=== PATIENT | female | born 1960 ===

== ENCOUNTER 2016-08-27 09:47 | Day surgery (SDC) | payer OTHER ==
[2016-08-26 12:19] VITALS: BMI 29.8
[2016-08-27] MEDS ORDERED: Bacitracin Ointment 30 GM TUBE ONE (10:29)
[2016-08-27] MEDS ORDERED: ceFAZolin IV 1 gm in Dextrose 50 ML IVPB ONE ×2 (10:30→11:13)
[2016-08-27] MEDS ORDERED: Absorbable Gelatin Sponge Size 12-7 ONE (10:30)
[2016-08-27] MEDS ORDERED: Rocuronium 10 mg/ml (5 ml) ONE (11:14)
[2016-08-27] MEDS ORDERED: Midazolam 2 MG/2 ML VIAL ONE (11:14)
[2016-08-27] MEDS ORDERED: Propofol 10 mg/ml Inj (20 ML) ONE (11:14)
[2016-08-27] MEDS ORDERED: Lactated Ringer's 1,000 ML IV ONE ×4 (11:15→16:00)
--- NOTE | 2016-08-27 15:44 | PCM.SURG1 ---
Surgeon's Initial Post Op Note - Surgeon's Notes Surgeon: Dr. Conchita M.D. Heavy Equipment Service Manager: Dr. Horn PGY-2 Type of Anesthesia: General Endo Pre-Operative Diagnosis: absent bilateral breast s/p mastectomy Operative Findings: see operative report Post-Operative Diagnosis: absent bilateral breast s/p mastectomy Operation Performed: Bilateral breast implant insertion, extensive bilateral breast revision, scar revision, breast capsulectomy, capsulotomy Specimen/Specimens Removed: breast capsule, bilateral breast tissue expanders Estimated Blood Loss: EBL {In ML}: 100 Blood Products Given: N/A Drains Used: Dejon (Right and left) Post-Op Condition: Good Date of Surgery/Procedure: 08/27/16 Time of Surgery/Procedure: 11:00
[2016-08-27] MEDS: HYDROmorphone 0.5 mg/0.5 ml ISec IVP PRN ×3 (15:47→16:55)
[2016-08-27] MEDS ORDERED: Oxycodone/Acetaminophen 5/325 mg Tab PO PRN (15:49)
[2016-08-27 18:36] VITALS: TEMP 97.4; O2SAT 99
[2016-08-27 18:49] VITALS: BP 105/68; PULSE 99; RESP 18
--- NOTE | 2016-08-29 22:08 | OP ---
PROCEDURE DATE: 08/27/2016 SURGEON: Renée Arango M.D. SCHOOL COOK: Dr. Hui Horn. PREOPERATIVE DIAGNOSIS: Bilateral absent breasts with history of breast cancer , lobular invasive. POSTOPERATIVE DIAGNOSIS: Bilateral absent breasts with history of breast cancer , lobular invasive. ANESTHESIA: General endotracheal anesthesia. PROCEDURE: Removal of tissue proofing machine operator, placement of bilateral permanent breast implants, extensive breast reconstruction, revision of the left side with raising of the inframammary fold, closure of the lateral capsule, extensive undermining and bilateral capsulectomies of both cavities, removal of excess lateral fat and skin tissue from the right side. ESTIMATED BLOOD LOSS: 150 mL. IMPLANTS: 500 cc Silicone implants were inserted. On the right side, reference #[id number] implant was inserted. On the left side #[id number] implant was inserted. COUNT: Lap, sponge and needle count were correct at the end of the case. CONDITION: The patient was stable upon discharge to recovery. INDICATIONS FOR SURGERY: The patient is a 56-year-old female who initially underwent a breast reduction when she was found to have invasive lobular carcinoma to both breasts. She underwent mastectomy with tissue proofing machine operator placement. She underwent chemo and radiation is now here for her second stage breast reconstruction. Preoperatively, she was marked with the patient standing. The inframammary fold was noted to be 2 cm lower on the right side compared to the left. This was marked with respect to the chest wall and with respect to the sternal notch as a reference. She was then brought into the operating room and laid supine on the operating room table. Once general anesthesia was induced, the patient's chest was prepped and draped in the usual sterile fashion. Beginning with the right side, a lower midline incision was used where the previous wide pattern breast reduction incision was made. This allowed for easy access to the inferior aspect of the capsule which needed to be raised 2 cm. Using electrocautery and a lighted retractor the dorsal capsule was scored significantly and portions of the capsule were actually removed in order to allow for the chest skin fascial flap to expand. Her pectoralis minor muscle was densely adhered to the pectoralis major muscle and the 2 muscles needed to be and the pectoralis minor re-tacked down to the chest wall. The same occurred on the left side when this was explored, although the left side did not require revision or repositioning of the inframammary fold. Then 500 mL implants sizers were used which filled out the pocket well. Additional scoring was done in the midline for the T vertical incision where scar tissue again prevented natural stretch over the implant. The lateral aspect of the left capsule was excised and a crescent 2 cm at its width and 9 cm long along the lateral border. This was closed using 2-0 PDS in a running cuticular manner. Again, the sizes were replaced and the patient was placed in a sitting position to check for symmetry as well as volume. Additional scoring of the capsule was performed until both sides were satisfactory. The inframammary fold was likewise elevated to the same size. Laterally on the left side, there was significant tethering of the lateral skin fold and this was excised as a separate incision, leaving a 2 cm area of the inframammary fold incision that was intact. The separate incision was mostly fat and subcutaneous tissue, but was removed as a separate incision. Finally 500 mL Natrelle silicone filled breast implants were placed into each of the breast after the pockets were irrigated copiously with normal saline and fresh towel was placed at the site. Then 2 RUDOLPH drains 19-Czech were placed exiting out laterally along the chest wall. The capsule was then closed using 2-0 Vicryl followed by 3-0 Monocryl to the deep dermis and lastly 4-0 Monocryl running subcuticular. On the left lateral chest wall the separate incision which was 4 cm in length was closed with 2-0 Vicryl to the fascia followed by 3- 0 Monocryl to the deep dermis and 4-0 Monocryl running subcuticular. All incisions were then covered with Dermabond. The drains were stitched in place with 3-0 nylon. The patient tolerated the procedure well. She was placed in a bra with fluffs and antibiotic cap around the drain site. She was extubated on the table, transferred to a stretcher and brought to recovery in stable condition. Renée Arango MD cc: [id number] TT: 08/29/2016 22:08:05 jn XU
== END 2016-08-27 18:50 | disposition home or self-care (01) ==
LOC: C.SDS 09:47
PROVIDERS: ATTEND Plastic Surgery Surgery of the Hand
DX: C50.112 Malignant neoplasm of central portion of left female breast (principal); C50.111 Malignant neoplasm of central portion of right female breast
CPT/HCPCS: 19340; 19371; 82948; 88305; 88307; J0131; J0690; J1170; J2001; J2250; J2405; J2704; J3010; J7030; J7120; P9047

== ENCOUNTER 2016-09-12 15:40 | Emergency (ER) | payer OTHER ==
[2016-09-12 15:45] VITALS: BMI 28.2
--- NOTE | 2016-09-12 16:23 | C.PDOC ---
History Of Present Illness 56-year-old female, PMHx includes Breast CA, s/p mastectomy 11/04. Pt had breast implants placed last month, and notes that at 14:00 today, she developed sudden onset blood and water drainage from right incision site, prompting visit. Denies fevers, abdominal pain, nausea/vomiting, shortness of breath, dizziness, weakness, or any other associated symptoms. No other complaints at this time. Time Seen by Provider: 09/12/16 15:58 Chief Complaint (Nursing): Abnormal Skin Integrity History Per: Patient History/Exam Limitations: no limitations Current Symptoms Are (Timing): Still Present Recent travel outside of the [place]: No Past Medical History Reviewed: Historical Data, Nursing Documentation, Vital Signs Vital Signs: Last Vital Signs Temp 98.5 F 09/12/16 17:55 Pulse 74 09/12/16 17:55 Resp 15 09/12/16 17:55 BP 108/71 09/12/16 17:55 Pulse Ox 95 09/12/16 17:55 - Medical History PMH: Anemia, Anxiety, Asthma, Depression, Gastritis, HTN, Hypercholesterolemia, Malignancy (breast ca), Migraine, Osteoporosis, Peripheral Edema, Sleep Apnea ( USES CPAP) Denies: Chronic Kidney Disease Surgical History: Endoscopy - [facility] Procedures LAPAROSCOPIC VERTICAL (SLEEVE) GASTRECTOMY (08/24/13) Family History: States: No Known Family Hx - Social History Hx Tobacco Use: No Hx Alcohol Use: No Hx Substance Use: No - Immunization History Hx Tetanus Toxoid Vaccination: Yes Hx Influenza Vaccination: Yes Hx Pneumococcal Vaccination: Yes Review Of Systems Except As Marked, All Systems Reviewed And Found Negative. Constitutional: Negative for: Fever Respiratory: Negative for: Shortness of Breath Gastrointestinal: Negative for: Nausea, Vomiting Genitourinary: Negative for: Vaginal Discharge, Vaginal Bleeding Musculoskeletal: Negative for: Back Pain Skin: Negative for: Rash Neurological: Negative for: Weakness, Numbness, Headache, Dizziness Physical Exam - Physical Exam Appears: Well, Non-toxic, No Acute Distress Skin: Normal Color, Warm, Dry, No Rash Head: Atraumatic, Normacephalic Eye(s): bilateral: Normal Inspection, PERRL, EOMI Nose: Normal Oral Mucosa: Moist Lips: Normal Appearing Neck: Normal ROM, Supple Lymphatic: Normal Exam Chest: Symmetrical, Other (serosanguinous drainage at incision site in right axilla. No erythema/tendernesss/swelling) Cardiovascular: Rhythm Regular, No Friction Rub, No Murmur Respiratory: Normal Breath Sounds, No Accessory Muscle Use, No Rales, No Rhonchi , No Wheezing Gastrointestinal/Abdominal: Soft, No Tenderness Back: Normal Inspection, No CVA Tenderness Extremity: Normal ROM, No Swelling Neurological/Psych: Oriented x3, Normal Speech, Normal Motor Gait: Steady ED Course And Treatment - Laboratory Results Result Diagrams: 09/12/16 17:03 09/12/16 17:03 O2 Sat by Pulse Oximetry: 96 (on RA) Pulse Ox Interpretation: Normal Medical Decision Making Medical Decision Making: The case was discussed with Dr. Arango (surgeon) who reports that the wound had a seroma, and was fluid filled. Most likely the seroma opened and starting draining blood and water. Dr. Arango states the patient is safe for discharge as there no evidence of cellulitis. Disposition - Disposition Referrals: Renée Arango MD [Staff Provider] - Disposition: HOME/ ROUTINE Disposition Time: 17:37 Condition: GOOD Additional Instructions: Follow up with the medical doctor within 1-2 days. Return of worsened. Prescriptions: Amoxicillin/Clavulanate [Augmentin 875 MG-125 MG] 1 tab PO BID #14 tab Acetaminophen [Tylenol] 325 mg PO Q6 PRN #30 tab PRN Reason: Pain, Mild (1-3) traMADol [Ultram] 50 mg PO Q6 PRN #15 tab PRN Reason: Pain Instructions: Hematoma (ED) Forms: General Discharge Instructions - Clinical Impression Clinical Impression: Seroma - Scribe Statement The provider has reviewed the documentation as recorded by the Jessica Dueñas All medical record entries made by the Pearlibmargaret were at my direction and personally dictated by me. I have reviewed the chart and agree that the record accurately reflects my personal performance of the history, physical exam, medical decision making, and the department course for this patient. I have also personally directed, reviewed, and agree with the discharge instructions and disposition.
[2016-09-12 17:14] LABS: BASO % 0.8 % (0.0-2.0); EOS # 0.3 K/uL (0.0-0.7); EOS % 4.7 % (0.0-4.0); HEMATOCRIT 31.4 % (34.0-47.0); LYMPH % 14.7 % (20.0-40.0); MEAN CORPUSCULAR HEMOGLOBIN 29.5 pg (27.0-31.0); MEAN CORPUSCULAR HGB CONC 33.7 g/dL (33.0-37.0); MEAN PLATELET VOLUME 6.9 fL (7.2-11.7); MONO # 0.8 K/uL (0.0-0.8); MONO % 12.9 % (0.0-10.0); RED CELL DISTRIBUTION WIDTH 14.8 % (11.5-14.5); WHITE BLOOD COUNT 6.5 K/uL (4.8-10.8)
[2016-09-12 17:16] LABS: MEAN CELL VOLUME 87.3 fL (81.0-99.0)
[2016-09-12 17:18] LABS: CHLORIDE 100 mmol/L (98-107); POTASSIUM 3.8 mmol/L (3.6-5.2); SODIUM 138 mmol/L (132-148)
[2016-09-12 17:20] LABS: GFR AFRICAN-AMERICAN > 60
[2016-09-12 17:21] LABS: BLOOD UREA NITROGEN 21 mg/dL (7-17); CALCIUM 8.6 mg/dl (8.6-10.4); CARBON DIOXIDE 28 mmol/L (22-30); GLUCOSE,RANDOM 96 mg/dL (65-105)
[2016-09-12 18:13] VITALS: BP 108/71; PULSE 74; RESP 15; TEMP 98.5
[2016-09-13 09:39] VITALS: O2SAT 96
== END 2016-09-12 18:12 | disposition home or self-care (01) ==
LOC: C.ER 15:40
DX: L76.34 Postprocedural seroma of skin and subcutaneous tissue following other procedure (principal); Y83.8 Other surgical procedures as the cause of abnormal reaction of the patient, or of later complication, without mention of misadventure at the time of the procedure

== ENCOUNTER 2016-10-03 11:25 | Inpatient (IN) | payer OTHER ==
[2016-10-03 11:44] VITALS: BMI 28.7
[2016-10-03 13:40] LABS: BASO % 0.5 % (0.0-2.0); EOS # 0.2 K/uL (0.0-0.7); EOS % 2.3 % (0.0-4.0); HEMATOCRIT 31.2 % (34.0-47.0); LYMPH # 0.9 K/uL (1.0-4.3); LYMPH % 11.6 % (20.0-40.0); MEAN CELL VOLUME 88.4 fL (81.0-99.0); MEAN CORPUSCULAR HGB CONC 32.9 g/dL (33.0-37.0); MEAN PLATELET VOLUME 7.2 fL (7.2-11.7); MONO # 0.8 K/uL (0.0-0.8); MONO % 10.4 % (0.0-10.0); NRBC % 0.1 % (0.0-2.0); RED CELL DISTRIBUTION WIDTH 14.7 % (11.5-14.5); WHITE BLOOD COUNT 7.8 K/uL (4.8-10.8)
[2016-10-03 13:54] LABS: CHLORIDE 97 mmol/L (98-107); POTASSIUM 4.3 mmol/L (3.6-5.2); SODIUM 133 mmol/L (132-148)
[2016-10-03 13:56] LABS: BILIRUBIN,TOTAL 0.1 mg/dL (0.2-1.3); GFR AFRICAN-AMERICAN > 60
[2016-10-03 13:57] LABS: ALB/GLOB RATIO 1.2 (1.0-2.1); ALKALINE PHOSPHATASE 56 U/L (38-126); ALT/SGPT 20 U/L (9-52); AST/SGOT 21 U/L (14-36); BLOOD UREA NITROGEN 18 mg/dL (7-17); CARBON DIOXIDE 25 mmol/L (22-30); GLUCOSE,RANDOM 93 mg/dL (65-105); TOTAL PROTEIN 6.8 g/dL (6.3-8.3)
[2016-10-03 13:58] LABS: CALCIUM 8.6 mg/dl (8.6-10.4)
--- NOTE | 2016-10-03 14:49 | C.PDOC ---
History Of Present Illness 56-year-old female presents to the emergency department with complaints of drainage from B/L breasts (L>R). She states this has been happening since her most recent reconstructive surgery; done by plastics Dr Arango. Patient given several rounds of Keflex by PMD, without improvement. Has not seen Dr. Arango this month. Patient denies fevers/chills, shortness of breath, chest pain, nausea/vomiting/diarrhea. No other complaints at this time. Time Seen by Provider: 10/03/16 12:05 Chief Complaint (Nursing): Breast Problem History Per: Patient History/Exam Limitations: no limitations Onset/Duration Of Symptoms: Days Current Symptoms Are (Timing): Still Present Severity: Moderate Past Medical History Reviewed: Historical Data, Nursing Documentation, Vital Signs Vital Signs: Last Vital Signs Temp 98.4 F 10/08/16 22:00 Pulse 82 10/08/16 22:00 Resp 16 10/08/16 22:00 BP 106/68 10/08/16 22:00 Pulse Ox 93 L 10/08/16 15:00 - Medical History PMH: Anemia, Anxiety, Asthma, Depression, Gastritis, HTN, Hypercholesterolemia, Malignancy (breast ca), Migraine, Osteoporosis, Peripheral Edema, Sleep Apnea ( USES CPAP) Surgical History: Endoscopy - [facility] Procedures LAPAROSCOPIC VERTICAL (SLEEVE) GASTRECTOMY (08/24/13) Family History: States: No Known Family Hx - Social History Hx Tobacco Use: No Hx Alcohol Use: No Hx Substance Use: No - Immunization History Hx Tetanus Toxoid Vaccination: Yes Hx Influenza Vaccination: Yes Hx Pneumococcal Vaccination: Yes Review Of Systems Except As Marked, All Systems Reviewed And Found Negative. Constitutional: Negative for: Fever, Chills Cardiovascular: Negative for: Chest Pain, Palpitations Respiratory: Negative for: Cough, Shortness of Breath, Hemoptysis Gastrointestinal: Negative for: Nausea, Vomiting Skin: Positive for: Other (discharge from B/L breasts L>R). Negative for: Rash Neurological: Negative for: Weakness, Numbness Physical Exam - Physical Exam Appears: Well, Non-toxic, No Acute Distress Skin: Warm, Dry, No Rash Head: Normacephalic Eye(s): bilateral: Normal Inspection Oral Mucosa: Moist Neck: Normal, Normal ROM Cardiovascular: Rhythm Regular, Other (Left breast: 0.5cm opening and wound dehiscence with small amount of white serous discharge and mild surrounding erythema to the inferior aspect. Right Breast:? protruding plastic suture to the lateral aspect. No erythema.) Respiratory: Normal Breath Sounds, No Accessory Muscle Use, No Rales, No Rhonchi , No Wheezing Gastrointestinal/Abdominal: Normal Exam, Bowel Sounds, Soft, No Tenderness Extremity: Normal ROM Neurological/Psych: Oriented x3 ED Course And Treatment - Laboratory Results Result Diagrams: 10/08/16 11:24 10/08/16 11:24 O2 Sat by Pulse Oximetry: 98 (RA) Pulse Ox Interpretation: Normal Progress Note: Blood work, and wound/blood cultures ordered and reviewed. Patient given 1 dose of IV Vancomycin. - Physician Consult Information Physician Contacted: Amanda Mixon Outcome Of Conversation: Discussed patient with hospitalist, she agrees with admission for breast wound dehisence, post op wound infection, failure of outpatient antibiitocs. She requests breast US - ordered, and their service esteban follow results. Call placed to plastics Dr. Arango, pending call back - consult entered. Disposition Counseled Patient/Family Regarding: Diagnosis - Disposition Disposition: HOSPITALIZED Disposition Time: 18:31 Condition: STABLE - Clinical Impression Clinical Impression: Postoperative wound infection, Postoperative wound dehiscence, Failure of outpatient treatment - Scribe Statement The provider has reviewed the documentation as recorded by the Scribmargaret Dueñas All medical record entries made by the Scribe were at my direction and personally dictated by me. I have reviewed the chart and agree that the record accurately reflects my personal performance of the history, physical exam, medical decision making, and the department course for this patient. I have also personally directed, reviewed, and agree with the discharge instructions and disposition. Decision To Admit - Pt Status Changed To: Hospital Disposition Of: Inpatient - Admit Certification Admit to Inpatient:: After my assessment, the patient will require hospitalization for at least two midnights. This is because of the severity of symptoms shown, intensity of services needed, and/or the medical risk in this patient being treated as an outpatient. - InPatient: Physician Admission Certification: I certify that this patient requires 2 or more midnights of care for the following reason:: see notes - . Bed Request Type: Regular Admitting Physician: Amanda Mixon Patient Diagnosis: Postoperative wound infection, Postoperative wound dehiscence, Failure of outpatient treatment
[2016-10-03] MEDS ORDERED: Sodium Chloride 0.9% 500 ML IV ONE ×2 (18:23→19:36)
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
[2016-10-03] MEDS: (Novolog) Insulin Aspart, Recombinant 100 u/ml 10 ml vial SC SCH (22:33)
[2016-10-04 07:16] LABS: BASO % 0.7 % (0.0-2.0); EOS # 0.2 K/uL (0.0-0.7); EOS % 3.1 % (0.0-4.0); HEMATOCRIT 30.7 % (34.0-47.0); LYMPH # 0.8 K/uL (1.0-4.3); MEAN CORPUSCULAR HEMOGLOBIN 28.8 pg (27.0-31.0); MEAN CORPUSCULAR HGB CONC 32.7 g/dL (33.0-37.0); MEAN PLATELET VOLUME 7.3 fL (7.2-11.7); MONO # 0.7 K/uL (0.0-0.8); MONO % 11.3 % (0.0-10.0); RED CELL DISTRIBUTION WIDTH 14.3 % (11.5-14.5); WHITE BLOOD COUNT 6.1 K/uL (4.8-10.8)
[2016-10-04 07:35] LABS: CHLORIDE 101 mmol/L (98-107)
[2016-10-04] MEDS: (Novolog) Insulin Aspart, Recombinant 100 u/ml 10 ml vial SC SCH ×4 (07:35→21:18)
[2016-10-04 07:36] LABS: POTASSIUM 4.1 mmol/L (3.6-5.2); SODIUM 135 mmol/L (132-148)
[2016-10-04 07:37] LABS: GFR AFRICAN-AMERICAN > 60
[2016-10-04 07:38] LABS: ALB/GLOB RATIO 1.1 (1.0-2.1); ALKALINE PHOSPHATASE 52 U/L (38-126); ALT/SGPT 18 U/L (9-52); AST/SGOT 19 U/L (14-36); BILIRUBIN,TOTAL 0.6 mg/dL (0.2-1.3); BLOOD UREA NITROGEN 17 mg/dL (7-17); CARBON DIOXIDE 27 mmol/L (22-30); GLUCOSE,RANDOM 97 mg/dL (65-105); PHOSPHOROUS 3.6 mg/dL (2.5-4.5); TOTAL PROTEIN 6.4 g/dL (6.3-8.3)
[2016-10-04 07:39] LABS: CALCIUM 8.4 mg/dl (8.6-10.4); MAGNESIUM 2.1 mg/dL (1.6-2.3)
[2016-10-04 08:09] LABS: THYROID STIMULATING HORMONE 2.12 mIU/L (0.46-4.68)
--- NOTE | 2016-10-04 09:13 | RAD ---
HISTORY: baseline in case patient goes to OR COMPARISON: Comparison is made to the previous study dated 02/26/2016 FINDINGS: LUNGS: No active pulmonary disease. PLEURA: No significant pleural effusion identified, no pneumothorax apparent. CARDIOVASCULAR: Normal. OSSEOUS STRUCTURES: No significant abnormalities. VISUALIZED UPPER ABDOMEN: Normal. OTHER FINDINGS: Right-sided Infusaport is again seen in place. IMPRESSION: No active disease.
[2016-10-04] MEDS ORDERED: Dextrose 5%/0.45% NS 1,000 ML IV SCH (09:15)
--- NOTE | 2016-10-04 09:18 | CP.PCM.PN ---
Subjective - Date & Time of Evaluation Date of Evaluation: 10/04/16 Time of Evaluation: 09:15 - Subjective Subjective: Medical Attending Note Follow-up: Bilateral breast wound dehiscence, History of bilateral lobular carcinoma (On Chemo/Radiation), Hypertension, Diabetes, Insomnia, and Anxiety Patient seen, examined this morning. Patient reporting discharge over the right breast and left breast. No blood observed. Patient denies fever, denies chills, denies shortness of breathe, denies nausea, denies vomiting, denies abdominal pain, denies dysuria, denies urinary frequency. Patient reports her breast surgeon is on vacation in [place] and on vacation until next week. Patient has peripheral IV access over the right lower extremity. Objective - Vital Signs/Intake and Output Vital Signs (last 24 hours): Temp Pulse Resp BP Pulse Ox 98.2 F 81 20 105/68 95 10/04/16 07:58 10/04/16 07:58 10/04/16 07:58 10/04/16 07:58 10/04/16 07:58 Intake and Output: 10/04/16 10/04/16 06:59 18:59 Intake Total 0 Balance 0 - Medications Medications: Current Medications Dextrose/Sodium Chloride (Dextrose 5%/0.45% Ns 1000 Ml) 1,000 mls @ 100 mls/hr IV .Q10H [facility] Insulin Aspart (Novolog) 0 unit SC ACHS [facility] PRN Reason: Protocol Last Admin: 10/04/16 07:35 Dose: Not Given Morphine Sulfate (Morphine) 1 mg IVP Q4 PRN PRN Reason: Pain, moderate (4-7) Last Admin: 10/04/16 07:36 Dose: 1 mg Pantoprazole Sodium (Protonix Ec Tab) 40 mg PO DAILY [facility] Risperidone (Risperdal Tab) 1 mg PO DAILY [facility] Last Admin: 10/03/16 22:30 Dose: 1 mg Sertraline HCl (Zoloft) 100 mg PO DAILY [facility] Last Admin: 10/03/16 22:30 Dose: 100 mg - Labs Labs: 10/04/16 07:07 - Constitutional Appears: Non-toxic, No Acute Distress - Head Exam Head Exam: NORMAL INSPECTION - Eye Exam Eye Exam: EOMI - ENT Exam ENT Exam: Mucous Membranes Moist - Respiratory Exam Respiratory Exam: Clear to Ausculation Bilateral, NORMAL BREATHING PATTERN. absent: Rales, Rhonchi, Wheezes - Cardiovascular Exam Cardiovascular Exam: REGULAR RHYTHM, +S1, +S2 - GI/Abdominal Exam GI & Abdominal Exam: Soft, Normal Bowel Sounds. absent: Distended, Firm, Guarding, Rigid, Tenderness, Rebound - Extremities Exam Extremities Exam: absent: Pedal Edema, Tenderness - Neurological Exam Neurological Exam: Alert, Awake, Oriented x3 - Skin Skin Exam: Dry, Normal Color, Warm - Additional Findings Additional findings: Breasts Right breast: no nipple discharge at 7 oclock, clear/white discharge observed and some seperation observed Left breast: noted surgical scar over left breast and mild dehiscence under breast 6'oclock Assessment and Plan (1) Wound dehiscence Assessment & Plan: Bilateral breast wound dehiscence * History invasive breast cancer on chemo/radiation * s/p bilateral breast implant insertion, extensive bilateral breast revision, scar revision, breast capsulectomy, capsulotomy done 08/27/[address] Arango * f/u blood culture and wound culture of breast discharge * patient was given 1 dose vancomycin in ER * Morphine 1mg IVP Q4 PRN pain * f/u breast u/s-->pending report * Dr. Arango pastic surgeon consulted- f/u recommendations * Ordered for baseline EKG, coagulations Status: Acute (2) Invasive carcinoma of breast Assessment & Plan: Invasive bilateral Lobular Carcinoma of breast * Patient receives chemotherapy every week - 18 rounds left * Patient receives radiation every week - 22 rounds left * Morphine 1mg IVP Q4 PRN pain * Dr. Larry Garcia (heme-onc) consulted- f/u reccs * Port a cath over right breast (about one year duration) Status: Chronic (3) DM type 2 (diabetes mellitus, type 2) Assessment & Plan: Hx of DM tpe 2 * Accuchecks QAC and HS * low dose RISS * Started on D51/2 NS 75 cc/hr to prevent hypoglycemia pending if patient require intervention Status: Chronic (4) Hypertension Assessment & Plan: held anti-hypertensives D51/2NS 75 cc/hr Status: Chronic (5) Prophylactic measure Assessment & Plan: NPO IV fluids: D51/2NS 75 cc/hr Protonix 40mg PO daily for GI Ppx Held anticoagulation for possible OR today pending surgeon recommendations SCDS ordered Status: Acute
[2016-10-04] MEDS: Pantoprazole 40 mg EC Tab PO SCH (10:37)
--- NOTE | 2016-10-04 11:56 | US ---
PROCEDURE: Limited emergent ultrasound examination of the breast bilaterally HISTORY: evaluate for possible abscess COMPARISON: No prior similar study available for comparison. TECHNIQUE: Limited ultrasound examination of both breasts was performed as requested by emergency room to evaluate for abscess formation. FINDINGS: The patient is status post bilateral breast implants. At right breast 8- 9 o'clock position there is a complex collection measures 2.7 x 1 x 2.3 centimeter. At 4 o'clock position on the right breast also there is collection measures 1.4 x 0.7 x 1.1 centimeter. At the left breast 6 o'clock position there is complex collection measures 0.8 x 0.3 x 1.1 centimeter. IMPRESSION: Bilateral complex fluid collection adjacent to the breast implants as described above. The possibility of abscess formation cannot be totally excluded. Close follow-up reassessment is recommended. Surgical consultation is also recommended for the possibility of implant lymph aeration or drainage of the fluid collections. BI-RADS 2 benign. Preliminary report was submitted by [facility].
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
--- NOTE | 2016-10-04 14:06 | CP.PCM.PCO ---
Physician Communication Note - Physician Communication Note Physician Communication Note: Patient came to ER last night because of leaking and was admitted Assessment/Plan - Assessment and Plan (Free Text) Assessment: She says she was told she has an infection. She missed her office visit because she was unable to get a ride to the office. She is currently on no antibiotics. however I had given her a prescription for Augmentin on the last visit because of the seroma for precaution even though there was no cellulitis. Cultures were taken of the left breast yesterday which has gram positive cocci. U/S shows fluid collections PE: There is a 2 x 2mm opening on the lateral chest on the right, no opening to the IMF incision. On the left, there is a 2 mm x 3mm opening with alloderm exposed at the midline IMF incision. There is no cellulitis to either best. There is excess skin and fat with significant edema to both lateral chest wall area as there was after the initial mastectomy. Assessment: 56 year old female who underwent stage 2 of her breast reconstruction 1 month ago with persistent seroma accumulation to the subcutaneous breast and lateral chest wall pockets. There is no cellulitis. Plan: No plan for surgery emergently as there is no exposure of the implants. Will treat with antibiotics because of the open wound, seroma and location of implant. Will redo cultures of the seroma fluid as I suspect the first one is a skin julio césar contaminant. Wound VAC will be placed while in the hospital and convert to out patient VAC on Thursday. A surgical bra will be ordered. We discussed together with her son the need for compression to minimize the risk for seroma re-accumulation. The seroma may be reaccumulating because of the lymph node dissection changed in drainage. She had significant lymphedema to both lateral chest ruiz after the initial surgery which never completely resolved. She has lymphodystrophy to both chest ruiz but they could not be addressed at the time of the implant exchange completely because it extends onto her upper back. Because of complaints of chest wall pain, she underwent a c and t spine MRI which shows disc compression. The T spine compression may be the cause of the side chest wall pain. She will be set up with pain management as out patient in order to have spinal injections. If pain management is available as in patient, will order consult.
[2016-10-04] MEDS: Piperacill/Tazo 3.375gm in Dex 3.375 GM/50 ML BAG IVPB SCH ×2 (14:56→21:06)
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
[2016-10-04] MEDS: Budesonide 0.25 mg/2 ml Inhal Susp UD INH SCH (19:18)
[2016-10-05] MEDS: Piperacill/Tazo 3.375gm in Dex 3.375 GM/50 ML BAG IVPB SCH ×2 (02:05→10:51)
[2016-10-05 07:09] LABS: BASO % 0.5 % (0.0-2.0); EOS # 0.1 K/uL (0.0-0.7); EOS % 2.2 % (0.0-4.0); LYMPH % 15.8 % (20.0-40.0); MEAN CORPUSCULAR HEMOGLOBIN 28.9 pg (27.0-31.0); MEAN CORPUSCULAR HGB CONC 32.8 g/dL (33.0-37.0); MEAN PLATELET VOLUME 7.3 fL (7.2-11.7); MONO # 0.8 K/uL (0.0-0.8); RED CELL DISTRIBUTION WIDTH 14.3 % (11.5-14.5); WHITE BLOOD COUNT 6.7 K/uL (4.8-10.8)
[2016-10-05 07:17] LABS: CHLORIDE 100 mmol/L (98-107); SODIUM 135 mmol/L (132-148)
[2016-10-05 07:18] LABS: POTASSIUM 3.9 mmol/L (3.6-5.2)
[2016-10-05 07:20] LABS: ALB/GLOB RATIO 1.1 (1.0-2.1); ALKALINE PHOSPHATASE 51 U/L (38-126); ALT/SGPT 24 U/L (9-52); AST/SGOT 17 U/L (14-36); BILIRUBIN,TOTAL 0.1 mg/dL (0.2-1.3); BLOOD UREA NITROGEN 15 mg/dL (7-17); CALCIUM 8.8 mg/dl (8.6-10.4); CARBON DIOXIDE 27 mmol/L (22-30); GFR AFRICAN-AMERICAN > 60; GLUCOSE,RANDOM 107 mg/dL (65-105); PHOSPHOROUS 3.8 mg/dL (2.5-4.5); TOTAL PROTEIN 6.4 g/dL (6.3-8.3)
[2016-10-05 07:21] LABS: MAGNESIUM 1.8 mg/dL (1.6-2.3)
[2016-10-05] MEDS: (Novolog) Insulin Aspart, Recombinant 100 u/ml 10 ml vial SC SCH ×4 (07:44→23:41)
[2016-10-05] MEDS: Budesonide 0.25 mg/2 ml Inhal Susp UD INH SCH ×2 (08:18→20:20)
[2016-10-05] MEDS: Albuterol-Ipratrop 3 mg / 0.5 (3 ml) UD INH PRN ×2 (08:18→20:20)
[2016-10-05] MEDS: Pantoprazole 40 mg EC Tab PO SCH (11:27)
--- NOTE | 2016-10-05 11:28 | CP.PCM.PN ---
Subjective - Date & Time of Evaluation Date of Evaluation: 10/05/16 Time of Evaluation: 09:00 - Subjective Subjective: PLASTIC SURGERY PROGRESS NOTE FOR DR. CRUZ Patient seen and examined at bedside. She is wearing the surgical bra. She reports some mild pain and small amount of drainage. The wound vac which was ordered yesterday arrived this morning. Wound vac was placed on bilateral breast wounds and connected to suction with no leak. Repeat wound cx was taken from left breast. Objective - Vital Signs/Intake and Output Vital Signs (last 24 hours): Temp Pulse Resp BP Pulse Ox 98.1 F 83 20 121/85 96 10/05/16 08:06 10/05/16 08:06 10/05/16 08:06 10/05/16 08:06 10/05/16 08:06 Intake and Output: 10/05/16 10/05/16 06:59 18:59 Intake Total 230 Balance 230 - Medications Medications: Current Medications Albuterol/Ipratropium (Duoneb 3 Mg/0.5 Mg (3 Ml) Ud) 3 ml INH RQ6 PRN PRN Reason: Shortness of Breath Last Admin: 10/05/16 08:18 Dose: 3 ml Budesonide (Pulmicort Respules) 0.25 mg INH RQ12 [facility] Last Admin: 10/05/16 08:18 Dose: 0.25 mg Ciprofloxacin (Cipro 400mg/200ml Dsw) 400 mg in 200 mls @ 133 mls/hr IVPB Q12H [facility] Insulin Aspart (Novolog) 0 unit SC ACHS [facility] PRN Reason: Protocol Last Admin: 10/05/16 07:44 Dose: Not Given Morphine Sulfate (Morphine) 1 mg IVP Q4 PRN PRN Reason: Pain, moderate (4-7) Last Admin: 10/05/16 06:06 Dose: 1 mg Pantoprazole Sodium (Protonix Ec Tab) 40 mg PO DAILY [facility] Last Admin: 10/04/16 10:37 Dose: 40 mg Risperidone (Risperdal Tab) 1 mg PO HS [facility] Last Admin: 10/04/16 21:10 Dose: 1 mg Sertraline HCl (Zoloft) 100 mg PO HS [facility] Last Admin: 10/04/16 21:11 Dose: 100 mg - Labs Labs: 10/05/16 07:01 10/05/16 07:01 - Constitutional Appears: Non-toxic, No Acute Distress - Head Exam Head Exam: ATRAUMATIC, NORMAL INSPECTION - Eye Exam Eye Exam: EOMI, Normal appearance - Respiratory Exam Respiratory Exam: NORMAL BREATHING PATTERN. absent: Respiratory Distress - Cardiovascular Exam Cardiovascular Exam: +S1, +S2 - Neurological Exam Neurological Exam: Alert, Awake, Oriented x3 - Psychiatric Exam Psychiatric exam: Normal Affect, Normal Mood - Skin Skin Exam: Normal Color, Warm Additional comments: No erythema, tenderness, warmth on bilateral breasts Small amount of serous drainage Assessment and Plan - Assessment and Plan (Free Text) Assessment: 56yo F with PMHx of DM, HTN, invasive bilateral Lobular Carcinoma of breast s/p bilateral mastectomy and POD#39 of stage 2 surgery of breast reconstruction who has seroma accumulation to subcutaneous breast and lateral chest wall pockets - Afebrile, VSS - No leukocytosis - Breast US: bilateral complex fluid collection adjacent to breast implants - Patient has seroma, no implant exposed, no signs of cellulitis - Surgical bra in place - Wound vac placed on bilateral breasts, connected to suction with no leak - Repeat wound cx collected - Discussed plan with Dr. Conchita Horn PGY-2
--- NOTE | 2016-10-05 13:41 | CP.PCM.PN ---
<Alan Narvaez - Last Filed: 10/05/16 13:44> Subjective - Date & Time of Evaluation Date of Evaluation: 10/05/16 Time of Evaluation: 13:35 - Subjective Subjective: Med progress note. Attending: Dr. Mixon Pt seen and examined at bedside. No acute distress. No fevers overnight, vss. DC zosyn bc PCN resistant. Wound vac today, no plans for emergent sx.Denies fevers, chills, some breast pain, no sob, vomiting, diarrhea. Objective - Vital Signs/Intake and Output Vital Signs (last 24 hours): Temp Pulse Resp BP Pulse Ox 98.1 F 83 20 121/85 96 10/05/16 08:06 10/05/16 08:06 10/05/16 08:06 10/05/16 08:06 10/05/16 08:06 Intake and Output: 10/05/16 10/05/16 06:59 18:59 Intake Total 230 Balance 230 - Medications Medications: Current Medications Albuterol/Ipratropium (Duoneb 3 Mg/0.5 Mg (3 Ml) Ud) 3 ml INH RQ6 PRN PRN Reason: Shortness of Breath Last Admin: 10/05/16 08:18 Dose: 3 ml Budesonide (Pulmicort Respules) 0.25 mg INH RQ12 [facility] Last Admin: 10/05/16 08:18 Dose: 0.25 mg Ciprofloxacin (Cipro 400mg/200ml Dsw) 400 mg in 200 mls @ 133 mls/hr IVPB Q12H [facility] Insulin Aspart (Novolog) 0 unit SC ACHS [facility] PRN Reason: Protocol Last Admin: 10/05/16 12:30 Dose: Not Given Morphine Sulfate (Morphine) 1 mg IVP Q4 PRN PRN Reason: Pain, moderate (4-7) Last Admin: 10/05/16 11:25 Dose: 1 mg Pantoprazole Sodium (Protonix Ec Tab) 40 mg PO DAILY [facility] Last Admin: 10/05/16 11:27 Dose: 40 mg Risperidone (Risperdal Tab) 1 mg PO HS [facility] Last Admin: 10/04/16 21:10 Dose: 1 mg Sertraline HCl (Zoloft) 100 mg PO HS [facility] Last Admin: 10/04/16 21:11 Dose: 100 mg - Labs Labs: 10/05/16 07:01 10/05/16 07:01 - Constitutional Appears: Non-toxic, No Acute Distress - Head Exam Head Exam: ATRAUMATIC, NORMAL INSPECTION, NORMOCEPHALIC - Eye Exam Eye Exam: EOMI - ENT Exam ENT Exam: Mucous Membranes Moist - Neck Exam Neck Exam: Full ROM, Normal Inspection - Respiratory Exam Respiratory Exam: NORMAL BREATHING PATTERN. absent: Respiratory Distress - Cardiovascular Exam Cardiovascular Exam: +S1, +S2 - GI/Abdominal Exam GI & Abdominal Exam: Soft, Normal Bowel Sounds. absent: Tenderness - Extremities Exam Extremities Exam: Full ROM, Normal Inspection - Back Exam Back Exam: NORMAL INSPECTION - Neurological Exam Neurological Exam: Alert, Awake, Oriented x3 - Psychiatric Exam Psychiatric exam: Normal Affect, Normal Mood - Skin Additional comments: Breasts b/l mildly tender, no erythema, minimal to no drainage. No necrosis or abscess Assessment and Plan - Assessment and Plan (Free Text) Assessment: This is a 56 yo female with pmh dm, htn, hld, asthma, breast cancer presenting with Bilateral breast wound dehiscence * History invasive breast cancer on chemo/radiation * s/p bilateral breast implant insertion, extensive bilateral breast revision, scar revision, breast capsulectomy, capsulotomy done 08/27/[address] Arango * f/u blood culture and wound culture of breast discharge>>> blood neg, wound shows mrsa * patient was given 1 dose vancomycin in ER * Morphine 1mg IVP Q4 PRN pain * f/u breast u/s-->pending report * Dr. Arango pastic surgeon consulted- f/u recommendations * Ordered for baseline EKG, coagulations * DC zosyn * start pt on cipro (2) Invasive bilateral Lobular Carcinoma of breast * Patient receives chemotherapy every week - 18 rounds left * Patient receives radiation every week - 22 rounds left * Morphine 1mg IVP Q4 PRN pain * Dr. Larry Garcia (heme-onc) consulted- f/u recs * Port a cath over right breast (about one year duration) (3) Hx of DM tpe 2 * Accuchecks QAC and HS * low dose RISS (4) Hypertension continue to monitor (5) hx of asthma -pulmicort .25 mg q 12 -duonebs q 6 (6) Prophylactic measure protonix 40 daily CCD diet discussed with Dr. Mixon <Borker,Amanda V - Last Filed: 10/05/16 22:24> Objective - Vital Signs/Intake and Output Vital Signs (last 24 hours): Temp Pulse Resp BP Pulse Ox 98.4 F 87 20 118/76 95 10/05/16 17:19 10/05/16 17:19 10/05/16 17:19 10/05/16 17:19 10/05/16 17:19 Intake and Output: 10/05/16 10/06/16 18:59 06:59 Intake Total 200 Output Total 0 Balance 200 - Medications Medications: Current Medications Albuterol/Ipratropium (Duoneb 3 Mg/0.5 Mg (3 Ml) Ud) 3 ml INH RQ6 PRN PRN Reason: Shortness of Breath Last Admin: 10/05/16 20:20 Dose: 3 ml Budesonide (Pulmicort Respules) 0.25 mg INH RQ12 [facility] Last Admin: 10/05/16 20:20 Dose: Not Given Ciprofloxacin (Cipro 400mg/200ml Dsw) 400 mg in 200 mls @ 133 mls/hr IVPB Q12H [facility] Insulin Aspart (Novolog) 0 unit SC ACHS [facility] PRN Reason: Protocol Last Admin: 10/05/16 18:01 Dose: Not Given Morphine Sulfate (Morphine) 1 mg IVP Q4 PRN PRN Reason: Pain, moderate (4-7) Last Admin: 10/05/16 19:09 Dose: 1 mg Pantoprazole Sodium (Protonix Ec Tab) 40 mg PO DAILY [facility] Last Admin: 10/05/16 11:27 Dose: 40 mg Risperidone (Risperdal Tab) 1 mg PO HS [facility] Last Admin: 10/05/16 21:25 Dose: 1 mg Sertraline HCl (Zoloft) 100 mg PO HS [facility] Last Admin: 10/05/16 21:25 Dose: 100 mg - Labs Labs: 10/05/16 07:01 10/05/16 07:01 Assessment and Plan (1) Wound dehiscence Status: Acute (2) Invasive carcinoma of breast Status: Chronic (3) DM type 2 (diabetes mellitus, type 2) Status: Chronic (4) Hypertension Status: Chronic (5) Prophylactic measure Status: Acute Attending/Attestation - Attestation I have personally seen and examined this patient.: Yes I have fully participated in the care of the patient.: Yes I have reviewed all pertinent clinical information, including history, physical exam and plan: Yes Notes (Text): Patient seen, examined and case discussed with day-time resident. Patient denies acute complaints. Patient is on contact based initial wound culture. Patient ordered for stat dose of Vancomycin and started on IV Cipro based on wound culture TIO. Patient placed on wound vac per surgery today and recultured. Follow-up in regards to plans by surgery, Assessment and Plan (1) Seroma Assessment & Plan: Bilateral breast wound dehiscence * History invasive breast cancer on chemo/radiation * s/p bilateral breast implant insertion, extensive bilateral breast revision, scar revision, breast capsulectomy, capsulotomy done 08/27/[address] Arango * f/u blood culture and wound culture of breast discharge * patient was given 1 dose vancomycin in ER * Morphine 1mg IVP Q4 PRN pain * Breast US (10/04): bilateral complex fluid collection adjacent collection adjacent to the breast implants. Possibility of abscess ofmration cannot be totally excluded. Close follow-up reassessment is recommended. Surgical consultation recommended. Birads-2 * Per surgery, implants are not visualized, placed on wound vac today * Culture: Staph aureus resistant to oxacillin/zosyn-->given dose of Vancomycin and started on IV Cipro * Repeat culture pending Status: Acute (2) Invasive carcinoma of breast Assessment & Plan: Invasive bilateral Lobular Carcinoma of breast * Patient receives chemotherapy every week - 18 rounds left * Patient receives radiation every week - 22 rounds left * Morphine 1mg IVP Q4 PRN pain * Dr. Larry Garcia (heme-onc) consulted- f/u reccs * Port a cath over right breast (about one year duration) * Per Larry Garcia, to start tamoxifen Status: Chronic (3) Anemia Assessment & Plan: * Dr. Larry Garcia (heme-onc) on board * workup per heme-onc Status: Acute (4) DM type 2 (diabetes mellitus, type 2) Assessment & Plan: * Accuchecks QAC and HS * low dose RISS * Diabetic diet Status: Chronic (5) Hypertension Assessment & Plan: * held anti-hypertensives * monitor vital signs Status: Chronic (6) Depression Assessment & Plan: * Risperdal 1mg PO qHS * Zoloft 100mg PO HS (7) Prophylactic measure Assessment & Plan: * On diet * Protonix 40mg PO daily for GI Ppx * SCDS ordered * Heparin 5000 units subq 8hours for DVT ppx Status: Acute
[2016-10-06 07:08] LABS: BASO % 0.7 % (0.0-2.0); EOS # 0.2 K/uL (0.0-0.7); EOS % 2.7 % (0.0-4.0); HEMATOCRIT 30.7 % (34.0-47.0); LYMPH % 18.6 % (20.0-40.0); MEAN CELL VOLUME 87.9 fL (81.0-99.0); MEAN CORPUSCULAR HEMOGLOBIN 28.7 pg (27.0-31.0); MEAN CORPUSCULAR HGB CONC 32.6 g/dL (33.0-37.0); MEAN PLATELET VOLUME 6.9 fL (7.2-11.7); MONO # 0.6 K/uL (0.0-0.8); MONO % 11.5 % (0.0-10.0); RED CELL DISTRIBUTION WIDTH 14.4 % (11.5-14.5); WHITE BLOOD COUNT 5.5 K/uL (4.8-10.8)
[2016-10-06 07:36] LABS: CHLORIDE 99 mmol/L (98-107); SODIUM 134 mmol/L (132-148)
[2016-10-06 07:38] LABS: ALB/GLOB RATIO 1.1 (1.0-2.1); ALKALINE PHOSPHATASE 46 U/L (38-126); ALT/SGPT 13 U/L (9-52); AST/SGOT 19 U/L (14-36); BILIRUBIN,TOTAL 0.6 mg/dL (0.2-1.3); BLOOD UREA NITROGEN 12 mg/dL (7-17); CARBON DIOXIDE 26 mmol/L (22-30); GFR AFRICAN-AMERICAN > 60; GLUCOSE,RANDOM 100 mg/dL (65-105); TOTAL PROTEIN 6.7 g/dL (6.3-8.3)
[2016-10-06 07:39] LABS: CALCIUM 8.6 mg/dl (8.6-10.4); MAGNESIUM 1.9 mg/dL (1.6-2.3); PHOSPHOROUS 3.7 mg/dL (2.5-4.5)
[2016-10-06] MEDS: Budesonide 0.25 mg/2 ml Inhal Susp UD INH SCH ×2 (07:41→19:43)
[2016-10-06] MEDS: Albuterol-Ipratrop 3 mg / 0.5 (3 ml) UD INH PRN ×2 (07:41→19:43)
[2016-10-06] MEDS: (Novolog) Insulin Aspart, Recombinant 100 u/ml 10 ml vial SC SCH ×4 (08:59→22:08)
[2016-10-06] MEDS: Ciprofloxacin 400mg/200ml D5W 400 MG/200 ML BAG IVPB SCH ×2 (11:22→21:40)
[2016-10-06] MEDS: Pantoprazole 40 mg EC Tab PO SCH (11:30)
[2016-10-06] MEDS ORDERED: Oxycodone/Acetaminophen 5/325 mg Tab PO PRN (13:07)
--- NOTE | 2016-10-06 14:21 | CP.PCM.PCO ---
Physician Communication Note - Physician Communication Note Physician Communication Note: Patient with NPWT dressing in place Assessment/Plan - Assessment and Plan (Free Text) Assessment: Patient is doing well, repeat culture sing sterile technique of the serous fluid is negative so far for any organisms. The WBC count is within normal limits and was never elevated. Clinically, there is no cellulitis. Seroma is being treated with NPWT dressing. Plan: 56 year old female status post stage 2 breast reconstruction. She should wear the bar at all times She will be discharged with an out patient VAC system. VNS to change every 2-3 days. Follow up with me this week . Can give 1 more week of prophylactic antibiotics even though the implants is not exposed and there is no cellulitis or evidence of any deeper tissue infection. I anticipate she will need a NPWT dressing for 2 weeks maximum.
--- NOTE | 2016-10-06 17:57 | CP.PCM.PN ---
<Alan Narvaez - Last Filed: 10/06/16 17:57> Subjective - Date & Time of Evaluation Date of Evaluation: 10/06/16 Time of Evaluation: 17:55 - Subjective Subjective: Med progress note. Attending: Dr. Quiroz Pt seen and examined at bedside. No acute distress. Having some breast pain. Will need outpatient management and steroid injections. No plan for sx, on wound vac. Objective - Vital Signs/Intake and Output Vital Signs (last 24 hours): Temp Pulse Resp BP Pulse Ox 98 F 86 18 120/81 94 L 10/06/16 15:39 10/06/16 15:39 10/06/16 15:39 10/06/16 15:39 10/06/16 15:39 Intake and Output: 10/06/16 10/06/16 06:59 18:59 Intake Total 400 680 Output Total 0 3 Balance 400 677 - Medications Medications: Current Medications Albuterol/Ipratropium (Duoneb 3 Mg/0.5 Mg (3 Ml) Ud) 3 ml INH RQ6 PRN PRN Reason: Shortness of Breath Last Admin: 10/06/16 07:41 Dose: 3 ml Budesonide (Pulmicort Respules) 0.25 mg INH RQ12 [facility] Last Admin: 10/06/16 07:41 Dose: 0.25 mg Heparin Sodium (Porcine) (Heparin) 5,000 units SC Q8 [facility] Last Admin: 10/06/16 13:51 Dose: 5,000 units Ciprofloxacin (Cipro 400mg/200ml Dsw) 400 mg in 200 mls @ 133 mls/hr IVPB Q12H [facility] Last Admin: 10/06/16 11:22 Dose: 133 mls/hr Insulin Aspart (Novolog) 0 unit SC ACHS [facility] PRN Reason: Protocol Last Admin: 10/06/16 13:04 Dose: Not Given Morphine Sulfate (Morphine) 2 mg IVP Q3H PRN PRN Reason: Pain, moderate (4-7) Last Admin: 10/06/16 16:03 Dose: 2 mg Oxycodone/Acetaminophen (Percocet 5/325 Mg Tab) 2 tab PO Q6H PRN PRN Reason: severe pain Stop: 10/09/16 13:08 Pantoprazole Sodium (Protonix Ec Tab) 40 mg PO DAILY [facility] Last Admin: 10/06/16 11:30 Dose: 40 mg Risperidone (Risperdal Tab) 1 mg PO HS [facility] Last Admin: 10/05/16 21:25 Dose: 1 mg Sertraline HCl (Zoloft) 100 mg PO HS [facility] Last Admin: 10/05/16 21:25 Dose: 100 mg Tamoxifen Citrate (Nolvadex) 20 mg PO DAILY [facility] Last Admin: 10/06/16 11:18 Dose: 20 mg - Labs Labs: 10/06/16 07:00 10/06/16 07:00 - Constitutional Appears: Non-toxic, No Acute Distress - Head Exam Head Exam: ATRAUMATIC, NORMAL INSPECTION, NORMOCEPHALIC - ENT Exam ENT Exam: Mucous Membranes Moist - Neck Exam Neck Exam: Full ROM, Normal Inspection - Respiratory Exam Respiratory Exam: NORMAL BREATHING PATTERN. absent: Respiratory Distress - Cardiovascular Exam Cardiovascular Exam: +S1, +S2 - GI/Abdominal Exam GI & Abdominal Exam: Soft, Normal Bowel Sounds. absent: Tenderness - Extremities Exam Extremities Exam: Full ROM, Normal Inspection - Back Exam Back Exam: NORMAL INSPECTION - Neurological Exam Neurological Exam: Alert, Awake, Oriented x3 - Psychiatric Exam Psychiatric exam: Normal Affect, Normal Mood - Skin Additional comments: Wound vac on breasts Assessment and Plan - Assessment and Plan (Free Text) Assessment: This is a 56 yo female with pmh dm, htn, hld, asthma, breast cancer presenting with Bilateral breast wound dehiscence * History invasive breast cancer on chemo/radiation * s/p bilateral breast implant insertion, extensive bilateral breast revision, scar revision, breast capsulectomy, capsulotomy done 08/27/[address] Arango * f/u blood culture and wound culture of breast discharge>>> blood neg, wound shows mrsa, repeat wound neg * patient was given 1 dose vancomycin in ER * Morphine 2mg IVP Q3 PRN pain * f/u breast u/s-->shows seroma * Dr. Arango pastic surgeon consulted- f/u recommendations * Ordered for baseline EKG, coagulations * DC zosyn * start pt on cipro 400 q 12, continue * will add percocet * will be dc on outpatient wound vac (2) Invasive bilateral Lobular Carcinoma of breast * Patient receives chemotherapy every week - 18 rounds left * Patient receives radiation every week - 22 rounds left * Morphine 2mg IVP Q3 PRN pain * Dr. Larry Garcia (heme-onc) consulted- f/u recs * Port a cath over right breast (about one year duration) (3) Hx of DM tpe 2 * Accuchecks QAC and HS * low dose RISS (4) Hypertension continue to monitor (5) hx of asthma -pulmicort .25 mg q 12 -duonebs q 6 (6) Prophylactic measure protonix 40 daily CCD diet discussed with Dr. Quiroz <Enrique Quiroz H - Last Filed: 10/07/16 07:48> Objective - Vital Signs/Intake and Output Vital Signs (last 24 hours): Temp Pulse Resp BP Pulse Ox 98.2 F 84 18 115/72 94 L 10/07/16 00:00 10/07/16 00:00 10/07/16 00:00 10/07/16 00:00 10/07/16 00:00 Intake and Output: 10/07/16 10/07/16 06:59 18:59 Intake Total 250 Balance 250 - Medications Medications: Current Medications Albuterol/Ipratropium (Duoneb 3 Mg/0.5 Mg (3 Ml) Ud) 3 ml INH RQ6 PRN PRN Reason: Shortness of Breath Last Admin: 10/06/16 19:43 Dose: 3 ml Budesonide (Pulmicort Respules) 0.25 mg INH RQ12 [facility] Last Admin: 10/06/16 19:43 Dose: 0.25 mg Heparin Sodium (Porcine) (Heparin) 5,000 units SC Q8 [facility] Last Admin: 10/07/16 06:00 Dose: 5,000 units Ciprofloxacin (Cipro 400mg/200ml Dsw) 400 mg in 200 mls @ 133 mls/hr IVPB Q12H [facility] Last Admin: 10/06/16 21:40 Dose: 133 mls/hr Insulin Aspart (Novolog) 0 unit SC ACHS [facility] PRN Reason: Protocol Last Admin: 10/07/16 07:38 Dose: Not Given Morphine Sulfate (Morphine) 2 mg IVP Q3H PRN PRN Reason: Pain, moderate (4-7) Last Admin: 10/06/16 22:35 Dose: 2 mg Oxycodone/Acetaminophen (Percocet 5/325 Mg Tab) 2 tab PO Q6H PRN PRN Reason: severe pain Stop: 10/09/16 13:08 Pantoprazole Sodium (Protonix Ec Tab) 40 mg PO DAILY [facility] Last Admin: 10/06/16 11:30 Dose: 40 mg Risperidone (Risperdal Tab) 1 mg PO HS [facility] Last Admin: 10/06/16 22:10 Dose: 1 mg Sertraline HCl (Zoloft) 100 mg PO HS [facility] Last Admin: 10/06/16 22:10 Dose: 100 mg Tamoxifen Citrate (Nolvadex) 20 mg PO DAILY [facility] Last Admin: 10/06/16 11:18 Dose: 20 mg - Labs Labs: 10/06/16 07:00 10/06/16 07:00 Attending/Attestation - Attestation I have personally seen and examined this patient.: Yes I have fully participated in the care of the patient.: Yes I have reviewed all pertinent clinical information, including history, physical exam and plan: Yes Notes (Text): 10/07/16 07:44 Medical Attending: Patient was seen and examined by me. Agree with the above note by the resident. The patient was seen together with the medical i d sales. This is my first meeting with the patient and so reviewed previous notes, discussed with staff and patient. She currently has two wound vacs at this time. She reported a signifigant amount of pain so we increased her medication for pain. On IV abx at this time, the blood cultures have been negative for 48hrs and there is one + wound culture for staph aureus at this time. Hematology has placed patient on Tamoxifen at this time. thank you Enrique Quiroz
[2016-10-07] MEDS: (Novolog) Insulin Aspart, Recombinant 100 u/ml 10 ml vial SC SCH ×4 (07:38→21:46)
[2016-10-07 07:45] LABS: BASO % 0.5 % (0.0-2.0); EOS # 0.2 K/uL (0.0-0.7); EOS % 2.8 % (0.0-4.0); HEMATOCRIT 29.6 % (34.0-47.0); LYMPH % 17.1 % (20.0-40.0); MEAN CELL VOLUME 88.1 fL (81.0-99.0); MEAN CORPUSCULAR HEMOGLOBIN 29.1 pg (27.0-31.0); MEAN PLATELET VOLUME 7.2 fL (7.2-11.7); MONO # 0.7 K/uL (0.0-0.8); MONO % 12.1 % (0.0-10.0); NRBC % 0.1 % (0.0-2.0); RED CELL DISTRIBUTION WIDTH 14.5 % (11.5-14.5)
[2016-10-07] MEDS: Budesonide 0.25 mg/2 ml Inhal Susp UD INH SCH ×2 (07:45→20:38)
[2016-10-07 08:12] LABS: CHLORIDE 102 mmol/L (98-107)
[2016-10-07 08:13] LABS: POTASSIUM 4.5 mmol/L (3.6-5.2); SODIUM 137 mmol/L (132-148)
[2016-10-07 08:15] LABS: ALB/GLOB RATIO 1.1 (1.0-2.1); ALKALINE PHOSPHATASE 48 U/L (38-126); ALT/SGPT 15 U/L (9-52); AST/SGOT 18 U/L (14-36); BILIRUBIN,TOTAL 0.5 mg/dL (0.2-1.3); BLOOD UREA NITROGEN 15 mg/dL (7-17); CARBON DIOXIDE 28 mmol/L (22-30); GFR AFRICAN-AMERICAN > 60; GLUCOSE,RANDOM 98 mg/dL (65-105); TOTAL PROTEIN 6.4 g/dL (6.3-8.3)
[2016-10-07 08:16] LABS: CALCIUM 8.8 mg/dl (8.6-10.4); PHOSPHOROUS 3.9 mg/dL (2.5-4.5)
[2016-10-07] MEDS: Ciprofloxacin 400mg/200ml D5W 400 MG/200 ML BAG IVPB SCH ×2 (08:41→20:58)
[2016-10-07] MEDS: Pantoprazole 40 mg EC Tab PO SCH (11:09)
--- NOTE | 2016-10-07 11:36 | CP.PCM.PN ---
<Alan Narvaez - Last Filed: 10/07/16 11:36> Subjective - Date & Time of Evaluation Date of Evaluation: 10/07/16 Time of Evaluation: 11:35 - Subjective Subjective: Med progress note. Attending: Dr. Quiorz. Pt seen and examined at bedside. No acute distress. No events overnight. Pt still having some back and side pain. Denies fevers, chills, sob, vomiting, diarrhea. Working on getting wound vac for pt to go home with. Objective - Vital Signs/Intake and Output Vital Signs (last 24 hours): Temp Pulse Resp BP Pulse Ox 98.1 F 81 18 127/84 95 10/07/16 09:18 10/07/16 09:18 10/07/16 09:18 10/07/16 09:18 10/07/16 09:18 Intake and Output: 10/07/16 10/07/16 06:59 18:59 Intake Total 250 Balance 250 - Medications Medications: Current Medications Albuterol/Ipratropium (Duoneb 3 Mg/0.5 Mg (3 Ml) Ud) 3 ml INH RQ6 PRN PRN Reason: Shortness of Breath Last Admin: 10/06/16 19:43 Dose: 3 ml Budesonide (Pulmicort Respules) 0.25 mg INH RQ12 [facility] Last Admin: 10/07/16 07:45 Dose: 0.25 mg Heparin Sodium (Porcine) (Heparin) 5,000 units SC Q8 [facility] Last Admin: 10/07/16 06:00 Dose: 5,000 units Ciprofloxacin (Cipro 400mg/200ml Dsw) 400 mg in 200 mls @ 133 mls/hr IVPB Q12H [facility] Last Admin: 10/07/16 08:41 Dose: 133 mls/hr Insulin Aspart (Novolog) 0 unit SC ACHS [facility] PRN Reason: Protocol Last Admin: 10/07/16 07:38 Dose: Not Given Morphine Sulfate (Morphine) 2 mg IVP Q3H PRN PRN Reason: Pain, moderate (4-7) Last Admin: 10/07/16 08:43 Dose: 2 mg Oxycodone/Acetaminophen (Percocet 5/325 Mg Tab) 2 tab PO Q6H PRN PRN Reason: severe pain Stop: 10/09/16 13:08 Pantoprazole Sodium (Protonix Ec Tab) 40 mg PO DAILY [facility] Last Admin: 10/07/16 11:09 Dose: 40 mg Risperidone (Risperdal Tab) 1 mg PO HS [facility] Last Admin: 10/06/16 22:10 Dose: 1 mg Sertraline HCl (Zoloft) 100 mg PO HS [facility] Last Admin: 10/06/16 22:10 Dose: 100 mg Tamoxifen Citrate (Nolvadex) 20 mg PO DAILY [facility] Last Admin: 10/07/16 11:09 Dose: 20 mg - Labs Labs: 10/07/16 07:09 10/07/16 07:09 - Constitutional Appears: Non-toxic, No Acute Distress - Head Exam Head Exam: ATRAUMATIC, NORMAL INSPECTION, NORMOCEPHALIC - Eye Exam Eye Exam: EOMI - ENT Exam ENT Exam: Mucous Membranes Moist - Neck Exam Neck Exam: Full ROM, Normal Inspection - Respiratory Exam Respiratory Exam: NORMAL BREATHING PATTERN. absent: Respiratory Distress - Cardiovascular Exam Cardiovascular Exam: +S1, +S2 - GI/Abdominal Exam GI & Abdominal Exam: Soft, Normal Bowel Sounds. absent: Tenderness - Extremities Exam Extremities Exam: Full ROM, Normal Inspection - Back Exam Back Exam: NORMAL INSPECTION - Neurological Exam Neurological Exam: Alert, Awake - Psychiatric Exam Psychiatric exam: Normal Affect, Normal Mood - Skin Skin Exam: Dry, Intact, Normal Color, Warm Assessment and Plan - Assessment and Plan (Free Text) Assessment: This is a 56 yo female with pmh dm, htn, hld, asthma, breast cancer presenting with Bilateral breast wound dehiscence * History invasive breast cancer on chemo/radiation * s/p bilateral breast implant insertion, extensive bilateral breast revision, scar revision, breast capsulectomy, capsulotomy done 08/27/[address] Arango * f/u blood culture and wound culture of breast discharge>>> blood neg, wound shows mrsa, repeat wound neg * patient was given 1 dose vancomycin in ER * Morphine 2mg IVP Q3 PRN pain * f/u breast u/s-->shows seroma * Dr. Arango pastic surgeon consulted- f/u recommendations * Ordered for baseline EKG, coagulations * DC zosyn * start pt on cipro 400 q 12, continue * will add percocet * will be dc on outpatient wound vac, order for this is pending (2) Invasive bilateral Lobular Carcinoma of breast * Patient receives chemotherapy every week - 18 rounds left * Patient receives radiation every week - 22 rounds left * Morphine 2mg IVP Q3 PRN pain * Dr. Larry Garcia (heme-onc) consulted- f/u recs * Port a cath over right breast (about one year duration) (3) Hx of DM tpe 2 * Accuchecks QAC and HS * low dose RISS (4) Hypertension continue to monitor (5) hx of asthma -pulmicort .25 mg q 12 -duonebs q 6 (6) Prophylactic measure protonix 40 daily CCD diet discussed with Dr. Quiroz <Enrique Quiroz H - Last Filed: 10/07/16 17:46> Objective - Vital Signs/Intake and Output Vital Signs (last 24 hours): Temp Pulse Resp BP Pulse Ox 98 F 95 H 20 129/79 98 10/07/16 15:50 10/07/16 15:50 10/07/16 15:50 10/07/16 15:50 10/07/16 15:50 Intake and Output: 10/07/16 10/07/16 06:59 18:59 Intake Total 250 Balance 250 - Medications Medications: Current Medications Albuterol/Ipratropium (Duoneb 3 Mg/0.5 Mg (3 Ml) Ud) 3 ml INH RQ6 PRN PRN Reason: Shortness of Breath Last Admin: 10/06/16 19:43 Dose: 3 ml Budesonide (Pulmicort Respules) 0.25 mg INH RQ12 [facility] Last Admin: 10/07/16 07:45 Dose: 0.25 mg Heparin Sodium (Porcine) (Heparin) 5,000 units SC Q8 [facility] Last Admin: 10/07/16 13:19 Dose: 5,000 units Ciprofloxacin (Cipro 400mg/200ml Dsw) 400 mg in 200 mls @ 133 mls/hr IVPB Q12H [facility] Last Admin: 10/07/16 08:41 Dose: 133 mls/hr Insulin Aspart (Novolog) 0 unit SC ACHS [facility] PRN Reason: Protocol Last Admin: 10/07/16 16:56 Dose: Not Given Morphine Sulfate (Morphine) 2 mg IVP Q3H PRN PRN Reason: Pain, moderate (4-7) Last Admin: 10/07/16 16:40 Dose: 2 mg Oxycodone/Acetaminophen (Percocet 5/325 Mg Tab) 2 tab PO Q6H PRN PRN Reason: severe pain Stop: 10/09/16 13:08 Pantoprazole Sodium (Protonix Ec Tab) 40 mg PO DAILY [facility] Last Admin: 10/07/16 11:09 Dose: 40 mg Risperidone (Risperdal Tab) 1 mg PO HS [facility] Last Admin: 10/06/16 22:10 Dose: 1 mg Sertraline HCl (Zoloft) 100 mg PO HS [facility] Last Admin: 10/06/16 22:10 Dose: 100 mg Tamoxifen Citrate (Nolvadex) 20 mg PO DAILY [facility] Last Admin: 10/07/16 11:09 Dose: 20 mg - Labs Labs: 10/07/16 07:09 10/07/16 07:09 Attending/Attestation - Attestation I have personally seen and examined this patient.: Yes I have fully participated in the care of the patient.: Yes I have reviewed all pertinent clinical information, including history, physical exam and plan: Yes Notes (Text): 10/07/16 17:41 Medical Attending: Patient was seen and examined by me. Agree with the above note by the resident The patient still has the bilateral wound vac. Continue with IV abx. The microbiology suggest staph aureus growth from Left wound. The WBC stable, no fevers, the patient reported pain was better controlled today. I later filled out paperwork for wound vac care at home. This is still pending at this time. thank you Enrique Quiroz
--- NOTE | 2016-10-07 11:52 | CP.PCM.PN ---
Subjective - Date & Time of Evaluation Date of Evaluation: 10/07/16 Time of Evaluation: 07:00 - Subjective Subjective: PLASTIC SURGERY PROGRESS NOTE FOR DR. CRUZ Patient seen and examined at bedside. She is wearing the surgical bra. She reports some mild pain and small amount of drainage. Wound vac in place on bilateral breasts on suction with no leak. Minimal output from wound vac. Objective - Vital Signs/Intake and Output Vital Signs (last 24 hours): Temp Pulse Resp BP Pulse Ox 98.1 F 81 18 127/84 95 10/07/16 09:18 10/07/16 09:18 10/07/16 09:18 10/07/16 09:18 10/07/16 09:18 Intake and Output: 10/07/16 10/07/16 06:59 18:59 Intake Total 250 Balance 250 - Medications Medications: Current Medications Albuterol/Ipratropium (Duoneb 3 Mg/0.5 Mg (3 Ml) Ud) 3 ml INH RQ6 PRN PRN Reason: Shortness of Breath Last Admin: 10/06/16 19:43 Dose: 3 ml Budesonide (Pulmicort Respules) 0.25 mg INH RQ12 [facility] Last Admin: 10/07/16 07:45 Dose: 0.25 mg Heparin Sodium (Porcine) (Heparin) 5,000 units SC Q8 [facility] Last Admin: 10/07/16 06:00 Dose: 5,000 units Ciprofloxacin (Cipro 400mg/200ml Dsw) 400 mg in 200 mls @ 133 mls/hr IVPB Q12H [facility] Last Admin: 10/07/16 08:41 Dose: 133 mls/hr Insulin Aspart (Novolog) 0 unit SC ACHS [facility] PRN Reason: Protocol Last Admin: 10/07/16 07:38 Dose: Not Given Morphine Sulfate (Morphine) 2 mg IVP Q3H PRN PRN Reason: Pain, moderate (4-7) Last Admin: 10/07/16 08:43 Dose: 2 mg Oxycodone/Acetaminophen (Percocet 5/325 Mg Tab) 2 tab PO Q6H PRN PRN Reason: severe pain Stop: 10/09/16 13:08 Pantoprazole Sodium (Protonix Ec Tab) 40 mg PO DAILY [facility] Last Admin: 10/07/16 11:09 Dose: 40 mg Risperidone (Risperdal Tab) 1 mg PO HS [facility] Last Admin: 10/06/16 22:10 Dose: 1 mg Sertraline HCl (Zoloft) 100 mg PO HS [facility] Last Admin: 10/06/16 22:10 Dose: 100 mg Tamoxifen Citrate (Nolvadex) 20 mg PO DAILY [facility] Last Admin: 10/07/16 11:09 Dose: 20 mg - Labs Labs: 10/07/16 07:09 10/07/16 07:09 - Constitutional Appears: Non-toxic, No Acute Distress - Respiratory Exam Respiratory Exam: NORMAL BREATHING PATTERN. absent: Respiratory Distress Additional comments: Wound vac in place on bilateral breasts - Cardiovascular Exam Cardiovascular Exam: +S1, +S2 - Neurological Exam Neurological Exam: Alert, Awake, Oriented x3 - Psychiatric Exam Psychiatric exam: Normal Affect, Normal Mood - Skin Skin Exam: Normal Color, Warm Assessment and Plan - Assessment and Plan (Free Text) Assessment: 56yo F with PMHx of DM, HTN, invasive bilateral Lobular Carcinoma of breast s/p bilateral mastectomy and POD#41 of stage 2 surgery of breast reconstruction who has seroma accumulation to subcutaneous breast and lateral chest wall pockets - Afebrile, VSS - No leukocytosis - Repeat wound cx = no growth @ 24 hours - Surgical bra in place, patient needs to wear this at all times - Wound vac on bilateral breasts, connected to suction with no leak - Once outpatient wound vac approval occurs, will place outpatient wound vac and patient is clear for DC home. - Discussed with nurse case management and filled out paperwork for [employer] wound vac. - Wound vac to be changed at home by VNS every 2-3 days for a minimum of 2 weeks. - She can follow up with Dr. Cruz in her office on . - Discussed plan with Dr. Conchita Horn PGY-2
[2016-10-07] MEDS: Albuterol-Ipratrop 3 mg / 0.5 (3 ml) UD INH PRN (20:38)
[2016-10-08] MEDS: Albuterol-Ipratrop 3 mg / 0.5 (3 ml) UD INH PRN (05:33)
[2016-10-08] MEDS: (Novolog) Insulin Aspart, Recombinant 100 u/ml 10 ml vial SC SCH ×4 (07:28→21:33)
--- NOTE | 2016-10-08 08:03 | CP.PCM.PN ---
Subjective - Date & Time of Evaluation Date of Evaluation: 10/08/16 Time of Evaluation: 07:00 - Subjective Subjective: PLASTIC SURGERY PROGRESS NOTE FOR DR. CRUZ Patient seen and examined at bedside. She is wearing the surgical bra. She reports some mild breast pain and small amount of drainage. She also reports back pain. She was encouraged to ambulate. Patient reports being OOB. Wound vac in place on bilateral breasts on 100mmHg suction with no leak. Minimal output from wound vac. Objective - Vital Signs/Intake and Output Vital Signs (last 24 hours): Temp Pulse Resp BP Pulse Ox 98.1 F 85 20 105/67 95 10/08/16 00:00 10/08/16 00:00 10/08/16 00:00 10/08/16 00:00 10/08/16 00:00 Intake and Output: 10/08/16 10/08/16 06:59 18:59 Intake Total 450 Balance 450 - Medications Medications: Current Medications Albuterol/Ipratropium (Duoneb 3 Mg/0.5 Mg (3 Ml) Ud) 3 ml INH RQ6 PRN PRN Reason: Shortness of Breath Last Admin: 10/08/16 05:33 Dose: 3 ml Budesonide (Pulmicort Respules) 0.25 mg INH RQ12 [facility] Last Admin: 10/07/16 20:38 Dose: 0.25 mg Heparin Sodium (Porcine) (Heparin) 5,000 units SC Q8 [facility] Last Admin: 10/08/16 06:05 Dose: 5,000 units Ciprofloxacin (Cipro 400mg/200ml Dsw) 400 mg in 200 mls @ 133 mls/hr IVPB Q12H [facility] Last Admin: 10/07/16 20:58 Dose: 133 mls/hr Insulin Aspart (Novolog) 0 unit SC ACHS [facility] PRN Reason: Protocol Last Admin: 10/08/16 07:28 Dose: Not Given Morphine Sulfate (Morphine) 2 mg IVP Q3H PRN PRN Reason: Pain, moderate (4-7) Last Admin: 10/08/16 05:24 Dose: 2 mg Oxycodone/Acetaminophen (Percocet 5/325 Mg Tab) 2 tab PO Q6H PRN PRN Reason: severe pain Stop: 10/09/16 13:08 Pantoprazole Sodium (Protonix Ec Tab) 40 mg PO DAILY [facility] Last Admin: 10/07/16 11:09 Dose: 40 mg Risperidone (Risperdal Tab) 1 mg PO HS [facility] Last Admin: 10/07/16 21:29 Dose: 1 mg Sertraline HCl (Zoloft) 100 mg PO HS [facility] Last Admin: 10/07/16 21:29 Dose: 100 mg Tamoxifen Citrate (Nolvadex) 20 mg PO DAILY [facility] Last Admin: 10/07/16 11:09 Dose: 20 mg - Labs Labs: 10/07/16 07:09 10/07/16 07:09 - Constitutional Appears: Non-toxic, No Acute Distress - Respiratory Exam Respiratory Exam: NORMAL BREATHING PATTERN. absent: Respiratory Distress - Cardiovascular Exam Cardiovascular Exam: +S1, +S2 - Neurological Exam Neurological Exam: Alert, Awake, Oriented x3 - Psychiatric Exam Psychiatric exam: Normal Affect, Normal Mood - Skin Skin Exam: Dry, Normal Color, Warm Additional comments: Wound vac in place on bilateral breasts, on 100mmHg suction, no leak Assessment and Plan - Assessment and Plan (Free Text) Assessment: 56yo F with PMHx of DM, HTN, invasive bilateral Lobular Carcinoma of breast s/p bilateral mastectomy and POD#42 of stage 2 surgery of breast reconstruction who has seroma accumulation to subcutaneous breast and lateral chest wall pockets - Afebrile, VSS - No leukocytosis - Repeat wound cx = no growth @ 24 hours - Surgical bra in place, patient needs to wear this at all times - Wound vac on bilateral breasts, connected to suction with no leak - Once outpatient wound vac approval occurs, will place outpatient wound vac and patient is clear for DC home. - Discussed with case assembler and filled out paperwork for [employer] wound vac. - Wound vac to be changed at home by VNS every 2-3 days for a minimum of 2 weeks. - She can follow up with Dr. Cruz in her office on . - Discussed plan with Dr. Conchita Horn PGY-2
[2016-10-08] MEDS: Pantoprazole 40 mg EC Tab PO SCH (09:23)
[2016-10-08] MEDS: Ciprofloxacin 400mg/200ml D5W 400 MG/200 ML BAG IVPB SCH ×2 (09:25→21:11)
[2016-10-08] MEDS: Budesonide 0.25 mg/2 ml Inhal Susp UD INH SCH ×2 (10:20→19:58)
[2016-10-08 11:30] LABS: BASO % 0.6 % (0.0-2.0); EOS # 0.1 K/uL (0.0-0.7); EOS % 1.8 % (0.0-4.0); HEMATOCRIT 30.7 % (34.0-47.0); LYMPH # 1.1 K/uL (1.0-4.3); LYMPH % 15.5 % (20.0-40.0); MEAN CORPUSCULAR HGB CONC 32.9 g/dL (33.0-37.0); MEAN PLATELET VOLUME 7.1 fL (7.2-11.7); MONO # 0.8 K/uL (0.0-0.8); MONO % 11.3 % (0.0-10.0); RED CELL DISTRIBUTION WIDTH 14.4 % (11.5-14.5); WHITE BLOOD COUNT 6.8 K/uL (4.8-10.8)
[2016-10-08 11:48] LABS: CHLORIDE 102 mmol/L (98-107); POTASSIUM 3.9 mmol/L (3.6-5.2); SODIUM 139 mmol/L (132-148)
[2016-10-08 11:50] LABS: BILIRUBIN,TOTAL 0.4 mg/dL (0.2-1.3); GFR AFRICAN-AMERICAN > 60
[2016-10-08 11:51] LABS: ALB/GLOB RATIO 1.1 (1.0-2.1); ALKALINE PHOSPHATASE 49 U/L (38-126); ALT/SGPT 17 U/L (9-52); AST/SGOT 19 U/L (14-36); BLOOD UREA NITROGEN 13 mg/dL (7-17); CALCIUM 9.2 mg/dl (8.6-10.4); CARBON DIOXIDE 26 mmol/L (22-30); GLUCOSE,RANDOM 90 mg/dL (65-105); TOTAL PROTEIN 6.7 g/dL (6.3-8.3)
--- NOTE | 2016-10-08 12:56 | CP.PCM.PN ---
Subjective - Date & Time of Evaluation Date of Evaluation: 10/07/16 Time of Evaluation: 19:00 - Subjective Subjective: Feeling better; less chest wall drainage Objective - Vital Signs/Intake and Output Vital Signs (last 24 hours): Temp Pulse Resp BP Pulse Ox 98.1 F 74 20 113/73 96 10/08/16 09:06 10/08/16 09:06 10/08/16 09:06 10/08/16 09:06 10/08/16 09:06 Intake and Output: 10/08/16 10/08/16 06:59 18:59 Intake Total 450 Balance 450 - Medications Medications: Current Medications Albuterol/Ipratropium (Duoneb 3 Mg/0.5 Mg (3 Ml) Ud) 3 ml INH RQ6 PRN PRN Reason: Shortness of Breath Last Admin: 10/08/16 05:33 Dose: 3 ml Budesonide (Pulmicort Respules) 0.25 mg INH RQ12 [facility] Last Admin: 10/08/16 10:20 Dose: 0.25 mg Heparin Sodium (Porcine) (Heparin) 5,000 units SC Q8 [facility] Last Admin: 10/08/16 06:05 Dose: 5,000 units Ciprofloxacin (Cipro 400mg/200ml Dsw) 400 mg in 200 mls @ 133 mls/hr IVPB Q12H [facility] Last Admin: 10/08/16 09:25 Dose: 133 mls/hr Insulin Aspart (Novolog) 0 unit SC ACHS [facility] PRN Reason: Protocol Last Admin: 10/08/16 12:22 Dose: Not Given Morphine Sulfate (Morphine) 2 mg IVP Q3H PRN PRN Reason: Pain, moderate (4-7) Last Admin: 10/08/16 09:43 Dose: 2 mg Oxycodone/Acetaminophen (Percocet 5/325 Mg Tab) 2 tab PO Q6H PRN PRN Reason: severe pain Stop: 10/09/16 13:08 Pantoprazole Sodium (Protonix Ec Tab) 40 mg PO DAILY [facility] Last Admin: 10/08/16 09:23 Dose: 40 mg Risperidone (Risperdal Tab) 1 mg PO HS [facility] Last Admin: 10/07/16 21:29 Dose: 1 mg Sertraline HCl (Zoloft) 100 mg PO HS [facility] Last Admin: 05/16/17 21:29 Dose: 100 mg Tamoxifen Citrate (Nolvadex) 20 mg PO DAILY [facility] Last Admin: 10/08/16 09:28 Dose: 20 mg - Labs Labs: 10/08/16 11:24 10/08/16 11:24 - Head Exam Head Exam: ATRAUMATIC - Eye Exam Eye Exam: Normal appearance - ENT Exam ENT Exam: Mucous Membranes Dry - Respiratory Exam Respiratory Exam: NORMAL BREATHING PATTERN - Cardiovascular Exam Cardiovascular Exam: +S1, +S2 - GI/Abdominal Exam GI & Abdominal Exam: Normal Bowel Sounds - Extremities Exam Extremities Exam: Normal Inspection Assessment and Plan (1) Anemia Assessment & Plan: chronic disease Status: Acute (2) Invasive carcinoma of breast Assessment & Plan: on tamoxifen Status: Chronic
--- NOTE | 2016-10-08 12:57 | CP.PCM.PN ---
Subjective - Date & Time of Evaluation Date of Evaluation: 10/08/16 Time of Evaluation: 11:45 - Subjective Subjective: No complaints. Objective - Vital Signs/Intake and Output Vital Signs (last 24 hours): Temp Pulse Resp BP Pulse Ox 98.1 F 74 20 113/73 96 10/08/16 09:06 10/08/16 09:06 10/08/16 09:06 10/08/16 09:06 10/08/16 09:06 Intake and Output: 10/08/16 10/08/16 06:59 18:59 Intake Total 450 Balance 450 - Medications Medications: Current Medications Albuterol/Ipratropium (Duoneb 3 Mg/0.5 Mg (3 Ml) Ud) 3 ml INH RQ6 PRN PRN Reason: Shortness of Breath Last Admin: 10/08/16 05:33 Dose: 3 ml Budesonide (Pulmicort Respules) 0.25 mg INH RQ12 [facility] Last Admin: 10/08/16 10:20 Dose: 0.25 mg Heparin Sodium (Porcine) (Heparin) 5,000 units SC Q8 [facility] Last Admin: 10/08/16 06:05 Dose: 5,000 units Ciprofloxacin (Cipro 400mg/200ml Dsw) 400 mg in 200 mls @ 133 mls/hr IVPB Q12H [facility] Last Admin: 10/08/16 09:25 Dose: 133 mls/hr Insulin Aspart (Novolog) 0 unit SC ACHS [facility] PRN Reason: Protocol Last Admin: 10/08/16 12:22 Dose: Not Given Morphine Sulfate (Morphine) 2 mg IVP Q3H PRN PRN Reason: Pain, moderate (4-7) Last Admin: 10/08/16 09:43 Dose: 2 mg Oxycodone/Acetaminophen (Percocet 5/325 Mg Tab) 2 tab PO Q6H PRN PRN Reason: severe pain Stop: 10/09/16 13:08 Pantoprazole Sodium (Protonix Ec Tab) 40 mg PO DAILY [facility] Last Admin: 10/08/16 09:23 Dose: 40 mg Risperidone (Risperdal Tab) 1 mg PO HS [facility] Last Admin: 10/07/16 21:29 Dose: 1 mg Sertraline HCl (Zoloft) 100 mg PO HS [facility] Last Admin: 10/07/16 21:29 Dose: 100 mg Tamoxifen Citrate (Nolvadex) 20 mg PO DAILY [facility] Last Admin: 10/08/16 09:28 Dose: 20 mg - Labs Labs: 10/08/16 11:24 10/08/16 11:24 - Head Exam Head Exam: ATRAUMATIC - Eye Exam Eye Exam: Normal appearance - ENT Exam ENT Exam: Mucous Membranes Dry - Respiratory Exam Respiratory Exam: NORMAL BREATHING PATTERN - Cardiovascular Exam Cardiovascular Exam: +S1, +S2 - GI/Abdominal Exam GI & Abdominal Exam: Normal Bowel Sounds - Extremities Exam Extremities Exam: Normal Inspection Assessment and Plan (1) Anemia Assessment & Plan: chronic disease H/H stable Status: Acute (2) Invasive carcinoma of breast Assessment & Plan: on tamoxifen Status: Chronic
--- NOTE | 2016-10-08 12:58 | CP.PCM.PN ---
<Alan Narvaez - Last Filed: 10/08/16 12:58> Subjective - Date & Time of Evaluation Date of Evaluation: 10/08/16 Time of Evaluation: 12:55 - Subjective Subjective: Med progress note. Attending: Dr. Quiroz Pt seen and examined at bedside. No acute distress. No events overnight. Pt still having some pain in breasts and back, tolerating diet. Outpatient wound vac pending. Objective - Vital Signs/Intake and Output Vital Signs (last 24 hours): Temp Pulse Resp BP Pulse Ox 98.1 F 74 20 113/73 96 10/08/16 09:06 10/08/16 09:06 10/08/16 09:06 10/08/16 09:06 10/08/16 09:06 Intake and Output: 10/08/16 10/08/16 06:59 18:59 Intake Total 450 Balance 450 - Medications Medications: Current Medications Albuterol/Ipratropium (Duoneb 3 Mg/0.5 Mg (3 Ml) Ud) 3 ml INH RQ6 PRN PRN Reason: Shortness of Breath Last Admin: 10/08/16 05:33 Dose: 3 ml Budesonide (Pulmicort Respules) 0.25 mg INH RQ12 [facility] Last Admin: 10/08/16 10:20 Dose: 0.25 mg Heparin Sodium (Porcine) (Heparin) 5,000 units SC Q8 [facility] Last Admin: 10/08/16 06:05 Dose: 5,000 units Ciprofloxacin (Cipro 400mg/200ml Dsw) 400 mg in 200 mls @ 133 mls/hr IVPB Q12H [facility] Last Admin: 10/08/16 09:25 Dose: 133 mls/hr Insulin Aspart (Novolog) 0 unit SC ACHS [facility] PRN Reason: Protocol Last Admin: 10/08/16 12:22 Dose: Not Given Morphine Sulfate (Morphine) 2 mg IVP Q3H PRN PRN Reason: Pain, moderate (4-7) Last Admin: 10/08/16 09:43 Dose: 2 mg Oxycodone/Acetaminophen (Percocet 5/325 Mg Tab) 2 tab PO Q6H PRN PRN Reason: severe pain Stop: 10/09/16 13:08 Pantoprazole Sodium (Protonix Ec Tab) 40 mg PO DAILY [facility] Last Admin: 10/08/16 09:23 Dose: 40 mg Risperidone (Risperdal Tab) 1 mg PO HS [facility] Last Admin: 10/07/16 21:29 Dose: 1 mg Sertraline HCl (Zoloft) 100 mg PO HS [facility] Last Admin: 10/07/16 21:29 Dose: 100 mg Tamoxifen Citrate (Nolvadex) 20 mg PO DAILY [facility] Last Admin: 10/08/16 09:28 Dose: 20 mg - Labs Labs: 10/08/16 11:24 10/08/16 11:24 - Constitutional Appears: Non-toxic, No Acute Distress - Head Exam Head Exam: ATRAUMATIC, NORMAL INSPECTION, NORMOCEPHALIC - Neck Exam Neck Exam: Full ROM, Normal Inspection - Respiratory Exam Respiratory Exam: NORMAL BREATHING PATTERN. absent: Respiratory Distress - Cardiovascular Exam Cardiovascular Exam: +S1, +S2 - GI/Abdominal Exam GI & Abdominal Exam: Soft, Normal Bowel Sounds. absent: Tenderness - Extremities Exam Extremities Exam: Full ROM, Normal Inspection - Back Exam Back Exam: NORMAL INSPECTION - Neurological Exam Neurological Exam: Alert, Awake, Oriented x3 - Psychiatric Exam Psychiatric exam: Normal Affect, Normal Mood - Skin Skin Exam: Dry, Intact, Normal Color, Warm Assessment and Plan - Assessment and Plan (Free Text) Assessment: This is a 56 yo female with pmh dm, htn, hld, asthma, breast cancer presenting with Bilateral breast wound dehiscence * History invasive breast cancer on chemo/radiation * s/p bilateral breast implant insertion, extensive bilateral breast revision, scar revision, breast capsulectomy, capsulotomy done 08/27/[address] Arango * f/u blood culture and wound culture of breast discharge>>> blood neg, wound shows mrsa, repeat wound neg * patient was given 1 dose vancomycin in ER * Morphine 2mg IVP Q3 PRN pain * f/u breast u/s-->shows seroma * Dr. Arango pastic surgeon consulted- f/u recommendations * Ordered for baseline EKG, coagulations * DC zosyn * start pt on cipro 400 q 12, continue * will add percocet 5/325 * will be dc on outpatient wound vac, order for this is pending (2) Invasive bilateral Lobular Carcinoma of breast * Patient receives chemotherapy every week - 18 rounds left * Patient receives radiation every week - 22 rounds left * Morphine 2mg IVP Q3 PRN pain * Dr. Larry Garcia (heme-onc) consulted- f/u recs * Port a cath over right breast (about one year duration) (3) Hx of DM tpe 2 * Accuchecks QAC and HS * low dose ISS (4) Hypertension continue to monitor (5) hx of asthma -pulmicort .25 mg q 12 -duonebs q 6 (6) Prophylactic measure protonix 40 daily CCD diet heparin [address] Quiroz <Enrique Quiroz H - Last Filed: 10/08/16 18:04> Objective - Vital Signs/Intake and Output Vital Signs (last 24 hours): Temp Pulse Resp BP Pulse Ox 98.1 F 74 20 113/73 96 10/08/16 09:06 10/08/16 09:06 10/08/16 09:06 10/08/16 09:06 10/08/16 09:06 Intake and Output: 10/08/16 10/08/16 06:59 18:59 Intake Total 450 400 Balance 450 400 - Medications Medications: Current Medications Albuterol/Ipratropium (Duoneb 3 Mg/0.5 Mg (3 Ml) Ud) 3 ml INH RQ6 PRN PRN Reason: Shortness of Breath Last Admin: 10/08/16 05:33 Dose: 3 ml Budesonide (Pulmicort Respules) 0.25 mg INH RQ12 [facility] Last Admin: 10/08/16 10:20 Dose: 0.25 mg Heparin Sodium (Porcine) (Heparin) 5,000 units SC Q8 [facility] Last Admin: 10/08/16 13:49 Dose: 5,000 units Ciprofloxacin (Cipro 400mg/200ml Dsw) 400 mg in 200 mls @ 133 mls/hr IVPB Q12H [facility] Last Admin: 10/08/16 09:25 Dose: 133 mls/hr Insulin Aspart (Novolog) 0 unit SC ACHS [facility] PRN Reason: Protocol Last Admin: 10/08/16 12:22 Dose: Not Given Morphine Sulfate (Morphine) 2 mg IVP Q3H PRN PRN Reason: Pain, moderate (4-7) Last Admin: 10/08/16 13:50 Dose: 2 mg Oxycodone/Acetaminophen (Percocet 5/325 Mg Tab) 2 tab PO Q6H PRN PRN Reason: severe pain Stop: 10/09/16 13:08 Pantoprazole Sodium (Protonix Ec Tab) 40 mg PO DAILY [facility] Last Admin: 10/08/16 09:23 Dose: 40 mg Risperidone (Risperdal Tab) 1 mg PO HS [facility] Last Admin: 10/07/16 21:29 Dose: 1 mg Sertraline HCl (Zoloft) 100 mg PO HS [facility] Last Admin: 10/07/16 21:29 Dose: 100 mg Tamoxifen Citrate (Nolvadex) 20 mg PO DAILY [facility] Last Admin: 10/08/16 09:28 Dose: 20 mg - Labs Labs: 10/08/16 11:24 10/08/16 11:24 Attending/Attestation - Attestation I have personally seen and examined this patient.: Yes I have fully participated in the care of the patient.: Yes I have reviewed all pertinent clinical information, including history, physical exam and plan: Yes Notes (Text): 10/08/16 18:01 Medical Attending: Patient was seen and examined by me. Agree with the above note by the resident. The patient had less pain today. The wound vac was off when we saw her in the morning. She is still being continued with the IV abx. As mentioned in the above resident note, there is + staph aureus growth left side. At the moment she is ok to be discharged we are waiting from the ok from case workers that she will have the neccessary home care since surgery wants her to go with the wound vac. thank you Enrique Quiroz
[2016-10-08 23:13] VITALS: BP 106/68; PULSE 82; RESP 16; TEMP 98.4
[2016-10-11 08:47] VITALS: O2SAT 98
--- NOTE | 2016-11-08 10:48 | CARD ---
APPROVED REPORT EKG Measurement Heart [id number] <Conclusion> Normal sinus rhythm Low voltage QRS Nonspecific T wave abnormality Prolonged QT Abnormal ECG
== END 2016-10-09 14:15 | disposition home or self-care (01) | DRG 453 ==
LOC: C.ER 11:25 → C.9E 18:31 → C.3T 19:27 → C.5T 10-05 16:17
PROVIDERS: ADMIT Hospitalist; ATTEND Hospitalist
DX: T81.30XA Disruption of wound, unspecified, initial encounter (principal); C50.911 Malignant neoplasm of unspecified site of right female breast; C50.912 Malignant neoplasm of unspecified site of left female breast; I10 Essential (primary) hypertension; D64.9 Anemia, unspecified; E11.9 Type 2 diabetes mellitus without complications; E78.5 Hyperlipidemia, unspecified; J45.909 Unspecified asthma, uncomplicated; G47.30 Sleep apnea, unspecified

== ENCOUNTER 2016-10-24 13:58 | Inpatient (IN) | payer OTHER ==
[2016-10-24 14:03] VITALS: BMI 27.7
[2016-10-24] MEDS ORDERED: Sodium Chloride 0.9% 1,000 ML IV ONE (14:25)
[2016-10-24 14:37] LABS: BASO # 0.1 K/uL (0.0-0.2); BASO % 0.5 % (0.0-2.0); EOS # 0.1 K/uL (0.0-0.7); EOS % 0.5 % (0.0-4.0); HEMATOCRIT 28.6 % (34.0-47.0); LYMPH # 0.8 K/uL (1.0-4.3); LYMPH % 6.7 % (20.0-40.0); MEAN CELL VOLUME 87.4 fL (81.0-99.0); MEAN CORPUSCULAR HGB CONC 33.2 g/dL (33.0-37.0); MEAN PLATELET VOLUME 7.2 fL (7.2-11.7); MONO # 1.2 K/uL (0.0-0.8); MONO % 10.5 % (0.0-10.0); PLATELET COUNT 271 K/uL (130-400); WHITE BLOOD COUNT 11.3 K/uL (4.8-10.8)
[2016-10-24] MEDS ORDERED: Sodium Chloride 0.9% 1,000 ML ONE (14:39)
[2016-10-24 14:48] LABS: CHLORIDE 96 mmol/L (98-107); POTASSIUM 3.9 mmol/L (3.6-5.2); SODIUM 134 mmol/L (132-148)
[2016-10-24 14:50] LABS: AST/SGOT 18 U/L (14-36); BILIRUBIN,TOTAL 0.7 mg/dL (0.2-1.3); CARBON DIOXIDE 28 mmol/L (22-30); GFR AFRICAN-AMERICAN > 60
--- NOTE | 2016-10-24 14:50 | RAD ---
HISTORY: SOB COMPARISON: Comparison made with prior chest radiograph 10/04/2016. Comparison also made with CT scan chest 06/20/2016. TECHNIQUE: Chest PA and lateral FINDINGS: LUNGS: In situ right IJ MediPort with tip in the SVC. There appears be some mild right apical pleural thickening. Suspect mild left basilar atelectasis and or scarring however the lung trevino are otherwise clear. PLEURA: No significant pleural effusion identified. No pneumothorax apparent. CARDIOVASCULAR: Heart size is upper limits of normal/ borderline enlarged. . OSSEOUS STRUCTURES: Mild multilevel degenerative spondylosis of the thoracic spine. . There is also mild dextroscoliosis mid to lower thoracic spine. VISUALIZED UPPER ABDOMEN: Normal. OTHER FINDINGS: Previously noted prominent mediastinal and hilar lymph nodes are poorly seen on this study compared to prior CT scan chest IMPRESSION: In situ right-sided MediPort with tip in the SVC. Suspect mild linear atelectasis and or scarring left lung base.
[2016-10-24 14:51] LABS: ALB/GLOB RATIO 1.1 (1.0-2.1); ALKALINE PHOSPHATASE 71 U/L (38-126); ALT/SGPT 18 U/L (9-52); BLOOD UREA NITROGEN 22 mg/dL (7-17); CALCIUM 8.4 mg/dl (8.6-10.4); GLUCOSE,RANDOM 124 mg/dL (65-105)
[2016-10-24 15:58] LABS: EOSINOPHIL 1 % (0-4); NEUTROPHIL 86 % (50-75); TOTAL CELLS COUNTED 100
--- NOTE | 2016-10-24 16:14 | C.PDOC ---
History Of Present Illness 56 y/o female presents to the emergency department with complains of persistent discharge from left breast implant. Pt with history breast cancer, bilateral mastectomy and implants. Pt was seen here last month with infection, consult by Dr Arango, lost to follow up. Pt finished last round antibiotics 3 days ago but continues to have pain and discharge. Denies fever, chills, SOB, chest pain or any other complaints. Time Seen by Provider: 10/24/16 14:15 Chief Complaint (Nursing): Breast Problem History Per: Patient History/Exam Limitations: no limitations Onset/Duration Of Symptoms: Days Current Symptoms Are (Timing): Still Present Reports Recently: Treated By A Physician Recent travel outside of the [place]: No Past Medical History Reviewed: Historical Data, Nursing Documentation, Vital Signs Vital Signs: Last Vital Signs Temp 100 F H 10/24/16 14:02 Pulse 101 H 10/24/16 14:02 Resp 16 10/24/16 14:02 BP 95/61 L 10/24/16 14:02 Pulse Ox 98 10/24/16 16:28 - Medical History PMH: Anemia, Anxiety, Asthma, Depression, Gastritis, HTN, Hypercholesterolemia, Malignancy (breast ca), Migraine, Osteoporosis, Peripheral Edema, Sleep Apnea ( USES CPAP) Surgical History: Endoscopy - [facility] Procedures LAPAROSCOPIC VERTICAL (SLEEVE) GASTRECTOMY (08/24/13) Family History: States: Unknown Family Hx - Social History Hx Tobacco Use: No Hx Alcohol Use: No Hx Substance Use: No - Immunization History Hx Tetanus Toxoid Vaccination: Yes Hx Influenza Vaccination: Yes Hx Pneumococcal Vaccination: Yes Review Of Systems Constitutional: Negative for: Fever, Chills Cardiovascular: Negative for: Chest Pain Respiratory: Negative for: Shortness of Breath Skin: Positive for: Other (persistent pain and discharge from left breast implant) Physical Exam - Physical Exam Appears: Non-toxic, No Acute Distress Skin: Warm, Dry, No Rash Head: Atraumatic, Normacephalic Neck: Normal, Normal ROM, Supple Chest: Symmetrical, Other (bilateral mastectomy with implants, 2 cm gaping surgical wound to inferior aspect left breast with copious greenish discharge) Cardiovascular: Rhythm Regular, No Murmur Respiratory: Normal Breath Sounds, No Rales, No Rhonchi, No Wheezing Gastrointestinal/Abdominal: Normal Exam, Soft, No Tenderness Extremity: Bilateral: Atraumatic Neurological/Psych: Oriented x3, Normal Speech ED Course And Treatment - Laboratory Results Result Diagrams: 10/24/16 14:34 10/24/16 14:34 Lab Interpretation: Abnormal ECG: Interpreted By Me ECG Rhythm: Sinus Rhythm ECG Interpretation: Normal Rate From EC O2 Sat by Pulse Oximetry: 98 (room air) Pulse Ox Interpretation: Normal - Radiology CXR: Interpreted by Me CXR Interpretation: Yes: No Acute Disease Progress Note: 1430: d/w Dr. Arango- prior surgeon- will consult. 1430 and 1615 : d/w [facility]- ok to Obs. Will select ABX. Plan: EKG, labs, CXR, morphine , protonix, tramadol, zosyn Medical Decision Making Medical Decision Making: persistent L breast implant pocket infection with mild overlying cellulitis Disposition Doctor Will See Patient In The: Hospital Counseled Patient/Family Regarding: Studies Performed, Diagnosis - Disposition Disposition: HOSPITALIZED Disposition Time: 16:15 Condition: GOOD - Clinical Impression Clinical Impression: Cellulitis of breast, Postoperative wound dehiscence - Scribe Statement The provider has reviewed the documentation as recorded by the Jessica Young Provider Attestation: All medical record entries made by the Jessica were at my direction and personally dictated by me. I have reviewed the chart and agree that the record accurately reflects my personal performance of the history, physical exam, medical decision making, and the department course for this patient. I have also personally directed, reviewed, and agree with the discharge instructions and disposition.
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
[2016-10-24 17:04] LABS: RBC URINE < 1 /hpf (0-3); URINE BILIRUBIN NEGATIVE (NEGATIVE); URINE BLOOD NEGATIVE (NEGATIVE); URINE COLOR Yellow (YELLOW); URINE GLUCOSE (UA) NORMAL (Normal); URINE KETONE NEGATIVE (NEGATIVE); URINE LEUKOCYTE ESTERASE NEG Leu/uL (Negative); URINE PROTEIN NEGATIVE (NEGATIVE); URINE UROBILINOGEN NORMAL mg/dL (0.2-1.0); WBC URINE 3 /hpf (0-5)
[2016-10-24] MEDS ORDERED: Bacitracin 50,000 UNIT in Sodium Chloride 0.9% Irrig 1,000 ML IR SCH (18:02)
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
[2016-10-24] MEDS ORDERED: Lactated Ringer's 1,000 ML IV ONE (18:15)
[2016-10-24] MEDS ORDERED: Midazolam 2 MG/2 ML VIAL ONE (18:18)
[2016-10-24] MEDS ORDERED: Propofol 10 mg/ml Inj (20 ML) ONE (18:18)
[2016-10-24] MEDS ORDERED: ceFAZolin IV 2 gm in Dextrose 1 GM/50 ML BAG IVPB ONE (18:24)
[2016-10-24] MEDS ORDERED: ePHEDrine 50 mg/ml Inj ONE (18:33)
[2016-10-24] MEDS ORDERED: Bacitracin Ointment 30 GM TUBE ONE (20:25)
[2016-10-24] MEDS: HYDROmorphone 0.5 mg/0.5 ml ISec IVP PRN ×2 (20:38→21:11)
--- NOTE | 2016-10-24 20:41 | PCM.SURG1 ---
Surgeon's Initial Post Op Note - Surgeon's Notes Surgeon: Conchita Mig Welder: Paige PGY2 Type of Anesthesia: General LMA Pre-Operative Diagnosis: Exposed L breast implant Operative Findings: pus Post-Operative Diagnosis: same Operation Performed: wash out of breast capsule w. reinsertion of implant Specimen/Specimens Removed: cultures Estimated Blood Loss: EBL {In ML}: 100 Blood Products Given: N/A Drains Used: Dejon Post-Op Condition: Good Date of Surgery/Procedure: 10/24/16 Time of Surgery/Procedure: 20:41
[2016-10-24] MEDS ORDERED: Oxycodone/Acetaminophen 5/325 mg Tab PO PRN (20:43)
[2016-10-24] MEDS ORDERED: HYDROmorphone 0.5 mg/0.5 ml ISec ONE (20:49)
[2016-10-24] MEDS ORDERED: Sodium Chloride 0.9% 1,000 ML IV SCH (21:00)
[2016-10-24] MEDS: (Novolog) Insulin Aspart, Recombinant 100 u/ml 10 ml vial SC SCH (22:18)
[2016-10-24] MEDS: Piperacill/Tazo 3.375gm in Dex 3.375 GM/50 ML BAG IVPB SCH (22:29)
[2016-10-24] MEDS: Pantoprazole 40 mg EC Tab PO SCH (23:13)
[2016-10-25] MEDS: HYDROmorphone 0.5 mg/0.5 ml ISec IVP PRN ×5 (00:20→22:06)
[2016-10-25] MEDS: Piperacill/Tazo 3.375gm in Dex 3.375 GM/50 ML BAG IVPB SCH ×4 (00:51→23:44)
[2016-10-25 06:37] LABS: BASO % 0.4 % (0.0-2.0); EOS # 0.1 K/uL (0.0-0.7); EOS % 0.7 % (0.0-4.0); HEMATOCRIT 23.2 % (34.0-47.0); LYMPH # 0.8 K/uL (1.0-4.3); LYMPH % 8.5 % (20.0-40.0); MEAN CELL VOLUME 88.1 fL (81.0-99.0); MEAN CORPUSCULAR HEMOGLOBIN 29.4 pg (27.0-31.0); MEAN CORPUSCULAR HGB CONC 33.4 g/dL (33.0-37.0); MEAN PLATELET VOLUME 7.3 fL (7.2-11.7); MONO # 1.3 K/uL (0.0-0.8); MONO % 13.5 % (0.0-10.0); PLATELET COUNT 229 K/uL (130-400); RED CELL DISTRIBUTION WIDTH 14.3 % (11.5-14.5); WHITE BLOOD COUNT 9.7 K/uL (4.8-10.8)
[2016-10-25 06:57] LABS: CHLORIDE 101 mmol/L (98-107); SODIUM 134 mmol/L (132-148)
[2016-10-25 06:58] LABS: POTASSIUM 3.3 mmol/L (3.6-5.2)
[2016-10-25 06:59] LABS: GFR AFRICAN-AMERICAN > 60
[2016-10-25 07:00] LABS: ALKALINE PHOSPHATASE 55 U/L (38-126); ALT/SGPT 18 U/L (9-52); AST/SGOT 16 U/L (14-36); BILIRUBIN,TOTAL 0.9 mg/dL (0.2-1.3); BLOOD UREA NITROGEN 13 mg/dL (7-17); CARBON DIOXIDE 26 mmol/L (22-30); GLUCOSE,RANDOM 109 mg/dL (65-105); PHOSPHOROUS 3.3 mg/dL (2.5-4.5); TOTAL PROTEIN 5.3 g/dL (6.3-8.3)
[2016-10-25 07:01] LABS: CALCIUM 6.9 mg/dl (8.6-10.4); MAGNESIUM 1.7 mg/dL (1.6-2.3)
[2016-10-25] MEDS: (Novolog) Insulin Aspart, Recombinant 100 u/ml 10 ml vial SC SCH ×4 (07:52→21:47)
[2016-10-25 08:47] LABS: NEUTROPHIL 79 % (50-75); TOTAL CELLS COUNTED 100
[2016-10-25] MEDS: Sodium Chloride 0.9% 1,000 ML IV SCH ×2 (08:48→18:23)
[2016-10-25 08:51] LABS: LARGE PLATELETS PRESENT
[2016-10-25] MEDS: Pantoprazole 40 mg EC Tab PO SCH (09:17)
[2016-10-25] MEDS: Potassium Chloride 20 mEq ER Tab PO SCH (09:17)
--- NOTE | 2016-10-25 10:56 | CP.PCM.PN ---
Subjective - Date & Time of Evaluation Date of Evaluation: 10/25/16 Time of Evaluation: 10:53 - Subjective Subjective: Surgery: Dr. Arango Pt seen and examined. Pt complaining of pain and sore throat. No fever or chills. Objective - Vital Signs/Intake and Output Vital Signs (last 24 hours): Temp Pulse Resp BP Pulse Ox 98.1 F 90 20 119/68 95 10/25/16 08:00 10/25/16 08:00 10/25/16 08:00 10/25/16 08:00 10/25/16 08:00 Intake and Output: 10/25/16 10/25/16 06:59 18:59 Intake Total 200 Output Total 60 Balance 140 - Medications Medications: Current Medications Acetaminophen (Tylenol 325mg Tab) 975 mg PO Q8 [facility] Stop: 10/25/16 14:01 Last Admin: 10/25/16 07:00 Dose: 975 mg Benzocaine/Menthol (Cepacol Sore Throat) 1 sumeet MT Q1 PRN PRN Reason: Sore Throat Heparin Sodium (Porcine) (Heparin) 5,000 units SC Q12 [facility] Last Admin: 10/25/16 09:17 Dose: 5,000 units Hydromorphone HCl (Dilaudid) 1 mg IVP Q4H PRN PRN Reason: Pain, severe (8-10) Last Admin: 10/25/16 08:44 Dose: 1 mg Piperacillin Sod/Tazobactam Sod (Zosyn 3.375 Gm Iv Premix) 3.375 gm in 50 mls @ 100 mls/hr IVPB Q6H [facility] Last Admin: 10/25/16 00:51 Dose: Not Given Vancomycin HCl 1 gm/ Sodium (Chloride) 250 mls @ 166.7 mls/hr IVPB Q24H [facility] Last Admin: 10/24/16 23:18 Dose: 166.7 mls/hr Sodium Chloride (Sodium Chloride 0.9%) 1,000 mls @ 115 mls/hr IV .Q8H42M [facility] Last Admin: 10/25/16 08:48 Dose: 115 mls/hr Insulin Aspart (Novolog) 0 unit SC ACHS [facility] PRN Reason: Protocol Last Admin: 10/25/16 07:52 Dose: Not Given Ondansetron HCl (Zofran Inj) 4 mg IVP Q4 PRN PRN Reason: Nausea/Vomiting Last Admin: 10/24/16 22:29 Dose: 4 mg Oxycodone/Acetaminophen (Percocet 5/325 Mg Tab) 1 tab PO Q4H PRN PRN Reason: Pain, moderate (4-7) Stop: 10/27/16 20:44 Pantoprazole Sodium (Protonix Ec Tab) 40 mg PO DAILY [facility] Last Admin: 10/25/16 09:17 Dose: 40 mg Potassium Chloride (K-Dur 20 Meq Er Tab) 20 meq PO DAILY [facility] Last Admin: 10/25/16 09:17 Dose: 20 meq Risperidone (Risperdal Tab) 1 mg PO DAILY [facility] Last Admin: 10/25/16 09:17 Dose: 1 mg Sertraline HCl (Zoloft) 100 mg PO DAILY [facility] Last Admin: 10/25/16 09:17 Dose: 100 mg - Labs Labs: 10/25/16 06:18 10/25/16 06:18 - Constitutional Appears: Non-toxic, No Acute Distress - Head Exam Head Exam: ATRAUMATIC, NORMOCEPHALIC - Eye Exam Eye Exam: EOMI. absent: Scleral icterus - ENT Exam ENT Exam: Mucous Membranes Moist - Neck Exam Neck Exam: Full ROM - Respiratory Exam Respiratory Exam: NORMAL BREATHING PATTERN. absent: Accessory Muscle Use, Respiratory Distress - GI/Abdominal Exam GI & Abdominal Exam: Soft. absent: Tenderness - Extremities Exam Extremities Exam: absent: Calf Tenderness, Pedal Edema - Neurological Exam Neurological Exam: Alert, Awake, Oriented x3 - Skin Additional comments: L breast, + erythema, warm to touch, tender to palpation, esther in place, no pus Assessment and Plan - Assessment and Plan (Free Text) Assessment: 56F w. infected breast implant, s/p breast capsule washout and placement of implant, POD#1 -wound vac applied to incision will change q3-4 days -f/u wound cx -c/w abx -dilaudid increased for pain -esther 40cc/12 hr, monitor output -f/u afternoon cbc -d/w attending Zemaitis PGY2
--- NOTE | 2016-10-25 11:45 | CP.PCM.PN ---
<YaakovAris - Last Filed: 10/25/16 13:26> Subjective - Date & Time of Evaluation Date of Evaluation: 10/25/16 Time of Evaluation: 10:00 - Subjective Subjective: Medicine Note- Hospitalist Service Patient was seen and examined at bedside. Patient reports that she had pain earlier in the morning, but now it is better controlled. She also states surgery came by and placed the wound vac about one hour to my evaluation. No events overnight, per nursing. Objective - Vital Signs/Intake and Output Vital Signs (last 24 hours): Temp Pulse Resp BP Pulse Ox 98.1 F 90 20 119/68 95 10/25/16 08:00 10/25/16 08:00 10/25/16 08:00 10/25/16 08:00 10/25/16 08:00 Intake and Output: 10/25/16 10/25/16 06:59 18:59 Intake Total 200 Output Total 60 Balance 140 - Medications Medications: Current Medications Acetaminophen (Tylenol 325mg Tab) 975 mg PO Q8 [facility] Stop: 10/25/16 14:01 Last Admin: 10/25/16 07:00 Dose: 975 mg Benzocaine/Menthol (Cepacol Sore Throat) 1 sumeet MT Q1 PRN PRN Reason: Sore Throat Heparin Sodium (Porcine) (Heparin) 5,000 units SC Q12 [facility] Last Admin: 10/25/16 09:17 Dose: 5,000 units Hydromorphone HCl (Dilaudid) 1 mg IVP Q4H PRN PRN Reason: Pain, severe (8-10) Last Admin: 10/25/16 08:44 Dose: 1 mg Piperacillin Sod/Tazobactam Sod (Zosyn 3.375 Gm Iv Premix) 3.375 gm in 50 mls @ 100 mls/hr IVPB Q6H [facility] Last Admin: 10/25/16 11:11 Dose: 100 mls/hr Vancomycin HCl 1 gm/ Sodium (Chloride) 250 mls @ 166.7 mls/hr IVPB Q24H [facility] Last Admin: 10/24/16 23:18 Dose: 166.7 mls/hr Sodium Chloride (Sodium Chloride 0.9%) 1,000 mls @ 115 mls/hr IV .Q8H42M [facility] Last Admin: 10/25/16 08:48 Dose: 115 mls/hr Insulin Aspart (Novolog) 0 unit SC ACHS [facility] PRN Reason: Protocol Last Admin: 10/25/16 07:52 Dose: Not Given Ondansetron HCl (Zofran Inj) 4 mg IVP Q4 PRN PRN Reason: Nausea/Vomiting Last Admin: 10/24/16 22:29 Dose: 4 mg Oxycodone/Acetaminophen (Percocet 5/325 Mg Tab) 1 tab PO Q4H PRN PRN Reason: Pain, moderate (4-7) Stop: 10/27/16 20:44 Pantoprazole Sodium (Protonix Ec Tab) 40 mg PO DAILY [facility] Last Admin: 10/25/16 09:17 Dose: 40 mg Potassium Chloride (K-Dur 20 Meq Er Tab) 20 meq PO DAILY [facility] Last Admin: 10/25/16 09:17 Dose: 20 meq Risperidone (Risperdal Tab) 1 mg PO DAILY [facility] Last Admin: 10/25/16 09:17 Dose: 1 mg Sertraline HCl (Zoloft) 100 mg PO DAILY [facility] Last Admin: 10/25/16 09:17 Dose: 100 mg - Labs Labs: 10/25/16 06:18 10/25/16 06:18 - Constitutional Appears: Non-toxic, No Acute Distress - Head Exam Head Exam: ATRAUMATIC, NORMAL INSPECTION, NORMOCEPHALIC - Eye Exam Pupil Exam: NORMAL ACCOMODATION, PERRL - Respiratory Exam Respiratory Exam: Clear to Ausculation Bilateral, NORMAL BREATHING PATTERN. absent: Prolonged Expiratory Phase, Rales, Rhonchi, Wheezes - Cardiovascular Exam Cardiovascular Exam: REGULAR RHYTHM, +S1, +S2 - GI/Abdominal Exam GI & Abdominal Exam: Soft, Normal Bowel Sounds. absent: Tenderness, Diminished Bowel Sounds, Hyperactive Bowel Sounds - Neurological Exam Neurological Exam: Alert, Awake, Oriented x3 - Psychiatric Exam Psychiatric exam: Normal Affect, Normal Mood - Skin Skin Exam: Dry, Intact, Normal Color, Warm Assessment and Plan - Assessment and Plan (Free Text) Assessment: Bilateral breast wound infection L > R -s/p bilateral breast implant insertion, extensive bilateral breast revision, scar revision, breast capsulectomy, capsulotomy done 08/27/[address] Arango -s/p day #1 Wash out of breast capsule and reinsertion of implant -f/u blood culture and wound culture -WBC 9.7 -Dilaudid 1mg IVP Q4 PRN pain -Percocet 1 tab PO Q4h PRN pain -Vancomycin 1gm IVPB Q24H- started 10/24/16 -Zosyn 3.375gm IVPB Q8H- started 10/24/16 -f/u AM labs -Dr. Arango plastic surgeon consulted- wound vac in place, RUDOLPH drain in place Invasive bilateral Lobular Carcinoma of breast -Patient receives chemotherapy every week -Patient receives radiation every week -Dilaudid 1mg IVP Q4 PRN pain -Percocet 1 tab PO Q4h PRN pain Hx of HTN -hold home meds Hx of DM -Accucheck -low dose RISS Hx of Insomnia and anxiety -Risperidone 1mg po daily -Zoloft 100mg po daily Anemia -Hgb 7.7 today. Possibly from blood loss last night, will recheck CBC in afternoon. PPX -Protonix 40mg po daily -VTE ppx on hold in case patient goes to OR in the AM -SCDs -Heart healthy diet moderate consistent carb diet <Enrique Quiroz H - Last Filed: 10/25/16 14:27> Objective - Vital Signs/Intake and Output Vital Signs (last 24 hours): Temp Pulse Resp BP Pulse Ox 98.1 F 90 20 119/68 95 10/25/16 08:00 10/25/16 08:00 10/25/16 08:00 10/25/16 08:00 10/25/16 08:00 - Medications Medications: Current Medications Benzocaine/Menthol (Cepacol Sore Throat) 1 sumeet MT Q1 PRN PRN Reason: Sore Throat Heparin Sodium (Porcine) (Heparin) 5,000 units SC Q12 [facility] Last Admin: 10/25/16 09:17 Dose: 5,000 units Hydromorphone HCl (Dilaudid) 1 mg IVP Q4H PRN PRN Reason: Pain, severe (8-10) Last Admin: 10/25/16 08:44 Dose: 1 mg Piperacillin Sod/Tazobactam Sod (Zosyn 3.375 Gm Iv Premix) 3.375 gm in 50 mls @ 100 mls/hr IVPB Q6H [facility] Last Admin: 10/25/16 11:11 Dose: 100 mls/hr Vancomycin HCl 1 gm/ Sodium (Chloride) 250 mls @ 166.7 mls/hr IVPB Q24H [facility] Last Admin: 10/24/16 23:18 Dose: 166.7 mls/hr Sodium Chloride (Sodium Chloride 0.9%) 1,000 mls @ 115 mls/hr IV .Q8H42M [facility] Last Admin: 10/25/16 08:48 Dose: 115 mls/hr Insulin Aspart (Novolog) 0 unit SC ACHS [facility] PRN Reason: Protocol Last Admin: 10/25/16 14:17 Dose: 1 unit Ondansetron HCl (Zofran Inj) 4 mg IVP Q4 PRN PRN Reason: Nausea/Vomiting Last Admin: 10/24/16 22:29 Dose: 4 mg Oxycodone/Acetaminophen (Percocet 5/325 Mg Tab) 1 tab PO Q4H PRN PRN Reason: Pain, moderate (4-7) Stop: 10/27/16 20:44 Pantoprazole Sodium (Protonix Ec Tab) 40 mg PO DAILY [facility] Last Admin: 10/25/16 09:17 Dose: 40 mg Potassium Chloride (K-Dur 20 Meq Er Tab) 20 meq PO DAILY [facility] Last Admin: 10/25/16 09:17 Dose: 20 meq Risperidone (Risperdal Tab) 1 mg PO DAILY [facility] Last Admin: 10/25/16 09:17 Dose: 1 mg Sertraline HCl (Zoloft) 100 mg PO DAILY [facility] Last Admin: 10/25/16 09:17 Dose: 100 mg Attending/Attestation - Attestation I have personally seen and examined this patient.: Yes I have fully participated in the care of the patient.: Yes I have reviewed all pertinent clinical information, including history, physical exam and plan: Yes Notes (Text): Medical attending: Patient was seen and examined by me, agree with the above note by medical laboratory manager. The patient is status post the OR yesterday. She now has a wound VAC as well as a from the left breast.she has several wound cultures from the left breast wound. The patient is currently on Vancomycin and Zosyn The patient states that the pain is controlled at this time. she reports that her diet remains poor at this time. At this time will continue continue with IV abx, monitor the cultures,and watch for any fever or chills. Thank you very much, Enrique Quiroz
[2016-10-25 13:03] LABS: HEMATOCRIT 24.5 % (34.0-47.0); MEAN CELL VOLUME 88.4 fL (81.0-99.0); MEAN CORPUSCULAR HEMOGLOBIN 29.4 pg (27.0-31.0); MEAN CORPUSCULAR HGB CONC 33.3 g/dL (33.0-37.0); MEAN PLATELET VOLUME 7.3 fL (7.2-11.7); RED CELL DISTRIBUTION WIDTH 14.1 % (11.5-14.5); WHITE BLOOD COUNT 9.7 K/uL (4.8-10.8)
[2016-10-25 17:18] LABS: URINE BILIRUBIN NEGATIVE (NEGATIVE); URINE BLOOD NEGATIVE (NEGATIVE); URINE COLOR Yellow (YELLOW); URINE GLUCOSE (UA) NORMAL (Normal); URINE KETONE NEGATIVE (NEGATIVE); URINE LEUKOCYTE ESTERASE NEG Leu/uL (Negative); URINE PROTEIN NEGATIVE (NEGATIVE); WBC URINE 4 /hpf (0-5)
[2016-10-25] MEDS ORDERED: Magnesium Oxide 400 mg Tab UD PO ONE (19:30)
[2016-10-25] MEDS: Benzocaine/Menthol (Cepacol) Lozenge MT PRN (19:58)
--- NOTE | 2016-10-25 21:01 | CP.PCM.PCO ---
Physician Communication Note - Physician Communication Note Physician Communication Note: Left breast implant extrusion, taken to OR urgently Assessment & Plan - Assessment and Plan (Free Text) Assessment: Patient says she has trouble sleeping otherwise doing OK. A little weak. PE: Left breast warm but not as red as yesterday. Serous drainage from RUDOLPH and VAC. Incision intact. Plan: Assessment:56F w. infected breast implant, s/p breast capsule washout and placement of implant, POD#1 Plan: Will change VAC on Thursday. Cultures pending, gr positive Cocci, continue with Unasyn and Vaco. Would treat for 1 week with IV antibiotics because of implant in irradiated tissue pocket. Would recommend ID consult and follow up with her oncologist. Would consider bleed transfusion for Hct 23 or Epogen Ambien for sleep ordered.
[2016-10-26] MEDS: Sodium Chloride 0.9% 1,000 ML IV SCH ×3 (01:08→18:54)
[2016-10-26] MEDS: Piperacill/Tazo 3.375gm in Dex 3.375 GM/50 ML BAG IVPB SCH ×5 (05:12→23:53)
[2016-10-26] MEDS: HYDROmorphone 0.5 mg/0.5 ml ISec IVP PRN ×2 (05:12→09:32)
--- NOTE | 2016-10-26 06:25 | CP.PCM.PN ---
Subjective - Date & Time of Evaluation Date of Evaluation: 10/26/16 Time of Evaluation: 06:24 - Subjective Subjective: Plastic Surgery: Dr. Arango Pt seen and examined. Continues to have pain at surigcal site, controlled w. pain meds. No other complaints. Objective - Vital Signs/Intake and Output Vital Signs (last 24 hours): Temp Pulse Resp BP Pulse Ox 98 F 90 20 125/79 96 10/25/16 23:43 10/25/16 23:43 10/25/16 23:43 10/25/16 23:43 10/25/16 23:43 Intake and Output: 10/25/16 10/26/16 18:59 06:59 Intake Total 240 Output Total 40 Balance 200 - Medications Medications: Current Medications Benzocaine/Menthol (Cepacol Sore Throat) 1 sumeet MT Q1 PRN PRN Reason: Sore Throat Last Admin: 10/25/16 19:58 Dose: 1 sumeet Diphenhydramine HCl (Benadryl) 25 mg PO Q6 PRN PRN Reason: Itching / Pruritus Heparin Sodium (Porcine) (Heparin) 5,000 units SC Q12 [facility] Last Admin: 10/25/16 22:05 Dose: 5,000 units Hydromorphone HCl (Dilaudid) 1 mg IVP Q4H PRN PRN Reason: Pain, severe (8-10) Last Admin: 10/26/16 05:12 Dose: 1 mg Piperacillin Sod/Tazobactam Sod (Zosyn 3.375 Gm Iv Premix) 3.375 gm in 50 mls @ 100 mls/hr IVPB Q6H [facility] Last Admin: 10/26/16 05:17 Dose: Not Given Vancomycin HCl 1 gm/ Sodium (Chloride) 250 mls @ 166.7 mls/hr IVPB Q24H [facility] Last Admin: 10/25/16 18:25 Dose: 166.7 mls/hr Sodium Chloride (Sodium Chloride 0.9%) 1,000 mls @ 115 mls/hr IV .Q8H42M [facility] Last Admin: 10/26/16 01:08 Dose: 115 mls/hr Insulin Aspart (Novolog) 0 unit SC ACHS [facility] Reason: Protocol Last Admin: 10/25/16 21:47 Dose: Not Given Ondansetron HCl (Zofran Inj) 4 mg IVP Q4 PRN PRN Reason: Nausea/Vomiting Last Admin: 10/24/16 22:29 Dose: 4 mg Oxycodone/Acetaminophen (Percocet 5/325 Mg Tab) 1 tab PO Q4H PRN PRN Reason: Pain, moderate (4-7) Stop: 10/27/16 20:44 Pantoprazole Sodium (Protonix Ec Tab) 40 mg PO DAILY [facility] Last Admin: 10/25/16 09:17 Dose: 40 mg Potassium Chloride (K-Dur 20 Meq Er Tab) 20 meq PO DAILY [facility] Last Admin: 10/25/16 09:17 Dose: 20 meq Risperidone (Risperdal Tab) 1 mg PO DAILY [facility] Last Admin: 10/25/16 09:17 Dose: 1 mg Sertraline HCl (Zoloft) 100 mg PO DAILY [facility] Last Admin: 10/25/16 09:17 Dose: 100 mg Temazepam (Restoril) 30 mg PO HS PRN PRN Reason: Insomnia Zolpidem Tartrate (Ambien) 5 mg PO HS PRN PRN Reason: Insomnia Last Admin: 10/25/16 22:05 Dose: 5 mg - Constitutional Appears: Non-toxic, No Acute Distress - Head Exam Head Exam: ATRAUMATIC, NORMOCEPHALIC - Eye Exam Eye Exam: EOMI - ENT Exam ENT Exam: Mucous Membranes Moist - Neck Exam Neck Exam: Full ROM - Respiratory Exam Respiratory Exam: NORMAL BREATHING PATTERN. absent: Accessory Muscle Use, Respiratory Distress - Neurological Exam Neurological Exam: Alert, Awake, Oriented x3 - Skin Additional comments: L breast, + erythema, warm to touch, wound VAC in place, Dejon in place Assessment and Plan - Assessment and Plan (Free Text) Assessment: 56F w. infected breast implant, s/p breast capsule washout and placement of implant, POD#2 -Dejon output 45cc/12hr sero sang -wound vac in place, will change on Thursday -wound cx prelim: Gram + cocci -c/w abx -c/w pain management -monitor cbc, AM labs pending, consider transfusion -d/w attending Zemaitis PGY2
[2016-10-26 06:41] LABS: HEMATOCRIT 20.2 % (34.0-47.0); MEAN CORPUSCULAR HEMOGLOBIN 28.8 pg (27.0-31.0); MEAN CORPUSCULAR HGB CONC 32.7 g/dL (33.0-37.0); MEAN PLATELET VOLUME 6.7 fL (7.2-11.7); RED CELL DISTRIBUTION WIDTH 14.1 % (11.5-14.5); WHITE BLOOD COUNT 6.4 K/uL (4.8-10.8)
[2016-10-26] MEDS: (Novolog) Insulin Aspart, Recombinant 100 u/ml 10 ml vial SC SCH ×4 (08:05→21:52)
[2016-10-26] MEDS ORDERED: Albuterol 0.083% Inhal Sol (2.5 mg/3 mL) UD ONE (08:10)
[2016-10-26] MEDS: Albuterol 0.083% Inhal Sol (2.5 mg/3 mL) UD INH PRN (08:11)
[2016-10-26] MEDS: Pantoprazole 40 mg EC Tab PO SCH (09:33)
[2016-10-26] MEDS: Potassium Chloride 20 mEq ER Tab PO SCH (09:33)
--- NOTE | 2016-10-26 10:25 | CP.PCM.PN ---
<Aris Nuno - Last Filed: 10/26/16 10:22> Subjective - Date & Time of Evaluation Date of Evaluation: 10/26/16 Time of Evaluation: 08:00 - Subjective Subjective: Medicine Note- Hospitalist Service Patient was seen and examined at bedside. Patient reports she is feeling well, pain is well controlled. Patient denies any acute complaints at this time. No events overnight, per nursing. Objective - Vital Signs/Intake and Output Vital Signs (last 24 hours): Temp Pulse Resp BP Pulse Ox 97.6 F 91 H 20 142/80 94 L 10/26/16 10:10/26/16 10:10/26/16 10:10/26/16 10:10/26/16 10:06 - Medications Medications: Current Medications Albuterol Sulfate (Albuterol 0.083% Inhal Jennifer (2.5 Mg/3 Ml) Ud) 2.5 mg INH RQ6 PRN PRN Reason: Shortness of Breath Last Admin: 10/26/16 08:11 Dose: 2.5 mg Benzocaine/Menthol (Cepacol Sore Throat) 1 sumeet MT Q1 PRN PRN Reason: Sore Throat Last Admin: 10/25/16 19:58 Dose: 1 sumeet Diphenhydramine HCl (Benadryl) 25 mg PO Q6 PRN PRN Reason: Itching / Pruritus Hydromorphone HCl (Dilaudid) 1 mg IVP Q3H PRN PRN Reason: Pain, severe (8-10) Piperacillin Sod/Tazobactam Sod (Zosyn 3.375 Gm Iv Premix) 3.375 gm in 50 mls @ 100 mls/hr IVPB Q6H [facility] Last Admin: 10/26/16 05:17 Dose: Not Given Vancomycin HCl 1 gm/ Sodium (Chloride) 250 mls @ 166.7 mls/hr IVPB Q24H [facility] Last Admin: 10/25/16 18:25 Dose: 166.7 mls/hr Sodium Chloride (Sodium Chloride 0.9%) 1,000 mls @ 115 mls/hr IV .Q8H42M [facility] Last Admin: 10/26/16 01:08 Dose: 115 mls/hr Insulin Aspart (Novolog) 0 unit SC ACHS [facility] PRN Reason: Protocol Last Admin: 10/26/16 08:05 Dose: Not Given Ondansetron HCl (Zofran Inj) 4 mg IVP Q4 PRN PRN Reason: Nausea/Vomiting Last Admin: 10/24/16 22:29 Dose: 4 mg Oxycodone/Acetaminophen (Percocet 5/325 Mg Tab) 1 tab PO Q4H PRN PRN Reason: Pain, moderate (4-7) Stop: 10/27/16 20:44 Pantoprazole Sodium (Protonix Ec Tab) 40 mg PO DAILY [facility] Last Admin: 10/26/16 09:33 Dose: 40 mg Potassium Chloride (K-Dur 20 Meq Er Tab) 20 meq PO DAILY [facility] Last Admin: 10/26/16 09:33 Dose: 20 meq Risperidone (Risperdal Tab) 1 mg PO DAILY [facility] Last Admin: 10/26/16 09:33 Dose: 1 mg Sertraline HCl (Zoloft) 100 mg PO DAILY [facility] Last Admin: 10/26/16 09:33 Dose: 100 mg Zolpidem Tartrate (Ambien) 5 mg PO HS PRN PRN Reason: Insomnia Last Admin: 10/25/16 22:05 Dose: 5 mg - Labs Labs: 10/26/16 06:38 - Constitutional Appears: Non-toxic, No Acute Distress - Head Exam Head Exam: ATRAUMATIC, NORMAL INSPECTION, NORMOCEPHALIC - Eye Exam Eye Exam: PERRL Pupil Exam: NORMAL ACCOMODATION, PERRL - ENT Exam ENT Exam: Mucous Membranes Moist - Respiratory Exam Respiratory Exam: Clear to Ausculation Bilateral, NORMAL BREATHING PATTERN. absent: Prolonged Expiratory Phase, Rales, Rhonchi, Wheezes - Cardiovascular Exam Cardiovascular Exam: REGULAR RHYTHM, +S1 - GI/Abdominal Exam GI & Abdominal Exam: Soft, Normal Bowel Sounds. absent: Tenderness, Diminished Bowel Sounds, Hypoactive Bowel Sounds - Extremities Exam Extremities Exam: Normal Capillary Refill, Normal Inspection - Neurological Exam Neurological Exam: Alert, Awake, Oriented x3 - Psychiatric Exam Psychiatric exam: Normal Affect, Normal Mood - Skin Skin Exam: Dry, Intact, Normal Color, Warm Assessment and Plan - Assessment and Plan (Free Text) Assessment: Bilateral breast wound infection L > R -s/p bilateral breast implant insertion, extensive bilateral breast revision, scar revision, breast capsulectomy, capsulotomy done 08/27/[address] Arango -s/p day #2 Wash out of breast capsule and reinsertion of implant -blood culture- no growth after 24 hrs -wound culture- MRSA positive -WBC 9.7 -Dilaudid 1mg IVP Q3 PRN pain -Percocet 1 tab PO Q4h PRN pain -Vancomycin 1gm IVPB Q24H- started 10/24/16 -Zosyn 3.375gm IVPB Q8H- started 10/24/16 -Dr. Arango plastic surgeon consulted- wound vac in place, esther drain in place Invasive bilateral Lobular Carcinoma of breast -Patient receives chemotherapy every week -Patient receives radiation every week -Dilaudid 1mg IVP Q4 PRN pain -Percocet 1 tab PO Q4h PRN pain Hx of HTN -hold home meds Hx of DM -Accucheck -low dose RISS Hx of Insomnia and anxiety -Risperidone 1mg po daily -Zoloft 100mg po daily - Ambien 5mg PO HS PRN Dyspnea Ordered Albuterol 0.083% nebulizer Q6h PRN Will add nasal cannula as needed. Anemia -Hgb dropped to 6.6 today. Ordered 2U PRBC to be transfused. PPX -Protonix 40mg po daily -Held Heparin due to cute anemia -SCDs -Heart healthy diet moderate consistent carb diet <GabriellaPeter H - Last Filed: 10/26/16 11:16> Objective - Vital Signs/Intake and Output Vital Signs (last 24 hours): Temp Pulse Resp BP Pulse Ox 97.9 F 89 20 108/69 94 L 10/26/16 10:59 10/26/16 10:59 10/26/16 10:59 10/26/16 10:59 10/26/16 10:06 Intake and Output: 10/26/16 10/26/16 06:59 18:59 Intake Total 0 Balance 0 - Medications Medications: Current Medications Albuterol Sulfate (Albuterol 0.083% Inhal Jennifer (2.5 Mg/3 Ml) Ud) 2.5 mg INH RQ6 PRN PRN Reason: Shortness of Breath Last Admin: 10/26/16 08:11 Dose: 2.5 mg Benzocaine/Menthol (Cepacol Sore Throat) 1 sumeet MT Q1 PRN PRN Reason: Sore Throat Last Admin: 10/25/16 19:58 Dose: 1 sumeet Diphenhydramine HCl (Benadryl) 25 mg PO Q6 PRN PRN Reason: Itching / Pruritus Hydromorphone HCl (Dilaudid) 1 mg IVP Q3H PRN PRN Reason: Pain, severe (8-10) Piperacillin Sod/Tazobactam Sod (Zosyn 3.375 Gm Iv Premix) 3.375 gm in 50 mls @ 100 mls/hr IVPB Q6H [facility] Last Admin: 10/26/16 05:17 Dose: Not Given Vancomycin HCl 1 gm/ Sodium (Chloride) 250 mls @ 166.7 mls/hr IVPB Q24H [facility] Last Admin: 10/25/16 18:25 Dose: 166.7 mls/hr Sodium Chloride (Sodium Chloride 0.9%) 1,000 mls @ 115 mls/hr IV .Q8H42M [facility] Last Admin: 10/26/16 01:08 Dose: 115 mls/hr Insulin Aspart (Novolog) 0 unit SC ACHS [facility] PRN Reason: Protocol Last Admin: 10/26/16 08:05 Dose: Not Given Ondansetron HCl (Zofran Inj) 4 mg IVP Q4 PRN PRN Reason: Nausea/Vomiting Last Admin: 10/24/16 22:29 Dose: 4 mg Oxycodone/Acetaminophen (Percocet 5/325 Mg Tab) 1 tab PO Q4H PRN PRN Reason: Pain, moderate (4-7) Stop: 10/27/16 20:44 Pantoprazole Sodium (Protonix Ec Tab) 40 mg PO DAILY [facility] Last Admin: 10/26/16 09:33 Dose: 40 mg Potassium Chloride (K-Dur 20 Meq Er Tab) 20 meq PO DAILY [facility] Last Admin: 10/26/16 09:33 Dose: 20 meq Risperidone (Risperdal Tab) 1 mg PO DAILY [facility] Last Admin: 10/26/16 09:33 Dose: 1 mg Sertraline HCl (Zoloft) 100 mg PO DAILY [facility] Last Admin: 10/26/16 09:33 Dose: 100 mg Zolpidem Tartrate (Ambien) 5 mg PO HS PRN PRN Reason: Insomnia Last Admin: 10/25/16 22:05 Dose: 5 mg - Labs Labs: 10/26/16 06:38 Attending/Attestation - Attestation I have personally seen and examined this patient.: Yes I have fully participated in the care of the patient.: Yes I have reviewed all pertinent clinical information, including history, physical exam and plan: Yes Notes (Text): Medical Attending: Patient was seen and examined by me. Agree with the above note by the resident She was having pain when we saw her and after we discussed with the patient will increase medication for pain. The wound culture + MRSA, she is now isloation and on vancomycin Enrique Quiroz
[2016-10-26] MEDS: Benzocaine/Menthol (Cepacol) Lozenge MT PRN (12:58)
[2016-10-26 21:30] LABS: BASO % 0.4 % (0.0-2.0); EOS # 0.3 K/uL (0.0-0.7); EOS % 3.2 % (0.0-4.0); HEMATOCRIT 29.9 % (34.0-47.0); LYMPH % 11.2 % (20.0-40.0); MEAN CELL VOLUME 86.6 fL (81.0-99.0); MEAN CORPUSCULAR HEMOGLOBIN 28.7 pg (27.0-31.0); MEAN CORPUSCULAR HGB CONC 33.1 g/dL (33.0-37.0); MEAN PLATELET VOLUME 6.7 fL (7.2-11.7); MONO # 1.2 K/uL (0.0-0.8); MONO % 13.6 % (0.0-10.0); RED CELL DISTRIBUTION WIDTH 15.1 % (11.5-14.5); WHITE BLOOD COUNT 8.6 K/uL (4.8-10.8)
[2016-10-27] MEDS ORDERED: HYDROmorphone 0.5 mg/0.5 ml ISec IVP STA (00:57)
[2016-10-27] MEDS: Sodium Chloride 0.9% 1,000 ML IV SCH ×2 (03:09→03:18)
[2016-10-27] MEDS: Piperacill/Tazo 3.375gm in Dex 3.375 GM/50 ML BAG IVPB SCH ×4 (05:37→23:38)
[2016-10-27 06:16] LABS: HEMATOCRIT 22.8 % (34.0-47.0); MEAN CELL VOLUME 87.3 fL (81.0-99.0); MEAN CORPUSCULAR HEMOGLOBIN 28.3 pg (27.0-31.0); MEAN CORPUSCULAR HGB CONC 32.5 g/dL (33.0-37.0); RED CELL DISTRIBUTION WIDTH 14.8 % (11.5-14.5); WHITE BLOOD COUNT 6.1 K/uL (4.8-10.8)
--- NOTE | 2016-10-27 07:24 | CP.PCM.PN ---
Subjective - Date & Time of Evaluation Date of Evaluation: 10/27/16 Time of Evaluation: 07:22 - Subjective Subjective: Plastic Surgery: Dr. Arango Pt seen and examined. Pain persists, but is improved compared to yesterday. No F /C. S/P 2 units PRBCs yesterday. Hgb initially increased to 9.9, now 7.4 today. Objective - Vital Signs/Intake and Output Vital Signs (last 24 hours): Temp Pulse Resp BP Pulse Ox 98.3 F 74 18 116/74 93 L 10/26/16 23:40 10/27/16 00:00 10/26/16 23:40 10/26/16 23:40 10/26/16 23:40 Intake and Output: 10/27/16 10/27/16 06:59 18:59 Output Total 25 Balance -25 - Medications Medications: Current Medications Albuterol Sulfate (Albuterol 0.083% Inhal Jennifer (2.5 Mg/3 Ml) Ud) 2.5 mg INH RQ6 PRN PRN Reason: Shortness of Breath Last Admin: 10/26/16 08:11 Dose: 2.5 mg Benzocaine/Menthol (Cepacol Sore Throat) 1 sumeet MT Q1 PRN PRN Reason: Sore Throat Last Admin: 10/26/16 12:58 Dose: 1 sumeet Diphenhydramine HCl (Benadryl) 25 mg PO Q6 PRN PRN Reason: Itching / Pruritus Hydromorphone HCl (Dilaudid) 1 mg IVP Q3H PRN PRN Reason: Pain, severe (8-10) Last Admin: 10/27/16 06:55 Dose: 1 mg Piperacillin Sod/Tazobactam Sod (Zosyn 3.375 Gm Iv Premix) 3.375 gm in 50 mls @ 100 mls/hr IVPB Q6H [facility] Last Admin: 10/27/16 05:37 Dose: 100 mls/hr Vancomycin HCl 1 gm/ Sodium (Chloride) 250 mls @ 166.7 mls/hr IVPB Q24H [facility] Last Admin: 10/26/16 19:00 Dose: 166.7 mls/hr Insulin Aspart (Novolog) 0 unit SC ACHS [facility] PRN Reason: Protocol Last Admin: 10/26/16 21:52 Dose: Not Given Ondansetron HCl (Zofran Inj) 4 mg IVP Q4 PRN PRN Reason: Nausea/Vomiting Last Admin: 10/24/16 22:29 Dose: 4 mg Oxycodone/Acetaminophen (Percocet 5/325 Mg Tab) 1 tab PO Q4H PRN PRN Reason: Pain, moderate (4-7) Stop: 10/27/16 20:44 Pantoprazole Sodium (Protonix Ec Tab) 40 mg PO DAILY [facility] Last Admin: 10/26/16 09:33 Dose: 40 mg Potassium Chloride (K-Dur 20 Meq Er Tab) 20 meq PO DAILY [facility] Last Admin: 10/26/16 09:33 Dose: 20 meq Risperidone (Risperdal Tab) 1 mg PO DAILY [facility] Last Admin: 10/26/16 09:33 Dose: 1 mg Sertraline HCl (Zoloft) 100 mg PO DAILY [facility] Last Admin: 10/26/16 09:33 Dose: 100 mg Zolpidem Tartrate (Ambien) 5 mg PO HS PRN PRN Reason: Insomnia Last Admin: 10/26/16 21:04 Dose: 5 mg - Labs Labs: 10/27/16 06:02 - Constitutional Appears: Non-toxic, No Acute Distress - Head Exam Head Exam: ATRAUMATIC, NORMOCEPHALIC - Eye Exam Eye Exam: EOMI - ENT Exam ENT Exam: Mucous Membranes Moist - Neck Exam Neck Exam: Full ROM - Respiratory Exam Respiratory Exam: NORMAL BREATHING PATTERN. absent: Accessory Muscle Use, Respiratory Distress - GI/Abdominal Exam GI & Abdominal Exam: Soft. absent: Tenderness - Neurological Exam Neurological Exam: Alert, Awake, Oriented x3 - Skin Additional comments: L breast warm, +erythema, mildly tender to palpation, wound vac and dejon in place Assessment and Plan - Assessment and Plan (Free Text) Assessment: 56F w. infected breast implant, s/p breast capsule washout and placement of implant, POD#3 -Dejon output 25cc/12hr serosang -wound vac in place, will change on Thursday -wound cx: MRSA -c/w abx, recommend ID consult -c/w pain management -will repeat CBC this afternoon, consider transfusing based on results -d/w attending Zemaitis PGY2
[2016-10-27] MEDS: (Novolog) Insulin Aspart, Recombinant 100 u/ml 10 ml vial SC SCH ×4 (08:00→22:17)
--- NOTE | 2016-10-27 08:07 | CP.PCM.PN ---
<Radha Meyer - Last Filed: 10/27/16 17:53> Subjective - Date & Time of Evaluation Date of Evaluation: 10/27/16 Time of Evaluation: 09:36 - Subjective Subjective: PGY 1 Medicine Note- Dr. Deluca's service Pt seen and examined in no acute distress. Patient has some left sided breast tenderness exacerbated by palpation and some movements from side to side. Patient states that her pain is better today as compared to other days prior. She has limited appetite and is constipated. Otherwise she denies subjective fevers, chills, nausea, vomiting, diarrhea, headaches, paresthesias, palpitations at this time. Objective - Vital Signs/Intake and Output Vital Signs (last 24 hours): Temp Pulse Resp BP Pulse Ox 98.3 F 74 18 116/74 93 L 10/26/16 23:40 10/27/16 00:00 10/26/16 23:40 10/26/16 23:40 10/26/16 23:40 Intake and Output: 10/27/16 10/27/16 06:59 18:59 Output Total 25 Balance -25 - Medications Medications: Current Medications Albuterol Sulfate (Albuterol 0.083% Inhal Jennifer (2.5 Mg/3 Ml) Ud) 2.5 mg INH RQ6 PRN PRN Reason: Shortness of Breath Last Admin: 10/26/16 08:11 Dose: 2.5 mg Benzocaine/Menthol (Cepacol Sore Throat) 1 sumeet MT Q1 PRN PRN Reason: Sore Throat Last Admin: 10/26/16 12:58 Dose: 1 sumeet Diphenhydramine HCl (Benadryl) 25 mg PO Q6 PRN PRN Reason: Itching / Pruritus Piperacillin Sod/Tazobactam Sod (Zosyn 3.375 Gm Iv Premix) 3.375 gm in 50 mls @ 100 mls/hr IVPB Q6H [facility] Last Admin: 10/27/16 05:37 Dose: 100 mls/hr Vancomycin HCl 1 gm/ Sodium (Chloride) 250 mls @ 166.7 mls/hr IVPB Q24H [facility] Last Admin: 10/26/16 19:00 Dose: 166.7 mls/hr Insulin Aspart (Novolog) 0 unit SC ACHS [facility] PRN Reason: Protocol Last Admin: 10/26/16 21:52 Dose: Not Given Ondansetron HCl (Zofran Inj) 4 mg IVP Q4 PRN PRN Reason: Nausea/Vomiting Last Admin: 10/24/16 22:29 Dose: 4 mg Oxycodone/Acetaminophen (Percocet 5/325 Mg Tab) 2 tab PO Q4H PRN PRN Reason: Pain, moderate (4-7) Stop: 10/27/16 20:44 Pantoprazole Sodium (Protonix Ec Tab) 40 mg PO DAILY [facility] Last Admin: 10/26/16 09:33 Dose: 40 mg Potassium Chloride (K-Dur 20 Meq Er Tab) 20 meq PO DAILY [facility] Last Admin: 10/26/16 09:33 Dose: 20 meq Risperidone (Risperdal Tab) 1 mg PO DAILY [facility] Last Admin: 10/26/16 09:33 Dose: 1 mg Sertraline HCl (Zoloft) 100 mg PO DAILY [facility] Last Admin: 10/26/16 09:33 Dose: 100 mg Zolpidem Tartrate (Ambien) 5 mg PO HS PRN PRN Reason: Insomnia Last Admin: 10/26/16 21:04 Dose: 5 mg - Labs Labs: 10/27/16 06:02 - Constitutional Appears: Non-toxic, No Acute Distress - Head Exam Head Exam: ATRAUMATIC, NORMAL INSPECTION, NORMOCEPHALIC - Eye Exam Eye Exam: EOMI, Normal appearance, PERRL Pupil Exam: NORMAL ACCOMODATION - ENT Exam ENT Exam: Mucous Membranes Moist, Normal Exam - Neck Exam Neck Exam: Full ROM - Respiratory Exam Respiratory Exam: NORMAL BREATHING PATTERN. absent: Wheezes - Cardiovascular Exam Cardiovascular Exam: REGULAR RHYTHM, +S1, +S2 - GI/Abdominal Exam GI & Abdominal Exam: Soft, Normal Bowel Sounds - Extremities Exam Extremities Exam: Full ROM - Back Exam Back Exam: Full ROM - Neurological Exam Neurological Exam: Alert, Awake, CN II-XII Intact, Oriented x3 - Psychiatric Exam Psychiatric exam: Normal Affect, Normal Mood - Skin Skin Exam: Erythema, Warm Additional comments: Left breast erythematous and tender to palpation laterally and medially. Wound vac and drain in place. excisional scar noted on breasts bilaterally. Assessment and Plan - Assessment and Plan (Free Text) Assessment: Bilateral breast wound infection L > R -s/p bilateral breast implant insertion, extensive bilateral breast revision, scar revision, breast capsulectomy, capsulotomy done 08/27/[address] Arango -s/p day #3 Wash out of breast capsule and reinsertion of implant -blood culture- no growth after 24 hrs -wound culture- MRSA positive -WBC 7.4 ( decreased from 9.9 the day prior) Will monitor and recheck CBC today to assess need for further transfusion -Percocet 1 tab PO Q4h PRN pain -Vancomycin 1gm IVPB Q24H- started 10/24/16. Check Vanco trough this evening -Zosyn 3.375gm IVPB Q8H- started 10/24/16 -Dr. Arango plastic surgeon consulted- wound vac in place- to be changed 10/28, esther drain in place. Wound care management per Surgery -ID consult placed to Dr. Rogers. Patient may require nursing home antibiotics -Isolation precautions Invasive bilateral Lobular Carcinoma of breast -Patient receives chemotherapy every week -Patient receives radiation every week -Percocet 1 tab PO Q4h PRN pain. Hx of HTN -Normotensive at this time. hold home meds Hx of DM -Accucheck -low dose RISS Hx of Insomnia and anxiety -Risperidone 1mg po daily -Zoloft 100mg po daily -Ambien 5mg PO HS PRN Dyspnea Albuterol 0.083% nebulizer Q6h PRN Will add nasal cannula as needed. Anemia -WBC 7.4 ( decreased from 9.9 the day prior) Will monitor and recheck CBC today to assess need for further transfusion. PPX -Protonix 40mg po daily -Held Heparin due to acute anemia -SCDs -Heart healthy diet moderate consistent carb diet <Erick Deluca - Last Filed: 10/27/16 18:36> Objective - Vital Signs/Intake and Output Vital Signs (last 24 hours): Temp Pulse Resp BP Pulse Ox 98 F 73 20 156/81 H 95 10/27/16 16:00 10/27/16 16:00 10/27/16 16:00 10/27/16 16:00 10/27/16 16:00 Intake and Output: 10/27/16 10/27/16 06:59 18:59 Intake Total 510 Output Total 25 20 Balance -25 490 - Medications Medications: Current Medications Albuterol Sulfate (Albuterol 0.083% Inhal Jennifer (2.5 Mg/3 Ml) Ud) 2.5 mg INH RQ6 PRN PRN Reason: Shortness of Breath Last Admin: 10/26/16 08:11 Dose: 2.5 mg Benzocaine/Menthol (Cepacol Sore Throat) 1 sumeet MT Q1 PRN PRN Reason: Sore Throat Last Admin: 10/26/16 12:58 Dose: 1 sumeet Diphenhydramine HCl (Benadryl) 25 mg PO Q6 PRN PRN Reason: Itching / Pruritus Hydromorphone HCl (Dilaudid) 0.5 mg IVP Q4H PRN PRN Reason: Pain, severe (8-10) Last Admin: 10/27/16 17:48 Dose: 0.5 mg Piperacillin Sod/Tazobactam Sod (Zosyn 3.375 Gm Iv Premix) 3.375 gm in 50 mls @ 100 mls/hr IVPB Q6H [facility] Last Admin: 10/27/16 17:48 Dose: 100 mls/hr Vancomycin HCl 1,000 mg/ (Sodium Chloride) 250 mls @ 166.6 mls/hr IVPB Q12H [facility] Last Admin: 10/27/16 12:49 Dose: 166.6 mls/hr Insulin Aspart (Novolog) 0 unit SC ACHS [facility] PRN Reason: Protocol Last Admin: 10/27/16 12:48 Dose: Not Given Ondansetron HCl (Zofran Inj) 4 mg IVP Q4 PRN PRN Reason: Nausea/Vomiting Last Admin: 10/24/16 22:29 Dose: 4 mg Oxycodone/Acetaminophen (Percocet 5/325 Mg Tab) 2 tab PO Q4H PRN PRN Reason: Pain, moderate (4-7) Stop: 10/27/16 20:44 Last Admin: 10/27/16 14:49 Dose: 2 tab Pantoprazole Sodium (Protonix Ec Tab) 40 mg PO DAILY [facility] Last Admin: 10/27/16 10:53 Dose: 40 mg Potassium Chloride (K-Dur 20 Meq Er Tab) 20 meq PO DAILY [facility] Last Admin: 10/27/16 10:52 Dose: 20 meq Risperidone (Risperdal Tab) 1 mg PO DAILY [facility] Last Admin: 10/27/16 10:53 Dose: 1 mg Sertraline HCl (Zoloft) 100 mg PO DAILY [facility] Last Admin: 10/27/16 10:52 Dose: 100 mg Zolpidem Tartrate (Ambien) 5 mg PO HS PRN PRN Reason: Insomnia Last Admin: 10/26/16 21:04 Dose: 5 mg - Labs Labs: 10/27/16 18:04 10/27/16 18:04 Attending/Attestation - Attestation I have personally seen and examined this patient.: Yes I have fully participated in the care of the patient.: Yes I have reviewed all pertinent clinical information, including history, physical exam and plan: Yes Notes (Text): 10/27/16 18:35 Patient was seen and examined at bedside with the resident Continue antibiotics for wound infection and also patient is on wound VAC. I discussed the plan of care with the resident and agree with the above history and physical and assessment/plan by the resident.
[2016-10-27] MEDS: Potassium Chloride 20 mEq ER Tab PO SCH (10:52)
[2016-10-27] MEDS: Oxycodone/Acetaminophen 5/325 mg Tab PO PRN ×2 (10:53→14:49)
[2016-10-27] MEDS: Pantoprazole 40 mg EC Tab PO SCH (10:53)
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
--- NOTE | 2016-10-27 13:13 | CARD ---
APPROVED REPORT EKG Measurement Heart [id number] <Conclusion> Normal sinus rhythm Nonspecific T wave abnormality Abnormal ECG
[2016-10-27] MEDS: HYDROmorphone 0.5 mg/0.5 ml ISec IVP PRN ×2 (17:48→22:21)
[2016-10-27] MEDS ORDERED: POLYETHYLENE GLYCOL 3350 17 GM/Dose PACKET PO ONE ×2 (18:00→20:58)
[2016-10-27 18:09] LABS: HEMATOCRIT 29.4 % (34.0-47.0); MEAN CELL VOLUME 86.9 fL (81.0-99.0); MEAN CORPUSCULAR HEMOGLOBIN 28.4 pg (27.0-31.0); MEAN CORPUSCULAR HGB CONC 32.7 g/dL (33.0-37.0); MEAN PLATELET VOLUME 7.2 fL (7.2-11.7); RED CELL DISTRIBUTION WIDTH 15.1 % (11.5-14.5); WHITE BLOOD COUNT 8.2 K/uL (4.8-10.8)
[2016-10-27 18:17] LABS: CHLORIDE 103 mmol/L (98-107)
[2016-10-27 18:18] LABS: POTASSIUM 4.6 mmol/L (3.6-5.2); SODIUM 137 mmol/L (132-148)
[2016-10-27 18:20] LABS: CARBON DIOXIDE 27 mmol/L (22-30); GFR AFRICAN-AMERICAN > 60
[2016-10-27 18:21] LABS: ALKALINE PHOSPHATASE 60 U/L (38-126); ALT/SGPT 23 U/L (9-52); AST/SGOT 18 U/L (14-36); BILIRUBIN,TOTAL 0.5 mg/dL (0.2-1.3); BLOOD UREA NITROGEN 9 mg/dL (7-17); GLUCOSE,RANDOM 87 mg/dL (65-105)
[2016-10-28] MEDS: HYDROmorphone 0.5 mg/0.5 ml ISec IVP PRN ×4 (04:40→21:43)
[2016-10-28] MEDS: Piperacill/Tazo 3.375gm in Dex 3.375 GM/50 ML BAG IVPB SCH ×4 (06:05→23:40)
[2016-10-28] MEDS: (Novolog) Insulin Aspart, Recombinant 100 u/ml 10 ml vial SC SCH ×4 (07:46→21:44)
[2016-10-28 07:47] LABS: BASO % 0.4 % (0.0-2.0); EOS # 0.3 K/uL (0.0-0.7); EOS % 3.5 % (0.0-4.0); HEMATOCRIT 27.1 % (34.0-47.0); LYMPH # 0.9 K/uL (1.0-4.3); LYMPH % 11.8 % (20.0-40.0); MEAN CELL VOLUME 86.5 fL (81.0-99.0); MEAN CORPUSCULAR HEMOGLOBIN 29.2 pg (27.0-31.0); MEAN CORPUSCULAR HGB CONC 33.8 g/dL (33.0-37.0); MEAN PLATELET VOLUME 7.3 fL (7.2-11.7); MONO # 0.9 K/uL (0.0-0.8); MONO % 11.8 % (0.0-10.0); RED CELL DISTRIBUTION WIDTH 14.8 % (11.5-14.5)
[2016-10-28 07:54] LABS: CHLORIDE 107 mmol/L (98-107); POTASSIUM 3.8 mmol/L (3.6-5.2); SODIUM 138 mmol/L (132-148)
--- NOTE | 2016-10-28 07:55 | CP.PCM.PN ---
Subjective - Date & Time of Evaluation Date of Evaluation: 10/28/16 Time of Evaluation: 07:51 - Subjective Subjective: Plastics: Dr. Arango Pt seen and examined. Resting comfortably in bed. Still has pain, controlled w. meds. No other complaints. Wound vac changed at bedside. Objective - Vital Signs/Intake and Output Vital Signs (last 24 hours): Temp Pulse Resp BP Pulse Ox 98.3 F 78 20 159/90 H 97 10/28/16 00:04 10/28/16 00:04 10/28/16 00:04 10/28/16 04:49 10/28/16 00:04 Intake and Output: 10/28/16 10/28/16 06:59 18:59 Output Total 20 Balance -20 - Medications Medications: Current Medications Albuterol Sulfate (Albuterol 0.083% Inhal Jennifer (2.5 Mg/3 Ml) Ud) 2.5 mg INH RQ6 PRN PRN Reason: Shortness of Breath Last Admin: 10/26/16 08:11 Dose: 2.5 mg Benzocaine/Menthol (Cepacol Sore Throat) 1 sumeet MT Q1 PRN PRN Reason: Sore Throat Last Admin: 10/26/16 12:58 Dose: 1 sumeet Diphenhydramine HCl (Benadryl) 25 mg PO Q6 PRN PRN Reason: Itching / Pruritus Last Admin: 10/27/16 23:41 Dose: 25 mg Hydromorphone HCl (Dilaudid) 0.5 mg IVP Q4H PRN PRN Reason: Pain, severe (8-10) Last Admin: 10/28/16 04:40 Dose: 0.5 mg Piperacillin Sod/Tazobactam Sod (Zosyn 3.375 Gm Iv Premix) 3.375 gm in 50 mls @ 100 mls/hr IVPB Q6H [facility] Last Admin: 10/27/16 23:38 Dose: 100 mls/hr Vancomycin HCl 1,000 mg/ (Sodium Chloride) 250 mls @ 166.6 mls/hr IVPB Q12H [facility] Insulin Aspart (Novolog) 0 unit SC ACHS [facility] PRN Reason: Protocol Last Admin: 10/28/16 07:46 Dose: Not Given Ondansetron HCl (Zofran Inj) 4 mg IVP Q4 PRN PRN Reason: Nausea/Vomiting Last Admin: 10/24/16 22:29 Dose: 4 mg Oxycodone/Acetaminophen (Percocet 5/325 Mg Tab) 2 tab PO Q4H PRN PRN Reason: Pain, moderate (4-7) Stop: 10/31/16 07:43 Pantoprazole Sodium (Protonix Ec Tab) 40 mg PO DAILY [facility] Last Admin: 10/27/16 10:53 Dose: 40 mg Potassium Chloride (K-Dur 20 Meq Er Tab) 20 meq PO DAILY [facility] Last Admin: 10/27/16 10:52 Dose: 20 meq Risperidone (Risperdal Tab) 1 mg PO DAILY [facility] Last Admin: 10/27/16 10:53 Dose: 1 mg Sertraline HCl (Zoloft) 100 mg PO DAILY [facility] Last Admin: 10/27/16 10:52 Dose: 100 mg Zolpidem Tartrate (Ambien) 5 mg PO HS PRN PRN Reason: Insomnia Last Admin: 10/27/16 22:21 Dose: 5 mg - Labs Labs: 10/28/16 07:28 10/27/16 18:04 - Constitutional Appears: Non-toxic, No Acute Distress - Head Exam Head Exam: ATRAUMATIC, NORMOCEPHALIC - Eye Exam Eye Exam: EOMI - ENT Exam ENT Exam: Mucous Membranes Moist - Neck Exam Neck Exam: Full ROM - Respiratory Exam Respiratory Exam: NORMAL BREATHING PATTERN. absent: Accessory Muscle Use, Respiratory Distress - GI/Abdominal Exam GI & Abdominal Exam: Soft. absent: Tenderness - Neurological Exam Neurological Exam: Alert, Awake, Oriented x3 - Skin Additional comments: L breast, +erythema, improved compared to yesterday, warm to touch, mildly tender. Suture line is clean and intact, no drainage. Dejon in place Assessment and Plan - Assessment and Plan (Free Text) Assessment: 56F w. infected breast implant, s/p breast capsule washout and placement of implant, POD#4 -Dejon output 40cc/12hr serosang -Will change wound vac again on -wound cx: MRSA -ID recommendation: will likely need long-term IV abx -c/w pain management -encourage OOB and ambulation -d/w attending Zem[facility] PGY2
[2016-10-28 07:56] LABS: BILIRUBIN,TOTAL 0.4 mg/dL (0.2-1.3); CARBON DIOXIDE 25 mmol/L (22-30); GFR AFRICAN-AMERICAN > 60
[2016-10-28 07:57] LABS: ALB/GLOB RATIO 0.9 (1.0-2.1); ALKALINE PHOSPHATASE 52 U/L (38-126); ALT/SGPT 17 U/L (9-52); AST/SGOT 15 U/L (14-36); BLOOD UREA NITROGEN 7 mg/dL (7-17); CALCIUM 7.2 mg/dl (8.6-10.4); GLUCOSE,RANDOM 81 mg/dL (65-105); MAGNESIUM 1.6 mg/dL (1.6-2.3); PHOSPHOROUS 2.7 mg/dL (2.5-4.5); TOTAL PROTEIN 5.4 g/dL (6.3-8.3)
[2016-10-28] MEDS: Oxycodone/Acetaminophen 5/325 mg Tab PO PRN ×3 (08:17→23:40)
--- NOTE | 2016-10-28 09:24 | CP.PCM.PN ---
<Radha Meyer - Last Filed: 10/28/16 15:50> Subjective - Date & Time of Evaluation Date of Evaluation: 10/28/16 Time of Evaluation: 06:11 - Subjective Subjective: PGY 1 Medicine Note- Dr. Deluca's service Pt seen and examined in no acute distress. Patient's left sided breast tenderness is mildly increased today; however controlled with pain medication. Constipation has resolved. Otherwise she denies subjective fevers, chills, nausea, vomiting, diarrhea, headaches, paresthesias, palpitations at this time. Objective - Vital Signs/Intake and Output Vital Signs (last 24 hours): Temp Pulse Resp BP Pulse Ox 97.7 F 77 20 157/86 H 96 10/28/16 08:25 10/28/16 08:25 10/28/16 08:25 10/28/16 08:25 10/28/16 08:25 Intake and Output: 10/28/16 10/28/16 06:59 18:59 Output Total 20 Balance -20 - Medications Medications: Current Medications Albuterol Sulfate (Albuterol 0.083% Inhal Jennifer (2.5 Mg/3 Ml) Ud) 2.5 mg INH RQ6 PRN PRN Reason: Shortness of Breath Last Admin: 10/26/16 08:11 Dose: 2.5 mg Benzocaine/Menthol (Cepacol Sore Throat) 1 sumeet MT Q1 PRN PRN Reason: Sore Throat Last Admin: 10/26/16 12:58 Dose: 1 sumeet Diphenhydramine HCl (Benadryl) 25 mg PO Q6 PRN PRN Reason: Itching / Pruritus Last Admin: 10/27/16 23:41 Dose: 25 mg Heparin Sodium (Porcine) (Heparin) 5,000 units SC Q12 [facility] Hydromorphone HCl (Dilaudid) 0.5 mg IVP Q4H PRN PRN Reason: Pain, severe (8-10) Last Admin: 10/28/16 04:40 Dose: 0.5 mg Piperacillin Sod/Tazobactam Sod (Zosyn 3.375 Gm Iv Premix) 3.375 gm in 50 mls @ 100 mls/hr IVPB Q6H [facility] Last Admin: 10/27/16 23:38 Dose: 100 mls/hr Vancomycin HCl 1,000 mg/ (Sodium Chloride) 250 mls @ 166.6 mls/hr IVPB Q12H [facility] Insulin Aspart (Novolog) 0 unit SC ACHS [facility] PRN Reason: Protocol Last Admin: 10/28/16 07:46 Dose: Not Given Ondansetron HCl (Zofran Inj) 4 mg IVP Q4 PRN PRN Reason: Nausea/Vomiting Last Admin: 10/24/16 22:29 Dose: 4 mg Oxycodone/Acetaminophen (Percocet 5/325 Mg Tab) 2 tab PO Q4H PRN PRN Reason: Pain, moderate (4-7) Stop: 10/31/16 07:43 Last Admin: 10/28/16 08:17 Dose: 2 tab Pantoprazole Sodium (Protonix Ec Tab) 40 mg PO DAILY [facility] Last Admin: 10/27/16 10:53 Dose: 40 mg Potassium Chloride (K-Dur 20 Meq Er Tab) 20 meq PO DAILY [facility] Last Admin: 10/27/16 10:52 Dose: 20 meq Risperidone (Risperdal Tab) 1 mg PO DAILY [facility] Last Admin: 10/27/16 10:53 Dose: 1 mg Sertraline HCl (Zoloft) 100 mg PO DAILY [facility] Last Admin: 10/27/16 10:52 Dose: 100 mg Zolpidem Tartrate (Ambien) 5 mg PO HS PRN PRN Reason: Insomnia Last Admin: 10/27/16 22:21 Dose: 5 mg - Labs Labs: 10/28/16 07:28 10/28/16 07:28 - Constitutional Appears: Non-toxic - Head Exam Head Exam: ATRAUMATIC, NORMAL INSPECTION, NORMOCEPHALIC - Eye Exam Eye Exam: EOMI, Normal appearance, PERRL Pupil Exam: NORMAL ACCOMODATION - ENT Exam ENT Exam: Mucous Membranes Moist - Neck Exam Neck Exam: Full ROM - Respiratory Exam Respiratory Exam: Clear to Ausculation Bilateral, NORMAL BREATHING PATTERN. absent: Wheezes - Cardiovascular Exam Cardiovascular Exam: REGULAR RHYTHM, +S1, +S2 - GI/Abdominal Exam GI & Abdominal Exam: Soft, Normal Bowel Sounds - Extremities Exam Extremities Exam: Full ROM, Normal Capillary Refill, Normal Inspection. absent : Pedal Edema, Tenderness - Back Exam Back Exam: Full ROM, NORMAL INSPECTION - Neurological Exam Neurological Exam: Alert, Awake, CN II-XII Intact, Oriented x3 Neuro motor strength exam: Left Upper Extremity: 5, Right Upper Extremity: 5, Left Lower Extremity: 5, Right Lower Extremity: 5 - Psychiatric Exam Psychiatric exam: Normal Affect, Normal Mood - Skin Skin Exam: Dry, Erythema Additional comments: Left breast erythematous and tender to palpation laterally and medially. Wound vac dressing and drain in place. vertical incisional scar noted on breasts bilaterally. Assessment and Plan - Assessment and Plan (Free Text) Assessment: Bilateral breast wound infection L > R -s/p bilateral breast implant insertion, extensive bilateral breast revision, scar revision, breast capsulectomy, capsulotomy done 08/27/[address] Arango -s/p day Wash out of breast capsule and reinsertion of implant -blood culture- no growth after 24 hrs -wound culture- MRSA positive -WBC stable -Percocet 1 tab PO Q4h PRN pain, Dilaudid 0.5mg IV Q4 PRN -Vancomycin 1gm IVPB Q24H- started 10/24/16. Vanco trough 14.4 -Zosyn 3.375gm IVPB Q8H- started 10/24/16 -Dr. Arango plastic surgeon consulted- wound vac in place- changed 10/28, esther drain in place with some drainage. Wound care management per Surgery -ID consult placed to Dr. Rogers. exterminator helper termite IV antibiotics for 3-6 wks -Isolation precautions Invasive bilateral Lobular Carcinoma of breast -Patient receives chemotherapy every week -Patient receives radiation every week -Percocet 1 tab PO Q4h PRN pain, Dilaudid 0.5mg IV Q4 PRN Hx of HTN -Elevated though could be secondarily due to pain. -Patient encouraged to request medication when in pain -Norvasc 5 mg daily started Hx of DM -Accucheck -low dose RISS Hx of Insomnia and anxiety -Risperidone 1mg po daily -Zoloft 100mg po daily -Ambien 5mg PO HS PRN Dyspnea Albuterol 0.083% nebulizer Q6h PRN Will add nasal cannula as needed. Anemia -Stable at this time. -Repeat CBC Hgb check was 9.6 yesterday. Stable today as well. PPX -Protonix 40mg po daily -Held Heparin due to acute anemia -SCDs -Heart healthy diet moderate consistent carb diet <Erick Deluca - Last Filed: 10/28/16 16:11> Objective - Vital Signs/Intake and Output Vital Signs (last 24 hours): Temp Pulse Resp BP Pulse Ox 98.1 F 106 H 20 151/79 H 96 10/28/16 15:52 10/28/16 15:52 10/28/16 15:52 10/28/16 15:52 10/28/16 15:52 Intake and Output: 10/28/16 10/28/16 06:59 18:59 Output Total 20 Balance -20 - Medications Medications: Current Medications Albuterol Sulfate (Albuterol 0.083% Inhal Jennifer (2.5 Mg/3 Ml) Ud) 2.5 mg INH RQ6 PRN PRN Reason: Shortness of Breath Last Admin: 10/26/16 08:11 Dose: 2.5 mg Amlodipine Besylate (Norvasc) 5 mg PO DAILY [facility] Benzocaine/Menthol (Cepacol Sore Throat) 1 sumeet MT Q1 PRN PRN Reason: Sore Throat Last Admin: 10/26/16 12:58 Dose: 1 sumeet Diphenhydramine HCl (Benadryl) 25 mg PO Q6 PRN PRN Reason: Itching / Pruritus Last Admin: 10/27/16 23:41 Dose: 25 mg Heparin Sodium (Porcine) (Heparin) 5,000 units SC Q12 [facility] Last Admin: 10/28/16 09:59 Dose: 5,000 units Hydromorphone HCl (Dilaudid) 0.5 mg IVP Q4H PRN PRN Reason: Pain, severe (8-10) Last Admin: 10/28/16 11:53 Dose: 0.5 mg Piperacillin Sod/Tazobactam Sod (Zosyn 3.375 Gm Iv Premix) 3.375 gm in 50 mls @ 100 mls/hr IVPB Q6H [facility] Last Admin: 10/28/16 11:45 Dose: 100 mls/hr Vancomycin HCl 1,000 mg/ (Sodium Chloride) 250 mls @ 166.6 mls/hr IVPB Q12H [facility] Last Admin: 10/28/16 09:59 Dose: 166.6 mls/hr Insulin Aspart (Novolog) 0 unit SC ACHS [facility] PRN Reason: Protocol Last Admin: 10/28/16 12:25 Dose: Not Given Ondansetron HCl (Zofran Inj) 4 mg IVP Q4 PRN PRN Reason: Nausea/Vomiting Last Admin: 10/24/16 22:29 Dose: 4 mg Oxycodone/Acetaminophen (Percocet 5/325 Mg Tab) 2 tab PO Q4H PRN PRN Reason: Pain, moderate (4-7) Stop: 10/31/16 07:43 Last Admin: 10/28/16 08:17 Dose: 2 tab Pantoprazole Sodium (Protonix Ec Tab) 40 mg PO DAILY [facility] Last Admin: 10/28/16 09:59 Dose: 40 mg Potassium Chloride (K-Dur 20 Meq Er Tab) 20 meq PO DAILY [facility] Last Admin: 10/28/16 09:59 Dose: Not Given Risperidone (Risperdal Tab) 1 mg PO DAILY [facility] Last Admin: 10/28/16 09:59 Dose: 1 mg Sertraline HCl (Zoloft) 100 mg PO DAILY [facility] Last Admin: 10/28/16 09:59 Dose: 100 mg Zolpidem Tartrate (Ambien) 5 mg PO HS PRN PRN Reason: Insomnia Last Admin: 10/27/16 22:21 Dose: 5 mg - Labs Labs: 10/28/16 07:28 10/28/16 07:28 Attending/Attestation - Attestation I have personally seen and examined this patient.: Yes I have fully participated in the care of the patient.: Yes I have reviewed all pertinent clinical information, including history, physical exam and plan: Yes Notes (Text): 10/28/16 16:05 Patient was seen and examined at bedside with the resident Wound VAC in place Infectious disease consultation seen and appreciated Continue antibiotics as per recommendations of ID. I agree with the above assessment and plan by the resident.
[2016-10-28] MEDS: Potassium Chloride 20 mEq ER Tab PO SCH (09:59)
[2016-10-28] MEDS: Pantoprazole 40 mg EC Tab PO SCH (09:59)
--- NOTE | 2016-10-28 11:57 | CP.PCM.PN ---
Subjective - Date & Time of Evaluation Date of Evaluation: 10/28/16 Time of Evaluation: 09:00 - Subjective Subjective: seen for left breast cellulitis s/p ddrainage MRSA + Objective - Vital Signs/Intake and Output Vital Signs (last 24 hours): Temp Pulse Resp BP Pulse Ox 97.7 F 77 20 157/86 H 96 10/28/16 08:25 10/28/16 08:25 10/28/16 08:25 10/28/16 08:25 10/28/16 08:25 Intake and Output: 10/28/16 10/28/16 06:59 18:59 Output Total 20 Balance -20 - Medications Medications: Current Medications Albuterol Sulfate (Albuterol 0.083% Inhal Jennifer (2.5 Mg/3 Ml) Ud) 2.5 mg INH RQ6 PRN PRN Reason: Shortness of Breath Last Admin: 10/26/16 08:11 Dose: 2.5 mg Benzocaine/Menthol (Cepacol Sore Throat) 1 sumeet MT Q1 PRN PRN Reason: Sore Throat Last Admin: 10/26/16 12:58 Dose: 1 sumeet Diphenhydramine HCl (Benadryl) 25 mg PO Q6 PRN PRN Reason: Itching / Pruritus Last Admin: 10/27/16 23:41 Dose: 25 mg Heparin Sodium (Porcine) (Heparin) 5,000 units SC Q12 [facility] Last Admin: 10/28/16 09:59 Dose: 5,000 units Hydromorphone HCl (Dilaudid) 0.5 mg IVP Q4H PRN PRN Reason: Pain, severe (8-10) Last Admin: 10/28/16 11:53 Dose: 0.5 mg Piperacillin Sod/Tazobactam Sod (Zosyn 3.375 Gm Iv Premix) 3.375 gm in 50 mls @ 100 mls/hr IVPB Q6H [facility] Last Admin: 10/28/16 11:45 Dose: 100 mls/hr Vancomycin HCl 1,000 mg/ (Sodium Chloride) 250 mls @ 166.6 mls/hr IVPB Q12H [facility] Last Admin: 10/28/16 09:59 Dose: 166.6 mls/hr Insulin Aspart (Novolog) 0 unit SC ACHS [facility] PRN Reason: Protocol Last Admin: 10/28/16 07:46 Dose: Not Given Ondansetron HCl (Zofran Inj) 4 mg IVP Q4 PRN PRN Reason: Nausea/Vomiting Last Admin: 10/24/16 22:29 Dose: 4 mg Oxycodone/Acetaminophen (Percocet 5/325 Mg Tab) 2 tab PO Q4H PRN PRN Reason: Pain, moderate (4-7) Stop: 10/31/16 07:43 Last Admin: 10/28/16 08:17 Dose: 2 tab Pantoprazole Sodium (Protonix Ec Tab) 40 mg PO DAILY [facility] Last Admin: 10/28/16 09:59 Dose: 40 mg Potassium Chloride (K-Dur 20 Meq Er Tab) 20 meq PO DAILY [facility] Last Admin: 10/27/16 10:52 Dose: 20 meq Risperidone (Risperdal Tab) 1 mg PO DAILY [facility] Last Admin: 10/28/16 09:59 Dose: 1 mg Sertraline HCl (Zoloft) 100 mg PO DAILY [facility] Last Admin: 10/28/16 09:59 Dose: 100 mg Zolpidem Tartrate (Ambien) 5 mg PO HS PRN PRN Reason: Insomnia Last Admin: 10/27/16 22:21 Dose: 5 mg - Labs Labs: 10/28/16 07:28 10/28/16 07:28 - Constitutional Appears: Non-toxic, Chronically Ill - Head Exam Head Exam: NORMOCEPHALIC - Eye Exam Eye Exam: PERRL. absent: Scleral icterus - ENT Exam ENT Exam: Mucous Membranes Dry, Normal Oropharynx - Neck Exam Neck Exam: absent: Lymphadenopathy - Respiratory Exam Respiratory Exam: Decreased Breath Sounds, Clear to Ausculation Bilateral - Cardiovascular Exam Cardiovascular Exam: REGULAR RHYTHM - GI/Abdominal Exam GI & Abdominal Exam: Distended Assessment and Plan - Assessment and Plan (Free Text) Assessment: cont iv rx for 3-6 weeks
[2016-10-29] MEDS: Piperacill/Tazo 3.375gm in Dex 3.375 GM/50 ML BAG IVPB SCH ×3 (05:00→17:45)
[2016-10-29 07:15] LABS: BASO % 0.7 % (0.0-2.0); EOS # 0.3 K/uL (0.0-0.7); EOS % 4.3 % (0.0-4.0); HEMATOCRIT 27.5 % (34.0-47.0); LYMPH # 0.8 K/uL (1.0-4.3); MEAN CELL VOLUME 87.3 fL (81.0-99.0); MEAN CORPUSCULAR HEMOGLOBIN 28.4 pg (27.0-31.0); MEAN CORPUSCULAR HGB CONC 32.6 g/dL (33.0-37.0); MONO # 0.9 K/uL (0.0-0.8); NRBC % 0.1 % (0.0-2.0); WHITE BLOOD COUNT 6.3 K/uL (4.8-10.8)
--- NOTE | 2016-10-29 07:59 | CP.PCM.PN ---
<Radha Meyer - Last Filed: 10/29/16 16:25> Subjective - Date & Time of Evaluation Date of Evaluation: 10/29/16 Time of Evaluation: 05:58 - Subjective Subjective: PGY 1 Medicine Note- Dr. Deluca's service Pt seen and examined in no acute distress. Patient has some left sided breast tenderness with palpation. Pain is mildly decreased today. Patient had two bowel movements yesterday. Pathology called with reports of suspected parvovirus B 19 contaminated plasma blood products that patient may have received via transfusion on 10/26/16. She denies subjective fevers, chills, nausea , vomiting, constipation, diarrhea, headaches, paresthesias, palpitations at this time. Objective - Vital Signs/Intake and Output Vital Signs (last 24 hours): Temp Pulse Resp BP Pulse Ox 98.6 F 84 20 185/84 H 97 10/28/16 23:59 10/28/16 23:59 10/28/16 23:59 10/28/16 23:59 10/28/16 23:59 - Medications Medications: Current Medications Albuterol Sulfate (Albuterol 0.083% Inhal Jennifer (2.5 Mg/3 Ml) Ud) 2.5 mg INH RQ6 PRN PRN Reason: Shortness of Breath Last Admin: 10/26/16 08:11 Dose: 2.5 mg Amlodipine Besylate (Norvasc) 5 mg PO DAILY [facility] Last Admin: 10/28/16 18:34 Dose: 5 mg Benzocaine/Menthol (Cepacol Sore Throat) 1 sumeet MT Q1 PRN PRN Reason: Sore Throat Last Admin: 10/26/16 12:58 Dose: 1 sumeet Diphenhydramine HCl (Benadryl) 25 mg PO Q6 PRN PRN Reason: Itching / Pruritus Last Admin: 10/28/16 23:41 Dose: 25 mg Heparin Sodium (Porcine) (Heparin) 5,000 units SC Q12 [facility] Last Admin: 10/28/16 21:43 Dose: 5,000 units Hydromorphone HCl (Dilaudid) 0.5 mg IVP Q4H PRN PRN Reason: Pain, severe (8-10) Last Admin: 10/28/16 21:43 Dose: 0.5 mg Piperacillin Sod/Tazobactam Sod (Zosyn 3.375 Gm Iv Premix) 3.375 gm in 50 mls @ 100 mls/hr IVPB Q6H [facility] Last Admin: 10/29/16 05:00 Dose: 100 mls/hr Vancomycin HCl 1,000 mg/ (Sodium Chloride) 250 mls @ 166.6 mls/hr IVPB Q12H [facility] Last Admin: 10/28/16 21:43 Dose: 166.6 mls/hr Insulin Aspart (Novolog) 0 unit SC ACHS [facility] PRN Reason: Protocol Last Admin: 10/28/16 21:44 Dose: Not Given Ondansetron HCl (Zofran Inj) 4 mg IVP Q4 PRN PRN Reason: Nausea/Vomiting Last Admin: 10/24/16 22:29 Dose: 4 mg Oxycodone/Acetaminophen (Percocet 5/325 Mg Tab) 2 tab PO Q4H PRN PRN Reason: Pain, moderate (4-7) Stop: 10/31/16 07:43 Last Admin: 10/28/16 23:40 Dose: 2 tab Pantoprazole Sodium (Protonix Ec Tab) 40 mg PO DAILY [facility] Last Admin: 10/28/16 09:59 Dose: 40 mg Potassium Chloride (K-Dur 20 Meq Er Tab) 20 meq PO DAILY [facility] Last Admin: 10/28/16 09:59 Dose: Not Given Risperidone (Risperdal Tab) 1 mg PO DAILY [facility] Last Admin: 10/28/16 09:59 Dose: 1 mg Sertraline HCl (Zoloft) 100 mg PO DAILY [facility] Last Admin: 10/28/16 09:59 Dose: 100 mg Zolpidem Tartrate (Ambien) 5 mg PO HS PRN PRN Reason: Insomnia Last Admin: 10/28/16 21:43 Dose: 5 mg - Labs Labs: 10/29/16 06:56 10/28/16 07:28 - Constitutional Appears: Non-toxic, No Acute Distress - Head Exam Head Exam: ATRAUMATIC, NORMAL INSPECTION, NORMOCEPHALIC - Eye Exam Eye Exam: EOMI, Normal appearance, PERRL Pupil Exam: NORMAL ACCOMODATION, PERRL - ENT Exam ENT Exam: Mucous Membranes Moist, Normal Exam - Neck Exam Neck Exam: Full ROM - Respiratory Exam Respiratory Exam: NORMAL BREATHING PATTERN. absent: Wheezes - Cardiovascular Exam Cardiovascular Exam: REGULAR RHYTHM, +S1, +S2 - GI/Abdominal Exam GI & Abdominal Exam: Soft, Normal Bowel Sounds - Extremities Exam Extremities Exam: Full ROM, Normal Capillary Refill - Back Exam Back Exam: Full ROM - Neurological Exam Neurological Exam: Alert, Awake, CN II-XII Intact, Oriented x3 - Psychiatric Exam Psychiatric exam: Normal Affect, Normal Mood - Skin Skin Exam: Erythema, Warm. absent: Normal Color Additional comments: Left breast less erythematous , tender to palpation medially. Wound vac dressing and drain in place. vertical incisional scar noted on breasts bilaterally. Assessment and Plan - Assessment and Plan (Free Text) Assessment: Bilateral breast wound infection L > R -s/p bilateral breast implant insertion, extensive bilateral breast revision, scar revision, breast capsulectomy, capsulotomy done 08/27/[address] Arango -s/p day Wash out of breast capsule and reinsertion of implant -blood culture- no growth after 24 hrs -wound culture- MRSA positive -WBC stable -Percocet 1 tab PO Q4h PRN pain, Dilaudid 0.5mg IV Q4 PRN -Vancomycin 1gm IVPB Q24H- started 10/24/16. Vanco trough 14.4 on 10/27. Next Vanco trough 10/29 . F/U -Zosyn 3.375gm IVPB Q8H- started 10/24/16 -Dr. Arango plastic surgeon consulted- wound vac in place- changed 10/28, esther drain in place with some drainage. Wound care management per Surgery. F/U recommendations. -ID consult placed to Dr. Rogers. long-term IV antibiotics for 3-6 wks -Isolation precautions Rule Out Parvovirus B 19 blood infection -Pathology reported possible contaminated plasma blood products that was transfused -Of note, patient received packed red blood cells. -ID and Surg team made aware -Check IgG, IgM Parvovirus levels -Patient informed with questions and concerns addressed -F/U Invasive bilateral Lobular Carcinoma of breast -Patient receives chemotherapy every week -Patient receives radiation every week -Percocet 1 tab PO Q4h PRN pain, Dilaudid 0.5mg IV Q4 PRN Hx of HTN -Elevated though could be secondarily due to pain. -Patient encouraged to request medication when in pain -Norvasc 5 mg, Losartan 100 mg PO daily started with hold parameters for SBP below 110. Hx of DM -Accucheck -low dose RISS Hx of Insomnia and anxiety -Risperidone 1mg po daily -Zoloft 100mg po daily -Ambien 5mg PO HS PRN Dyspnea Albuterol 0.083% nebulizer Q6h PRN Will add nasal cannula as needed. Anemia -Stable at this time. -Continue to monitor PPX -Protonix 40mg po daily -Held Heparin due to acute anemia -SCDs -Heart healthy diet moderate consistent carb diet <Erick Deluca - Last Filed: 10/29/16 18:01> Objective - Vital Signs/Intake and Output Vital Signs (last 24 hours): Temp Pulse Resp BP Pulse Ox 98.1 F 80 20 144/77 96 10/29/16 17:31 10/29/16 17:31 10/29/16 17:31 10/29/16 17:31 10/29/16 17:31 - Medications Medications: Current Medications Albuterol Sulfate (Albuterol 0.083% Inhal Jennifer (2.5 Mg/3 Ml) Ud) 2.5 mg INH RQ6 PRN PRN Reason: Shortness of Breath Last Admin: 10/26/16 08:11 Dose: 2.5 mg Amlodipine Besylate (Norvasc) 5 mg PO DAILY [facility] Last Admin: 10/29/16 11:18 Dose: 5 mg Benzocaine/Menthol (Cepacol Sore Throat) 1 sumeet MT Q1 PRN PRN Reason: Sore Throat Last Admin: 10/26/16 12:58 Dose: 1 sumeet Diphenhydramine HCl (Benadryl) 25 mg PO Q6 PRN PRN Reason: Itching / Pruritus Last Admin: 10/28/16 23:41 Dose: 25 mg Heparin Sodium (Porcine) (Heparin) 5,000 units SC Q12 [facility] Last Admin: 10/29/16 11:18 Dose: 5,000 units Hydromorphone HCl (Dilaudid) 0.5 mg IVP Q4H PRN PRN Reason: Pain, severe (8-10) Last Admin: 10/29/16 17:17 Dose: 0.5 mg Piperacillin Sod/Tazobactam Sod (Zosyn 3.375 Gm Iv Premix) 3.375 gm in 50 mls @ 100 mls/hr IVPB Q6H [facility] Last Admin: 10/29/16 17:45 Dose: 100 mls/hr Vancomycin HCl 1,000 mg/ (Sodium Chloride) 250 mls @ 166.6 mls/hr IVPB Q12H [facility] Last Admin: 10/29/16 11:22 Dose: 166.6 mls/hr Insulin Aspart (Novolog) 0 unit SC ACHS [facility] PRN Reason: Protocol Last Admin: 10/29/16 17:06 Dose: Not Given Losartan Potassium (Cozaar) 100 mg PO DAILY [facility] Last Admin: 10/29/16 11:18 Dose: 100 mg Ondansetron HCl (Zofran Inj) 4 mg IVP Q4 PRN PRN Reason: Nausea/Vomiting Last Admin: 10/24/16 22:29 Dose: 4 mg Oxycodone/Acetaminophen (Percocet 5/325 Mg Tab) 2 tab PO Q4H PRN PRN Reason: Pain, moderate (4-7) Stop: 10/31/16 07:43 Last Admin: 10/29/16 11:22 Dose: 2 tab Pantoprazole Sodium (Protonix Ec Tab) 40 mg PO DAILY [facility] Last Admin: 10/29/16 11:18 Dose: 40 mg Potassium Chloride (K-Dur 20 Meq Er Tab) 20 meq PO DAILY [facility] Last Admin: 10/29/16 11:18 Dose: 20 meq Risperidone (Risperdal Tab) 1 mg PO DAILY [facility] Last Admin: 10/29/16 11:18 Dose: 1 mg Sertraline HCl (Zoloft) 100 mg PO DAILY [facility] Last Admin: 10/29/16 11:18 Dose: 100 mg Zolpidem Tartrate (Ambien) 5 mg PO HS PRN PRN Reason: Insomnia Last Admin: 10/28/16 21:43 Dose: 5 mg - Labs Labs: 10/29/16 06:56 10/29/16 04:00 Attending/Attestation - Attestation I have personally seen and examined this patient.: Yes I have fully participated in the care of the patient.: Yes I have reviewed all pertinent clinical information, including history, physical exam and plan: Yes Notes (Text): 10/29/16 17:58 Patient was seen and examined at bedside She is clinically improving Pathology Department reported that patient was transfused 2 units of PRBC. As per the pathology department one of the unit was recalled by the [place] [employer] because of positive Parvovirus B19 in the donor plasma. This patient was already transfused, and I discussed with the infectious disease. We will check patient's Parvovirus B19 IgG and IgM Patient was informed of this in detail through a master automotive glass technician. We will monitor her closely. I also discussed with the surgeon. We will continue current management. As per Dr. Arango there is no plan for removal of the breast implant. Change of wound VAC on Thursday. Continue antibiotics as per the Thursday.
[2016-10-29 08:05] LABS: CHLORIDE 108 mmol/L (98-107)
[2016-10-29 08:06] LABS: POTASSIUM 4.1 mmol/L (3.6-5.2); SODIUM 139 mmol/L (132-148)
[2016-10-29 08:08] LABS: ALB/GLOB RATIO 0.7 (1.0-2.1); ALKALINE PHOSPHATASE 47 U/L (38-126); ALT/SGPT 25 U/L (9-52); AST/SGOT 18 U/L (14-36); BILIRUBIN,TOTAL 0.3 mg/dL (0.2-1.3); BLOOD UREA NITROGEN 7 mg/dL (7-17); CARBON DIOXIDE 22 mmol/L (22-30); GFR AFRICAN-AMERICAN > 60; GLUCOSE,RANDOM 71 mg/dL (65-105); TOTAL PROTEIN 4.9 g/dL (6.3-8.3)
[2016-10-29 08:09] LABS: CALCIUM 6.1 mg/dl (8.6-10.4); MAGNESIUM 1.7 mg/dL (1.6-2.3); PHOSPHOROUS 3.3 mg/dL (2.5-4.5)
[2016-10-29] MEDS: HYDROmorphone 0.5 mg/0.5 ml ISec IVP PRN ×4 (08:19→21:21)
[2016-10-29] MEDS: (Novolog) Insulin Aspart, Recombinant 100 u/ml 10 ml vial SC SCH ×4 (08:20→21:22)
[2016-10-29] MEDS: Potassium Chloride 20 mEq ER Tab PO SCH (11:18)
[2016-10-29] MEDS: Pantoprazole 40 mg EC Tab PO SCH (11:18)
[2016-10-29] MEDS: Oxycodone/Acetaminophen 5/325 mg Tab PO PRN (11:22)
--- NOTE | 2016-10-29 16:05 | CP.PCM.PN ---
Subjective - Date & Time of Evaluation Date of Evaluation: 10/29/16 Time of Evaluation: 16:02 - Subjective Subjective: Plastics: Dr. Arango Pt seen and examined. Resting comfortably in bed. Pain controlled. No other complaints. Objective - Vital Signs/Intake and Output Vital Signs (last 24 hours): Temp Pulse Resp BP Pulse Ox 98 F 76 20 172/91 H 96 10/29/16 08:00 10/29/16 08:00 10/29/16 08:00 10/29/16 08:00 10/29/16 08:00 - Medications Medications: Current Medications Albuterol Sulfate (Albuterol 0.083% Inhal Jennifer (2.5 Mg/3 Ml) Ud) 2.5 mg INH RQ6 PRN PRN Reason: Shortness of Breath Last Admin: 10/26/16 08:11 Dose: 2.5 mg Amlodipine Besylate (Norvasc) 5 mg PO DAILY [facility] Last Admin: 10/29/16 11:18 Dose: 5 mg Benzocaine/Menthol (Cepacol Sore Throat) 1 sumeet MT Q1 PRN PRN Reason: Sore Throat Last Admin: 10/26/16 12:58 Dose: 1 sumeet Diphenhydramine HCl (Benadryl) 25 mg PO Q6 PRN PRN Reason: Itching / Pruritus Last Admin: 10/28/16 23:41 Dose: 25 mg Heparin Sodium (Porcine) (Heparin) 5,000 units SC Q12 [facility] Last Admin: 10/29/16 11:18 Dose: 5,000 units Hydromorphone HCl (Dilaudid) 0.5 mg IVP Q4H PRN PRN Reason: Pain, severe (8-10) Last Admin: 10/29/16 13:03 Dose: 0.5 mg Piperacillin Sod/Tazobactam Sod (Zosyn 3.375 Gm Iv Premix) 3.375 gm in 50 mls @ 100 mls/hr IVPB Q6H [facility] Last Admin: 10/29/16 13:00 Dose: 100 mls/hr Vancomycin HCl 1,000 mg/ (Sodium Chloride) 250 mls @ 166.6 mls/hr IVPB Q12H [facility] Last Admin: 10/29/16 11:22 Dose: 166.6 mls/hr Insulin Aspart (Novolog) 0 unit SC ACHS [facility] PRN Reason: Protocol Last Admin: 10/29/16 12:30 Dose: Not Given Losartan Potassium (Cozaar) 100 mg PO DAILY [facility] Last Admin: 10/29/16 11:18 Dose: 100 mg Ondansetron HCl (Zofran Inj) 4 mg IVP Q4 PRN PRN Reason: Nausea/Vomiting Last Admin: 10/24/16 22:29 Dose: 4 mg Oxycodone/Acetaminophen (Percocet 5/325 Mg Tab) 2 tab PO Q4H PRN PRN Reason: Pain, moderate (4-7) Stop: 10/31/16 07:43 Last Admin: 10/29/16 11:22 Dose: 2 tab Pantoprazole Sodium (Protonix Ec Tab) 40 mg PO DAILY [facility] Last Admin: 10/29/16 11:18 Dose: 40 mg Potassium Chloride (K-Dur 20 Meq Er Tab) 20 meq PO DAILY [facility] Last Admin: 10/29/16 11:18 Dose: 20 meq Risperidone (Risperdal Tab) 1 mg PO DAILY [facility] Last Admin: 10/29/16 11:18 Dose: 1 mg Sertraline HCl (Zoloft) 100 mg PO DAILY [facility] Last Admin: 10/29/16 11:18 Dose: 100 mg Zolpidem Tartrate (Ambien) 5 mg PO HS PRN PRN Reason: Insomnia Last Admin: 10/28/16 21:43 Dose: 5 mg - Labs Labs: 10/29/16 06:56 10/29/16 04:00 - Constitutional Appears: Non-toxic, No Acute Distress - Head Exam Head Exam: ATRAUMATIC, NORMOCEPHALIC - Eye Exam Eye Exam: EOMI - ENT Exam ENT Exam: Mucous Membranes Moist - Respiratory Exam Respiratory Exam: NORMAL BREATHING PATTERN. absent: Accessory Muscle Use, Respiratory Distress - Neurological Exam Neurological Exam: Alert, Awake, Oriented x3 - Skin Additional comments: L breast, + erythema, warm to touch, mildly tender, wound VAC in place, dejon in place Assessment and Plan - Assessment and Plan (Free Text) Assessment: 56F w. infected breast implant, s/p breast capsule washout and placement of implant, POD#5 -Dejon: 30cc/12 hr serosang -will remove dejon and change wound vac on 10/31/16 -c/w current medical management -d/w attending Zemaitis PGY2
--- NOTE | 2016-10-29 23:52 | CP.PCM.PCO ---
Physician Communication Note - Physician Communication Note Physician Communication Note: Patient status post left breast reconstruction with exposed implant Assessment & Plan - Assessment and Plan (Free Text) Assessment: She taken to the OR urgently last Thursday to have the pocket washed out, implant replaced and breast revised. The cellulitis is resolving and her breathing is better after the blood transfusion. I agree that she should have at least 3 weeks of IV antibiotis. Will plan to remove the drain and replace the wound vac dressing again on Thursday. She may benefit from sub accute rehab for 2 weeks if she is unable to deal with both the IV antibiotics and wound vac at home with VNS.
[2016-10-30] MEDS: Piperacill/Tazo 3.375gm in Dex 3.375 GM/50 ML BAG IVPB SCH ×5 (00:12→23:59)
[2016-10-30] MEDS: HYDROmorphone 0.5 mg/0.5 ml ISec IVP PRN ×4 (03:32→19:53)
[2016-10-30 07:40] LABS: BASO % 0.5 % (0.0-2.0); EOS # 0.2 K/uL (0.0-0.7); HEMATOCRIT 25.5 % (34.0-47.0); LYMPH # 0.7 K/uL (1.0-4.3); LYMPH % 13.7 % (20.0-40.0); MEAN CORPUSCULAR HEMOGLOBIN 28.9 pg (27.0-31.0); MEAN CORPUSCULAR HGB CONC 33.2 g/dL (33.0-37.0); MEAN PLATELET VOLUME 7.1 fL (7.2-11.7); MONO # 0.7 K/uL (0.0-0.8); MONO % 13.4 % (0.0-10.0); RED CELL DISTRIBUTION WIDTH 14.7 % (11.5-14.5); WHITE BLOOD COUNT 5.4 K/uL (4.8-10.8)
[2016-10-30] MEDS: (Novolog) Insulin Aspart, Recombinant 100 u/ml 10 ml vial SC SCH ×4 (08:11→22:11)
[2016-10-30 08:31] LABS: CHLORIDE 110 mmol/L (98-107)
[2016-10-30 08:32] LABS: POTASSIUM 3.1 mmol/L (3.6-5.2); SODIUM 139 mmol/L (132-148)
[2016-10-30 08:34] LABS: ALB/GLOB RATIO 0.8 (1.0-2.1); AST/SGOT 12 U/L (14-36); BILIRUBIN,TOTAL 0.3 mg/dL (0.2-1.3); CARBON DIOXIDE 24 mmol/L (22-30); GFR AFRICAN-AMERICAN > 60; TOTAL PROTEIN 4.9 g/dL (6.3-8.3)
[2016-10-30 08:35] LABS: ALKALINE PHOSPHATASE 42 U/L (38-126); ALT/SGPT 15 U/L (9-52); BLOOD UREA NITROGEN 6 mg/dL (7-17); CALCIUM 6.7 mg/dl (8.6-10.4); GLUCOSE,RANDOM 75 mg/dL (65-105); MAGNESIUM 1.5 mg/dL (1.6-2.3); PHOSPHOROUS 3.2 mg/dL (2.5-4.5)
[2016-10-30] MEDS: Albuterol 0.083% Inhal Sol (2.5 mg/3 mL) UD INH PRN ×2 (09:26→13:56)
[2016-10-30] MEDS ORDERED: Potassium Chloride 20 mEq ER Tab PO ONE (09:30)
[2016-10-30] MEDS: Pantoprazole 40 mg EC Tab PO SCH (09:39)
[2016-10-30] MEDS ORDERED: Magnesium Sulfate 1 gm in D5W 1 GM/100 ML BAG IVPB ONE (10:00)
--- NOTE | 2016-10-30 12:40 | CP.PCM.PN ---
<Minal Meyertamerabree - Last Filed: 10/30/16 15:36> Subjective - Date & Time of Evaluation Date of Evaluation: 10/30/16 Time of Evaluation: 06:07 - Subjective Subjective: PGY 1 Medicine Note- Dr. Deluca's service Pt seen and examined in no acute distress. Patient reports some pain at the surgical site but pain controlled. Patient is tolerating a diet and passing gas. She admits to using her incentive spirometry. She denies any subjective fevers or chills, nausea, vomiting, diarrhea, constipation, or lower extremity joint pain, dysuria, calf pain, palpitations at this time. Objective - Vital Signs/Intake and Output Vital Signs (last 24 hours): Temp Pulse Resp BP Pulse Ox 98.0 F 76 20 166/84 H 96 10/30/16 08:20 10/30/16 09:29 10/30/16 08:20 10/30/16 08:20 10/30/16 08:20 Intake and Output: 10/30/16 10/30/16 06:59 18:59 Intake Total 500 Output Total 40 Balance 460 - Medications Medications: Current Medications Albuterol Sulfate (Albuterol 0.083% Inhal Jennifer (2.5 Mg/3 Ml) Ud) 2.5 mg INH RQ6 PRN PRN Reason: Shortness of Breath Last Admin: 10/30/16 09:26 Dose: 2.5 mg Amlodipine Besylate (Norvasc) 5 mg PO DAILY [facility] Last Admin: 10/30/16 09:39 Dose: 5 mg Benzocaine/Menthol (Cepacol Sore Throat) 1 sumeet MT Q1 PRN PRN Reason: Sore Throat Last Admin: 10/26/16 12:58 Dose: 1 sumeet Diphenhydramine HCl (Benadryl) 25 mg PO Q6 PRN PRN Reason: Itching / Pruritus Last Admin: 10/29/16 23:21 Dose: 25 mg Heparin Sodium (Porcine) (Heparin) 5,000 units SC Q12 [facility] Last Admin: 10/30/16 09:38 Dose: 5,000 units Hydromorphone HCl (Dilaudid) 0.5 mg IVP Q4H PRN PRN Reason: Pain, severe (8-10) Last Admin: 10/30/16 08:10 Dose: 0.5 mg Piperacillin Sod/Tazobactam Sod (Zosyn 3.375 Gm Iv Premix) 3.375 gm in 50 mls @ 100 mls/hr IVPB Q6H [facility] Last Admin: 10/30/16 05:19 Dose: 100 mls/hr Vancomycin HCl 1,000 mg/ (Sodium Chloride) 250 mls @ 166.6 mls/hr IVPB Q12H [facility] Last Admin: 10/29/16 22:56 Dose: 166.6 mls/hr Insulin Aspart (Novolog) 0 unit SC ACHS [facility] PRN Reason: Protocol Last Admin: 10/30/16 08:11 Dose: Not Given Losartan Potassium (Cozaar) 100 mg PO DAILY [facility] Last Admin: 10/30/16 09:38 Dose: 100 mg Ondansetron HCl (Zofran Inj) 4 mg IVP Q4 PRN PRN Reason: Nausea/Vomiting Last Admin: 10/24/16 22:29 Dose: 4 mg Oxycodone/Acetaminophen (Percocet 5/325 Mg Tab) 2 tab PO Q4H PRN PRN Reason: Pain, moderate (4-7) Stop: 10/31/16 07:43 Last Admin: 10/29/16 11:22 Dose: 2 tab Pantoprazole Sodium (Protonix Ec Tab) 40 mg PO DAILY [facility] Last Admin: 10/30/16 09:39 Dose: 40 mg Potassium Chloride (K-Dur 20 Meq Er Tab) 20 meq PO DAILY [facility] Last Admin: 10/29/16 11:18 Dose: 20 meq Risperidone (Risperdal Tab) 1 mg PO DAILY [facility] Last Admin: 10/30/16 09:39 Dose: 1 mg Sertraline HCl (Zoloft) 100 mg PO DAILY [facility] Last Admin: 10/30/16 09:39 Dose: 100 mg Zolpidem Tartrate (Ambien) 5 mg PO HS PRN PRN Reason: Insomnia Last Admin: 10/29/16 21:24 Dose: 5 mg - Labs Labs: 10/30/16 07:28 10/30/16 07:28 - Constitutional Appears: Non-toxic, No Acute Distress - Head Exam Head Exam: ATRAUMATIC, NORMAL INSPECTION, NORMOCEPHALIC - Eye Exam Eye Exam: EOMI, Normal appearance, PERRL Pupil Exam: NORMAL ACCOMODATION - ENT Exam ENT Exam: Mucous Membranes Moist - Neck Exam Neck Exam: Full ROM - Respiratory Exam Respiratory Exam: Clear to Ausculation Bilateral, NORMAL BREATHING PATTERN. absent: Wheezes - Cardiovascular Exam Cardiovascular Exam: REGULAR RHYTHM, +S1, +S2 - GI/Abdominal Exam GI & Abdominal Exam: Soft, Normal Bowel Sounds - Extremities Exam Extremities Exam: Full ROM, Normal Capillary Refill - Back Exam Back Exam: Full ROM - Neurological Exam Neurological Exam: Alert, Awake, CN II-XII Intact, Oriented x3 - Psychiatric Exam Psychiatric exam: Normal Affect, Normal Mood - Skin Skin Exam: Erythema, Warm. absent: Rash Additional comments: Left breast erythema decreasing , mild tenderness to palpation medially. Wound vac dressing and drain in place with some drainage noted. vertical incisional scar noted on breasts bilaterally. Assessment and Plan - Assessment and Plan (Free Text) Assessment: Bilateral breast wound infection L > R -s/p bilateral breast implant insertion, extensive bilateral breast revision, scar revision, breast capsulectomy, capsulotomy done 08/27/[address] Arango -s/p day Wash out of breast capsule and reinsertion of implant -blood culture- no growth after 24 hrs -wound culture- MRSA positive -WBC stable -Percocet 1 tab PO Q4h PRN pain, Dilaudid 0.5mg IV Q4 PRN -Vancomycin 1gm IVPB Q24H- started 10/24/16. Vanco trough 14.4 on 10/27. Next Vanco trough 10/29 . F/U -Zosyn 3.375gm IVPB Q8H- started 10/24/16 -Dr. Arango plastic surgeon consulted- wound vac in place- changed 10/28, esther drain in place with some drainage. Wound care management per Surgery. F/U recommendations. -ID consult placed to Dr. Rogers. emergency worker IV antibiotics for 3-6 wks -Isolation precautions Rule Out Parvovirus B 19 blood infection -Pathology reported possible contaminated plasma blood products that was transfused -Of note, patient received packed red blood cells. -ID and Surg team made aware -Check IgG, IgM Parvovirus levels -Patient informed with questions and concerns addressed -Infectious Disease and Surgery teams made aware -Monitor for rash or symptomatology -F/U Invasive bilateral Lobular Carcinoma of breast -Patient receives chemotherapy every week -Patient receives radiation every week -Percocet 1 tab PO Q4h PRN pain, Dilaudid 0.5mg IV Q4 PRN Hx of HTN -Elevated though could be secondarily due to pain. -Patient encouraged to request medication when in pain -Norvasc 5 mg, Losartan 100 mg PO daily started with hold parameters for SBP below 110. Hx of DM -Accucheck -low dose RISS Hx of Insomnia and anxiety -Risperidone 1mg po daily -Zoloft 100mg po daily -Ambien 5mg PO HS PRN Dyspnea Albuterol 0.083% nebulizer Q6h PRN Will add nasal cannula as needed. Electrolyte imbalance Magnesium and Potassium levels decreased- repleted Anemia -Stable at this time. -Continue to monitor PPX -Protonix 40mg po daily -Held Heparin due to acute anemia -SCDs -Heart healthy diet moderate consistent carb diet <Erick Deluca - Last Filed: 10/30/16 15:52> Objective - Vital Signs/Intake and Output Vital Signs (last 24 hours): Temp Pulse Resp BP Pulse Ox 98.0 F 76 20 166/84 H 96 10/30/16 08:20 10/30/16 09:29 10/30/16 08:20 10/30/16 08:20 10/30/16 08:20 Intake and Output: 10/30/16 10/30/16 06:59 18:59 Intake Total 500 Output Total 40 Balance 460 - Medications Medications: Current Medications Albuterol Sulfate (Albuterol 0.083% Inhal Jennifer (2.5 Mg/3 Ml) Ud) 2.5 mg INH RQ6 PRN PRN Reason: Shortness of Breath Last Admin: 10/30/16 13:56 Dose: 2.5 mg Amlodipine Besylate (Norvasc) 5 mg PO DAILY [facility] Last Admin: 10/30/16 09:39 Dose: 5 mg Benzocaine/Menthol (Cepacol Sore Throat) 1 sumeet MT Q1 PRN PRN Reason: Sore Throat Last Admin: 10/26/16 12:58 Dose: 1 sumeet Diphenhydramine HCl (Benadryl) 25 mg PO Q6 PRN PRN Reason: Itching / Pruritus Last Admin: 10/29/16 23:21 Dose: 25 mg Heparin Sodium (Porcine) (Heparin) 5,000 units SC Q12 [facility] Last Admin: 10/30/16 09:38 Dose: 5,000 units Hydromorphone HCl (Dilaudid) 0.5 mg IVP Q4H PRN PRN Reason: Pain, severe (8-10) Last Admin: 10/30/16 13:49 Dose: 0.5 mg Piperacillin Sod/Tazobactam Sod (Zosyn 3.375 Gm Iv Premix) 3.375 gm in 50 mls @ 100 mls/hr IVPB Q6H [facility] Last Admin: 10/30/16 05:19 Dose: 100 mls/hr Vancomycin HCl 1,000 mg/ (Sodium Chloride) 250 mls @ 166.6 mls/hr IVPB Q12H [facility] Last Admin: 10/29/16 22:56 Dose: 166.6 mls/hr Insulin Aspart (Novolog) 0 unit SC ACHS [facility] PRN Reason: Protocol Last Admin: 10/30/16 08:11 Dose: Not Given Losartan Potassium (Cozaar) 100 mg PO DAILY [facility] Last Admin: 10/30/16 09:38 Dose: 100 mg Ondansetron HCl (Zofran Inj) 4 mg IVP Q4 PRN PRN Reason: Nausea/Vomiting Last Admin: 10/24/16 22:29 Dose: 4 mg Oxycodone/Acetaminophen (Percocet 5/325 Mg Tab) 2 tab PO Q4H PRN PRN Reason: Pain, moderate (4-7) Stop: 10/31/16 07:43 Last Admin: 10/29/16 11:22 Dose: 2 tab Pantoprazole Sodium (Protonix Ec Tab) 40 mg PO DAILY [facility] Last Admin: 10/30/16 09:39 Dose: 40 mg Potassium Chloride (K-Dur 20 Meq Er Tab) 20 meq PO DAILY [facility] Last Admin: 10/29/16 11:18 Dose: 20 meq Risperidone (Risperdal Tab) 1 mg PO DAILY [facility] Last Admin: 10/30/16 09:39 Dose: 1 mg Sertraline HCl (Zoloft) 100 mg PO DAILY [facility] Last Admin: 10/30/16 09:39 Dose: 100 mg Zolpidem Tartrate (Ambien) 5 mg PO HS PRN PRN Reason: Insomnia Last Admin: 10/29/16 21:24 Dose: 5 mg - Labs Labs: 10/30/16 07:28 10/30/16 07:28 Attending/Attestation - Attestation I have personally seen and examined this patient.: Yes I have fully participated in the care of the patient.: Yes I have reviewed all pertinent clinical information, including history, physical exam and plan: Yes Notes (Text): 10/30/16 15:49 Patient was seen and examined at bedside with the resident We will continue anti-but suspect recommendations of ID Follow-up providers B19 IgG and IgM results Plan for OR in AM I discussed the plan of care with the resident and agree with the above history and physical and assessment/plan but the resident.
--- NOTE | 2016-10-30 16:02 | CP.PCM.PN ---
Subjective - Date & Time of Evaluation Date of Evaluation: 10/30/16 Time of Evaluation: 15:57 - Subjective Subjective: Plastics: Dr. Arango Pt seen and examined. Resting comfortably in bed. Pain controlled. Responds well to pain meds. No F/C. Objective - Vital Signs/Intake and Output Vital Signs (last 24 hours): Temp Pulse Resp BP Pulse Ox 98.0 F 76 20 166/84 H 96 10/30/16 08:20 10/30/16 09:29 10/30/16 08:20 10/30/16 08:20 10/30/16 08:20 Intake and Output: 10/30/16 10/30/16 06:59 18:59 Intake Total 500 Output Total 40 Balance 460 - Medications Medications: Current Medications Albuterol Sulfate (Albuterol 0.083% Inhal Jennifer (2.5 Mg/3 Ml) Ud) 2.5 mg INH RQ6 PRN PRN Reason: Shortness of Breath Last Admin: 10/30/16 13:56 Dose: 2.5 mg Amlodipine Besylate (Norvasc) 5 mg PO DAILY [facility] Last Admin: 10/30/16 09:39 Dose: 5 mg Benzocaine/Menthol (Cepacol Sore Throat) 1 sumeet MT Q1 PRN PRN Reason: Sore Throat Last Admin: 10/26/16 12:58 Dose: 1 sumeet Diphenhydramine HCl (Benadryl) 25 mg PO Q6 PRN PRN Reason: Itching / Pruritus Last Admin: 10/29/16 23:21 Dose: 25 mg Heparin Sodium (Porcine) (Heparin) 5,000 units SC Q12 [facility] Last Admin: 10/30/16 09:38 Dose: 5,000 units Hydromorphone HCl (Dilaudid) 0.5 mg IVP Q4H PRN PRN Reason: Pain, severe (8-10) Last Admin: 10/30/16 13:49 Dose: 0.5 mg Piperacillin Sod/Tazobactam Sod (Zosyn 3.375 Gm Iv Premix) 3.375 gm in 50 mls @ 100 mls/hr IVPB Q6H [facility] Last Admin: 10/30/16 05:19 Dose: 100 mls/hr Vancomycin HCl 1,000 mg/ (Sodium Chloride) 250 mls @ 166.6 mls/hr IVPB Q12H [facility] Last Admin: 10/29/16 22:56 Dose: 166.6 mls/hr Insulin Aspart (Novolog) 0 unit SC ACHS [facility] PRN Reason: Protocol Last Admin: 10/30/16 08:11 Dose: Not Given Losartan Potassium (Cozaar) 100 mg PO DAILY [facility] Last Admin: 10/30/16 09:38 Dose: 100 mg Ondansetron HCl (Zofran Inj) 4 mg IVP Q4 PRN PRN Reason: Nausea/Vomiting Last Admin: 10/24/16 22:29 Dose: 4 mg Oxycodone/Acetaminophen (Percocet 5/325 Mg Tab) 2 tab PO Q4H PRN PRN Reason: Pain, moderate (4-7) Stop: 10/31/16 07:43 Last Admin: 10/29/16 11:22 Dose: 2 tab Pantoprazole Sodium (Protonix Ec Tab) 40 mg PO DAILY [facility] Last Admin: 10/30/16 09:39 Dose: 40 mg Potassium Chloride (K-Dur 20 Meq Er Tab) 20 meq PO DAILY [facility] Last Admin: 10/29/16 11:18 Dose: 20 meq Risperidone (Risperdal Tab) 1 mg PO DAILY [facility] Last Admin: 10/30/16 09:39 Dose: 1 mg Sertraline HCl (Zoloft) 100 mg PO DAILY [facility] Last Admin: 10/30/16 09:39 Dose: 100 mg Zolpidem Tartrate (Ambien) 5 mg PO HS PRN PRN Reason: Insomnia Last Admin: 10/29/16 21:24 Dose: 5 mg - Labs Labs: 10/30/16 07:28 10/30/16 07:28 - Constitutional Appears: Non-toxic, No Acute Distress - Head Exam Head Exam: ATRAUMATIC, NORMOCEPHALIC - Eye Exam Eye Exam: EOMI - ENT Exam ENT Exam: Mucous Membranes Moist - Neck Exam Neck Exam: Full ROM - Respiratory Exam Respiratory Exam: NORMAL BREATHING PATTERN. absent: Accessory Muscle Use, Respiratory Distress - GI/Abdominal Exam GI & Abdominal Exam: Soft. absent: Tenderness - Neurological Exam Neurological Exam: Alert, Awake, Oriented x3 - Skin Additional comments: L breast: Decreased erythema, warm to touch, mildly tender. Dejon in place. Assessment and Plan - Assessment and Plan (Free Text) Assessment: 56F w. infected breast implant, s/p breast capsule washout and placement of implant, POD#6 -Dejon: 70cc/12 hr serosang -will remove dejon and change wound vac on 10/31/16 -c/w current medical management -d/w attending Paige PGY2
[2016-10-30] MEDS: Potassium Chloride 20 mEq ER Tab PO SCH (16:44)
[2016-10-30] MEDS: Oxycodone/Acetaminophen 5/325 mg Tab PO PRN ×2 (16:44→22:10)
--- NOTE | 2016-10-30 18:19 | CP.PCM.PN ---
Subjective - Date & Time of Evaluation Date of Evaluation: 10/30/16 Time of Evaluation: 07:00 - Subjective Subjective: s/p removal of infected implant c/s + MRSA IV rx in progress needs min 3 weeks iv rx Objective - Vital Signs/Intake and Output Vital Signs (last 24 hours): Temp Pulse Resp BP Pulse Ox 98.4 F 80 20 171/82 H 95 10/30/16 15:57 10/30/16 15:57 10/30/16 15:57 10/30/16 15:57 10/30/16 15:57 Intake and Output: 10/30/16 10/30/16 06:59 18:59 Intake Total 500 Output Total 40 Balance 460 - Medications Medications: Current Medications Albuterol Sulfate (Albuterol 0.083% Inhal Jennifer (2.5 Mg/3 Ml) Ud) 2.5 mg INH RQ6 PRN PRN Reason: Shortness of Breath Last Admin: 10/30/16 13:56 Dose: 2.5 mg Amlodipine Besylate (Norvasc) 5 mg PO DAILY [facility] Last Admin: 10/30/16 09:39 Dose: 5 mg Benzocaine/Menthol (Cepacol Sore Throat) 1 sumeet MT Q1 PRN PRN Reason: Sore Throat Last Admin: 10/26/16 12:58 Dose: 1 sumeet Diphenhydramine HCl (Benadryl) 25 mg PO Q6 PRN PRN Reason: Itching / Pruritus Last Admin: 10/29/16 23:21 Dose: 25 mg Heparin Sodium (Porcine) (Heparin) 5,000 units SC Q12 [facility] Last Admin: 10/30/16 09:38 Dose: 5,000 units Hydromorphone HCl (Dilaudid) 0.5 mg IVP Q4H PRN PRN Reason: Pain, severe (8-10) Last Admin: 10/30/16 13:49 Dose: 0.5 mg Piperacillin Sod/Tazobactam Sod (Zosyn 3.375 Gm Iv Premix) 3.375 gm in 50 mls @ 100 mls/hr IVPB Q6H [facility] Last Admin: 10/30/16 17:59 Dose: 100 mls/hr Vancomycin HCl 1,000 mg/ (Sodium Chloride) 250 mls @ 166.6 mls/hr IVPB Q12H [facility] Last Admin: 10/30/16 12:05 Dose: 166.6 mls/hr Insulin Aspart (Novolog) 0 unit SC ACHS [facility] PRN Reason: Protocol Last Admin: 10/30/16 16:44 Dose: Not Given Losartan Potassium (Cozaar) 100 mg PO DAILY [facility] Last Admin: 10/30/16 09:38 Dose: 100 mg Ondansetron HCl (Zofran Inj) 4 mg IVP Q4 PRN PRN Reason: Nausea/Vomiting Last Admin: 10/24/16 22:29 Dose: 4 mg Oxycodone/Acetaminophen (Percocet 5/325 Mg Tab) 2 tab PO Q4H PRN PRN Reason: Pain, moderate (4-7) Stop: 10/31/16 07:43 Last Admin: 10/30/16 16:44 Dose: 2 tab Pantoprazole Sodium (Protonix Ec Tab) 40 mg PO DAILY [facility] Last Admin: 10/30/16 09:39 Dose: 40 mg Potassium Chloride (K-Dur 20 Meq Er Tab) 20 meq PO DAILY [facility] Last Admin: 10/30/16 16:44 Dose: 20 meq Risperidone (Risperdal Tab) 1 mg PO DAILY [facility] Last Admin: 10/30/16 09:39 Dose: 1 mg Sertraline HCl (Zoloft) 100 mg PO DAILY [facility] Last Admin: 10/30/16 09:39 Dose: 100 mg Zolpidem Tartrate (Ambien) 5 mg PO HS PRN PRN Reason: Insomnia Last Admin: 10/29/16 21:24 Dose: 5 mg - Labs Labs: 10/30/16 07:28 10/30/16 07:28 Assessment and Plan (1) Cellulitis of breast Status: Acute (2) Postoperative wound dehiscence Status: Acute (3) Breast cancer Status: Acute
[2016-10-31] MEDS: HYDROmorphone 0.5 mg/0.5 ml ISec IVP PRN ×5 (00:03→22:18)
[2016-10-31] MEDS: Oxycodone/Acetaminophen 5/325 mg Tab PO PRN (02:00)
[2016-10-31] MEDS: Piperacill/Tazo 3.375gm in Dex 3.375 GM/50 ML BAG IVPB SCH ×3 (05:13→18:34)
[2016-10-31] MEDS: Albuterol 0.083% Inhal Sol (2.5 mg/3 mL) UD INH PRN ×2 (07:32→14:27)
[2016-10-31 07:35] LABS: BASO % 0.7 % (0.0-2.0); EOS # 0.2 K/uL (0.0-0.7); EOS % 4.5 % (0.0-4.0); HEMATOCRIT 27.1 % (34.0-47.0); LYMPH # 0.9 K/uL (1.0-4.3); LYMPH % 16.9 % (20.0-40.0); MEAN CELL VOLUME 87.4 fL (81.0-99.0); MEAN CORPUSCULAR HEMOGLOBIN 28.8 pg (27.0-31.0); MONO # 0.8 K/uL (0.0-0.8); MONO % 14.2 % (0.0-10.0); NRBC % 0.1 % (0.0-2.0); RED CELL DISTRIBUTION WIDTH 15.2 % (11.5-14.5); WHITE BLOOD COUNT 5.3 K/uL (4.8-10.8)
[2016-10-31 08:07] LABS: CHLORIDE 108 mmol/L (98-107); POTASSIUM 3.8 mmol/L (3.6-5.2); SODIUM 138 mmol/L (132-148)
[2016-10-31 08:09] LABS: AST/SGOT 24 U/L (14-36); BILIRUBIN,TOTAL 0.4 mg/dL (0.2-1.3); CARBON DIOXIDE 22 mmol/L (22-30); GFR AFRICAN-AMERICAN > 60
[2016-10-31 08:10] LABS: ALB/GLOB RATIO 0.9 (1.0-2.1); ALKALINE PHOSPHATASE 46 U/L (38-126); ALT/SGPT 14 U/L (9-52); BLOOD UREA NITROGEN 7 mg/dL (7-17); CALCIUM 7.4 mg/dl (8.6-10.4); GLUCOSE,RANDOM 78 mg/dL (65-105); MAGNESIUM 1.8 mg/dL (1.6-2.3); PHOSPHOROUS 3.7 mg/dL (2.5-4.5); TOTAL PROTEIN 5.5 g/dL (6.3-8.3)
[2016-10-31] MEDS: (Novolog) Insulin Aspart, Recombinant 100 u/ml 10 ml vial SC SCH ×4 (08:49→22:42)
--- NOTE | 2016-10-31 08:58 | CP.PCM.PN ---
Subjective - Date & Time of Evaluation Date of Evaluation: 10/31/16 Time of Evaluation: 08:57 - Subjective Subjective: Plastics: Dr. Arango Pt seen and examined. No acute events overnight. Pt resting comfortably in bed. Objective - Vital Signs/Intake and Output Vital Signs (last 24 hours): Temp Pulse Resp BP Pulse Ox 97.6 F 71 18 143/80 95 10/31/16 08:30 10/31/16 08:30 10/31/16 08:30 10/31/16 08:30 10/31/16 08:30 Intake and Output: 10/31/16 10/31/16 06:59 18:59 Intake Total 700 Output Total 55 Balance 645 - Medications Medications: Current Medications Albuterol Sulfate (Albuterol 0.083% Inhal Jennifer (2.5 Mg/3 Ml) Ud) 2.5 mg INH RQ6 PRN PRN Reason: Shortness of Breath Last Admin: 10/31/16 07:32 Dose: 2.5 mg Amlodipine Besylate (Norvasc) 5 mg PO DAILY [facility] Last Admin: 10/30/16 09:39 Dose: 5 mg Benzocaine/Menthol (Cepacol Sore Throat) 1 sumeet MT Q1 PRN PRN Reason: Sore Throat Last Admin: 10/26/16 12:58 Dose: 1 sumeet Diphenhydramine HCl (Benadryl) 25 mg PO Q6 PRN PRN Reason: Itching / Pruritus Last Admin: 10/31/16 05:13 Dose: 25 mg Heparin Sodium (Porcine) (Heparin) 5,000 units SC Q12 [facility] Last Admin: 10/30/16 22:10 Dose: 5,000 units Hydromorphone HCl (Dilaudid) 0.5 mg IVP Q4H PRN PRN Reason: Pain, severe (8-10) Last Admin: 10/31/16 04:36 Dose: 0.5 mg Piperacillin Sod/Tazobactam Sod (Zosyn 3.375 Gm Iv Premix) 3.375 gm in 50 mls @ 100 mls/hr IVPB Q6H [facility] Last Admin: 10/31/16 05:13 Dose: 100 mls/hr Vancomycin HCl 1,000 mg/ (Sodium Chloride) 250 mls @ 166.6 mls/hr IVPB Q12H [facility] Last Admin: 10/30/16 22:11 Dose: 166.6 mls/hr Insulin Aspart (Novolog) 0 unit SC ACHS [facility] PRN Reason: Protocol Last Admin: 10/31/16 08:49 Dose: Not Given Losartan Potassium (Cozaar) 100 mg PO DAILY [facility] Last Admin: 10/30/16 09:38 Dose: 100 mg Ondansetron HCl (Zofran Inj) 4 mg IVP Q4 PRN PRN Reason: Nausea/Vomiting Last Admin: 10/24/16 22:29 Dose: 4 mg Pantoprazole Sodium (Protonix Ec Tab) 40 mg PO DAILY [facility] Last Admin: 10/30/16 09:39 Dose: 40 mg Potassium Chloride (K-Dur 20 Meq Er Tab) 20 meq PO DAILY [facility] Last Admin: 10/30/16 16:44 Dose: 20 meq Risperidone (Risperdal Tab) 1 mg PO DAILY [facility] Last Admin: 10/30/16 09:39 Dose: 1 mg Sertraline HCl (Zoloft) 100 mg PO DAILY [facility] Last Admin: 10/30/16 09:39 Dose: 100 mg Zolpidem Tartrate (Ambien) 5 mg PO HS PRN PRN Reason: Insomnia Last Admin: 10/30/16 22:10 Dose: 5 mg - Labs Labs: 10/31/16 07:18 10/31/16 07:18 - Constitutional Appears: Non-toxic, No Acute Distress - Head Exam Head Exam: ATRAUMATIC, NORMOCEPHALIC - Eye Exam Eye Exam: EOMI - ENT Exam ENT Exam: Mucous Membranes Moist - Neck Exam Neck Exam: Full ROM - Respiratory Exam Respiratory Exam: NORMAL BREATHING PATTERN. absent: Accessory Muscle Use, Respiratory Distress - Neurological Exam Neurological Exam: Alert, Awake, Oriented x3 - Skin Additional comments: L breast, decreased eryhtema, warm to touch, increased induration extending to superior portion of breast. no Fluctuance, mild tenderness Assessment and Plan - Assessment and Plan (Free Text) Assessment: 56F w. infected breast implant, s/p breast capsule washout and placement of implant, POD#7 -Dejon removed -wound vac changed -c/w abx -further recs per Dr. Arango -d/w attending [facility] PGY2
[2016-10-31] MEDS: Potassium Chloride 20 mEq ER Tab PO SCH (10:29)
[2016-10-31] MEDS: Pantoprazole 40 mg EC Tab PO SCH (10:29)
--- NOTE | 2016-10-31 10:50 | CP.PCM.PN ---
<Radha Meyer - Last Filed: 10/31/16 10:45> Subjective - Date & Time of Evaluation Date of Evaluation: 10/31/16 Time of Evaluation: 10:32 - Subjective Subjective: PGY 1 Medicine Note- Dr. Deluca's service Patient seen and examined in no acute distress. Patient states that she slept well overnight. She complains of joint pain in her hands and knees bilaterally from history of arthritis. Patient otherwise denies subjective fevers or chills , nausea, vomiting,diarrhea, constipation at this time. Objective - Vital Signs/Intake and Output Vital Signs (last 24 hours): Temp Pulse Resp BP Pulse Ox 97.6 F 71 18 135/80 95 10/31/16 08:30 10/31/16 10:26 10/31/16 08:30 10/31/16 10:26 10/31/16 08:30 Intake and Output: 10/31/16 10/31/16 06:59 18:59 Intake Total 700 Output Total 55 Balance 645 - Medications Medications: Current Medications Albuterol Sulfate (Albuterol 0.083% Inhal Jennifer (2.5 Mg/3 Ml) Ud) 2.5 mg INH RQ6 PRN PRN Reason: Shortness of Breath Last Admin: 10/31/16 07:32 Dose: 2.5 mg Amlodipine Besylate (Norvasc) 5 mg PO DAILY [facility] Last Admin: 10/31/16 10:29 Dose: 5 mg Benzocaine/Menthol (Cepacol Sore Throat) 1 sumeet MT Q1 PRN PRN Reason: Sore Throat Last Admin: 10/26/16 12:58 Dose: 1 sumeet Diphenhydramine HCl (Benadryl) 25 mg PO Q6 PRN PRN Reason: Itching / Pruritus Last Admin: 10/31/16 05:13 Dose: 25 mg Heparin Sodium (Porcine) (Heparin) 5,000 units SC Q12 [facility] Last Admin: 10/31/16 10:29 Dose: 5,000 units Hydromorphone HCl (Dilaudid) 0.5 mg IVP Q4H PRN PRN Reason: Pain, severe (8-10) Last Admin: 10/31/16 04:36 Dose: 0.5 mg Piperacillin Sod/Tazobactam Sod (Zosyn 3.375 Gm Iv Premix) 3.375 gm in 50 mls @ 100 mls/hr IVPB Q6H [facility] Last Admin: 10/31/16 05:13 Dose: 100 mls/hr Vancomycin HCl 1,000 mg/ (Sodium Chloride) 250 mls @ 166.6 mls/hr IVPB Q12H [facility] Last Admin: 10/31/16 10:27 Dose: 166.6 mls/hr Insulin Aspart (Novolog) 0 unit SC ACHS [facility] PRN Reason: Protocol Last Admin: 10/31/16 08:49 Dose: Not Given Losartan Potassium (Cozaar) 100 mg PO DAILY [facility] Last Admin: 10/31/16 10:29 Dose: 100 mg Ondansetron HCl (Zofran Inj) 4 mg IVP Q4 PRN PRN Reason: Nausea/Vomiting Last Admin: 10/24/16 22:29 Dose: 4 mg Pantoprazole Sodium (Protonix Ec Tab) 40 mg PO DAILY [facility] Last Admin: 10/31/16 10:29 Dose: 40 mg Potassium Chloride (K-Dur 20 Meq Er Tab) 20 meq PO DAILY [facility] Last Admin: 10/31/16 10:29 Dose: 20 meq Risperidone (Risperdal Tab) 1 mg PO DAILY [facility] Last Admin: 10/31/16 10:29 Dose: 1 mg Sertraline HCl (Zoloft) 100 mg PO DAILY [facility] Last Admin: 10/31/16 10:29 Dose: 100 mg Zolpidem Tartrate (Ambien) 5 mg PO HS PRN PRN Reason: Insomnia Last Admin: 10/30/16 22:10 Dose: 5 mg - Labs Labs: 10/31/16 07:18 10/31/16 07:18 - Constitutional Appears: Non-toxic, No Acute Distress - Head Exam Head Exam: ATRAUMATIC, NORMAL INSPECTION, NORMOCEPHALIC - Eye Exam Eye Exam: EOMI, Normal appearance, PERRL - ENT Exam ENT Exam: Mucous Membranes Moist - Neck Exam Neck Exam: Full ROM - Respiratory Exam Respiratory Exam: Clear to Ausculation Bilateral, NORMAL BREATHING PATTERN - Cardiovascular Exam Cardiovascular Exam: REGULAR RHYTHM, +S1, +S2 - GI/Abdominal Exam GI & Abdominal Exam: Soft, Normal Bowel Sounds - Extremities Exam Extremities Exam: Full ROM, Normal Capillary Refill. absent: Tenderness - Back Exam Back Exam: Full ROM - Neurological Exam Neurological Exam: Alert, Awake, CN II-XII Intact, Oriented x3 - Psychiatric Exam Psychiatric exam: Normal Affect, Normal Mood - Skin Skin Exam: Dry, Intact, Normal Color, Warm Assessment and Plan - Assessment and Plan (Free Text) Assessment: Bilateral breast wound infection L > R -s/p bilateral breast implant insertion, extensive bilateral breast revision, scar revision, breast capsulectomy, capsulotomy done 08/27/[address] Arango -s/p day Wash out of breast capsule and reinsertion of implant -blood culture- no growth after 24 hrs -wound culture- MRSA positive -WBC stable -Percocet 1 tab PO Q4h PRN pain, Dilaudid 0.5mg IV Q4 PRN -Initially Vancomycin 1gm IVPB Q24H- started 10/24/16. Vanco trough 14.4 on 10/27. 6 trough 15, 10/31 trough 6. Next trough 11/02 in the AM. Vanco now Q12 dosing -Zosyn 3.375gm IVPB Q8H- started 10/24/16 -Dr. Arango plastic surgeon consulted- wound vac in place- changed 10/28, esther drain in place with some drainage. Wound care management per Surgery. F/U recommendations. 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 Will begin discharge planning after surgical management course and serology testing is complete. -Isolation precautions Rule Out Parvovirus B 19 blood infection -Pathology reported possible contaminated plasma blood products that was transfused -Of note, patient received packed red blood cells. -ID and Surg team made aware -Check IgG, IgM Parvovirus levels. Per Lab, takes three business days to result. If not today, likely Thursday. -Patient informed with questions and concerns addressed -Infectious Disease and surgery teams made aware -Monitor for rash or symptomatology -F/U Invasive bilateral Lobular Carcinoma of breast -Patient receives chemotherapy every week -Patient receives radiation every week -Percocet 1 tab PO Q4H PRN pain, Dilaudid 0.5mg IV Q4 PRN Hx of HTN -Elevated though could be secondarily due to pain. -Patient encouraged to request medication when in pain -Norvasc 5 mg, Losartan 100 mg PO daily started with hold parameters for SBP below 110. Hx of DM -Accucheck -low dose RISS Hx of Arthritis Motrin TID PRN with food -PT on board Hx of Insomnia and anxiety -Risperidone 1mg po daily -Zoloft 100mg po daily -Ambien 5mg PO HS PRN Dyspnea Albuterol 0.083% nebulizer Q6h PRN Will add nasal cannula as needed. Anemia -Stable at this time. -Continue to monitor closely PPX -Protonix 40mg po daily -Held Heparin due to acute anemia -SCDs -Heart healthy diet moderate consistent carb diet -PT on board <Erick Deluca - Last Filed: 10/31/16 16:12> Objective - Vital Signs/Intake and Output Vital Signs (last 24 hours): Temp Pulse Resp BP Pulse Ox 98.1 F 76 20 132/80 94 L 10/31/16 15:00 10/31/16 15:00 10/31/16 15:00 10/31/16 15:00 10/31/16 15:00 Intake and Output: 10/31/16 10/31/16 06:59 18:59 Intake Total 700 Output Total 55 Balance 645 - Medications Medications: Current Medications Albuterol Sulfate (Albuterol 0.083% Inhal Jennifer (2.5 Mg/3 Ml) Ud) 2.5 mg INH RQ6 PRN PRN Reason: Shortness of Breath Last Admin: 10/31/16 14:27 Dose: 2.5 mg Amlodipine Besylate (Norvasc) 5 mg PO DAILY [facility] Last Admin: 10/31/16 10:29 Dose: 5 mg Benzocaine/Menthol (Cepacol Sore Throat) 1 sumeet MT Q1 PRN PRN Reason: Sore Throat Last Admin: 10/26/16 12:58 Dose: 1 sumeet Diphenhydramine HCl (Benadryl) 25 mg PO Q6 PRN PRN Reason: Itching / Pruritus Last Admin: 10/31/16 05:13 Dose: 25 mg Heparin Sodium (Porcine) (Heparin) 5,000 units SC Q12 [facility] Last Admin: 10/31/16 10:29 Dose: 5,000 units Hydromorphone HCl (Dilaudid) 0.5 mg IVP Q4H PRN PRN Reason: Pain, severe (8-10) Last Admin: 10/31/16 13:15 Dose: 0.5 mg Piperacillin Sod/Tazobactam Sod (Zosyn 3.375 Gm Iv Premix) 3.375 gm in 50 mls @ 100 mls/hr IVPB Q6H [facility] Last Admin: 10/31/16 13:08 Dose: 100 mls/hr Vancomycin HCl 1,000 mg/ (Sodium Chloride) 250 mls @ 166.6 mls/hr IVPB Q12H [facility] Last Admin: 10/31/16 10:27 Dose: 166.6 mls/hr Ibuprofen (Motrin Tab) 600 mg PO TID PRN PRN Reason: Arthritis Last Admin: 10/31/16 11:39 Dose: 600 mg Insulin Aspart (Novolog) 0 unit SC ACHS [facility] PRN Reason: Protocol Last Admin: 10/31/16 12:00 Dose: Not Given Losartan Potassium (Cozaar) 100 mg PO DAILY [facility] Last Admin: 10/31/16 10:29 Dose: 100 mg Ondansetron HCl (Zofran Inj) 4 mg IVP Q4 PRN PRN Reason: Nausea/Vomiting Last Admin: 10/24/16 22:29 Dose: 4 mg Pantoprazole Sodium (Protonix Ec Tab) 40 mg PO DAILY [facility] Last Admin: 10/31/16 10:29 Dose: 40 mg Potassium Chloride (K-Dur 20 Meq Er Tab) 20 meq PO DAILY [facility] Last Admin: 10/31/16 10:29 Dose: 20 meq Risperidone (Risperdal Tab) 1 mg PO DAILY [facility] Last Admin: 10/31/16 10:29 Dose: 1 mg Sertraline HCl (Zoloft) 100 mg PO DAILY [facility] Last Admin: 10/31/16 10:29 Dose: 100 mg Zolpidem Tartrate (Ambien) 5 mg PO HS PRN PRN Reason: Insomnia Last Admin: 10/30/16 22:10 Dose: 5 mg - Labs Labs: 10/31/16 07:18 10/31/16 07:18 Attending/Attestation - Attestation I have personally seen and examined this patient.: Yes I have fully participated in the care of the patient.: Yes I have reviewed all pertinent clinical information, including history, physical exam and plan: Yes Notes (Text): 10/31/16 16:10 Patient was seen and examined at bedside with the resident Patient states that she has some mild aches and pains are but she has history of arthritis We will start some NSAID Wound VAC was changed today by surgery We will continue IV antibiotics as per recommendations of ID. I discussed the plan of care with the resident and agree with the above history and physical and assessment/plan by the resident.
--- NOTE | 2016-10-31 15:48 | CP.PCM.PN ---
Subjective - Date & Time of Evaluation Date of Evaluation: 10/31/16 Time of Evaluation: 10:00 - Subjective Subjective: still with drainage/ redness less pain Objective - Vital Signs/Intake and Output Vital Signs (last 24 hours): Temp Pulse Resp BP Pulse Ox 97.6 F 86 18 135/85 95 10/31/16 08:30 10/31/16 13:15 10/31/16 08:30 10/31/16 13:15 10/31/16 08:30 Intake and Output: 10/31/16 10/31/16 06:59 18:59 Intake Total 700 Output Total 55 Balance 645 - Medications Medications: Current Medications Albuterol Sulfate (Albuterol 0.083% Inhal Jennifer (2.5 Mg/3 Ml) Ud) 2.5 mg INH RQ6 PRN PRN Reason: Shortness of Breath Last Admin: 10/31/16 14:27 Dose: 2.5 mg Amlodipine Besylate (Norvasc) 5 mg PO DAILY [facility] Last Admin: 10/31/16 10:29 Dose: 5 mg Benzocaine/Menthol (Cepacol Sore Throat) 1 sumeet MT Q1 PRN PRN Reason: Sore Throat Last Admin: 10/26/16 12:58 Dose: 1 sumeet Diphenhydramine HCl (Benadryl) 25 mg PO Q6 PRN PRN Reason: Itching / Pruritus Last Admin: 10/31/16 05:13 Dose: 25 mg Heparin Sodium (Porcine) (Heparin) 5,000 units SC Q12 [facility] Last Admin: 10/31/16 10:29 Dose: 5,000 units Hydromorphone HCl (Dilaudid) 0.5 mg IVP Q4H PRN PRN Reason: Pain, severe (8-10) Last Admin: 10/31/16 13:15 Dose: 0.5 mg Piperacillin Sod/Tazobactam Sod (Zosyn 3.375 Gm Iv Premix) 3.375 gm in 50 mls @ 100 mls/hr IVPB Q6H [facility] Last Admin: 10/31/16 13:08 Dose: 100 mls/hr Vancomycin HCl 1,000 mg/ (Sodium Chloride) 250 mls @ 166.6 mls/hr IVPB Q12H [facility] Last Admin: 10/31/16 10:27 Dose: 166.6 mls/hr Ibuprofen (Motrin Tab) 600 mg PO TID PRN PRN Reason: Arthritis Last Admin: 10/31/16 11:39 Dose: 600 mg Insulin Aspart (Novolog) 0 unit SC ACHS [facility] PRN Reason: Protocol Last Admin: 10/31/16 12:00 Dose: Not Given Losartan Potassium (Cozaar) 100 mg PO DAILY [facility] Last Admin: 10/31/16 10:29 Dose: 100 mg Ondansetron HCl (Zofran Inj) 4 mg IVP Q4 PRN PRN Reason: Nausea/Vomiting Last Admin: 10/24/16 22:29 Dose: 4 mg Pantoprazole Sodium (Protonix Ec Tab) 40 mg PO DAILY [facility] Last Admin: 10/31/16 10:29 Dose: 40 mg Potassium Chloride (K-Dur 20 Meq Er Tab) 20 meq PO DAILY [facility] Last Admin: 10/31/16 10:29 Dose: 20 meq Risperidone (Risperdal Tab) 1 mg PO DAILY [facility] Last Admin: 10/31/16 10:29 Dose: 1 mg Sertraline HCl (Zoloft) 100 mg PO DAILY [facility] Last Admin: 10/31/16 10:29 Dose: 100 mg Zolpidem Tartrate (Ambien) 5 mg PO HS PRN PRN Reason: Insomnia Last Admin: 10/30/16 22:10 Dose: 5 mg - Labs Labs: 10/31/16 07:18 10/31/16 07:18 - Constitutional Appears: Non-toxic, Chronically Ill - Head Exam Head Exam: NORMOCEPHALIC - Eye Exam Eye Exam: PERRL. absent: Scleral icterus - ENT Exam ENT Exam: Mucous Membranes Dry - Neck Exam Neck Exam: absent: Lymphadenopathy - Respiratory Exam Respiratory Exam: Decreased Breath Sounds - Cardiovascular Exam Cardiovascular Exam: REGULAR RHYTHM - GI/Abdominal Exam GI & Abdominal Exam: Distended - Rectal Exam Rectal Exam: Deferred - Exam Exam: NORMAL INSPECTION - Extremities Exam Extremities Exam: absent: Pedal Edema - Back Exam Back Exam: absent: CVA tenderness (L), CVA tenderness (R) - Neurological Exam Neurological Exam: Alert, Awake, Oriented x3 - Psychiatric Exam Psychiatric exam: Normal Mood - Skin Skin Exam: Dry, Intact Assessment and Plan (1) Cellulitis of breast Status: Acute (2) Postoperative wound dehiscence Status: Acute (3) Breast cancer Status: Acute
[2016-11-01] MEDS: Piperacill/Tazo 3.375gm in Dex 3.375 GM/50 ML BAG IVPB SCH ×4 (00:31→18:10)
[2016-11-01] MEDS: HYDROmorphone 0.5 mg/0.5 ml ISec IVP PRN ×5 (03:29→22:22)
[2016-11-01 06:13] LABS: BASO % 0.7 % (0.0-2.0); EOS # 0.2 K/uL (0.0-0.7); EOS % 3.4 % (0.0-4.0); HEMATOCRIT 25.3 % (34.0-47.0); LYMPH # 0.7 K/uL (1.0-4.3); LYMPH % 11.2 % (20.0-40.0); MEAN CELL VOLUME 86.9 fL (81.0-99.0); MEAN CORPUSCULAR HEMOGLOBIN 28.8 pg (27.0-31.0); MEAN CORPUSCULAR HGB CONC 33.1 g/dL (33.0-37.0); MEAN PLATELET VOLUME 6.6 fL (7.2-11.7); MONO # 0.7 K/uL (0.0-0.8); MONO % 12.1 % (0.0-10.0); RED CELL DISTRIBUTION WIDTH 15.1 % (11.5-14.5); WHITE BLOOD COUNT 5.9 K/uL (4.8-10.8)
[2016-11-01 06:15] LABS: CHLORIDE 95 mmol/L (98-107)
[2016-11-01 06:16] LABS: POTASSIUM 3.3 mmol/L (3.6-5.2); SODIUM 138 mmol/L (132-148)
[2016-11-01 06:18] LABS: ALB/GLOB RATIO 0.7 (1.0-2.1); ALKALINE PHOSPHATASE 38 U/L (38-126); AST/SGOT 29 U/L (14-36); BILIRUBIN,TOTAL 0.2 mg/dL (0.2-1.3); BLOOD UREA NITROGEN 9 mg/dL (7-17); CARBON DIOXIDE 20 mmol/L (22-30); GFR AFRICAN-AMERICAN > 60; GLUCOSE,RANDOM 130 mg/dL (65-105); TOTAL PROTEIN 5.5 g/dL (6.3-8.3)
[2016-11-01 06:19] LABS: ALT/SGPT 22 U/L (9-52); CALCIUM 6.5 mg/dl (8.6-10.4); MAGNESIUM 1.4 mg/dL (1.6-2.3); PHOSPHOROUS 3.1 mg/dL (2.5-4.5)
[2016-11-01] MEDS: (Novolog) Insulin Aspart, Recombinant 100 u/ml 10 ml vial SC SCH ×4 (07:37→22:23)
[2016-11-01] MEDS ORDERED: Potassium Chloride 20 mEq ER Tab PO ONE (10:00)
--- NOTE | 2016-11-01 10:06 | CP.PCM.PN ---
<Yuniel Lewis H - Last Filed: 11/01/16 20:04> Subjective - Date & Time of Evaluation Date of Evaluation: 11/01/16 Time of Evaluation: 10:00 - Subjective Subjective: Dr. Deluca progress note: Patient seen in room. She is complaining of pain but says the pain medication has been effective in controlling her pain. She denies fever, chills, nausea, vomiting, chest pain, diarrhea, shortness of breath. She says there is no drainage from the site of her surgery. Objective - Vital Signs/Intake and Output Vital Signs (last 24 hours): Temp Pulse Resp BP Pulse Ox 97.9 F 71 18 160/84 H 96 11/01/16 07:05 11/01/16 07:05 11/01/16 07:05 11/01/16 07:05 11/01/16 07:05 - Medications Medications: Current Medications Albuterol Sulfate (Albuterol 0.083% Inhal Jennifer (2.5 Mg/3 Ml) Ud) 2.5 mg INH RQ6 PRN PRN Reason: Shortness of Breath Last Admin: 10/31/16 14:27 Dose: 2.5 mg Amlodipine Besylate (Norvasc) 5 mg PO DAILY [facility] Last Admin: 10/31/16 10:29 Dose: 5 mg Benzocaine/Menthol (Cepacol Sore Throat) 1 sumeet MT Q1 PRN PRN Reason: Sore Throat Last Admin: 10/26/16 12:58 Dose: 1 sumeet Diphenhydramine HCl (Benadryl) 25 mg PO Q6 PRN PRN Reason: Itching / Pruritus Last Admin: 11/01/16 04:26 Dose: 25 mg Heparin Sodium (Porcine) (Heparin) 5,000 units SC Q12 [facility] Last Admin: 10/31/16 22:42 Dose: Not Given Hydromorphone HCl (Dilaudid) 0.5 mg IVP Q4H PRN PRN Reason: Pain, severe (8-10) Last Admin: 11/01/16 03:29 Dose: 0.5 mg Piperacillin Sod/Tazobactam Sod (Zosyn 3.375 Gm Iv Premix) 3.375 gm in 50 mls @ 100 mls/hr IVPB Q6H [facility] Last Admin: 11/01/16 07:52 Dose: 100 mls/hr Vancomycin HCl 1,000 mg/ (Sodium Chloride) 250 mls @ 166.6 mls/hr IVPB Q12H [facility] Last Admin: 10/31/16 22:18 Dose: 166.6 mls/hr Ibuprofen (Motrin Tab) 600 mg PO TID PRN PRN Reason: Arthritis Last Admin: 10/31/16 11:39 Dose: 600 mg Insulin Aspart (Novolog) 0 unit SC ACHS [facility] PRN Reason: Protocol Last Admin: 11/01/16 07:37 Dose: Not Given Losartan Potassium (Cozaar) 100 mg PO DAILY [facility] Last Admin: 10/31/16 10:29 Dose: 100 mg Ondansetron HCl (Zofran Inj) 4 mg IVP Q4 PRN PRN Reason: Nausea/Vomiting Last Admin: 10/24/16 22:29 Dose: 4 mg Pantoprazole Sodium (Protonix Ec Tab) 40 mg PO DAILY [facility] Last Admin: 10/31/16 10:29 Dose: 40 mg Potassium Chloride (K-Dur 20 Meq Er Tab) 20 meq PO DAILY [facility] Last Admin: 10/31/16 10:29 Dose: 20 meq Risperidone (Risperdal Tab) 1 mg PO DAILY [facility] Last Admin: 10/31/16 10:29 Dose: 1 mg Sertraline HCl (Zoloft) 100 mg PO DAILY [facility] Last Admin: 10/31/16 10:29 Dose: 100 mg Zolpidem Tartrate (Ambien) 5 mg PO HS PRN PRN Reason: Insomnia Last Admin: 10/31/16 22:18 Dose: 5 mg - Labs Labs: 11/01/16 06:01 11/01/16 06:01 - Constitutional Appears: Non-toxic, No Acute Distress - Head Exam Head Exam: NORMOCEPHALIC - Eye Exam Pupil Exam: NORMAL ACCOMODATION - ENT Exam ENT Exam: Normal Exam - Respiratory Exam Respiratory Exam: Clear to Ausculation Bilateral. absent: Rhonchi, Wheezes - Cardiovascular Exam Cardiovascular Exam: REGULAR RHYTHM, RRR, +S1, +S2. absent: Gallop, Rubs - GI/Abdominal Exam GI & Abdominal Exam: Soft, Normal Bowel Sounds. absent: Tenderness - Extremities Exam Extremities Exam: Normal Inspection. absent: Pedal Edema - Back Exam Back Exam: NORMAL INSPECTION - Psychiatric Exam Psychiatric exam: Normal Affect, Normal Mood - Skin Skin Exam: Normal Color. absent: Intact Additional comments: dressing over left breast no drainage Assessment and Plan - Assessment and Plan (Free Text) Assessment: Bilateral breast wound infection L > R /10: POD #8 wound grew MRSA, day 8 and IV zosyn and Vancomycin. Will continue with discharge planning. continue with isolation precuations. Serology test results pending. s/p bilateral breast implant insertion, extensive bilateral breast revision, scar revision, breast capsulectomy, capsulotomy done 08/27/[address] Arango -s/p day Wash out of breast capsule and reinsertion of implant -blood culture- no growth after 24 hrs -wound culture- MRSA positive -WBC stable -Percocet 1 tab PO Q4h PRN pain, Dilaudid 0.5mg IV Q4 PRN -Initially Vancomycin 1gm IVPB Q24H- started 10/24/16. Vanco trough 14.4 on 10/27. 6 trough 15, 10/31 trough 6. Next trough 11/02 in the AM. Vanco now Q12 dosing -Zosyn 3.375gm IVPB Q8H- started 10/24/16 -Dr. Arango plastic surgeon consulted- wound vac in place- changed 10/28, esther drain in place with some drainage. Wound care management per Surgery. F/U recommendations. 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 Will begin discharge planning after surgical management course and serology testing is complete. -Isolation precautions Rule Out Parvovirus B 19 blood infection 11/01: Parvo virus serology results pending. Pathology reported possible contaminated plasma blood products that was transfused -Of note, patient received packed red blood cells. -ID and Surg team made aware -Check IgG, IgM Parvovirus levels. Per Lab, takes three business days to result. If not today, likely Thursday. -Patient informed with questions and concerns addressed -Infectious Disease and surgery teams made aware -Monitor for rash or symptomatology -F/U Invasive bilateral Lobular Carcinoma of breast -Patient receives chemotherapy every week -Patient receives radiation every week -Percocet 1 tab PO Q4H PRN pain, Dilaudid 0.5mg IV Q4 PRN Hx of HTN -Elevated though could be secondarily due to pain. -Patient encouraged to request medication when in pain -Norvasc 5 mg, Losartan 100 mg PO daily started with hold parameters for SBP below 110. Hx of DM -Accucheck -low dose RISS Hx of Arthritis Motrin TID PRN with food -PT on board Hx of Insomnia and anxiety -Risperidone 1mg po daily -Zoloft 100mg po daily -Ambien 5mg PO HS PRN Dyspnea Albuterol 0.083% nebulizer Q6h PRN Will add nasal cannula as needed. Anemia -Stable at this time. -Continue to monitor closely PPX -Protonix 40mg po daily -Held Heparin due to acute anemia -SCDs -Heart healthy diet moderate consistent carb diet -PT on board <SandrineDiane holguinbree Pedroza - Last Filed: 11/02/16 08:01> Objective - Vital Signs/Intake and Output Vital Signs (last 24 hours): Temp Pulse Resp BP Pulse Ox 97.9 F 73 20 132/85 94 L 11/01/16 23:11 11/01/16 23:11 11/01/16 23:11 11/01/16 23:11 11/01/16 23:11 - Medications Medications: Current Medications Albuterol Sulfate (Albuterol 0.083% Inhal Jennifer (2.5 Mg/3 Ml) Ud) 2.5 mg INH RQ6 PRN PRN Reason: Shortness of Breath Last Admin: 10/31/16 14:27 Dose: 2.5 mg Amlodipine Besylate (Norvasc) 5 mg PO DAILY [facility] Last Admin: 11/01/16 10:14 Dose: 5 mg Benzocaine/Menthol (Cepacol Sore Throat) 1 sumeet MT Q1 PRN PRN Reason: Sore Throat Last Admin: 10/26/16 12:58 Dose: 1 sumeet Diphenhydramine HCl (Benadryl) 25 mg PO Q6 PRN PRN Reason: Itching / Pruritus Last Admin: 11/01/16 22:23 Dose: 25 mg Heparin Sodium (Porcine) (Heparin) 5,000 units SC Q12 [facility] Last Admin: 11/01/16 22:23 Dose: Not Given Hydromorphone HCl (Dilaudid) 0.5 mg IVP Q4H PRN PRN Reason: Pain, severe (8-10) Last Admin: 11/02/16 04:55 Dose: 0.5 mg Piperacillin Sod/Tazobactam Sod (Zosyn 3.375 Gm Iv Premix) 3.375 gm in 50 mls @ 100 mls/hr IVPB Q6H [facility] Last Admin: 11/02/16 05:04 Dose: 100 mls/hr Vancomycin HCl 1,000 mg/ (Sodium Chloride) 250 mls @ 166.6 mls/hr IVPB Q12H [facility] Last Admin: 11/01/16 22:23 Dose: 166.6 mls/hr Ibuprofen (Motrin Tab) 600 mg PO TID PRN PRN Reason: Arthritis Last Admin: 10/31/16 11:39 Dose: 600 mg Insulin Aspart (Novolog) 0 unit SC ACHS [facility] PRN Reason: Protocol Last Admin: 11/01/16 22:23 Dose: Not Given Losartan Potassium (Cozaar) 100 mg PO DAILY [facility] Last Admin: 11/01/16 10:14 Dose: 100 mg Ondansetron HCl (Zofran Inj) 4 mg IVP Q4 PRN PRN Reason: Nausea/Vomiting Last Admin: 11/01/16 22:23 Dose: 4 mg Pantoprazole Sodium (Protonix Ec Tab) 40 mg PO DAILY [facility] Last Admin: 11/01/16 10:14 Dose: 40 mg Potassium Chloride (K-Dur 20 Meq Er Tab) 20 meq PO DAILY [facility] Last Admin: 11/01/16 10:13 Dose: 20 meq Risperidone (Risperdal Tab) 1 mg PO DAILY [facility] Last Admin: 11/01/16 10:14 Dose: 1 mg Sertraline HCl (Zoloft) 100 mg PO DAILY [facility] Last Admin: 11/01/16 10:14 Dose: 100 mg Zolpidem Tartrate (Ambien) 5 mg PO HS PRN PRN Reason: Insomnia Last Admin: 11/01/16 22:23 Dose: 5 mg - Labs Labs: 11/01/16 06:01 11/01/16 06:01 Attending/Attestation - Attestation I have personally seen and examined this patient.: Yes I have fully participated in the care of the patient.: Yes I have reviewed all pertinent clinical information, including history, physical exam and plan: Yes Notes (Text): 11/02/16 08:00 Patient was seen and examined at bedside and she says she is feeling better Denies any joint discomfort or pain We will continue antibiotics as per recommendations of ID Patient to has a wound VAC which is draining Output noted Awaiting serological results for Parvovirus B19 studies I discussed the plan of care with the resident and agree with the above history and physical and assessment/plan but the resident.
[2016-11-01] MEDS: Potassium Chloride 20 mEq ER Tab PO SCH (10:13)
[2016-11-01] MEDS: Pantoprazole 40 mg EC Tab PO SCH (10:14)
[2016-11-01] MEDS ORDERED: Potassium Chloride 20 mEq ER Tab PO STA (10:18)
[2016-11-01] MEDS: Magnesium Sulfate 1 gm in D5W 1 GM/100 ML BAG IVPB SCH ×2 (11:49→13:40)
[2016-11-02] MEDS: Piperacill/Tazo 3.375gm in Dex 3.375 GM/50 ML BAG IVPB SCH ×4 (00:21→17:12)
--- NOTE | 2016-11-02 03:44 | CP.PCM.PN ---
<Pilo Love - Last Filed: 11/02/16 07:19> Subjective - Date & Time of Evaluation Date of Evaluation: 11/02/16 Time of Evaluation: 03:41 - Subjective Subjective: PGY-1 medicine progress note for Dr. Deluca's service: Patient seen and examined at bedside. Pt resting comfortably watching TV. Nursing reports no acute events overnight. She states her pain is well controlled with IV meds, but she feels nauseous and has little appetite. She denies any episodes of vomiting. She further denies fever, chills, chest pain, diarrhea, constipation, or shortness of breath. Objective - Vital Signs/Intake and Output Vital Signs (last 24 hours): Temp Pulse Resp BP Pulse Ox 97.9 F 73 20 132/85 94 L 11/01/16 23:11 11/01/16 23:11 11/01/16 23:11 11/01/16 23:11 11/01/16 23:11 Intake and Output: 11/01/16 11/02/16 18:59 06:59 Intake Total 1000 Balance 1000 - Medications Medications: Current Medications Albuterol Sulfate (Albuterol 0.083% Inhal Jennifer (2.5 Mg/3 Ml) Ud) 2.5 mg INH RQ6 PRN PRN Reason: Shortness of Breath Last Admin: 10/31/16 14:27 Dose: 2.5 mg Amlodipine Besylate (Norvasc) 5 mg PO DAILY [facility] Last Admin: 11/01/16 10:14 Dose: 5 mg Benzocaine/Menthol (Cepacol Sore Throat) 1 sumeet MT Q1 PRN PRN Reason: Sore Throat Last Admin: 10/26/16 12:58 Dose: 1 sumeet Diphenhydramine HCl (Benadryl) 25 mg PO Q6 PRN PRN Reason: Itching / Pruritus Last Admin: 11/01/16 22:23 Dose: 25 mg Heparin Sodium (Porcine) (Heparin) 5,000 units SC Q12 [facility] Last Admin: 11/01/16 22:23 Dose: Not Given Hydromorphone HCl (Dilaudid) 0.5 mg IVP Q4H PRN PRN Reason: Pain, severe (8-10) Last Admin: 11/01/16 22:22 Dose: 0.5 mg Piperacillin Sod/Tazobactam Sod (Zosyn 3.375 Gm Iv Premix) 3.375 gm in 50 mls @ 100 mls/hr IVPB Q6H [facility] Last Admin: 11/02/16 00:21 Dose: 100 mls/hr Vancomycin HCl 1,000 mg/ (Sodium Chloride) 250 mls @ 166.6 mls/hr IVPB Q12H [facility] Last Admin: 11/01/16 22:23 Dose: 166.6 mls/hr Ibuprofen (Motrin Tab) 600 mg PO TID PRN PRN Reason: Arthritis Last Admin: 10/31/16 11:39 Dose: 600 mg Insulin Aspart (Novolog) 0 unit SC ACHS [facility] PRN Reason: Protocol Last Admin: 11/01/16 22:23 Dose: Not Given Losartan Potassium (Cozaar) 100 mg PO DAILY [facility] Last Admin: 11/01/16 10:14 Dose: 100 mg Ondansetron HCl (Zofran Inj) 4 mg IVP Q4 PRN PRN Reason: Nausea/Vomiting Last Admin: 11/01/16 22:23 Dose: 4 mg Pantoprazole Sodium (Protonix Ec Tab) 40 mg PO DAILY [facility] Last Admin: 11/01/16 10:14 Dose: 40 mg Potassium Chloride (K-Dur 20 Meq Er Tab) 20 meq PO DAILY [facility] Last Admin: 11/01/16 10:13 Dose: 20 meq Risperidone (Risperdal Tab) 1 mg PO DAILY [facility] Last Admin: 11/01/16 10:14 Dose: 1 mg Sertraline HCl (Zoloft) 100 mg PO DAILY [facility] Last Admin: 11/01/16 10:14 Dose: 100 mg Zolpidem Tartrate (Ambien) 5 mg PO HS PRN PRN Reason: Insomnia Last Admin: 11/01/16 22:23 Dose: 5 mg - Labs Labs: 11/01/16 06:01 11/01/16 06:01 - Additional Findings Additional findings: - Constitutional Appears: Non-toxic, No Acute Distress - Head Exam Head Exam: NORMOCEPHALIC - Eye Exam Pupil Exam: NORMAL ACCOMODATION - ENT Exam ENT Exam: Normal Exam - Respiratory Exam Respiratory Exam: Clear to Ausculation Bilateral. absent: Rhonchi, Wheezes - Cardiovascular Exam Cardiovascular Exam: REGULAR RHYTHM, RRR, +S1, +S2. absent: Gallop, Rubs - GI/Abdominal Exam GI & Abdominal Exam: Soft, Normal Bowel Sounds. absent: Tenderness - Extremities Exam Extremities Exam: Normal Inspection. absent: Pedal Edema - Back Exam Back Exam: NORMAL INSPECTION - Psychiatric Exam Psychiatric exam: Normal Affect, Normal Mood - Skin Skin Exam: Normal Color. absent: Intact Additional comments: dressing over left breast no drainage Assessment and Plan - Assessment and Plan (Free Text) Plan: Bilateral breast wound infection L > R 6/10: POD #8 wound grew MRSA, day 8 and IV zosyn and Vancomycin. Will continue with discharge planning. continue with isolation precuations. Serology test results pending. s/p bilateral breast implant insertion, extensive bilateral breast revision, scar revision, breast capsulectomy, capsulotomy done 08/27/[address] Arango -s/p day Wash out of breast capsule and reinsertion of implant -blood culture- no growth after 24 hrs -wound culture- MRSA positive -WBC stable -Percocet 1 tab PO Q4h PRN pain, Dilaudid 0.5mg IV Q4 PRN -Initially Vancomycin 1gm IVPB Q24H- started 10/24/16. Vanco now Q12 dosing. - f/u VANCO trough 11/02 -Zosyn 3.375gm IVPB Q8H- started 10/24/16 -Dr. Arango plastic surgeon consulted- wound vac in place- changed 10/28, esther drain in place with some drainage. Wound care management per Surgery. F/U recommendations. -ID consult placed to Dr. Rogers. extermination supervisor IV antibiotics for 3-6 wks. Will begin discharge planning after surgical management course and serology testing is complete. -Isolation precautions Rule Out Parvovirus B 19 blood infection 11/02: Parvo virus serology results pending. Pathology reported possible contaminated plasma blood products that was transfused -Of note, patient received packed red blood cells. -ID and Surg team made aware -Check IgG, IgM Parvovirus levels. Per Lab, takes three business days to result. If not today, likely Thursday. -Patient informed with questions and concerns addressed -Infectious Disease and surgery teams made aware -Monitor for rash or symptomatology -F/U Invasive bilateral Lobular Carcinoma of breast -Patient receives chemotherapy every week -Patient receives radiation every week -Dilaudid 0.5mg IV Q4 PRN Hx of HTN -Elevated though could be secondarily due to pain. -Patient encouraged to request medication when in pain -Norvasc 5 mg, Losartan 100 mg PO daily started with hold parameters for SBP below 110. Hx of DM -Accucheck -low dose RISS Hx of Arthritis Motrin TID PRN with food -PT on board Hx of Insomnia and anxiety -Risperidone 1mg po daily -Zoloft 100mg po daily -Ambien 5mg PO HS PRN Dyspnea Albuterol 0.083% nebulizer Q6h PRN Will add nasal cannula as needed. Anemia H/H 8.4/25.3 -Stable at this time. -Continue to monitor closely PPX -Protonix 40mg po daily -Heparin 5000u Q12H -SCDs -Heart healthy diet moderate consistent carb diet -PT on board <Erick Deluca - Last Filed: 11/02/16 14:44> Objective - Vital Signs/Intake and Output Vital Signs (last 24 hours): Temp Pulse Resp BP Pulse Ox 98.1 F 74 20 144/79 94 L 11/02/16 08:00 11/02/16 11:26 11/02/16 08:00 11/02/16 11:26 11/02/16 08:00 Intake and Output: 11/02/16 11/02/16 06:59 18:59 Intake Total 600 Output Total 0 Balance 600 - Medications Medications: Current Medications Albuterol Sulfate (Albuterol 0.083% Inhal Jennifer (2.5 Mg/3 Ml) Ud) 2.5 mg INH RQ6 PRN PRN Reason: Shortness of Breath Last Admin: 10/31/16 14:27 Dose: 2.5 mg Amlodipine Besylate (Norvasc) 5 mg PO DAILY [facility] Last Admin: 11/02/16 11:28 Dose: 5 mg Benzocaine/Menthol (Cepacol Sore Throat) 1 sumeet MT Q1 PRN PRN Reason: Sore Throat Last Admin: 10/26/16 12:58 Dose: 1 sumeet Diphenhydramine HCl (Benadryl) 25 mg PO Q6 PRN PRN Reason: Itching / Pruritus Last Admin: 11/01/16 22:23 Dose: 25 mg Heparin Sodium (Porcine) (Heparin) 5,000 units SC Q12 [facility] Last Admin: 11/02/16 11:27 Dose: 5,000 units Hydromorphone HCl (Dilaudid) 0.5 mg IVP Q4H PRN PRN Reason: Pain, severe (8-10) Last Admin: 11/02/16 11:28 Dose: 0.5 mg Piperacillin Sod/Tazobactam Sod (Zosyn 3.375 Gm Iv Premix) 3.375 gm in 50 mls @ 100 mls/hr IVPB Q6H [facility] Last Admin: 11/02/16 12:34 Dose: 100 mls/hr Vancomycin/Sodium Chloride (Vancocin) 1 gm in 200 mls @ 133.333 mls/hr IVPB Q24H [facility] Last Admin: 11/02/16 14:34 Dose: 133.333 mls/hr Ibuprofen (Motrin Tab) 600 mg PO TID PRN PRN Reason: Arthritis Last Admin: 10/31/16 11:39 Dose: 600 mg Insulin Aspart (Novolog) 0 unit SC ACHS [facility] PRN Reason: Protocol Last Admin: 11/02/16 13:55 Dose: Not Given Losartan Potassium (Cozaar) 100 mg PO DAILY [facility] Last Admin: 11/02/16 11:28 Dose: 100 mg Ondansetron HCl (Zofran Inj) 4 mg IVP Q4 PRN PRN Reason: Nausea/Vomiting Last Admin: 11/02/16 09:10 Dose: 4 mg Pantoprazole Sodium (Protonix Ec Tab) 40 mg PO DAILY [facility] Last Admin: 11/02/16 11:28 Dose: 40 mg Potassium Chloride (K-Dur 20 Meq Er Tab) 20 meq PO DAILY [facility] Last Admin: 11/02/16 11:27 Dose: 20 meq Risperidone (Risperdal Tab) 1 mg PO DAILY [facility] Last Admin: 11/02/16 11:27 Dose: 1 mg Sertraline HCl (Zoloft) 100 mg PO DAILY [facility] Last Admin: 11/02/16 11:27 Dose: 100 mg Zolpidem Tartrate (Ambien) 5 mg PO HS PRN PRN Reason: Insomnia Last Admin: 11/01/16 22:23 Dose: 5 mg - Labs Labs: 11/02/16 10:56 11/02/16 08:45 Attending/Attestation - Attestation I have personally seen and examined this patient.: Yes I have fully participated in the care of the patient.: Yes I have reviewed all pertinent clinical information, including history, physical exam and plan: Yes Notes (Text): 11/02/16 14:43 Patient was seen and examined at bedside Patient appears comfortable We will continue IV antibiotics for bilateral cellulitis of the breast We are awaiting results of parvovirus B19 IgG and IgM Discharge planning to subacute rehabilitation center I discussed the plan of care with the resident and agree with the above history and physical and assessment/plan by the resident.
[2016-11-02] MEDS: HYDROmorphone 0.5 mg/0.5 ml ISec IVP PRN ×4 (04:55→21:36)
[2016-11-02] MEDS: (Novolog) Insulin Aspart, Recombinant 100 u/ml 10 ml vial SC SCH ×4 (08:25→22:03)
[2016-11-02 09:03] LABS: CHLORIDE 100 mmol/L (98-107); POTASSIUM 4.4 mmol/L (3.6-5.2); SODIUM 136 mmol/L (132-148)
[2016-11-02 09:05] LABS: BILIRUBIN,TOTAL 0.4 mg/dL (0.2-1.3); CARBON DIOXIDE 26 mmol/L (22-30); GFR AFRICAN-AMERICAN > 60
[2016-11-02 09:06] LABS: ALB/GLOB RATIO 1.1 (1.0-2.1); ALKALINE PHOSPHATASE 53 U/L (38-126); ALT/SGPT 16 U/L (9-52); AST/SGOT 23 U/L (14-36); BLOOD UREA NITROGEN 11 mg/dL (7-17); CALCIUM 8.9 mg/dl (8.6-10.4); GLUCOSE,RANDOM 80 mg/dL (65-105); TOTAL PROTEIN 6.4 g/dL (6.3-8.3)
[2016-11-02 10:59] LABS: BASO # 0.1 K/uL (0.0-0.2); BASO % 0.9 % (0.0-2.0); EOS # 0.2 K/uL (0.0-0.7); EOS % 2.6 % (0.0-4.0); HEMATOCRIT 32.1 % (34.0-47.0); LYMPH % 12.6 % (20.0-40.0); MEAN CELL VOLUME 88.1 fL (81.0-99.0); MEAN CORPUSCULAR HEMOGLOBIN 28.9 pg (27.0-31.0); MEAN CORPUSCULAR HGB CONC 32.7 g/dL (33.0-37.0); MEAN PLATELET VOLUME 7.3 fL (7.2-11.7); MONO # 0.8 K/uL (0.0-0.8); MONO % 9.7 % (0.0-10.0); NRBC % 0.1 % (0.0-2.0); RED CELL DISTRIBUTION WIDTH 15.4 % (11.5-14.5)
[2016-11-02] MEDS: Potassium Chloride 20 mEq ER Tab PO SCH (11:27)
[2016-11-02] MEDS: Pantoprazole 40 mg EC Tab PO SCH (11:28)
--- NOTE | 2016-11-02 13:53 | CP.PCM.PN ---
Subjective - Date & Time of Evaluation Date of Evaluation: 11/02/16 Time of Evaluation: 08:00 - Subjective Subjective: SLOW PROGRESS CONT IV ANTIBIOTCS Objective - Vital Signs/Intake and Output Vital Signs (last 24 hours): Temp Pulse Resp BP Pulse Ox 98.1 F 74 20 144/79 94 L 11/02/16 08:00 11/02/16 11:26 11/02/16 08:00 11/02/16 11:26 11/02/16 08:00 Intake and Output: 11/02/16 11/02/16 06:59 18:59 Intake Total 600 Output Total 0 Balance 600 - Medications Medications: Current Medications Albuterol Sulfate (Albuterol 0.083% Inhal Jennifer (2.5 Mg/3 Ml) Ud) 2.5 mg INH RQ6 PRN PRN Reason: Shortness of Breath Last Admin: 10/31/16 14:27 Dose: 2.5 mg Amlodipine Besylate (Norvasc) 5 mg PO DAILY [facility] Last Admin: 11/02/16 11:28 Dose: 5 mg Benzocaine/Menthol (Cepacol Sore Throat) 1 sumeet MT Q1 PRN PRN Reason: Sore Throat Last Admin: 10/26/16 12:58 Dose: 1 sumeet Diphenhydramine HCl (Benadryl) 25 mg PO Q6 PRN PRN Reason: Itching / Pruritus Last Admin: 11/01/16 22:23 Dose: 25 mg Heparin Sodium (Porcine) (Heparin) 5,000 units SC Q12 [facility] Last Admin: 11/02/16 11:27 Dose: 5,000 units Hydromorphone HCl (Dilaudid) 0.5 mg IVP Q4H PRN PRN Reason: Pain, severe (8-10) Last Admin: 11/02/16 11:28 Dose: 0.5 mg Piperacillin Sod/Tazobactam Sod (Zosyn 3.375 Gm Iv Premix) 3.375 gm in 50 mls @ 100 mls/hr IVPB Q6H [facility] Last Admin: 11/02/16 05:04 Dose: 100 mls/hr Vancomycin HCl 1,000 mg/ (Sodium Chloride) 250 mls @ 166.6 mls/hr IVPB Q12H [facility] Last Admin: 11/02/16 11:16 Dose: Not Given Ibuprofen (Motrin Tab) 600 mg PO TID PRN PRN Reason: Arthritis Last Admin: 10/31/16 11:39 Dose: 600 mg Insulin Aspart (Novolog) 0 unit SC ACHS [facility] PRN Reason: Protocol Last Admin: 11/02/16 08:25 Dose: Not Given Losartan Potassium (Cozaar) 100 mg PO DAILY [facility] Last Admin: 11/02/16 11:28 Dose: 100 mg Ondansetron HCl (Zofran Inj) 4 mg IVP Q4 PRN PRN Reason: Nausea/Vomiting Last Admin: 11/02/16 09:10 Dose: 4 mg Pantoprazole Sodium (Protonix Ec Tab) 40 mg PO DAILY [facility] Last Admin: 11/02/16 11:28 Dose: 40 mg Potassium Chloride (K-Dur 20 Meq Er Tab) 20 meq PO DAILY [facility] Last Admin: 11/02/16 11:27 Dose: 20 meq Risperidone (Risperdal Tab) 1 mg PO DAILY [facility] Last Admin: 11/02/16 11:27 Dose: 1 mg Sertraline HCl (Zoloft) 100 mg PO DAILY [facility] Last Admin: 11/02/16 11:27 Dose: 100 mg Zolpidem Tartrate (Ambien) 5 mg PO HS PRN PRN Reason: Insomnia Last Admin: 11/01/16 22:23 Dose: 5 mg - Labs Labs: 11/02/16 10:56 11/02/16 08:45 Assessment and Plan (1) Cellulitis of breast Status: Acute (2) Postoperative wound dehiscence Status: Acute (3) Breast cancer Status: Acute
[2016-11-02] MEDS: Vancomycin 1 gm/NS 200 ml 1 GM/200 ML BAG IVPB SCH (14:34)
[2016-11-03] MEDS: HYDROmorphone 0.5 mg/0.5 ml ISec IVP PRN ×5 (02:30→22:33)
[2016-11-03] MEDS: Piperacill/Tazo 3.375gm in Dex 3.375 GM/50 ML BAG IVPB SCH ×5 (05:00→23:00)
[2016-11-03 07:57] LABS: BASO # 0.1 K/uL (0.0-0.2); BASO % 0.7 % (0.0-2.0); EOS # 0.2 K/uL (0.0-0.7); EOS % 2.7 % (0.0-4.0); HEMATOCRIT 31.5 % (34.0-47.0); LYMPH # 1.1 K/uL (1.0-4.3); LYMPH % 15.4 % (20.0-40.0); MEAN CELL VOLUME 87.4 fL (81.0-99.0); MEAN CORPUSCULAR HEMOGLOBIN 28.5 pg (27.0-31.0); MEAN CORPUSCULAR HGB CONC 32.7 g/dL (33.0-37.0); MEAN PLATELET VOLUME 7.1 fL (7.2-11.7); MONO # 0.9 K/uL (0.0-0.8); MONO % 12.2 % (0.0-10.0); NRBC % 0.1 % (0.0-2.0); RED CELL DISTRIBUTION WIDTH 15.1 % (11.5-14.5); WHITE BLOOD COUNT 7.4 K/uL (4.8-10.8)
[2016-11-03 08:13] LABS: CHLORIDE 103 mmol/L (98-107)
[2016-11-03 08:14] LABS: SODIUM 138 mmol/L (132-148)
[2016-11-03 08:17] LABS: ALB/GLOB RATIO 1.1 (1.0-2.1); ALKALINE PHOSPHATASE 49 U/L (38-126); ALT/SGPT 20 U/L (9-52); AST/SGOT 27 U/L (14-36); BILIRUBIN,TOTAL 0.4 mg/dL (0.2-1.3); BLOOD UREA NITROGEN 13 mg/dL (7-17); CARBON DIOXIDE 27 mmol/L (22-30); GFR AFRICAN-AMERICAN > 60; GLUCOSE,RANDOM 76 mg/dL (65-105); MAGNESIUM 1.9 mg/dL (1.6-2.3); TOTAL PROTEIN 6.4 g/dL (6.3-8.3)
[2016-11-03] MEDS: (Novolog) Insulin Aspart, Recombinant 100 u/ml 10 ml vial SC SCH ×4 (08:24→21:56)
--- NOTE | 2016-11-03 09:43 | CP.PCM.PCO ---
Physician Communication Note - Physician Communication Note Physician Communication Note: Exposed left implant Assessment & Plan - Assessment and Plan (Free Text) Assessment: Right breast decending at IMF fold , no erythema no cellultiis, no exposed mplant. Left breast with dehiscence of incision in the midline, resolving cellulitis, drainage is serosanguinous. Chest is still slightly warm Plan: Patient with left implant which extruded and salvage of implant was partially successful. Left implant with re-decent. Covered for now but may extrude at some point from thin skin flaps. Will order new implants slightly smaller in size for both side and replace in OR for or Thursday. Will try for tomorrow, but unlikely to be able to obtain from the company that quickly.
[2016-11-03] MEDS: Potassium Chloride 20 mEq ER Tab PO SCH (10:26)
[2016-11-03] MEDS: Pantoprazole 40 mg EC Tab PO SCH (10:26)
--- NOTE | 2016-11-03 10:57 | CP.PCM.PN ---
Subjective - Date & Time of Evaluation Date of Evaluation: 11/03/16 Time of Evaluation: 07:00 - Subjective Subjective: afebrile alert nad iv rx well tolerated drains in place Objective - Vital Signs/Intake and Output Vital Signs (last 24 hours): Temp Pulse Resp BP Pulse Ox 97.8 F 71 20 137/84 92 L 11/03/16 07:22 11/03/16 07:22 11/03/16 07:22 11/03/16 07:22 11/03/16 07:22 - Medications Medications: Current Medications Albuterol Sulfate (Albuterol 0.083% Inhal Jennifer (2.5 Mg/3 Ml) Ud) 2.5 mg INH RQ6 PRN PRN Reason: Shortness of Breath Last Admin: 10/31/16 14:27 Dose: 2.5 mg Amlodipine Besylate (Norvasc) 5 mg PO DAILY [facility] Last Admin: 11/03/16 10:26 Dose: 5 mg Benzocaine/Menthol (Cepacol Sore Throat) 1 sumeet MT Q1 PRN PRN Reason: Sore Throat Last Admin: 10/26/16 12:58 Dose: 1 sumeet Diphenhydramine HCl (Benadryl) 25 mg PO Q6 PRN PRN Reason: Itching / Pruritus Last Admin: 11/02/16 21:36 Dose: 25 mg Hydromorphone HCl (Dilaudid) 0.5 mg IVP Q4H PRN PRN Reason: Pain, severe (8-10) Last Admin: 11/03/16 10:29 Dose: 0.5 mg Piperacillin Sod/Tazobactam Sod (Zosyn 3.375 Gm Iv Premix) 3.375 gm in 50 mls @ 100 mls/hr IVPB Q6H [facility] Last Admin: 11/03/16 05:00 Dose: 100 mls/hr Vancomycin/Sodium Chloride (Vancocin) 1 gm in 200 mls @ 133.333 mls/hr IVPB Q24H [facility] Last Admin: 11/02/16 14:34 Dose: 133.333 mls/hr Ibuprofen (Motrin Tab) 600 mg PO TID PRN PRN Reason: Arthritis Last Admin: 10/31/16 11:39 Dose: 600 mg Insulin Aspart (Novolog) 0 unit SC ACHS [facility] PRN Reason: Protocol Last Admin: 11/03/16 08:24 Dose: Not Given Losartan Potassium (Cozaar) 100 mg PO DAILY [facility] Last Admin: 11/03/16 10:26 Dose: 100 mg Ondansetron HCl (Zofran Inj) 4 mg IVP Q4 PRN PRN Reason: Nausea/Vomiting Last Admin: 11/03/16 00:15 Dose: 4 mg Pantoprazole Sodium (Protonix Ec Tab) 40 mg PO DAILY [facility] Last Admin: 11/03/16 10:26 Dose: 40 mg Potassium Chloride (K-Dur 20 Meq Er Tab) 20 meq PO DAILY [facility] Last Admin: 11/03/16 10:26 Dose: 20 meq Risperidone (Risperdal Tab) 1 mg PO DAILY [facility] Last Admin: 11/03/16 10:26 Dose: 1 mg Sertraline HCl (Zoloft) 100 mg PO DAILY [facility] Last Admin: 11/03/16 10:26 Dose: 100 mg Zolpidem Tartrate (Ambien) 5 mg PO HS PRN PRN Reason: Insomnia Last Admin: 11/02/16 21:36 Dose: 5 mg - Labs Labs: 11/03/16 07:44 11/03/16 07:44 - Constitutional Appears: Non-toxic, Cachectic, Chronically Ill - Head Exam Head Exam: NORMOCEPHALIC - Eye Exam Eye Exam: PERRL - ENT Exam ENT Exam: Mucous Membranes Dry, Normal External Ear Exam - Neck Exam Neck Exam: absent: Lymphadenopathy - Respiratory Exam Respiratory Exam: Decreased Breath Sounds, Clear to Ausculation Bilateral - Cardiovascular Exam Cardiovascular Exam: REGULAR RHYTHM - GI/Abdominal Exam GI & Abdominal Exam: Distended, Soft Assessment and Plan (1) Cellulitis of breast Status: Acute (2) Postoperative wound dehiscence Status: Acute (3) Breast cancer Status: Acute
--- NOTE | 2016-11-03 12:25 | CP.PCM.PN ---
Addendum entered and electronically signed by Radha Meyer DO 11/03/16 12 :43: Parvovirus serologies resulted: IgM (acute) negative IgG positive value consistent with a past exposure that likely is not from this most recent transfusion. Original Note: <Radha Meyer - Last Filed: 11/03/16 12:21> Subjective - Date & Time of Evaluation Date of Evaluation: 11/03/16 Time of Evaluation: 06:14 - Subjective Subjective: PGY 1 Medicine Note- Dr. Quiroz's service Pt seen and examined in no acute distress. Patient has some left sided lateral breast pain. Patient admits to ambulating. She will have replacment of implants as well as revision of skin flap over likely later this week. Patient otherwise denies subjective fevers or chills, joint pain, nausea, vomiting, diarrhea, constipation or headaches at this time. Objective - Vital Signs/Intake and Output Vital Signs (last 24 hours): Temp Pulse Resp BP Pulse Ox 97.8 F 71 20 137/84 92 L 11/03/16 07:22 11/03/16 07:22 11/03/16 07:22 11/03/16 07:22 11/03/16 07:22 - Medications Medications: Current Medications Albuterol Sulfate (Albuterol 0.083% Inhal Jennifer (2.5 Mg/3 Ml) Ud) 2.5 mg INH RQ6 PRN PRN Reason: Shortness of Breath Last Admin: 10/31/16 14:27 Dose: 2.5 mg Amlodipine Besylate (Norvasc) 5 mg PO DAILY [facility] Last Admin: 11/03/16 10:26 Dose: 5 mg Benzocaine/Menthol (Cepacol Sore Throat) 1 sumeet MT Q1 PRN PRN Reason: Sore Throat Last Admin: 10/26/16 12:58 Dose: 1 sumeet Diphenhydramine HCl (Benadryl) 25 mg PO Q6 PRN PRN Reason: Itching / Pruritus Last Admin: 11/02/16 21:36 Dose: 25 mg Hydromorphone HCl (Dilaudid) 0.5 mg IVP Q4H PRN PRN Reason: Pain, severe (8-10) Last Admin: 11/03/16 10:29 Dose: 0.5 mg Piperacillin Sod/Tazobactam Sod (Zosyn 3.375 Gm Iv Premix) 3.375 gm in 50 mls @ 100 mls/hr IVPB Q6H [facility] Last Admin: 11/03/16 05:00 Dose: 100 mls/hr Vancomycin/Sodium Chloride (Vancocin) 1 gm in 200 mls @ 133.333 mls/hr IVPB Q24H [facility] Last Admin: 11/02/16 14:34 Dose: 133.333 mls/hr Ibuprofen (Motrin Tab) 600 mg PO TID PRN PRN Reason: Arthritis Last Admin: 10/31/16 11:39 Dose: 600 mg Insulin Aspart (Novolog) 0 unit SC ACHS [facility] PRN Reason: Protocol Last Admin: 11/03/16 08:24 Dose: Not Given Losartan Potassium (Cozaar) 100 mg PO DAILY [facility] Last Admin: 11/03/16 10:26 Dose: 100 mg Ondansetron HCl (Zofran Inj) 4 mg IVP Q4 PRN PRN Reason: Nausea/Vomiting Last Admin: 11/03/16 00:15 Dose: 4 mg Pantoprazole Sodium (Protonix Ec Tab) 40 mg PO DAILY [facility] Last Admin: 11/03/16 10:26 Dose: 40 mg Potassium Chloride (K-Dur 20 Meq Er Tab) 20 meq PO DAILY [facility] Last Admin: 11/03/16 10:26 Dose: 20 meq Risperidone (Risperdal Tab) 1 mg PO DAILY [facility] Last Admin: 11/03/16 10:26 Dose: 1 mg Sertraline HCl (Zoloft) 100 mg PO DAILY [facility] Last Admin: 11/03/16 10:26 Dose: 100 mg Zolpidem Tartrate (Ambien) 5 mg PO HS PRN PRN Reason: Insomnia Last Admin: 11/02/16 21:36 Dose: 5 mg - Labs Labs: 11/03/16 07:44 11/03/16 07:44 - Constitutional Appears: No Acute Distress - Head Exam Head Exam: ATRAUMATIC, NORMAL INSPECTION, NORMOCEPHALIC - Eye Exam Eye Exam: EOMI, Normal appearance, PERRL Pupil Exam: NORMAL ACCOMODATION - ENT Exam ENT Exam: Mucous Membranes Moist - Neck Exam Neck Exam: Full ROM - Respiratory Exam Respiratory Exam: NORMAL BREATHING PATTERN. absent: Wheezes - Cardiovascular Exam Cardiovascular Exam: REGULAR RHYTHM, +S1, +S2 - GI/Abdominal Exam GI & Abdominal Exam: Soft, Normal Bowel Sounds - Extremities Exam Extremities Exam: Full ROM - Back Exam Back Exam: Full ROM - Neurological Exam Neurological Exam: Alert, Awake, CN II-XII Intact, Oriented x3 Neuro motor strength exam: Left Upper Extremity: 5, Right Upper Extremity: 5, Left Lower Extremity: 5, Right Lower Extremity: 5 - Psychiatric Exam Psychiatric exam: Normal Affect, Normal Mood - Skin Skin Exam: Dry, Intact, Normal Color, Warm Additional comments: erythema resolving n left breast; wound vac in place on left breast; minimal drainage noted. Assessment and Plan - Assessment and Plan (Free Text) Assessment: Bilateral breast wound infection L > R -s/p bilateral breast implant insertion, extensive bilateral breast revision, scar revision, breast capsulectomy, capsulotomy done 08/27/[address] Arango -s/p day Wash out of breast capsule and reinsertion of implant -blood culture- no growth after 24 hrs -wound culture- MRSA positive -WBC stable -Percocet 1 tab PO Q6h PRN pain, Dilaudid 0.5mg IV Q4 PRN -Initially Vancomycin 1gm IVPB Q24H- started 10/24/16. Vanco trough 14.4 on 10/27. 6 /7 trough 15, 10/31 trough 6. Vanco trough 11/02 17.2. Random Vanco level 11/03 9.23. F/U next vanco level 11/05 in the AM -Zosyn 3.375gm IVPB Q8H- started 10/24/16 -Dr. Arango plastic surgeon consulted- Patient to go to OR later in the week for implant revision as well as skin flap revision. -ID consult placed to Dr. Rogers. [facility] IV antibiotics for 3-6 wks. Will begin discharge planning after surgical management course and serology testing is complete. -Isolation precautions Rule Out Parvovirus B 19 blood infection -Pathology reported possible contaminated plasma blood products that was transfused -Of note, patient received packed red blood cells. -ID and Surg team made aware -Check IgG, IgM Parvovirus levels. Per Lab, takes three business days to result. No result to date. Will f/u with lab -Patient informed with questions and concerns addressed -Infectious Disease and surgery teams made aware -Monitor for rash or symptomatology -F/U Invasive bilateral Lobular Carcinoma of breast -Patient receives chemotherapy every week -Patient receives radiation every week -Percocet 1 tab PO Q4H PRN pain, Dilaudid 0.5mg IV Q4 PRN Hx of HTN -Elevated though could be secondarily due to pain. -Patient encouraged to request medication when in pain -Norvasc 5 mg, Losartan 100 mg PO daily started with hold parameters for SBP below 110. Hx of DM -Accucheck -low dose RISS Hx of Arthritis Motrin TID PRN with food -PT on board Hx of Insomnia and anxiety -Risperidone 1mg po daily -Zoloft 100mg po daily -Ambien 5mg PO HS PRN Dyspnea Albuterol 0.083% nebulizer Q6h PRN Will add nasal cannula as needed. Anemia -Stable at this time. -Continue to monitor closely PPX -Protonix 40mg po daily -Held Heparin due to acute anemia -SCDs -Heart healthy diet moderate consistent carb diet -PT on board <Enrique Quiroz H - Last Filed: 11/03/16 16:00> Objective - Vital Signs/Intake and Output Vital Signs (last 24 hours): Temp Pulse Resp BP Pulse Ox 97.8 F 71 20 137/84 92 L 11/03/16 07:22 11/03/16 07:22 11/03/16 07:22 11/03/16 07:22 11/03/16 07:22 Intake and Output: 11/03/16 11/03/16 06:59 18:59 Output Total 2 Balance -2 - Medications Medications: Current Medications Albuterol Sulfate (Albuterol 0.083% Inhal Jennifer (2.5 Mg/3 Ml) Ud) 2.5 mg INH RQ6 PRN PRN Reason: Shortness of Breath Last Admin: 10/31/16 14:27 Dose: 2.5 mg Amlodipine Besylate (Norvasc) 5 mg PO DAILY [facility] Last Admin: 11/03/16 10:26 Dose: 5 mg Benzocaine/Menthol (Cepacol Sore Throat) 1 sumeet MT Q1 PRN PRN Reason: Sore Throat Last Admin: 10/26/16 12:58 Dose: 1 sumeet Diphenhydramine HCl (Benadryl) 25 mg PO Q6 PRN PRN Reason: Itching / Pruritus Last Admin: 11/02/16 21:36 Dose: 25 mg Hydromorphone HCl (Dilaudid) 0.5 mg IVP Q4H PRN PRN Reason: Pain, severe (8-10) Last Admin: 11/03/16 15:04 Dose: 0.5 mg Piperacillin Sod/Tazobactam Sod (Zosyn 3.375 Gm Iv Premix) 3.375 gm in 50 mls @ 100 mls/hr IVPB Q6H [facility] Last Admin: 11/03/16 13:02 Dose: 100 mls/hr Vancomycin/Sodium Chloride (Vancocin) 1 gm in 200 mls @ 133.333 mls/hr IVPB Q24H [facility] Last Admin: 11/03/16 14:08 Dose: 133.333 mls/hr Ibuprofen (Motrin Tab) 600 mg PO TID PRN PRN Reason: Arthritis Last Admin: 10/31/16 11:39 Dose: 600 mg Insulin Aspart (Novolog) 0 unit SC ACHS [facility] PRN Reason: Protocol Last Admin: 11/03/16 12:41 Dose: Not Given Losartan Potassium (Cozaar) 100 mg PO DAILY [facility] Last Admin: 11/03/16 10:26 Dose: 100 mg Ondansetron HCl (Zofran Inj) 4 mg IVP Q4 PRN PRN Reason: Nausea/Vomiting Last Admin: 11/03/16 00:15 Dose: 4 mg Oxycodone/Acetaminophen (Percocet 5/325 Mg Tab) 1 tab PO Q6H PRN PRN Reason: Pain, moderate (4-7) Stop: 11/06/16 12:40 Pantoprazole Sodium (Protonix Ec Tab) 40 mg PO DAILY [facility] Last Admin: 11/03/16 10:26 Dose: 40 mg Potassium Chloride (K-Dur 20 Meq Er Tab) 20 meq PO DAILY [facility] Last Admin: 11/03/16 10:26 Dose: 20 meq Risperidone (Risperdal Tab) 1 mg PO DAILY [facility] Last Admin: 11/03/16 10:26 Dose: 1 mg Sertraline HCl (Zoloft) 100 mg PO DAILY [facility] Last Admin: 11/03/16 10:26 Dose: 100 mg Zolpidem Tartrate (Ambien) 5 mg PO HS PRN PRN Reason: Insomnia Last Admin: 11/02/16 21:36 Dose: 5 mg - Labs Labs: 11/03/16 07:44 11/03/16 07:44 Attending/Attestation - Attestation I have personally seen and examined this patient.: Yes I have fully participated in the care of the patient.: Yes I have reviewed all pertinent clinical information, including history, physical exam and plan: Yes Notes (Text): Medical Attending: Patient was seen and examined by me. Agree with the above note by the resident The patient explained that she was not in pain when we saw her. (previous times I have met her in the past she did report signifigant pain) Currently on IV abx at this time. I was informed that the patient is pending further surgical intervention this comming and Thursday. Also pending further analysis of a potential B19 Parvo infection via blood transfusion. Lab work was already sent out I am told. thank you Enrique Quiroz
[2016-11-03 12:27] LABS: PARVOVIRUS B19 AB (IGG) 5.9 (<0.9); PARVOVIRUS B19 AB (IGM) 0.2 (<0.9)
[2016-11-03] MEDS: Vancomycin 1 gm/NS 200 ml 1 GM/200 ML BAG IVPB SCH (14:08)
[2016-11-04] MEDS: Piperacill/Tazo 3.375gm in Dex 3.375 GM/50 ML BAG IVPB SCH ×3 (05:00→18:13)
[2016-11-04] MEDS: HYDROmorphone 0.5 mg/0.5 ml ISec IVP PRN ×4 (05:48→21:51)
[2016-11-04 07:34] LABS: BASO # 0.1 K/uL (0.0-0.2); BASO % 0.7 % (0.0-2.0); EOS # 0.2 K/uL (0.0-0.7); EOS % 2.9 % (0.0-4.0); HEMATOCRIT 33.1 % (34.0-47.0); LYMPH # 1.1 K/uL (1.0-4.3); LYMPH % 13.9 % (20.0-40.0); MEAN CELL VOLUME 87.8 fL (81.0-99.0); MEAN CORPUSCULAR HEMOGLOBIN 28.4 pg (27.0-31.0); MEAN CORPUSCULAR HGB CONC 32.3 g/dL (33.0-37.0); MONO # 0.9 K/uL (0.0-0.8); MONO % 11.3 % (0.0-10.0); NRBC % 0.1 % (0.0-2.0); RED CELL DISTRIBUTION WIDTH 15.3 % (11.5-14.5); WHITE BLOOD COUNT 7.9 K/uL (4.8-10.8)
[2016-11-04 07:37] LABS: CHLORIDE 100 mmol/L (98-107); POTASSIUM 4.1 mmol/L (3.6-5.2); SODIUM 136 mmol/L (132-148)
[2016-11-04 07:39] LABS: BILIRUBIN,TOTAL 0.4 mg/dL (0.2-1.3); GFR AFRICAN-AMERICAN > 60
[2016-11-04 07:40] LABS: ALB/GLOB RATIO 1.1 (1.0-2.1); ALKALINE PHOSPHATASE 55 U/L (38-126); ALT/SGPT 15 U/L (9-52); AST/SGOT 21 U/L (14-36); BLOOD UREA NITROGEN 16 mg/dL (7-17); CARBON DIOXIDE 28 mmol/L (22-30); GLUCOSE,RANDOM 83 mg/dL (65-105); PHOSPHOROUS 3.6 mg/dL (2.5-4.5); TOTAL PROTEIN 6.6 g/dL (6.3-8.3)
[2016-11-04 07:41] LABS: CALCIUM 8.9 mg/dl (8.6-10.4); MAGNESIUM 1.9 mg/dL (1.6-2.3)
[2016-11-04] MEDS: (Novolog) Insulin Aspart, Recombinant 100 u/ml 10 ml vial SC SCH ×4 (08:18→21:52)
--- NOTE | 2016-11-04 09:12 | CP.PCM.PN ---
<Radha Meyer - Last Filed: 11/04/16 12:44> Subjective - Date & Time of Evaluation Date of Evaluation: 11/04/16 Time of Evaluation: 06:12 - Subjective Subjective: PGY-1 medicine progress note for Dr. Quiroz's service: Patient seen and examined at bedside. Pt's pain is controlled. Patient inquired about whether she's making the right decision regarding the implants. She denies denies fever, chills, chest pain, palpitations, diarrhea, constipation, or shortness of breath. Objective - Vital Signs/Intake and Output Vital Signs (last 24 hours): Temp Pulse Resp BP Pulse Ox 98.3 F 78 20 122/78 94 L 11/03/16 23:08 11/03/16 23:08 11/03/16 23:08 11/03/16 23:08 11/03/16 23:08 - Medications Medications: Current Medications Albuterol Sulfate (Albuterol 0.083% Inhal Jennifer (2.5 Mg/3 Ml) Ud) 2.5 mg INH RQ6 PRN PRN Reason: Shortness of Breath Last Admin: 10/31/16 14:27 Dose: 2.5 mg Amlodipine Besylate (Norvasc) 5 mg PO DAILY [facility] Last Admin: 11/03/16 10:26 Dose: 5 mg Benzocaine/Menthol (Cepacol Sore Throat) 1 sumeet MT Q1 PRN PRN Reason: Sore Throat Last Admin: 10/26/16 12:58 Dose: 1 sumeet Diphenhydramine HCl (Benadryl) 25 mg PO Q6 PRN PRN Reason: Itching / Pruritus Last Admin: 11/03/16 17:08 Dose: 25 mg Hydromorphone HCl (Dilaudid) 0.5 mg IVP Q4H PRN PRN Reason: Pain, severe (8-10) Last Admin: 11/04/16 05:48 Dose: 0.5 mg Piperacillin Sod/Tazobactam Sod (Zosyn 3.375 Gm Iv Premix) 3.375 gm in 50 mls @ 100 mls/hr IVPB Q6H [facility] Last Admin: 11/04/16 05:00 Dose: 100 mls/hr Vancomycin/Sodium Chloride (Vancocin) 1 gm in 200 mls @ 133.333 mls/hr IVPB Q24H [facility] Last Admin: 11/03/16 14:08 Dose: 133.333 mls/hr Ibuprofen (Motrin Tab) 600 mg PO TID PRN PRN Reason: Arthritis Last Admin: 11/04/16 01:36 Dose: 600 mg Insulin Aspart (Novolog) 0 unit SC ACHS [facility] PRN Reason: Protocol Last Admin: 11/04/16 08:18 Dose: Not Given Losartan Potassium (Cozaar) 100 mg PO DAILY [facility] Last Admin: 11/03/16 10:26 Dose: 100 mg Ondansetron HCl (Zofran Inj) 4 mg IVP Q4 PRN PRN Reason: Nausea/Vomiting Last Admin: 11/03/16 00:15 Dose: 4 mg Oxycodone/Acetaminophen (Percocet 5/325 Mg Tab) 1 tab PO Q6H PRN PRN Reason: Pain, moderate (4-7) Stop: 11/06/16 12:40 Pantoprazole Sodium (Protonix Ec Tab) 40 mg PO DAILY [facility] Last Admin: 11/03/16 10:26 Dose: 40 mg Potassium Chloride (K-Dur 20 Meq Er Tab) 20 meq PO DAILY [facility] Last Admin: 11/03/16 10:26 Dose: 20 meq Risperidone (Risperdal Tab) 1 mg PO DAILY [facility] Last Admin: 11/03/16 10:26 Dose: 1 mg Sertraline HCl (Zoloft) 100 mg PO DAILY [facility] Last Admin: 11/03/16 10:26 Dose: 100 mg Tamoxifen Citrate (Nolvadex) 20 mg PO DAILY [facility] Last Admin: 11/03/16 17:08 Dose: 20 mg Zolpidem Tartrate (Ambien) 5 mg PO HS PRN PRN Reason: Insomnia Last Admin: 11/03/16 22:33 Dose: 5 mg - Labs Labs: 11/04/16 07:12 11/04/16 07:12 - Constitutional Appears: Non-toxic, No Acute Distress - Head Exam Head Exam: ATRAUMATIC, NORMAL INSPECTION, NORMOCEPHALIC - Eye Exam Eye Exam: EOMI, Normal appearance, PERRL Pupil Exam: NORMAL ACCOMODATION - ENT Exam ENT Exam: Mucous Membranes Moist, Normal Exam - Neck Exam Neck Exam: Full ROM - Respiratory Exam Respiratory Exam: NORMAL BREATHING PATTERN. absent: Wheezes - Cardiovascular Exam Cardiovascular Exam: +S1, +S2 - GI/Abdominal Exam GI & Abdominal Exam: Soft, Normal Bowel Sounds - Extremities Exam Extremities Exam: Full ROM, Normal Capillary Refill, Tenderness - Back Exam Back Exam: Full ROM, NORMAL INSPECTION - Neurological Exam Neurological Exam: Alert, Awake, CN II-XII Intact, Oriented x3 Neuro motor strength exam: Left Upper Extremity: 5, Right Upper Extremity: 5, Left Lower Extremity: 5, Right Lower Extremity: 5 - Psychiatric Exam Psychiatric exam: Normal Affect, Normal Mood - Skin Skin Exam: Dry, Normal Color, Warm Additional comments: decreased erythema of left breast- wound vanc in place with minimal drainage Assessment and Plan - Assessment and Plan (Free Text) Assessment: Bilateral breast wound infection L > R -s/p bilateral breast implant insertion, extensive bilateral breast revision, scar revision, breast capsulectomy, capsulotomy done 08/27/[address] Arango -s/p day Wash out of breast capsule and reinsertion of implant -blood culture- no growth after 24 hrs -wound culture- MRSA positive -WBC stable -Percocet 1 tab PO Q6h PRN pain, Dilaudid 0.5mg IV Q4 PRN -Initially Vancomycin 1gm IVPB Q24H- started 10/24/16. Vanco trough 14.4 on 10/27. 6 /7 trough 15, 10/31 trough 6. Vanco trough 11/02 17.2. Random Vanco level 11/03 9.23. F/U next vanco level 11/05 in the AM -Zosyn 3.375gm IVPB Q8H- started 10/24/16 -Dr. Arango plastic surgeon consulted- Patient to go to OR later in the week for implant revision as well as skin flap revision. -ID consult placed to Dr. Rogers. [facility] IV antibiotics for 3-6 wks. Will begin discharge planning after surgical management course and serology testing is complete. -Isolation precautions Rule Out Parvovirus B 19 blood infection -Pathology reported possible contaminated plasma blood products that was transfused -Of note, patient received packed red blood cells. -ID and Surg team made aware -Patient informed with questions and concerns addressed -Infectious Disease and surgery teams made aware -Monitor for rash or symptomatology -Parvovirus serologies resulted 11/03/16: -IgM (acute) negative -IgG positive value consistent with a past exposure that likely is not from this most recent transfusion. Patient informed. Invasive bilateral Lobular Carcinoma of breast -Patient receives chemotherapy every week -Patient receives radiation every week -Percocet 1 tab PO Q4H PRN pain, Dilaudid 0.5mg IV Q4 PRN Hx of HTN -Elevated though could be secondarily due to pain. -Patient encouraged to request medication when in pain -Norvasc 5 mg, Losartan 100 mg PO daily started with hold parameters for SBP below 110. Hx of DM -Accucheck -low dose RISS Hx of Arthritis Motrin TID PRN with food -PT on board Hx of Insomnia and anxiety -Risperidone 1mg po daily -Zoloft 100mg po daily -Ambien 5mg PO HS PRN Dyspnea Albuterol 0.083% nebulizer Q6h PRN Will add nasal cannula as needed. Anemia -Stable at this time. -Continue to monitor closely PPX -Protonix 40mg po daily -Held Heparin due to acute anemia -SCDs -Heart healthy diet moderate consistent carb diet -PT on board <Enrique Quiroz - Last Filed: 11/04/16 15:07> Objective - Vital Signs/Intake and Output Vital Signs (last 24 hours): Temp Pulse Resp BP Pulse Ox 97.8 F 69 20 148/77 95 11/04/16 08:00 11/04/16 08:00 11/04/16 08:00 11/04/16 08:00 11/04/16 08:00 - Medications Medications: Current Medications Albuterol Sulfate (Albuterol 0.083% Inhal Jennifer (2.5 Mg/3 Ml) Ud) 2.5 mg INH RQ6 PRN PRN Reason: Shortness of Breath Last Admin: 10/31/16 14:27 Dose: 2.5 mg Amlodipine Besylate (Norvasc) 5 mg PO DAILY [facility] Last Admin: 11/04/16 09:15 Dose: 5 mg Benzocaine/Menthol (Cepacol Sore Throat) 1 sumeet MT Q1 PRN PRN Reason: Sore Throat Last Admin: 10/26/16 12:58 Dose: 1 sumeet Diphenhydramine HCl (Benadryl) 25 mg PO Q6 PRN PRN Reason: Itching / Pruritus Last Admin: 11/03/16 17:08 Dose: 25 mg Hydromorphone HCl (Dilaudid) 0.5 mg IVP Q4H PRN PRN Reason: Pain, severe (8-10) Last Admin: 11/04/16 11:10 Dose: 0.5 mg Piperacillin Sod/Tazobactam Sod (Zosyn 3.375 Gm Iv Premix) 3.375 gm in 50 mls @ 100 mls/hr IVPB Q6H [facility] Last Admin: 11/04/16 12:08 Dose: 100 mls/hr Vancomycin/Sodium Chloride (Vancocin) 1 gm in 200 mls @ 133.333 mls/hr IVPB Q24H [facility] Last Admin: 11/04/16 13:36 Dose: 133.333 mls/hr Ibuprofen (Motrin Tab) 600 mg PO TID PRN PRN Reason: Arthritis Last Admin: 11/04/16 01:36 Dose: 600 mg Insulin Aspart (Novolog) 0 unit SC ACHS [facility] PRN Reason: Protocol Last Admin: 11/04/16 13:28 Dose: Not Given Losartan Potassium (Cozaar) 100 mg PO DAILY [facility] Last Admin: 11/04/16 09:15 Dose: 100 mg Ondansetron HCl (Zofran Inj) 4 mg IVP Q4 PRN PRN Reason: Nausea/Vomiting Last Admin: 11/03/16 00:15 Dose: 4 mg Oxycodone/Acetaminophen (Percocet 5/325 Mg Tab) 1 tab PO Q6H PRN PRN Reason: Pain, moderate (4-7) Stop: 11/06/16 12:40 Pantoprazole Sodium (Protonix Ec Tab) 40 mg PO DAILY [facility] Last Admin: 11/04/16 09:15 Dose: 40 mg Potassium Chloride (K-Dur 20 Meq Er Tab) 20 meq PO DAILY [facility] Last Admin: 11/04/16 09:15 Dose: 20 meq Risperidone (Risperdal Tab) 1 mg PO DAILY [facility] Last Admin: 11/04/16 09:15 Dose: 1 mg Sertraline HCl (Zoloft) 100 mg PO DAILY [facility] Last Admin: 11/04/16 09:15 Dose: 100 mg Zolpidem Tartrate (Ambien) 5 mg PO HS PRN PRN Reason: Insomnia Last Admin: 11/03/16 22:33 Dose: 5 mg - Labs Labs: 11/04/16 07:12 11/04/16 07:12 Attending/Attestation - Attestation I have personally seen and examined this patient.: Yes I have fully participated in the care of the patient.: Yes I have reviewed all pertinent clinical information, including history, physical exam and plan: Yes Notes (Text): 11/04/16 15:04 Medical Attending: Patient was seen and examined by me. Agree with the above note by the resident. The patient explained that the pain was controlled today. As mentioned in the above note by the resident the patient is pending further surgery this and or Thursday In the mean time remains on IV abx. Blood cultures negative 5 days, MRSA from the wound Enrique Quiroz 11/04/16 15:07
[2016-11-04] MEDS: Potassium Chloride 20 mEq ER Tab PO SCH (09:15)
[2016-11-04] MEDS: Pantoprazole 40 mg EC Tab PO SCH (09:15)
--- NOTE | 2016-11-04 10:16 | CP.PCM.PN ---
Subjective - Date & Time of Evaluation Date of Evaluation: 11/04/16 Time of Evaluation: 09:00 - Subjective Subjective: events noted recent cultures + MRSA cont iv rx and wound care prognosis guarded Objective - Vital Signs/Intake and Output Vital Signs (last 24 hours): Temp Pulse Resp BP Pulse Ox 97.8 F 69 20 148/77 95 11/04/16 08:00 11/04/16 08:00 11/04/16 08:00 11/04/16 08:00 11/04/16 08:00 - Medications Medications: Current Medications Albuterol Sulfate (Albuterol 0.083% Inhal Jennifer (2.5 Mg/3 Ml) Ud) 2.5 mg INH RQ6 PRN PRN Reason: Shortness of Breath Last Admin: 10/31/16 14:27 Dose: 2.5 mg Amlodipine Besylate (Norvasc) 5 mg PO DAILY [facility] Last Admin: 11/04/16 09:15 Dose: 5 mg Benzocaine/Menthol (Cepacol Sore Throat) 1 sumeet MT Q1 PRN PRN Reason: Sore Throat Last Admin: 10/26/16 12:58 Dose: 1 sumeet Diphenhydramine HCl (Benadryl) 25 mg PO Q6 PRN PRN Reason: Itching / Pruritus Last Admin: 11/03/16 17:08 Dose: 25 mg Hydromorphone HCl (Dilaudid) 0.5 mg IVP Q4H PRN PRN Reason: Pain, severe (8-10) Last Admin: 11/04/16 05:48 Dose: 0.5 mg Piperacillin Sod/Tazobactam Sod (Zosyn 3.375 Gm Iv Premix) 3.375 gm in 50 mls @ 100 mls/hr IVPB Q6H [facility] Last Admin: 11/04/16 05:00 Dose: 100 mls/hr Vancomycin/Sodium Chloride (Vancocin) 1 gm in 200 mls @ 133.333 mls/hr IVPB Q24H [facility] Last Admin: 11/03/16 14:08 Dose: 133.333 mls/hr Ibuprofen (Motrin Tab) 600 mg PO TID PRN PRN Reason: Arthritis Last Admin: 11/04/16 01:36 Dose: 600 mg Insulin Aspart (Novolog) 0 unit SC ACHS [facility] PRN Reason: Protocol Last Admin: 11/04/16 08:18 Dose: Not Given Losartan Potassium (Cozaar) 100 mg PO DAILY [facility] Last Admin: 11/04/16 09:15 Dose: 100 mg Ondansetron HCl (Zofran Inj) 4 mg IVP Q4 PRN PRN Reason: Nausea/Vomiting Last Admin: 11/03/16 00:15 Dose: 4 mg Oxycodone/Acetaminophen (Percocet 5/325 Mg Tab) 1 tab PO Q6H PRN PRN Reason: Pain, moderate (4-7) Stop: 11/06/16 12:40 Pantoprazole Sodium (Protonix Ec Tab) 40 mg PO DAILY [facility] Last Admin: 11/04/16 09:15 Dose: 40 mg Potassium Chloride (K-Dur 20 Meq Er Tab) 20 meq PO DAILY [facility] Last Admin: 11/04/16 09:15 Dose: 20 meq Risperidone (Risperdal Tab) 1 mg PO DAILY [facility] Last Admin: 11/04/16 09:15 Dose: 1 mg Sertraline HCl (Zoloft) 100 mg PO DAILY [facility] Last Admin: 11/04/16 09:15 Dose: 100 mg Tamoxifen Citrate (Nolvadex) 20 mg PO DAILY [facility] Last Admin: 11/04/16 09:16 Dose: 20 mg Zolpidem Tartrate (Ambien) 5 mg PO HS PRN PRN Reason: Insomnia Last Admin: 11/03/16 22:33 Dose: 5 mg - Labs Labs: 11/04/16 07:12 11/04/16 07:12 Assessment and Plan (1) Cellulitis of breast Status: Acute (2) Postoperative wound dehiscence Status: Acute (3) Breast cancer Status: Acute
[2016-11-04] MEDS: Vancomycin 1 gm/NS 200 ml 1 GM/200 ML BAG IVPB SCH (13:36)
[2016-11-04] MEDS: Oxycodone/Acetaminophen 5/325 mg Tab PO PRN (18:13)
[2016-11-05] MEDS: Piperacill/Tazo 3.375gm in Dex 3.375 GM/50 ML BAG IVPB SCH ×4 (00:11→18:34)
[2016-11-05] MEDS: Oxycodone/Acetaminophen 5/325 mg Tab PO PRN ×2 (00:12→08:34)
[2016-11-05] MEDS: HYDROmorphone 0.5 mg/0.5 ml ISec IVP PRN ×4 (04:45→21:03)
--- NOTE | 2016-11-05 06:30 | CP.PCM.PN ---
<Radha Meyer - Last Filed: 11/05/16 18:02> Subjective - Date & Time of Evaluation Date of Evaluation: 11/05/16 Time of Evaluation: 07:39 - Subjective Subjective: PGY-1 medicine progress note for Dr[address] Quiroz's service: Patient seen and examined at bedside. Pt's pain is controlled. Patient is still unsure about whether she should keep the implants. She would like to keep them for cosmetic reasons however she is still concerned about the risk of reinfection. Her family feels that she should wait at this time. She denies denies fever, chills, chest pain, palpitations, diarrhea, constipation, or shortness of breath. Objective - Vital Signs/Intake and Output Vital Signs (last 24 hours): Temp Pulse Resp BP Pulse Ox 98.1 F 72 18 113/72 95 11/05/16 00:00 11/05/16 00:00 11/05/16 00:00 11/05/16 00:00 11/05/16 00:00 - Medications Medications: Current Medications Amlodipine Besylate (Norvasc) 5 mg PO DAILY [facility] Last Admin: 11/04/16 09:15 Dose: 5 mg Benzocaine/Menthol (Cepacol Sore Throat) 1 sumeet MT Q1 PRN PRN Reason: Sore Throat Last Admin: 10/26/16 12:58 Dose: 1 sumeet Diphenhydramine HCl (Benadryl) 25 mg PO Q6 PRN PRN Reason: Itching / Pruritus Last Admin: 11/04/16 21:51 Dose: 25 mg Hydromorphone HCl (Dilaudid) 0.5 mg IVP Q4H PRN PRN Reason: Pain, severe (8-10) Last Admin: 11/05/16 04:45 Dose: 0.5 mg Piperacillin Sod/Tazobactam Sod (Zosyn 3.375 Gm Iv Premix) 3.375 gm in 50 mls @ 100 mls/hr IVPB Q6H [facility] Last Admin: 11/05/16 05:00 Dose: 100 mls/hr Vancomycin/Sodium Chloride (Vancocin) 1 gm in 200 mls @ 133.333 mls/hr IVPB Q24H [facility] Last Admin: 11/04/16 13:36 Dose: 133.333 mls/hr Ibuprofen (Motrin Tab) 600 mg PO TID PRN PRN Reason: Arthritis Last Admin: 11/04/16 01:36 Dose: 600 mg Insulin Aspart (Novolog) 0 unit SC ACHS [facility] PRN Reason: Protocol Last Admin: 11/04/16 21:52 Dose: Not Given Losartan Potassium (Cozaar) 100 mg PO DAILY [facility] Last Admin: 11/04/16 09:15 Dose: 100 mg Ondansetron HCl (Zofran Inj) 4 mg IVP Q4 PRN PRN Reason: Nausea/Vomiting Last Admin: 11/03/16 00:15 Dose: 4 mg Oxycodone/Acetaminophen (Percocet 5/325 Mg Tab) 1 tab PO Q6H PRN PRN Reason: Pain, moderate (4-7) Stop: 11/06/16 12:40 Last Admin: 11/05/16 00:12 Dose: 1 tab Pantoprazole Sodium (Protonix Ec Tab) 40 mg PO DAILY [facility] Last Admin: 11/04/16 09:15 Dose: 40 mg Potassium Chloride (K-Dur 20 Meq Er Tab) 20 meq PO DAILY [facility] Last Admin: 11/04/16 09:15 Dose: 20 meq Risperidone (Risperdal Tab) 1 mg PO DAILY [facility] Last Admin: 11/04/16 09:15 Dose: 1 mg Sertraline HCl (Zoloft) 100 mg PO DAILY [facility] Last Admin: 11/04/16 09:15 Dose: 100 mg Zolpidem Tartrate (Ambien) 5 mg PO HS PRN PRN Reason: Insomnia Last Admin: 11/04/16 21:51 Dose: 5 mg - Labs Labs: 11/04/16 07:12 11/04/16 07:12 - Constitutional Appears: Non-toxic, No Acute Distress - Head Exam Head Exam: ATRAUMATIC, NORMAL INSPECTION, NORMOCEPHALIC - Eye Exam Eye Exam: EOMI, Normal appearance, PERRL Pupil Exam: NORMAL ACCOMODATION - ENT Exam ENT Exam: Mucous Membranes Moist - Neck Exam Neck Exam: Full ROM - Respiratory Exam Respiratory Exam: NORMAL BREATHING PATTERN. absent: Wheezes - Cardiovascular Exam Cardiovascular Exam: REGULAR RHYTHM, +S1, +S2 - GI/Abdominal Exam GI & Abdominal Exam: Soft, Normal Bowel Sounds - Exam Exam: NORMAL INSPECTION - Extremities Exam Extremities Exam: Full ROM, Normal Capillary Refill - Back Exam Back Exam: Full ROM, NORMAL INSPECTION - Neurological Exam Neurological Exam: Alert, Awake, CN II-XII Intact, Oriented x3 - Psychiatric Exam Psychiatric exam: Normal Affect, Normal Mood - Skin Skin Exam: Dry, Normal Color, Warm Additional comments: wound vac in place with some drainage noted Assessment and Plan - Assessment and Plan (Free Text) Assessment: Bilateral breast wound infection L > R -s/p bilateral breast implant insertion, extensive bilateral breast revision, scar revision, breast capsulectomy, capsulotomy done 08/27/[address] Arango -s/p day Wash out of breast capsule and reinsertion of implant -blood culture- no growth after 24 hrs -wound culture- MRSA positive -WBC stable -Percocet 1 tab PO Q6h PRN pain, Dilaudid 0.5mg IV Q4 PRN -Initially Vancomycin 1gm IVPB Q24H- started 10/24/16. Vanco trough 14.4 on 10/27. 6 / trough 15, 10/31 trough 6. Vanco trough 11/02 17.2. Random Vanco level 11/03 9.23. F/U next vanco level 11/05 -Zosyn 3.375gm IVPB Q8H- started 10/24/16 -Dr. Arango plastic surgeon consulted- Patient to go to OR on 11/06/16. 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 -Isolation precautions Rule Out Parvovirus B 19 blood infection -Pathology reported possible contaminated plasma blood products that was transfused -Of note, patient received packed red blood cells. -ID and Surg team made aware -Patient informed with questions and concerns addressed -Infectious Disease and surgery teams made aware -Monitor for rash or symptomatology -Parvovirus serologies resulted 11/03/16: -IgM (acute) negative -IgG positive value consistent with a past exposure that likely is not from this most recent transfusion. Patient informed. Invasive bilateral Lobular Carcinoma of breast -Patient receives chemotherapy every week -Patient receives radiation every week -Percocet 1 tab PO Q4H PRN pain, Dilaudid 0.5mg IV Q4 PRN Hx of HTN -Elevated though could be secondarily due to pain. -Patient encouraged to request medication when in pain -Norvasc 5 mg, Losartan 100 mg PO daily started with hold parameters for SBP below 110. Hx of DM -Accucheck -low dose RISS Hx of Arthritis Motrin TID PRN with food -PT on board Hx of Insomnia and anxiety -Risperidone 1mg po daily -Zoloft 100mg po daily -Ambien 5mg PO HS PRN Dyspnea Albuterol 0.083% nebulizer Q6h PRN Will add nasal cannula as needed. Anemia -Stable at this time. -Continue to monitor closely PPX -Protonix 40mg po daily -Held Heparin due to acute anemia -SCDs -Heart healthy diet moderate consistent carb diet -PT on board <Enrique Quiroz H - Last Filed: 11/05/16 18:25> Objective - Vital Signs/Intake and Output Vital Signs (last 24 hours): Temp Pulse Resp BP Pulse Ox 98.1 F 79 20 138/76 95 11/05/16 16:00 11/05/16 16:00 11/05/16 16:00 11/05/16 16:00 11/05/16 16:00 Intake and Output: 11/05/16 11/05/16 06:59 18:59 Intake Total 540 Output Total 2 Balance 538 - Medications Medications: Current Medications Amlodipine Besylate (Norvasc) 5 mg PO DAILY [facility] Last Admin: 11/05/16 11:27 Dose: 5 mg Benzocaine/Menthol (Cepacol Sore Throat) 1 sumeet MT Q1 PRN PRN Reason: Sore Throat Last Admin: 10/26/16 12:58 Dose: 1 sumeet Diphenhydramine HCl (Benadryl) 25 mg PO Q6 PRN PRN Reason: Itching / Pruritus Last Admin: 11/05/16 13:30 Dose: 25 mg Hydromorphone HCl (Dilaudid) 0.5 mg IVP Q4H PRN PRN Reason: Pain, severe (8-10) Last Admin: 11/05/16 16:29 Dose: 0.5 mg Piperacillin Sod/Tazobactam Sod (Zosyn 3.375 Gm Iv Premix) 3.375 gm in 50 mls @ 100 mls/hr IVPB Q6H [facility] Last Admin: 11/05/16 11:28 Dose: 100 mls/hr Vancomycin/Sodium Chloride (Vancocin) 1 gm in 200 mls @ 133.333 mls/hr IVPB Q24H [facility] Last Admin: 11/05/16 13:30 Dose: 133.333 mls/hr Ibuprofen (Motrin Tab) 600 mg PO TID PRN PRN Reason: Arthritis Last Admin: 11/04/16 01:36 Dose: 600 mg Insulin Aspart (Novolog) 0 unit SC ACHS [facility] PRN Reason: Protocol Last Admin: 11/05/16 12:21 Dose: Not Given Losartan Potassium (Cozaar) 100 mg PO DAILY [facility] Last Admin: 11/05/16 11:28 Dose: Not Given Ondansetron HCl (Zofran Inj) 4 mg IVP Q4 PRN PRN Reason: Nausea/Vomiting Last Admin: 11/03/16 00:15 Dose: 4 mg Oxycodone/Acetaminophen (Percocet 5/325 Mg Tab) 1 tab PO Q6H PRN PRN Reason: Pain, moderate (4-7) Stop: 11/06/16 12:40 Last Admin: 11/05/16 08:34 Dose: 1 tab Pantoprazole Sodium (Protonix Ec Tab) 40 mg PO DAILY [facility] Last Admin: 11/05/16 11:28 Dose: 40 mg Potassium Chloride (K-Dur 20 Meq Er Tab) 20 meq PO DAILY [facility] Last Admin: 11/05/16 11:27 Dose: 20 meq Risperidone (Risperdal Tab) 1 mg PO DAILY [facility] Last Admin: 11/05/16 11:27 Dose: 1 mg Sertraline HCl (Zoloft) 100 mg PO DAILY [facility] Last Admin: 11/05/16 11:28 Dose: 100 mg Zolpidem Tartrate (Ambien) 5 mg PO HS PRN PRN Reason: Insomnia Last Admin: 11/04/16 21:51 Dose: 5 mg - Labs Labs: 11/05/16 06:24 11/05/16 06:24 Attending/Attestation - Attestation I have personally seen and examined this patient.: Yes I have fully participated in the care of the patient.: Yes I have reviewed all pertinent clinical information, including history, physical exam and plan: Yes Notes (Text): 11/05/16 18:22 Medical attending: Patient was seen and examined by me, agree with the above note by medical device assembler. Early in the morning the patient reported having pain left breast area, however by the time I rounded with the patient she said that she regarding received pain medication and it was controlled. She is currently has a wound VAC at this time, continuing with IV and biotics. As mentioned before she grew out MRSA in the wound cultures. The blood cultures are negative Patient is pending OR tommorow for further surgery with reguard to the breast implants. thank you Enrique Quiroz
[2016-11-05 06:50] LABS: CHLORIDE 103 mmol/L (98-107)
[2016-11-05 06:51] LABS: POTASSIUM 3.6 mmol/L (3.6-5.2); SODIUM 138 mmol/L (132-148)
[2016-11-05 06:53] LABS: BILIRUBIN,TOTAL 0.5 mg/dL (0.2-1.3); CARBON DIOXIDE 26 mmol/L (22-30); GFR AFRICAN-AMERICAN > 60
[2016-11-05 06:54] LABS: ALKALINE PHOSPHATASE 48 U/L (38-126); ALT/SGPT 13 U/L (9-52); AST/SGOT 16 U/L (14-36); BLOOD UREA NITROGEN 12 mg/dL (7-17); CALCIUM 8.2 mg/dl (8.6-10.4); GLUCOSE,RANDOM 85 mg/dL (65-105); PHOSPHOROUS 3.1 mg/dL (2.5-4.5); TOTAL PROTEIN 6.2 g/dL (6.3-8.3)
[2016-11-05 06:55] LABS: MAGNESIUM 1.8 mg/dL (1.6-2.3)
[2016-11-05 06:59] LABS: BASO # 0.1 K/uL (0.0-0.2); BASO % 1.1 % (0.0-2.0); EOS # 0.2 K/uL (0.0-0.7); EOS % 2.8 % (0.0-4.0); HEMATOCRIT 30.7 % (34.0-47.0); LYMPH # 1.1 K/uL (1.0-4.3); LYMPH % 17.3 % (20.0-40.0); MEAN CELL VOLUME 88.6 fL (81.0-99.0); MEAN CORPUSCULAR HEMOGLOBIN 28.5 pg (27.0-31.0); MEAN CORPUSCULAR HGB CONC 32.2 g/dL (33.0-37.0); MEAN PLATELET VOLUME 7.2 fL (7.2-11.7); MONO # 0.8 K/uL (0.0-0.8); MONO % 12.9 % (0.0-10.0); NRBC % 0.1 % (0.0-2.0); RED CELL DISTRIBUTION WIDTH 15.4 % (11.5-14.5); WHITE BLOOD COUNT 6.4 K/uL (4.8-10.8)
[2016-11-05 07:00] LABS: ALB/GLOB RATIO 1.1 (1.0-2.1)
[2016-11-05] MEDS: (Novolog) Insulin Aspart, Recombinant 100 u/ml 10 ml vial SC SCH ×4 (07:15→21:06)
[2016-11-05] MEDS: Potassium Chloride 20 mEq ER Tab PO SCH (11:27)
[2016-11-05] MEDS: Pantoprazole 40 mg EC Tab PO SCH (11:28)
--- NOTE | 2016-11-05 12:47 | CP.PCM.PN ---
Subjective - Date & Time of Evaluation Date of Evaluation: 11/05/16 Time of Evaluation: 10:00 - Subjective Subjective: PLASTIC SURGERY PROGRESS NOTE FOR DR. CRUZ Patient seen and examined at bedside. She reports back pain and pain to right breast. Wound vac in place on 100mmhg suction, no leak. Dressing on back over skin blisters was changed and more Medihoney was applied. Objective - Vital Signs/Intake and Output Vital Signs (last 24 hours): Temp Pulse Resp BP Pulse Ox 97.8 F 64 20 137/80 95 11/05/16 07:00 11/05/16 07:00 11/05/16 07:00 11/05/16 07:00 11/05/16 07:00 - Medications Medications: Current Medications Amlodipine Besylate (Norvasc) 5 mg PO DAILY [facility] Last Admin: 11/05/16 11:27 Dose: 5 mg Benzocaine/Menthol (Cepacol Sore Throat) 1 sumeet MT Q1 PRN PRN Reason: Sore Throat Last Admin: 10/26/16 12:58 Dose: 1 sumeet Diphenhydramine HCl (Benadryl) 25 mg PO Q6 PRN PRN Reason: Itching / Pruritus Last Admin: 11/04/16 21:51 Dose: 25 mg Hydromorphone HCl (Dilaudid) 0.5 mg IVP Q4H PRN PRN Reason: Pain, severe (8-10) Last Admin: 11/05/16 11:35 Dose: 0.5 mg Piperacillin Sod/Tazobactam Sod (Zosyn 3.375 Gm Iv Premix) 3.375 gm in 50 mls @ 100 mls/hr IVPB Q6H [facility] Last Admin: 11/05/16 11:28 Dose: 100 mls/hr Vancomycin/Sodium Chloride (Vancocin) 1 gm in 200 mls @ 133.333 mls/hr IVPB Q24H [facility] Last Admin: 11/04/16 13:36 Dose: 133.333 mls/hr Ibuprofen (Motrin Tab) 600 mg PO TID PRN PRN Reason: Arthritis Last Admin: 11/04/16 01:36 Dose: 600 mg Insulin Aspart (Novolog) 0 unit SC ACHS [facility] PRN Reason: Protocol Last Admin: 11/05/16 12:21 Dose: Not Given Losartan Potassium (Cozaar) 100 mg PO DAILY [facility] Last Admin: 11/05/16 11:28 Dose: Not Given Ondansetron HCl (Zofran Inj) 4 mg IVP Q4 PRN PRN Reason: Nausea/Vomiting Last Admin: 11/03/16 00:15 Dose: 4 mg Oxycodone/Acetaminophen (Percocet 5/325 Mg Tab) 1 tab PO Q6H PRN PRN Reason: Pain, moderate (4-7) Stop: 11/06/16 12:40 Last Admin: 11/05/16 08:34 Dose: 1 tab Pantoprazole Sodium (Protonix Ec Tab) 40 mg PO DAILY [facility] Last Admin: 11/05/16 11:28 Dose: 40 mg Potassium Chloride (K-Dur 20 Meq Er Tab) 20 meq PO DAILY [facility] Last Admin: 11/05/16 11:27 Dose: 20 meq Risperidone (Risperdal Tab) 1 mg PO DAILY [facility] Last Admin: 11/05/16 11:27 Dose: 1 mg Sertraline HCl (Zoloft) 100 mg PO DAILY [facility] Last Admin: 11/05/16 11:28 Dose: 100 mg Zolpidem Tartrate (Ambien) 5 mg PO HS PRN PRN Reason: Insomnia Last Admin: 11/04/16 21:51 Dose: 5 mg - Labs Labs: 11/05/16 06:24 11/05/16 06:24 - Constitutional Appears: Well, Non-toxic, No Acute Distress - Respiratory Exam Respiratory Exam: NORMAL BREATHING PATTERN. absent: Respiratory Distress - Cardiovascular Exam Cardiovascular Exam: +S1, +S2 - Neurological Exam Neurological Exam: Alert, Awake - Psychiatric Exam Psychiatric exam: Normal Affect, Normal Mood - Skin Skin Exam: Normal Color Additional comments: Left breast with NPWT wound vac in place, on continuous suction, no leak Right breast incision healing well Skin blisters from adhesive drssings on back, covered with Medihoney Assessment and Plan - Assessment and Plan (Free Text) Assessment: 56F with exposed left breast implant, s/p breast capsule washout and placement of implant, POD#12 - Afebrile, VSS - No leukocytosis - OR 7:30 tomorrow morning for bilateral implant removal. Patient states that she does not want new implants reinserted at this time. - NPO past midnight - Consent signed and in chart - Discussed plan with Dr. Conchita Horn PGY-2
[2016-11-05] MEDS: Vancomycin 1 gm/NS 200 ml 1 GM/200 ML BAG IVPB SCH (13:30)
[2016-11-06] MEDS: Piperacill/Tazo 3.375gm in Dex 3.375 GM/50 ML BAG IVPB SCH ×4 (00:13→17:48)
[2016-11-06] MEDS: HYDROmorphone 0.5 mg/0.5 ml ISec IVP PRN ×7 (03:23→21:18)
[2016-11-06 07:33] LABS: BASO # 0.1 K/uL (0.0-0.2); EOS # 0.2 K/uL (0.0-0.7); EOS % 2.9 % (0.0-4.0); HEMATOCRIT 29.2 % (34.0-47.0); LYMPH % 15.7 % (20.0-40.0); MEAN CELL VOLUME 88.3 fL (81.0-99.0); MEAN CORPUSCULAR HGB CONC 32.8 g/dL (33.0-37.0); MEAN PLATELET VOLUME 7.1 fL (7.2-11.7); MONO # 0.7 K/uL (0.0-0.8); RED CELL DISTRIBUTION WIDTH 15.1 % (11.5-14.5); WHITE BLOOD COUNT 6.3 K/uL (4.8-10.8)
[2016-11-06 07:34] LABS: CHLORIDE 108 mmol/L (98-107); SODIUM 138 mmol/L (132-148)
[2016-11-06 07:35] LABS: POTASSIUM 3.2 mmol/L (3.6-5.2)
[2016-11-06 07:37] LABS: ALKALINE PHOSPHATASE 39 U/L (38-126); AST/SGOT 19 U/L (14-36); BILIRUBIN,TOTAL 0.4 mg/dL (0.2-1.3); BLOOD UREA NITROGEN 11 mg/dL (7-17); CARBON DIOXIDE 23 mmol/L (22-30); GFR AFRICAN-AMERICAN > 60; GLUCOSE,RANDOM 72 mg/dL (65-105); PHOSPHOROUS 2.5 mg/dL (2.5-4.5); TOTAL PROTEIN 5.3 g/dL (6.3-8.3)
[2016-11-06 07:38] LABS: ALT/SGPT 14 U/L (9-52); CALCIUM 7.1 mg/dl (8.6-10.4); MAGNESIUM 1.6 mg/dL (1.6-2.3)
[2016-11-06 07:41] LABS: INR 1.2
[2016-11-06] MEDS: (Novolog) Insulin Aspart, Recombinant 100 u/ml 10 ml vial SC SCH ×4 (07:41→22:12)
[2016-11-06] MEDS ORDERED: Bupivacaine/Epi 0.25%-1:200,000 10 ml PF inj IJ ONE (07:48)
[2016-11-06] MEDS ORDERED: Midazolam 2 MG/2 ML VIAL ONE (07:56)
[2016-11-06] MEDS ORDERED: Propofol 10 mg/ml Inj (20 ML) ONE ×2 (07:56→10:12)
[2016-11-06] MEDS ORDERED: Lactated Ringer's 1,000 ML IV ONE ×3 (08:00→11:28)
[2016-11-06] MEDS ORDERED: Lidocaine Hydrochloride 10 ML INJ ONE (08:10)
[2016-11-06] MEDS ORDERED: ePHEDrine 50 mg/ml Inj ONE (08:10)
[2016-11-06] MEDS ORDERED: Potassium Chloride 20 mEq ER Tab PO ONE ×2 (09:23→12:56)
[2016-11-06] MEDS: Potassium Chloride 20 mEq ER Tab PO SCH ×2 (10:38→13:04)
[2016-11-06] MEDS: Pantoprazole 40 mg EC Tab PO SCH ×2 (10:38→13:03)
--- NOTE | 2016-11-06 10:54 | PCM.SURG1 ---
Surgeon's Initial Post Op Note - Surgeon's Notes Surgeon: Dr. Arango Elevator Operator Freight: Dr. Horn PGY-2 Type of Anesthesia: General Endo Pre-Operative Diagnosis: Exposed Left breast implant, infected skin Operative Findings: see operative report Post-Operative Diagnosis: Exposed Left breast implant, infected skin Operation Performed: Bilateral breast implant removal, breast capsulectomy, placement of wound vac Specimen/Specimens Removed: right and left breast implant, breast capsule bilaterally Estimated Blood Loss: EBL {In ML}: 50 Blood Products Given: N/A Drains Used: Wound Vac (bilateral breast) Post-Op Condition: Fair Date of Surgery/Procedure: 11/06/16 Time of Surgery/Procedure: 08:00
[2016-11-06] MEDS: Vancomycin 1 gm/NS 200 ml 1 GM/200 ML BAG IVPB SCH (13:45)
--- NOTE | 2016-11-06 15:31 | CP.PCM.PN ---
<Radha Meyer - Last Filed: 11/06/16 15:27> Subjective - Date & Time of Evaluation Date of Evaluation: 11/06/16 Time of Evaluation: :17 - Subjective Subjective: PGY-[address] Quiroz's service: Patient seen and examined at bedside. Pt's pain is controlled. Patient has decided that she would like the implants removed. She will be going to the OR today for breast capsulectomy and removal of implants bilaterally. She denies subjective fevers or chills, chest pain, palpitations, headaches, visual changes , shortness of breath, pruritus, diarrhea, constipation, or shortness of breath. Objective - Vital Signs/Intake and Output Vital Signs (last 24 hours): Temp Pulse Resp BP Pulse Ox 97.8 F 97 H 20 135/81 97 11/06/16 12:56 11/06/16 12:56 11/06/16 12:56 11/06/16 12:56 11/06/16 12:56 - Medications Medications: Current Medications Amlodipine Besylate (Norvasc) 5 mg PO DAILY [facility] Last Admin: 11/06/16 13:00 Dose: 5 mg Benzocaine/Menthol (Cepacol Sore Throat) 1 sumeet MT Q1 PRN PRN Reason: Sore Throat Last Admin: 10/26/16 12:58 Dose: 1 sumeet Diphenhydramine HCl (Benadryl) 25 mg PO Q6 PRN PRN Reason: Itching / Pruritus Last Admin: 11/05/16 21:04 Dose: 25 mg Hydromorphone HCl (Dilaudid) 0.5 mg IVP Q4H PRN PRN Reason: Pain, severe (8-10) Last Admin: 11/06/16 13:04 Dose: 0.5 mg Piperacillin Sod/Tazobactam Sod (Zosyn 3.375 Gm Iv Premix) 3.375 gm in 50 mls @ 100 mls/hr IVPB Q6H [facility] Last Admin: 11/06/16 12:20 Dose: 50 mls Vancomycin/Sodium Chloride (Vancocin) 1 gm in 200 mls @ 133.333 mls/hr IVPB Q24H [facility] Last Admin: 11/06/16 13:45 Dose: 133.333 mls/hr Ibuprofen (Motrin Tab) 600 mg PO TID PRN PRN Reason: Arthritis Last Admin: 11/04/16 01:36 Dose: 600 mg Insulin Aspart (Novolog) 0 unit SC ACHS [facility] PRN Reason: Protocol Last Admin: 11/06/16 10:39 Dose: Not Given Losartan Potassium (Cozaar) 100 mg PO DAILY [facility] Last Admin: 11/06/16 13:04 Dose: 100 mg Meperidine HCl (Demerol) 12.5 mg IVP Q5M PRN PRN Reason: Shivering/Rigor Ondansetron HCl (Zofran Inj) 4 mg IVP Q4 PRN PRN Reason: Nausea/Vomiting Last Admin: 11/03/16 00:15 Dose: 4 mg Pantoprazole Sodium (Protonix Ec Tab) 40 mg PO DAILY [facility] Last Admin: 11/06/16 13:03 Dose: 40 mg Potassium Chloride (K-Dur 20 Meq Er Tab) 20 meq PO DAILY [facility] Last Admin: 11/06/16 13:04 Dose: 20 meq Risperidone (Risperdal Tab) 1 mg PO DAILY [facility] Last Admin: 11/06/16 13:00 Dose: 1 mg Sertraline HCl (Zoloft) 100 mg PO DAILY [facility] Last Admin: 11/06/16 13:04 Dose: 100 mg Zolpidem Tartrate (Ambien) 5 mg PO HS PRN PRN Reason: Insomnia Last Admin: 11/05/16 21:04 Dose: 5 mg - Labs Labs: 11/06/16 07:20 11/06/16 07:20 PT 13.7 SECONDS (9.7-12.2) H 11/06/16 07:20 INR 1.2 11/06/16 07:20 APTT 30 SECONDS (21-34) 11/06/16 07:20 - Constitutional Appears: Non-toxic, No Acute Distress - Head Exam Head Exam: ATRAUMATIC, NORMAL INSPECTION, NORMOCEPHALIC - Eye Exam Eye Exam: EOMI, Normal appearance, PERRL Pupil Exam: NORMAL ACCOMODATION - ENT Exam ENT Exam: Mucous Membranes Moist - Neck Exam Neck Exam: Full ROM - Respiratory Exam Respiratory Exam: Clear to Ausculation Bilateral, NORMAL BREATHING PATTERN. absent: Wheezes - Cardiovascular Exam Cardiovascular Exam: +S1, +S2 - GI/Abdominal Exam GI & Abdominal Exam: Soft, Normal Bowel Sounds. absent: Tenderness - Extremities Exam Extremities Exam: Full ROM, Normal Capillary Refill. absent: Pedal Edema - Back Exam Back Exam: Full ROM - Neurological Exam Neurological Exam: Alert, Awake, CN II-XII Intact, Oriented x3 Neuro motor strength exam: Left Upper Extremity: 5, Right Upper Extremity: 5, Left Lower Extremity: 5, Right Lower Extremity: 5 - Psychiatric Exam Psychiatric exam: Normal Affect, Normal Mood - Skin Skin Exam: Dry, Intact, Normal Color, Warm Additional comments: wound vac in place with some drainage noted. Assessment and Plan - Assessment and Plan (Free Text) Assessment: Bilateral breast wound infection L > R -To the OR today for removal of implants and breast capsulectomy, 11/06 -s/p bilateral breast implant insertion, extensive bilateral breast revision, scar revision, breast capsulectomy, capsulotomy done 08/27/[address] Arango -s/p day Wash out of breast capsule and reinsertion of implant -blood culture- no growth after 24 hrs -wound culture- MRSA positive -WBC stable -Percocet 1 tab PO Q6h PRN pain, Dilaudid 0.5mg IV Q4 PRN -Initially Vancomycin 1gm IVPB Q24H; Vanco trough 7.0. F/U Vanco trough 11/07 in AM with morning labs -Zosyn 3.375gm IVPB Q8H- started 10/24/16 -Dr. Arango plastic surgeon on the case- OR today. 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 Rogers. parts counterman IV antibiotics for 3-6 wks. -Isolation precautions Rule Out Parvovirus B 19 blood infection -Pathology reported possible contaminated plasma blood products that was transfused -Of note, patient received packed red blood cells. -ID and Surg team made aware -Patient informed with questions and concerns addressed -Infectious Disease and surgery teams made aware -Monitor for rash or symptomatology -Parvovirus serologies resulted 11/03/16: -IgM (acute) negative -IgG positive value consistent with a past exposure that likely is not from this most recent transfusion. Patient informed. Invasive bilateral Lobular Carcinoma of breast -Patient receives chemotherapy every week -Patient receives radiation every week -Percocet 1 tab PO Q4H PRN pain, Dilaudid 0.5mg IV Q4 PRN Hx of HTN -Elevated though could be secondarily due to pain. -Patient encouraged to request medication when in pain -Norvasc 5 mg, Losartan 100 mg PO daily started with hold parameters for SBP below 110. Hx of DM -Accucheck -low dose RISS Hx of Arthritis Motrin TID PRN with food -PT on board Hx of Insomnia and anxiety -Risperidone 1mg po daily -Zoloft 100mg po daily -Ambien 5mg PO HS PRN Dyspnea Albuterol 0.083% nebulizer Q6h PRN Will add nasal cannula as needed. Anemia -Stable at this time. -Continue to monitor closely PPX -Protonix 40mg po daily -Held Heparin due to acute anemia -SCDs -Heart healthy diet moderate consistent carb diet -PT on board <Quiroz,Peter H - Last Filed: 11/06/16 16:26> Objective - Vital Signs/Intake and Output Vital Signs (last 24 hours): Temp Pulse Resp BP Pulse Ox 97.5 F L 102 H 20 120/71 95 11/06/16 15:37 11/06/16 15:37 11/06/16 15:37 11/06/16 15:37 11/06/16 15:37 - Medications Medications: Current Medications Amlodipine Besylate (Norvasc) 5 mg PO DAILY [facility] Last Admin: 11/06/16 13:00 Dose: 5 mg Benzocaine/Menthol (Cepacol Sore Throat) 1 sumeet MT Q1 PRN PRN Reason: Sore Throat Last Admin: 10/26/16 12:58 Dose: 1 sumeet Diphenhydramine HCl (Benadryl) 25 mg PO Q6 PRN PRN Reason: Itching / Pruritus Last Admin: 11/05/16 21:04 Dose: 25 mg Hydromorphone HCl (Dilaudid) 0.5 mg IVP Q4H PRN PRN Reason: Pain, severe (8-10) Last Admin: 11/06/16 13:04 Dose: 0.5 mg Piperacillin Sod/Tazobactam Sod (Zosyn 3.375 Gm Iv Premix) 3.375 gm in 50 mls @ 100 mls/hr IVPB Q6H [facility] Last Admin: 11/06/16 12:20 Dose: 50 mls Vancomycin/Sodium Chloride (Vancocin) 1 gm in 200 mls @ 133.333 mls/hr IVPB Q24H [facility] Last Admin: 11/06/16 13:45 Dose: 133.333 mls/hr Ibuprofen (Motrin Tab) 600 mg PO TID PRN PRN Reason: Arthritis Last Admin: 11/04/16 01:36 Dose: 600 mg Insulin Aspart (Novolog) 0 unit SC ACHS [facility] PRN Reason: Protocol Last Admin: 11/06/16 10:39 Dose: Not Given Losartan Potassium (Cozaar) 100 mg PO DAILY [facility] Last Admin: 11/06/16 13:04 Dose: 100 mg Meperidine HCl (Demerol) 12.5 mg IVP Q5M PRN PRN Reason: Shivering/Rigor Ondansetron HCl (Zofran Inj) 4 mg IVP Q4 PRN PRN Reason: Nausea/Vomiting Last Admin: 11/03/16 00:15 Dose: 4 mg Pantoprazole Sodium (Protonix Ec Tab) 40 mg PO DAILY [facility] Last Admin: 11/06/16 13:03 Dose: 40 mg Potassium Chloride (K-Dur 20 Meq Er Tab) 20 meq PO DAILY [facility] Last Admin: 11/06/16 13:04 Dose: 20 meq Risperidone (Risperdal Tab) 1 mg PO DAILY [facility] Last Admin: 11/06/16 13:00 Dose: 1 mg Sertraline HCl (Zoloft) 100 mg PO DAILY [facility] Last Admin: 11/06/16 13:04 Dose: 100 mg Zolpidem Tartrate (Ambien) 5 mg PO HS PRN PRN Reason: Insomnia Last Admin: 11/05/16 21:04 Dose: 5 mg - Labs Labs: 11/06/16 07:20 11/06/16 07:20 PT 13.7 SECONDS (9.7-12.2) H 11/06/16 07:20 INR 1.2 11/06/16 07:20 APTT 30 SECONDS (21-34) 11/06/16 07:20 Attending/Attestation - Attestation I have personally seen and examined this patient.: Yes I have fully participated in the care of the patient.: Yes I have reviewed all pertinent clinical information, including history, physical exam and plan: Yes Notes (Text): Medical attending: Agree with the above note by the front office medical assistant. By the time I came by to see the patient in the morning she had ready been moved off the floor to the OR. A being told that even earlier in this morning she was still somewhat undecided as to what to do. Her family who is involved with the patient's care were more or less wanting to have the implants removed. Later in the day reviewed the surgical notes showed that she did have removal of the implants. And she had reinsertion of the wound vacs. Thank you very much, Enrique Quiroz
[2016-11-07] MEDS: Piperacill/Tazo 3.375gm in Dex 3.375 GM/50 ML BAG IVPB SCH ×4 (00:11→17:50)
[2016-11-07] MEDS: HYDROmorphone 0.5 mg/0.5 ml ISec IVP PRN ×4 (00:11→20:39)
[2016-11-07] MEDS: Benzocaine/Menthol (Cepacol) Lozenge MT PRN ×2 (00:12→17:54)
[2016-11-07] MEDS: (Novolog) Insulin Aspart, Recombinant 100 u/ml 10 ml vial SC SCH ×3 (07:31→18:33)
[2016-11-07 07:46] LABS: BASO # 0.1 K/uL (0.0-0.2); BASO % 0.5 % (0.0-2.0); EOS % 0.1 % (0.0-4.0); HEMATOCRIT 28.2 % (34.0-47.0); LYMPH % 8.3 % (20.0-40.0); MEAN CELL VOLUME 87.5 fL (81.0-99.0); MEAN CORPUSCULAR HEMOGLOBIN 28.8 pg (27.0-31.0); MEAN CORPUSCULAR HGB CONC 32.9 g/dL (33.0-37.0); MONO % 8.3 % (0.0-10.0); PLATELET COUNT 338 K/uL (130-400); RED CELL DISTRIBUTION WIDTH 15.6 % (11.5-14.5)
[2016-11-07 07:47] LABS: WHITE BLOOD COUNT 11.8 K/uL (4.8-10.8)
[2016-11-07 07:52] LABS: CHLORIDE 106 mmol/L (98-107); POTASSIUM 3.7 mmol/L (3.6-5.2); SODIUM 137 mmol/L (132-148)
[2016-11-07 07:54] LABS: BILIRUBIN,TOTAL 0.4 mg/dL (0.2-1.3); CARBON DIOXIDE 24 mmol/L (22-30); GFR AFRICAN-AMERICAN > 60
[2016-11-07 07:55] LABS: ALKALINE PHOSPHATASE 39 U/L (38-126); ALT/SGPT 13 U/L (9-52); AST/SGOT 15 U/L (14-36); BLOOD UREA NITROGEN 11 mg/dL (7-17); CALCIUM 8.2 mg/dl (8.6-10.4); GLUCOSE,RANDOM 100 mg/dL (65-105); MAGNESIUM 1.8 mg/dL (1.6-2.3); TOTAL PROTEIN 5.8 g/dL (6.3-8.3)
[2016-11-07 08:44] LABS: NEUTROPHIL 90 % (50-75); TOTAL CELLS COUNTED 100
[2016-11-07] MEDS: Potassium Chloride 20 mEq ER Tab PO SCH (10:22)
[2016-11-07] MEDS: Pantoprazole 40 mg EC Tab PO SCH (10:22)
--- NOTE | 2016-11-07 11:18 | CP.PCM.PN ---
<Dee Palma DO - Last Filed: 11/07/16 11:14> Subjective - Date & Time of Evaluation Date of Evaluation: 11/07/16 Time of Evaluation: 07:45 - Subjective Subjective: PGY1 progress note for Dr. Quiroz Patient seen and examined. Patient s/p removal of breast implants and capsulectomy POD#1. Patient reports pain b/l breasts but states that it is well -controlled with current medication regimen. Objective - Vital Signs/Intake and Output Vital Signs (last 24 hours): Temp Pulse Resp BP Pulse Ox 97.9 F 70 20 125/72 94 L 11/07/16 07:55 11/07/16 07:55 11/07/16 07:55 11/07/16 07:55 11/07/16 07:55 - Medications Medications: Current Medications Amlodipine Besylate (Norvasc) 5 mg PO DAILY [facility] Last Admin: 11/07/16 10:21 Dose: 5 mg Benzocaine/Menthol (Cepacol Sore Throat) 1 sumeet MT Q1 PRN PRN Reason: Sore Throat Last Admin: 11/07/16 00:12 Dose: 1 sumeet Diphenhydramine HCl (Benadryl) 25 mg PO Q6 PRN PRN Reason: Itching / Pruritus Last Admin: 11/07/16 10:21 Dose: 25 mg Hydromorphone HCl (Dilaudid) 1 mg IVP Q3H PRN PRN Reason: Pain, severe (8-10) Last Admin: 11/07/16 10:20 Dose: 1 mg Piperacillin Sod/Tazobactam Sod (Zosyn 3.375 Gm Iv Premix) 3.375 gm in 50 mls @ 100 mls/hr IVPB Q6H [facility] Last Admin: 11/07/16 05:02 Dose: 100 mls/hr Vancomycin/Sodium Chloride (Vancocin) 1 gm in 200 mls @ 133.333 mls/hr IVPB Q24H [facility] Last Admin: 11/06/16 13:45 Dose: 133.333 mls/hr Ibuprofen (Motrin Tab) 600 mg PO TID PRN PRN Reason: Arthritis Last Admin: 11/04/16 01:36 Dose: 600 mg Insulin Aspart (Novolog) 0 unit SC ACHS [facility] PRN Reason: Protocol Last Admin: 11/07/16 07:31 Dose: Not Given Losartan Potassium (Cozaar) 100 mg PO DAILY [facility] Last Admin: 11/07/16 10:22 Dose: 100 mg Meperidine HCl (Demerol) 12.5 mg IVP Q5M PRN PRN Reason: Shivering/Rigor Ondansetron HCl (Zofran Inj) 4 mg IVP Q4 PRN PRN Reason: Nausea/Vomiting Last Admin: 11/06/16 17:48 Dose: 4 mg Pantoprazole Sodium (Protonix Ec Tab) 40 mg PO DAILY [facility] Last Admin: 11/07/16 10:22 Dose: 40 mg Potassium Chloride (K-Dur 20 Meq Er Tab) 20 meq PO DAILY [facility] Last Admin: 11/07/16 10:22 Dose: 20 meq Risperidone (Risperdal Tab) 1 mg PO DAILY [facility] Last Admin: 11/07/16 10:22 Dose: 1 mg Sertraline HCl (Zoloft) 100 mg PO DAILY [facility] Last Admin: 11/07/16 10:22 Dose: 100 mg Zolpidem Tartrate (Ambien) 5 mg PO HS PRN PRN Reason: Insomnia Last Admin: 11/06/16 21:18 Dose: 5 mg - Labs Labs: 11/07/16 07:28 11/07/16 07:28 PT 13.7 SECONDS (9.7-12.2) H 11/06/16 07:20 INR 1.2 11/06/16 07:20 APTT 30 SECONDS (21-34) 11/06/16 07:20 - Constitutional Appears: No Acute Distress - Head Exam Head Exam: ATRAUMATIC, NORMOCEPHALIC - Eye Exam Eye Exam: EOMI - ENT Exam ENT Exam: Mucous Membranes Moist - Respiratory Exam Respiratory Exam: Clear to Ausculation Bilateral, NORMAL BREATHING PATTERN - Cardiovascular Exam Cardiovascular Exam: +S1, +S2 - Extremities Exam Extremities Exam: absent: Normal Inspection, Pedal Edema - Neurological Exam Neurological Exam: Alert, Awake - Psychiatric Exam Psychiatric exam: Normal Affect - Skin Additional comments: wound vac in place on bilateral breasts right chest port Assessment and Plan - Assessment and Plan (Free Text) Assessment: Bilateral breast wound infection L > R -S/P removal breast implants, capsulectomy (11/06) POD #1 -Dilaudid 1mg IV Q3 PRN for pain control - wound vac in place -s/p bilateral breast implant insertion, extensive bilateral breast revision, scar revision, breast capsulectomy, capsulotomy done 08/27/[address] Arango -blood culture- no growth after 24 hrs -wound culture- MRSA positive -Percocet 1 tab PO Q6h PRN pain, Dilaudid 0.5mg IV Q4 PRN -Initially Vancomycin 1gm IVPB Q24H; Vanco trough 7.0. F/U Vanco trough 11/07 in AM with morning labs -Zosyn 3.375gm IVPB Q8H- started 10/24/16 -Dr. Arango plastic surgeon on the case- OR today. 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 Rogers. [facility] IV antibiotics for 3-6 wks. -Isolation precautions Rule Out Parvovirus B 19 blood infection -Pathology reported possible contaminated plasma blood products that was transfused -Of note, patient received packed red blood cells. -ID and Surg team made aware -Patient informed with questions and concerns addressed -Infectious Disease and surgery teams made aware -Monitor for rash or symptomatology -Parvovirus serologies resulted 11/03/16: -IgM (acute) negative -IgG positive value consistent with a past exposure that likely is not from this most recent transfusion. Patient informed. Invasive bilateral Lobular Carcinoma of breast -Patient receives chemotherapy every week -Patient receives radiation every week -Dilaudid 1mg IV Q3 PRN Hx of HTN -Elevated though could be secondarily due to pain. -Patient encouraged to request medication when in pain -Norvasc 5 mg, Losartan 100 mg PO daily started with hold parameters for SBP below 110. Hx of DM -Accucheck -low dose RISS Hx of Arthritis Motrin TID PRN with food -PT on board Hx of Insomnia and anxiety -Risperidone 1mg po daily -Zoloft 100mg po daily -Ambien 5mg PO HS PRN Dyspnea Albuterol 0.083% nebulizer Q6h PRN Will add nasal cannula as needed. Anemia -Stable at this time. -Continue to monitor closely PPX -Protonix 40mg po daily -Held Heparin due to acute anemia -SCDs -Heart healthy diet moderate consistent carb diet -PT on board <Quiroz,Peter H - Last Filed: 11/07/16 16:15> Objective - Vital Signs/Intake and Output Vital Signs (last 24 hours): Temp Pulse Resp BP Pulse Ox 97.9 F 78 20 126/76 94 L 11/07/16 07:55 11/07/16 10:13 11/07/16 07:55 11/07/16 10:13 11/07/16 07:55 - Medications Medications: Current Medications Amlodipine Besylate (Norvasc) 5 mg PO DAILY [facility] Last Admin: 11/07/16 10:21 Dose: 5 mg Benzocaine/Menthol (Cepacol Sore Throat) 1 sumeet MT Q1 PRN PRN Reason: Sore Throat Last Admin: 11/07/16 00:12 Dose: 1 sumeet Diphenhydramine HCl (Benadryl) 25 mg PO Q6 PRN PRN Reason: Itching / Pruritus Last Admin: 11/07/16 10:21 Dose: 25 mg Hydromorphone HCl (Dilaudid) 1 mg IVP Q3H PRN PRN Reason: Pain, severe (8-10) Last Admin: 11/07/16 14:10 Dose: 1 mg Piperacillin Sod/Tazobactam Sod (Zosyn 3.375 Gm Iv Premix) 3.375 gm in 50 mls @ 100 mls/hr IVPB Q6H [facility] Last Admin: 11/07/16 11:57 Dose: 100 mls/hr Vancomycin/Sodium Chloride (Vancocin) 1 gm in 200 mls @ 133.333 mls/hr IVPB Q24H [facility] Last Admin: 11/07/16 14:09 Dose: 133.333 mls/hr Ibuprofen (Motrin Tab) 600 mg PO TID PRN PRN Reason: Arthritis Last Admin: 11/04/16 01:36 Dose: 600 mg Insulin Aspart (Novolog) 0 unit SC ACHS [facility] PRN Reason: Protocol Last Admin: 11/07/16 12:27 Dose: Not Given Losartan Potassium (Cozaar) 100 mg PO DAILY [facility] Last Admin: 11/07/16 10:22 Dose: 100 mg Meperidine HCl (Demerol) 12.5 mg IVP Q5M PRN PRN Reason: Shivering/Rigor Ondansetron HCl (Zofran Inj) 4 mg IVP Q4 PRN PRN Reason: Nausea/Vomiting Last Admin: 11/06/16 17:48 Dose: 4 mg Pantoprazole Sodium (Protonix Ec Tab) 40 mg PO DAILY [facility] Last Admin: 11/07/16 10:22 Dose: 40 mg Potassium Chloride (K-Dur 20 Meq Er Tab) 20 meq PO DAILY [facility] Last Admin: 11/07/16 10:22 Dose: 20 meq Risperidone (Risperdal Tab) 1 mg PO DAILY [facility] Last Admin: 11/07/16 10:22 Dose: 1 mg Sertraline HCl (Zoloft) 100 mg PO DAILY [facility] Last Admin: 11/07/16 10:22 Dose: 100 mg Zolpidem Tartrate (Ambien) 5 mg PO HS PRN PRN Reason: Insomnia Last Admin: 11/06/16 21:18 Dose: 5 mg - Labs Labs: 11/07/16 07:28 11/07/16 07:28 PT 13.7 SECONDS (9.7-12.2) H 11/06/16 07:20 INR 1.2 11/06/16 07:20 APTT 30 SECONDS (21-34) 11/06/16 07:20 Attending/Attestation - Attestation I have personally seen and examined this patient.: Yes I have fully participated in the care of the patient.: Yes I have reviewed all pertinent clinical information, including history, physical exam and plan: Yes Notes (Text): 11/07/16 16:13 Medical attending: Patient was seen and examined by me, agrees the above note by biomedical engineering internship. As documented before the patient opted to have the removal of the breast implants. I was told that earlier in the morning she was having significant amounts of pain, however by the time I saw her during her rounding she is early received pain medication and she stated that it was well controlled the pain. She now has bilateral wound vacs. [place] At this time from my understanding were currently waiting for the wound cultures to return before we think about sending the patient for anti-biotics Thank you very much, Enrique Quiroz
[2016-11-07] MEDS: Vancomycin 1 gm/NS 200 ml 1 GM/200 ML BAG IVPB SCH (14:09)
--- NOTE | 2016-11-07 15:18 | CP.PCM.PN ---
Subjective - Date & Time of Evaluation Date of Evaluation: 11/07/16 Time of Evaluation: 09:00 - Subjective Subjective: s/p removal breast implant c/o pain but no fever and no signs of sepsis wound vac in place iv rx in progress Objective - Vital Signs/Intake and Output Vital Signs (last 24 hours): Temp Pulse Resp BP Pulse Ox 97.9 F 78 20 126/76 94 L 11/07/16 07:55 11/07/16 10:13 11/07/16 07:55 11/07/16 10:13 11/07/16 07:55 - Medications Medications: Current Medications Amlodipine Besylate (Norvasc) 5 mg PO DAILY [facility] Last Admin: 11/07/16 10:21 Dose: 5 mg Benzocaine/Menthol (Cepacol Sore Throat) 1 sumeet MT Q1 PRN PRN Reason: Sore Throat Last Admin: 11/07/16 00:12 Dose: 1 sumeet Diphenhydramine HCl (Benadryl) 25 mg PO Q6 PRN PRN Reason: Itching / Pruritus Last Admin: 11/07/16 10:21 Dose: 25 mg Hydromorphone HCl (Dilaudid) 1 mg IVP Q3H PRN PRN Reason: Pain, severe (8-10) Last Admin: 11/07/16 14:10 Dose: 1 mg Piperacillin Sod/Tazobactam Sod (Zosyn 3.375 Gm Iv Premix) 3.375 gm in 50 mls @ 100 mls/hr IVPB Q6H [facility] Last Admin: 11/07/16 11:57 Dose: 100 mls/hr Vancomycin/Sodium Chloride (Vancocin) 1 gm in 200 mls @ 133.333 mls/hr IVPB Q24H [facility] Last Admin: 11/07/16 14:09 Dose: 133.333 mls/hr Ibuprofen (Motrin Tab) 600 mg PO TID PRN PRN Reason: Arthritis Last Admin: 11/04/16 01:36 Dose: 600 mg Insulin Aspart (Novolog) 0 unit SC ACHS [facility] PRN Reason: Protocol Last Admin: 11/07/16 12:27 Dose: Not Given Losartan Potassium (Cozaar) 100 mg PO DAILY [facility] Last Admin: 11/07/16 10:22 Dose: 100 mg Meperidine HCl (Demerol) 12.5 mg IVP Q5M PRN PRN Reason: Shivering/Rigor Ondansetron HCl (Zofran Inj) 4 mg IVP Q4 PRN PRN Reason: Nausea/Vomiting Last Admin: 11/06/16 17:48 Dose: 4 mg Pantoprazole Sodium (Protonix Ec Tab) 40 mg PO DAILY [facility] Last Admin: 11/07/16 10:22 Dose: 40 mg Potassium Chloride (K-Dur 20 Meq Er Tab) 20 meq PO DAILY [facility] Last Admin: 11/07/16 10:22 Dose: 20 meq Risperidone (Risperdal Tab) 1 mg PO DAILY [facility] Last Admin: 11/07/16 10:22 Dose: 1 mg Sertraline HCl (Zoloft) 100 mg PO DAILY [facility] Last Admin: 11/07/16 10:22 Dose: 100 mg Zolpidem Tartrate (Ambien) 5 mg PO HS PRN PRN Reason: Insomnia Last Admin: 11/06/16 21:18 Dose: 5 mg - Labs Labs: 11/07/16 07:28 11/07/16 07:28 PT 13.7 SECONDS (9.7-12.2) H 11/06/16 07:20 INR 1.2 11/06/16 07:20 APTT 30 SECONDS (21-34) 11/06/16 07:20 - Constitutional Appears: Non-toxic, Chronically Ill - Head Exam Head Exam: NORMOCEPHALIC - Eye Exam Eye Exam: PERRL. absent: Scleral icterus - ENT Exam ENT Exam: Mucous Membranes Dry, Normal External Ear Exam - Neck Exam Neck Exam: absent: Lymphadenopathy - Respiratory Exam Respiratory Exam: Decreased Breath Sounds, Clear to Ausculation Bilateral - Cardiovascular Exam Cardiovascular Exam: REGULAR RHYTHM, +S1, +S2 - GI/Abdominal Exam GI & Abdominal Exam: Distended, Soft. absent: Tenderness Assessment and Plan (1) Cellulitis of breast Status: Acute (2) Postoperative wound dehiscence Status: Acute (3) Breast cancer Status: Acute
--- NOTE | 2016-11-07 22:00 | CP.PCM.PCO ---
Physician Communication Note - Physician Communication Note Physician Communication Note: Patient status post removal of imlpants Assessment & Plan - Assessment and Plan (Free Text) Assessment: Since there is no permanent implant left, will defer to Dr. Rogers regarding how much longer patient will need IV antibitoics. Will plan to change the VAC on Thursday and possible d/c completely.
[2016-11-08] MEDS: Piperacill/Tazo 3.375gm in Dex 3.375 GM/50 ML BAG IVPB SCH ×4 (00:56→17:35)
[2016-11-08] MEDS: HYDROmorphone 0.5 mg/0.5 ml ISec IVP PRN (00:59)
[2016-11-08 06:55] LABS: BASO # 0.1 K/uL (0.0-0.2); BASO % 0.7 % (0.0-2.0); EOS # 0.3 K/uL (0.0-0.7); HEMATOCRIT 30.6 % (34.0-47.0); LYMPH # 1.4 K/uL (1.0-4.3); LYMPH % 15.6 % (20.0-40.0); MEAN CELL VOLUME 88.2 fL (81.0-99.0); MEAN CORPUSCULAR HEMOGLOBIN 28.7 pg (27.0-31.0); MEAN CORPUSCULAR HGB CONC 32.5 g/dL (33.0-37.0); MEAN PLATELET VOLUME 6.9 fL (7.2-11.7); MONO # 0.9 K/uL (0.0-0.8); MONO % 10.7 % (0.0-10.0); NRBC % 0.1 % (0.0-2.0); RED CELL DISTRIBUTION WIDTH 16.1 % (11.5-14.5); WHITE BLOOD COUNT 8.7 K/uL (4.8-10.8)
[2016-11-08 07:07] LABS: CHLORIDE 100 mmol/L (98-107); POTASSIUM 4.2 mmol/L (3.6-5.2); SODIUM 136 mmol/L (132-148)
[2016-11-08 07:09] LABS: ALB/GLOB RATIO 1.2 (1.0-2.1); ALKALINE PHOSPHATASE 45 U/L (38-126); AST/SGOT 14 U/L (14-36); BILIRUBIN,TOTAL 0.5 mg/dL (0.2-1.3); CARBON DIOXIDE 28 mmol/L (22-30); GFR AFRICAN-AMERICAN > 60; TOTAL PROTEIN 6.1 g/dL (6.3-8.3)
[2016-11-08 07:10] LABS: ALT/SGPT 18 U/L (9-52); BLOOD UREA NITROGEN 14 mg/dL (7-17); CALCIUM 8.1 mg/dl (8.6-10.4); GLUCOSE,RANDOM 85 mg/dL (65-105)
[2016-11-08] MEDS: (Novolog) Insulin Aspart, Recombinant 100 u/ml 10 ml vial SC SCH ×4 (08:09→22:01)
[2016-11-08] MEDS: Pantoprazole 40 mg EC Tab PO SCH (09:48)
[2016-11-08] MEDS: Potassium Chloride 20 mEq ER Tab PO SCH (09:48)
--- NOTE | 2016-11-08 10:53 | CP.PCM.PN ---
Subjective - Date & Time of Evaluation Date of Evaluation: 11/08/16 Time of Evaluation: 10:00 - Subjective Subjective: Patient was seen and examined by me and resident. The patient reported some difficulty sleeping overnight, otherwise no acute distress or events. She reports she is getting enough pain medication. As mentioned previously she had removal of implants and currently has wound vacs bilaterally. We are currently waiting on the new cultures. Previously there were + MRSA and she has been on IV abx. Surgery is planning on further evaluation this Thursday, possible removal of wound vacs on Thursday. Objective - Vital Signs/Intake and Output Vital Signs (last 24 hours): Temp Pulse Resp BP Pulse Ox 98.1 F 76 18 119/76 95 11/07/16 23:31 11/07/16 23:31 11/07/16 23:31 11/07/16 23:31 11/07/16 23:31 - Medications Medications: Current Medications Amlodipine Besylate (Norvasc) 5 mg PO DAILY [facility] Last Admin: 11/08/16 09:48 Dose: 5 mg Benzocaine/Menthol (Cepacol Sore Throat) 1 sumeet MT Q1 PRN PRN Reason: Sore Throat Last Admin: 11/07/16 17:54 Dose: 1 sumeet Diphenhydramine HCl (Benadryl) 25 mg PO Q6 PRN PRN Reason: Itching / Pruritus Last Admin: 11/07/16 21:56 Dose: 25 mg Hydromorphone HCl (Dilaudid) 1 mg IVP Q3H PRN PRN Reason: Pain, severe (8-10) Last Admin: 11/08/16 08:55 Dose: 1 mg Piperacillin Sod/Tazobactam Sod (Zosyn 3.375 Gm Iv Premix) 3.375 gm in 50 mls @ 100 mls/hr IVPB Q6H [facility] Last Admin: 11/08/16 07:31 Dose: 100 mls/hr Vancomycin/Sodium Chloride (Vancocin) 1 gm in 200 mls @ 133.333 mls/hr IVPB Q24H [facility] Last Admin: 11/07/16 14:09 Dose: 133.333 mls/hr Ibuprofen (Motrin Tab) 600 mg PO TID PRN PRN Reason: Arthritis Last Admin: 11/04/16 01:36 Dose: 600 mg Insulin Aspart (Novolog) 0 unit SC ACHS [facility] PRN Reason: Protocol Last Admin: 11/08/16 08:09 Dose: Not Given Losartan Potassium (Cozaar) 100 mg PO DAILY [facility] Last Admin: 11/08/16 09:48 Dose: 100 mg Meperidine HCl (Demerol) 12.5 mg IVP Q5M PRN PRN Reason: Shivering/Rigor Ondansetron HCl (Zofran Inj) 4 mg IVP Q4 PRN PRN Reason: Nausea/Vomiting Last Admin: 11/08/16 08:55 Dose: 4 mg Pantoprazole Sodium (Protonix Ec Tab) 40 mg PO DAILY [facility] Last Admin: 11/08/16 09:48 Dose: 40 mg Potassium Chloride (K-Dur 20 Meq Er Tab) 20 meq PO DAILY [facility] Last Admin: 11/08/16 09:48 Dose: 20 meq Risperidone (Risperdal Tab) 1 mg PO DAILY [facility] Last Admin: 11/08/16 09:48 Dose: 1 mg Sertraline HCl (Zoloft) 100 mg PO DAILY [facility] Last Admin: 11/08/16 09:48 Dose: 100 mg Zolpidem Tartrate (Ambien) 5 mg PO HS PRN PRN Reason: Insomnia Last Admin: 11/07/16 21:55 Dose: 5 mg - Labs Labs: 11/08/16 06:46 11/08/16 06:46 PT 13.7 SECONDS (9.7-12.2) H 11/06/16 07:20 INR 1.2 11/06/16 07:20 APTT 30 SECONDS (21-34) 11/06/16 07:20 - Constitutional Appears: Well, No Acute Distress - Head Exam Head Exam: NORMAL INSPECTION, NORMOCEPHALIC - Eye Exam Eye Exam: EOMI, Normal appearance - Respiratory Exam Respiratory Exam: Clear to Ausculation Bilateral, NORMAL BREATHING PATTERN - Cardiovascular Exam Cardiovascular Exam: REGULAR RHYTHM - GI/Abdominal Exam GI & Abdominal Exam: Soft. absent: Firm, Guarding, Rigid, Tenderness - Neurological Exam Neurological Exam: Alert, Awake, Oriented x3 Neuro motor strength exam: Left Upper Extremity: 5, Right Upper Extremity: 5, Left Lower Extremity: 5, Right Lower Extremity: 5 - Psychiatric Exam Psychiatric exam: Depressed, Flat Affect - Skin Skin Exam: Normal Color, Warm Assessment and Plan - Assessment and Plan (Free Text) Assessment: Bilateral breast wound infection L > R 11/08: -S/P removal breast implants, capsulectomy (11/06) POD #2 Currently pending on repeat microbiology/cultures. She remains on Vancomycin and Zosyn. Further evaluation by surgery is planned on Thursday. WBC decreased, afebrile. -Dilaudid 1mg IV Q3 PRN for pain control - wound vac in place -s/p bilateral breast implant insertion, extensive bilateral breast revision, scar revision, breast capsulectomy, capsulotomy done 08/27/[address] 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 -Isolation precautions Rule Out Parvovirus B 19 blood infection -Pathology reported possible contaminated plasma blood products that was transfused -Of note, patient received packed red blood cells. -ID and Surg team made aware -Patient informed with questions and concerns addressed -Infectious Disease and surgery teams made aware -Monitor for rash or symptomatology -Parvovirus serologies resulted 11/03/16: -IgM (acute) negative -IgG positive value consistent with a past exposure that likely is not from this most recent transfusion. Patient informed. Invasive bilateral Lobular Carcinoma of breast -Patient receives chemotherapy every week -Patient receives radiation every week -Dilaudid 1mg IV Q3 PRN Hx of HTN -Elevated though could be secondarily due to pain. -Patient encouraged to request medication when in pain -Norvasc 5 mg, Losartan 100 mg PO daily started with hold parameters for SBP below 110. Hx of DM -Accucheck -low dose RISS Hx of Arthritis Motrin TID PRN with food -PT on board Hx of Insomnia and anxiety -Risperidone 1mg po daily -Zoloft 100mg po daily -Ambien 5mg PO HS PRN Dyspnea Albuterol 0.083% nebulizer Q6h PRN Will add nasal cannula as needed. Anemia -Stable at this time. -Continue to monitor closely PPX -Protonix 40mg po daily -Held Heparin due to acute anemia -SCDs -Heart healthy diet moderate consistent carb diet -PT on board
[2016-11-08] MEDS: Vancomycin 1 gm/NS 200 ml 1 GM/200 ML BAG IVPB SCH (15:20)
--- NOTE | 2016-11-08 21:58 | CP.PCM.PCO ---
Physician Communication Note - Physician Communication Note Physician Communication Note: Patient status post implant removal Assessment & Plan - Assessment and Plan (Free Text) Assessment: Complaining of back pain, but the intra operative thoracic block did help for postop pain relief and for the back pain. PE: incision line intact, VAC off sucction, leak patched and sucction working again. Plan: Will defer to Dr. Rogers about how long IV antibiotics need to be given since no foreign material is in the chest and cellulitis had resolved prior to surgery on . No new wound cultures were taken at this last surgery. Will plan to remove VAC on Thursday and as long as incision is OK, will leave off the wound VAC.
[2016-11-09] MEDS: Piperacill/Tazo 3.375gm in Dex 3.375 GM/50 ML BAG IVPB SCH ×4 (00:04→23:57)
--- NOTE | 2016-11-09 04:44 | CP.PCM.PN ---
<Radha Meyer - Last Filed: 11/09/16 04:48> Subjective - Date & Time of Evaluation Date of Evaluation: 11/09/16 Time of Evaluation: 00:57 - Subjective Subjective: PGY-[address] Quiroz's service: Patient seen and examined at bedside. Pt's pain is controlled. Patient s/p capsulectomy and removal of implants. She states that she feels better about her decision to remove he implants. She is ambulating without difficulty. She denies subjective fevers or chills, chest pain, palpitations, headaches, visual changes, shortness of breath, pruritus, diarrhea, constipation, or shortness of breath. Objective - Vital Signs/Intake and Output Vital Signs (last 24 hours): Temp Pulse Resp BP Pulse Ox 98.3 F 80 20 105/68 93 L 11/08/16 23:11 11/08/16 23:11 11/08/16 23:11 11/08/16 23:11 11/08/16 23:11 Intake and Output: 11/08/16 11/09/16 18:59 06:59 Intake Total 50 Balance 50 - Medications Medications: Current Medications Amlodipine Besylate (Norvasc) 5 mg PO DAILY [facility] Last Admin: 11/08/16 09:48 Dose: 5 mg Benzocaine/Menthol (Cepacol Sore Throat) 1 sumeet MT Q1 PRN PRN Reason: Sore Throat Last Admin: 11/07/16 17:54 Dose: 1 sumeet Diphenhydramine HCl (Benadryl) 25 mg PO Q6 PRN PRN Reason: Itching / Pruritus Last Admin: 11/08/16 23:48 Dose: 25 mg Hydromorphone HCl (Dilaudid) 1 mg IVP Q3H PRN PRN Reason: Pain, severe (8-10) Last Admin: 11/09/16 03:36 Dose: 1 mg Piperacillin Sod/Tazobactam Sod (Zosyn 3.375 Gm Iv Premix) 3.375 gm in 50 mls @ 100 mls/hr IVPB Q6H [facility] Last Admin: 11/09/16 00:04 Dose: 100 mls/hr Vancomycin/Sodium Chloride (Vancocin) 1 gm in 200 mls @ 133.333 mls/hr IVPB Q24H [facility] Last Admin: 11/08/16 15:20 Dose: 133.333 mls/hr Ibuprofen (Motrin Tab) 600 mg PO TID PRN PRN Reason: Arthritis Last Admin: 11/04/16 01:36 Dose: 600 mg Insulin Aspart (Novolog) 0 unit SC ACHS [facility] PRN Reason: Protocol Last Admin: 11/08/16 22:01 Dose: Not Given Losartan Potassium (Cozaar) 100 mg PO DAILY [facility] Last Admin: 11/08/16 09:48 Dose: 100 mg Meperidine HCl (Demerol) 12.5 mg IVP Q5M PRN PRN Reason: Shivering/Rigor Ondansetron HCl (Zofran Inj) 4 mg IVP Q4 PRN PRN Reason: Nausea/Vomiting Last Admin: 11/08/16 18:30 Dose: 4 mg Pantoprazole Sodium (Protonix Ec Tab) 40 mg PO DAILY [facility] Last Admin: 11/08/16 09:48 Dose: 40 mg Potassium Chloride (K-Dur 20 Meq Er Tab) 20 meq PO DAILY [facility] Last Admin: 11/08/16 09:48 Dose: 20 meq Risperidone (Risperdal Tab) 1 mg PO DAILY [facility] Last Admin: 11/08/16 09:48 Dose: 1 mg Sertraline HCl (Zoloft) 100 mg PO DAILY [facility] Last Admin: 11/08/16 09:48 Dose: 100 mg Zolpidem Tartrate (Ambien) 5 mg PO HS PRN PRN Reason: Insomnia Last Admin: 11/08/16 23:48 Dose: 5 mg - Labs Labs: 11/08/16 06:46 11/08/16 06:46 PT 13.7 SECONDS (9.7-12.2) H 11/06/16 07:20 INR 1.2 11/06/16 07:20 APTT 30 SECONDS (21-34) 11/06/16 07:20 - Constitutional Appears: Non-toxic, No Acute Distress - Head Exam Head Exam: ATRAUMATIC, NORMAL INSPECTION, NORMOCEPHALIC - Eye Exam Eye Exam: EOMI, Normal appearance, PERRL Pupil Exam: NORMAL ACCOMODATION - ENT Exam ENT Exam: Mucous Membranes Moist - Neck Exam Neck Exam: Full ROM - Respiratory Exam Respiratory Exam: NORMAL BREATHING PATTERN. absent: Wheezes - Cardiovascular Exam Cardiovascular Exam: +S1, +S2 - GI/Abdominal Exam GI & Abdominal Exam: Soft, Normal Bowel Sounds - Extremities Exam Extremities Exam: Full ROM - Back Exam Back Exam: Full ROM - Neurological Exam Neurological Exam: Alert, Awake, Oriented x3 Neuro motor strength exam: Left Upper Extremity: 5, Right Upper Extremity: 5, Left Lower Extremity: 5, Right Lower Extremity: 5 - Psychiatric Exam Psychiatric exam: Normal Affect, Normal Mood - Skin Skin Exam: Warm Additional comments: wound vac in place with minimal drainage noted. Assessment and Plan - Assessment and Plan (Free Text) Assessment: Bilateral breast wound infection L > R 11/09: -S/P removal breast implants, capsulectomy (11/06) POD #3 Currently pending on repeat microbiology/cultures. She remains on Vancomycin and Zosyn. Further evaluation by surgery is planned on Thursday to potentially remove wound vacs. WBC decreased, afebrile. -Dilaudid 1mg IV Q3 PRN for pain control - wound vac in place -s/p bilateral breast implant insertion, extensive bilateral breast revision, scar revision, breast capsulectomy, capsulotomy done 08/27/[address] Arango -blood culture - so far negative -wound culture- MRSA positive -ID consult placed to Dr. Rogers. long-term IV antibiotics for 3-6 wks. -Isolation precautions Rule Out Parvovirus B 19 blood infection -Pathology reported possible contaminated plasma blood products that was transfused -Of note, patient received packed red blood cells. -Patient informed with questions and concerns addressed -Infectious Disease and surgery teams made aware -Monitor for rash or symptomatology -Parvovirus serologies resulted 11/03/16: -IgM (acute) negative -IgG positive value consistent with a past exposure that likely is not from this most recent transfusion. Patient informed. Invasive bilateral Lobular Carcinoma of breast -Patient receives chemotherapy every week -Patient receives radiation every week -Dilaudid 1mg IV Q3 PRN Hx of HTN -Normotensive -Patient encouraged to request medication when in pain -Norvasc 5 mg, Losartan 100 mg PO daily started with hold parameters for SBP below 110. Hx of DM -Accucheck -low dose RISS Hx of Arthritis Motrin TID PRN with food -PT on board Hx of Insomnia and anxiety -Risperidone 1mg po daily -Zoloft 100mg po daily -Ambien 5mg PO HS PRN Dyspnea Albuterol 0.083% nebulizer Q6h PRN Will add nasal cannula as needed. Anemia -Stable at this time. -Continue to monitor closely PPX -Protonix 40mg po daily -Held Heparin due to acute anemia -SCDs -Heart healthy diet moderate consistent carb diet -PT on board <Enrique Quiroz H - Last Filed: 11/09/16 10:04> Objective - Vital Signs/Intake and Output Vital Signs (last 24 hours): Temp Pulse Resp BP Pulse Ox 98.2 F 72 20 110/64 93 L 11/09/16 07:15 11/09/16 07:15 11/09/16 07:15 11/09/16 07:15 11/09/16 07:15 - Medications Medications: Current Medications Amlodipine Besylate (Norvasc) 5 mg PO DAILY [facility] Last Admin: 11/09/16 09:39 Dose: 5 mg Benzocaine/Menthol (Cepacol Sore Throat) 1 sumeet MT Q1 PRN PRN Reason: Sore Throat Last Admin: 11/07/16 17:54 Dose: 1 sumeet Diphenhydramine HCl (Benadryl) 25 mg PO Q6 PRN PRN Reason: Itching / Pruritus Last Admin: 11/08/16 23:48 Dose: 25 mg Hydromorphone HCl (Dilaudid) 1 mg IVP Q3H PRN PRN Reason: Pain, severe (8-10) Last Admin: 11/09/16 08:48 Dose: 1 mg Piperacillin Sod/Tazobactam Sod (Zosyn 3.375 Gm Iv Premix) 3.375 gm in 50 mls @ 100 mls/hr IVPB Q6H [facility] Last Admin: 11/09/16 05:47 Dose: 100 mls/hr Vancomycin/Sodium Chloride (Vancocin) 1 gm in 200 mls @ 133.333 mls/hr IVPB Q24H [facility] Last Admin: 11/08/16 15:20 Dose: 133.333 mls/hr Ibuprofen (Motrin Tab) 600 mg PO TID PRN PRN Reason: Arthritis Last Admin: 11/04/16 01:36 Dose: 600 mg Insulin Aspart (Novolog) 0 unit SC ACHS [facility] PRN Reason: Protocol Last Admin: 11/09/16 07:42 Dose: Not Given Losartan Potassium (Cozaar) 100 mg PO DAILY [facility] Last Admin: 11/09/16 09:39 Dose: 100 mg Meperidine HCl (Demerol) 12.5 mg IVP Q5M PRN PRN Reason: Shivering/Rigor Ondansetron HCl (Zofran Inj) 4 mg IVP Q4 PRN PRN Reason: Nausea/Vomiting Last Admin: 11/08/16 18:30 Dose: 4 mg Pantoprazole Sodium (Protonix Ec Tab) 40 mg PO DAILY [facility] Last Admin: 11/09/16 09:39 Dose: 40 mg Potassium Chloride (K-Dur 20 Meq Er Tab) 20 meq PO DAILY [facility] Last Admin: 11/09/16 09:39 Dose: 20 meq Risperidone (Risperdal Tab) 1 mg PO DAILY [facility] Last Admin: 11/09/16 09:39 Dose: 1 mg Sertraline HCl (Zoloft) 100 mg PO DAILY [facility] Last Admin: 11/09/16 09:39 Dose: 100 mg Zolpidem Tartrate (Ambien) 5 mg PO HS PRN PRN Reason: Insomnia Last Admin: 11/08/16 23:48 Dose: 5 mg - Labs Labs: 11/09/16 08:14 11/09/16 08:14 PT 13.7 SECONDS (9.7-12.2) H 11/06/16 07:20 INR 1.2 11/06/16 07:20 APTT 30 SECONDS (21-34) 11/06/16 07:20 Attending/Attestation - Attestation I have personally seen and examined this patient.: Yes I have fully participated in the care of the patient.: Yes I have reviewed all pertinent clinical information, including history, physical exam and plan: Yes Notes (Text): Medical Attending: Patient was seen and examined by me, agree with the above note by the resident The patient did not report anything new or any new pressing concerns. Tomorrow removal of the wound vac(s) are planned. The patient said she had a lot of difficulty sleeping. Wanted to try xanax tonight x 1 thank you Enrique Quiroz
[2016-11-09] MEDS: (Novolog) Insulin Aspart, Recombinant 100 u/ml 10 ml vial SC SCH ×4 (07:42→21:45)
[2016-11-09 08:28] LABS: BASO # 0.1 K/uL (0.0-0.2); BASO % 0.9 % (0.0-2.0); EOS # 0.5 K/uL (0.0-0.7); EOS % 6.5 % (0.0-4.0); HEMATOCRIT 31.1 % (34.0-47.0); LYMPH % 14.2 % (20.0-40.0); MEAN CELL VOLUME 88.8 fL (81.0-99.0); MEAN CORPUSCULAR HEMOGLOBIN 28.4 pg (27.0-31.0); MEAN PLATELET VOLUME 7.4 fL (7.2-11.7); MONO # 0.8 K/uL (0.0-0.8); MONO % 11.8 % (0.0-10.0); RED CELL DISTRIBUTION WIDTH 15.9 % (11.5-14.5); WHITE BLOOD COUNT 7.1 K/uL (4.8-10.8)
[2016-11-09 08:39] LABS: CHLORIDE 103 mmol/L (98-107); POTASSIUM 4.1 mmol/L (3.6-5.2); SODIUM 140 mmol/L (132-148)
[2016-11-09 08:41] LABS: GFR AFRICAN-AMERICAN > 60
[2016-11-09 08:42] LABS: ALB/GLOB RATIO 1.1 (1.0-2.1); ALKALINE PHOSPHATASE 46 U/L (38-126); ALT/SGPT 17 U/L (9-52); AST/SGOT 19 U/L (14-36); BILIRUBIN,TOTAL 0.5 mg/dL (0.2-1.3); BLOOD UREA NITROGEN 15 mg/dL (7-17); CARBON DIOXIDE 29 mmol/L (22-30); GLUCOSE,RANDOM 83 mg/dL (65-105); TOTAL PROTEIN 6.3 g/dL (6.3-8.3)
[2016-11-09 08:43] LABS: CALCIUM 8.8 mg/dl (8.6-10.4)
[2016-11-09 08:44] LABS: MAGNESIUM 1.9 mg/dL (1.6-2.3); PHOSPHOROUS 3.3 mg/dL (2.5-4.5)
--- NOTE | 2016-11-09 09:32 | CP.PCM.PN ---
Subjective - Date & Time of Evaluation Date of Evaluation: 11/09/16 Time of Evaluation: 09:30 - Subjective Subjective: Surgery: Dr. Arango Pt seen and examined. Resting comfortably in bed. Pain controlled w. meds. Wound vac was leaking from Y-connector. She states that she does have some intermittent chest discomfort upon deep inhalation, but denies SOB/cough/ palpitations. Objective - Vital Signs/Intake and Output Vital Signs (last 24 hours): Temp Pulse Resp BP Pulse Ox 98.2 F 72 20 110/64 93 L 11/09/16 07:15 11/09/16 07:15 11/09/16 07:15 11/09/16 07:15 11/09/16 07:15 - Medications Medications: Current Medications Amlodipine Besylate (Norvasc) 5 mg PO DAILY [facility] Last Admin: 11/08/16 09:48 Dose: 5 mg Benzocaine/Menthol (Cepacol Sore Throat) 1 sumeet MT Q1 PRN PRN Reason: Sore Throat Last Admin: 11/07/16 17:54 Dose: 1 sumeet Diphenhydramine HCl (Benadryl) 25 mg PO Q6 PRN PRN Reason: Itching / Pruritus Last Admin: 11/08/16 23:48 Dose: 25 mg Hydromorphone HCl (Dilaudid) 1 mg IVP Q3H PRN PRN Reason: Pain, severe (8-10) Last Admin: 11/09/16 08:48 Dose: 1 mg Piperacillin Sod/Tazobactam Sod (Zosyn 3.375 Gm Iv Premix) 3.375 gm in 50 mls @ 100 mls/hr IVPB Q6H [facility] Last Admin: 11/09/16 05:47 Dose: 100 mls/hr Vancomycin/Sodium Chloride (Vancocin) 1 gm in 200 mls @ 133.333 mls/hr IVPB Q24H [facility] Last Admin: 11/08/16 15:20 Dose: 133.333 mls/hr Ibuprofen (Motrin Tab) 600 mg PO TID PRN PRN Reason: Arthritis Last Admin: 11/04/16 01:36 Dose: 600 mg Insulin Aspart (Novolog) 0 unit SC ACHS [facility] PRN Reason: Protocol Last Admin: 11/09/16 07:42 Dose: Not Given Losartan Potassium (Cozaar) 100 mg PO DAILY [facility] Last Admin: 11/08/16 09:48 Dose: 100 mg Meperidine HCl (Demerol) 12.5 mg IVP Q5M PRN PRN Reason: Shivering/Rigor Ondansetron HCl (Zofran Inj) 4 mg IVP Q4 PRN PRN Reason: Nausea/Vomiting Last Admin: 11/08/16 18:30 Dose: 4 mg Pantoprazole Sodium (Protonix Ec Tab) 40 mg PO DAILY [facility] Last Admin: 11/08/16 09:48 Dose: 40 mg Potassium Chloride (K-Dur 20 Meq Er Tab) 20 meq PO DAILY [facility] Last Admin: 11/08/16 09:48 Dose: 20 meq Risperidone (Risperdal Tab) 1 mg PO DAILY [facility] Last Admin: 11/08/16 09:48 Dose: 1 mg Sertraline HCl (Zoloft) 100 mg PO DAILY [facility] Last Admin: 11/08/16 09:48 Dose: 100 mg Zolpidem Tartrate (Ambien) 5 mg PO HS PRN PRN Reason: Insomnia Last Admin: 11/08/16 23:48 Dose: 5 mg - Labs Labs: 11/09/16 08:14 11/09/16 08:14 PT 13.7 SECONDS (9.7-12.2) H 11/06/16 07:20 INR 1.2 11/06/16 07:20 APTT 30 SECONDS (21-34) 11/06/16 07:20 - Constitutional Appears: Non-toxic, No Acute Distress - Head Exam Head Exam: ATRAUMATIC, NORMOCEPHALIC - Eye Exam Eye Exam: EOMI. absent: Scleral icterus - ENT Exam ENT Exam: Mucous Membranes Moist - Neck Exam Neck Exam: Full ROM - Respiratory Exam Respiratory Exam: Chest Wall Tenderness (kaleb-incisional), NORMAL BREATHING PATTERN. absent: Accessory Muscle Use, Prolonged Expiratory Phase, Respiratory Distress - GI/Abdominal Exam GI & Abdominal Exam: Soft. absent: Tenderness - Extremities Exam Extremities Exam: absent: Calf Tenderness, Pedal Edema - Neurological Exam Neurological Exam: Alert, Awake, Oriented x3 - Skin Additional comments: B/L breasts, s/p implant removal, wound vac in place, breasts are tender to palpation, warm to touch, no erythema or fluctuance Assessment and Plan - Assessment and Plan (Free Text) Assessment: 56F w. infected breast implant, s/p Bilateral breast implant removal, breast capsulectomy, POD#3 -will take down wound VAC tomorrow and assess incision -abx per ID -will continue to follow -d/w attending Paige PGY2
[2016-11-09] MEDS: Potassium Chloride 20 mEq ER Tab PO SCH (09:39)
[2016-11-09] MEDS: Pantoprazole 40 mg EC Tab PO SCH (09:39)
[2016-11-09] MEDS: Vancomycin 1 gm/NS 200 ml 1 GM/200 ML BAG IVPB SCH (13:22)
--- NOTE | 2016-11-09 15:34 | CP.PCM.PN ---
Subjective - Date & Time of Evaluation Date of Evaluation: 11/09/16 Time of Evaluation: 10:00 - Subjective Subjective: pain is controlled. Patient s/p capsulectomy and removal of implants. Objective - Vital Signs/Intake and Output Vital Signs (last 24 hours): Temp Pulse Resp BP Pulse Ox 98.2 F 72 20 110/64 93 L 11/09/16 07:15 11/09/16 07:15 11/09/16 07:15 11/09/16 07:15 11/09/16 07:15 - Medications Medications: Current Medications Alprazolam (Xanax) 1 mg PO ONCE ONE Stop: 11/09/16 18:01 Amlodipine Besylate (Norvasc) 5 mg PO DAILY [facility] Last Admin: 11/09/16 09:39 Dose: 5 mg Benzocaine/Menthol (Cepacol Sore Throat) 1 sumeet MT Q1 PRN PRN Reason: Sore Throat Last Admin: 11/07/16 17:54 Dose: 1 sumeet Diphenhydramine HCl (Benadryl) 25 mg PO Q6 PRN PRN Reason: Itching / Pruritus Last Admin: 11/08/16 23:48 Dose: 25 mg Hydromorphone HCl (Dilaudid) 1 mg IVP Q3H PRN PRN Reason: Pain, severe (8-10) Last Admin: 11/09/16 12:09 Dose: 1 mg Vancomycin/Sodium Chloride (Vancocin) 1 gm in 200 mls @ 133.333 mls/hr IVPB Q24H [facility] Last Admin: 11/09/16 13:22 Dose: 133.333 mls/hr Ibuprofen (Motrin Tab) 600 mg PO TID PRN PRN Reason: Arthritis Last Admin: 11/04/16 01:36 Dose: 600 mg Insulin Aspart (Novolog) 0 unit SC ACHS [facility] PRN Reason: Protocol Last Admin: 11/09/16 12:12 Dose: Not Given Losartan Potassium (Cozaar) 100 mg PO DAILY [facility] Last Admin: 11/09/16 09:39 Dose: 100 mg Meperidine HCl (Demerol) 12.5 mg IVP Q5M PRN PRN Reason: Shivering/Rigor Ondansetron HCl (Zofran Inj) 4 mg IVP Q4 PRN PRN Reason: Nausea/Vomiting Last Admin: 11/08/16 18:30 Dose: 4 mg Pantoprazole Sodium (Protonix Ec Tab) 40 mg PO DAILY [facility] Last Admin: 11/09/16 09:39 Dose: 40 mg Potassium Chloride (K-Dur 20 Meq Er Tab) 20 meq PO DAILY [facility] Last Admin: 11/09/16 09:39 Dose: 20 meq Risperidone (Risperdal Tab) 1 mg PO DAILY [facility] Last Admin: 11/09/16 09:39 Dose: 1 mg Sertraline HCl (Zoloft) 100 mg PO DAILY [facility] Last Admin: 11/09/16 09:39 Dose: 100 mg Zolpidem Tartrate (Ambien) 5 mg PO HS PRN PRN Reason: Insomnia Last Admin: 11/08/16 23:48 Dose: 5 mg - Labs Labs: 11/09/16 08:14 11/09/16 08:14 PT 13.7 SECONDS (9.7-12.2) H 11/06/16 07:20 INR 1.2 11/06/16 07:20 APTT 30 SECONDS (21-34) 11/06/16 07:20 Assessment and Plan (1) Cellulitis of breast Status: Acute (2) Postoperative wound dehiscence Status: Acute (3) Breast cancer Status: Acute
[2016-11-10] MEDS: Piperacill/Tazo 3.375gm in Dex 3.375 GM/50 ML BAG IVPB SCH ×4 (05:21→23:59)
[2016-11-10] MEDS: (Novolog) Insulin Aspart, Recombinant 100 u/ml 10 ml vial SC SCH ×4 (07:36→21:41)
[2016-11-10 07:49] LABS: CHLORIDE 98 mmol/L (98-107); POTASSIUM 3.9 mmol/L (3.6-5.2); SODIUM 136 mmol/L (132-148)
[2016-11-10 07:51] LABS: BILIRUBIN,TOTAL 0.5 mg/dL (0.2-1.3); GFR AFRICAN-AMERICAN > 60
[2016-11-10 07:52] LABS: ALB/GLOB RATIO 1.1 (1.0-2.1); ALKALINE PHOSPHATASE 46 U/L (38-126); ALT/SGPT 17 U/L (9-52); AST/SGOT 21 U/L (14-36); BLOOD UREA NITROGEN 15 mg/dL (7-17); CALCIUM 8.3 mg/dl (8.6-10.4); CARBON DIOXIDE 30 mmol/L (22-30); GLUCOSE,RANDOM 83 mg/dL (65-105); PHOSPHOROUS 3.3 mg/dL (2.5-4.5); TOTAL PROTEIN 6.1 g/dL (6.3-8.3)
[2016-11-10 07:53] LABS: MAGNESIUM 1.9 mg/dL (1.6-2.3)
[2016-11-10 07:56] LABS: BASO % 0.8 % (0.0-2.0); EOS # 0.5 K/uL (0.0-0.7); EOS % 7.7 % (0.0-4.0); HEMATOCRIT 29.6 % (34.0-47.0); LYMPH % 17.5 % (20.0-40.0); MEAN CORPUSCULAR HEMOGLOBIN 28.9 pg (27.0-31.0); MEAN CORPUSCULAR HGB CONC 32.4 g/dL (33.0-37.0); MEAN PLATELET VOLUME 7.5 fL (7.2-11.7); MONO # 0.8 K/uL (0.0-0.8); MONO % 13.6 % (0.0-10.0); NRBC % 0.1 % (0.0-2.0); RED CELL DISTRIBUTION WIDTH 15.4 % (11.5-14.5)
[2016-11-10 07:57] LABS: WHITE BLOOD COUNT 5.8 K/uL (4.8-10.8)
--- NOTE | 2016-11-10 08:02 | OP ---
PROCEDURE DATE: 11/06/2016 SURGEON: Reneé Arango M.D. PERFUMER: Hui Horn D.O. PREOPERATIVE DIAGNOSIS: Exposed right breast implant. POSTOPERATIVE DIAGNOSIS: Exposed right breast implant. ANESTHESIA: General endotracheal anesthesia. PROCEDURE: Removal of bilateral breast implants, bilateral capsulectomy, left chest wound excision complex closure of wound 4 cm x 2 cm in size, excision of left inferior inframammary fold scar and excision of wound, application of wound VAC to both incisions. ESTIMATED BLOOD LOSS: 100 mL. COUNT: Lap, sponge and needle count were correct at the end of the case. CONDITION: The patient was stable upon discharge to recovery. INDICATIONS FOR SURGERY: The patient is a 56-year-old female who was admitted for exposure of her left breast implant to the chest that was radiated. She underwent a revision and attempted salvage of the implant; however, over the last few days, her family and the patient have decided that she does did not want any further breast reconstruction, and especially given the possibility of exposure of the implant on the left side, she would like to have them both removed. DESCRIPTION OF PROCEDURE: The patient was identified in the holding area. Both the breasts were marked. She was then brought to the operating room and laid supine on the operating room table. Once general anesthesia was induced, the patient's chest was prepped and draped in the usual sterile fashion. Using a scalpel, incision on the right side was made at the inframammary fold 5 cm in length in order to incise the AlloDerm and remove the implant. The cavity was then curetted along the chest wall and the undersurface of the skin and muscle flap was debrided in order to remove the capsule. The capsule was then irrigated with 500 mL of normal saline pulse lavage irrigation. Any bleeding was controlled with electrocautery. The incision was closed using 3-0 Monocryl to the deep dermis followed by 4-0 Monocryl running subcuticular. In addition, a small excision on the lateral chest wall was performed, which was 2 cm x 4 mm in size in order to kiersten the skin edges where a previous drain had been placed and still bothering her because of the indentation. The left side was addressed in a similar fashion; however, the implant was already starting to expose. The previous dermis was removed as well as the silicone implant was removed. Both implants were sent to pathology for serial number identification. The chest wall was curetted in order to provide a raw bleeding surface. The undersurface of the breast pocket was debrided and the breast capsule was removed. The patient excessive radiated hard scar along the lateral aspect of the internal capsule was debulked in order that the skin flaps would settle more smoothly on the chest wall. The inferior skin margin was freshened and the wound edges were closed using 3-0 Monocryl to the deep dermis followed by 4-0 Monocryl running subcuticular and 2-0 Vicryl to the fascia. Adaptic was then placed over both incisions and a wound VAC sponge system was placed over the incision using a Y-connector and hooked up to suction at 125 mm of pressure. She tolerated the procedure well, was extubated and transferred to a stretcher and brought to recovery in stable condition. Renée Arango MD cc: [id number] TT: 11/08/2016 20:21:41 [address] MCNAIR
--- NOTE | 2016-11-10 08:04 | OP ---
PROCEDURE DATE: 10/24/2016 SURGEON: Renée Arango MD. [facility] ROOM OPERATOR: Gabino Gibson DO. PREOPERATIVE DIAGNOSIS: Exposed left breast implant. POSTOPERATIVE DIAGNOSIS: Exposed left breast implant. ANESTHESIA: General endotracheal anesthesia. PROCEDURE: Removal of left breast implant, washed out cavity, revision of scar , complex closure of dehisced wounds, reinsertion of the implant and excision of lateral chest wall excess skin and fat 7 cm x 15 mm in size. ESTIMATED BLOOD LOSS: 100 mL. COUNT: Lap, sponge, needle count were correct at the end of the case. CONDITION: The patient was stable upon discharge to recovery. INDICATIONS FOR SURGERY: The patient is a 56-year-old female who in August underwent exchange of tissue expanders for permanent implant. Postoperatively, she had some problems with minor skin dehiscence and we were using a wound VAC to help close the incision. Her last week in the office the incision had closed. Over the last 2 days the patient said that the wound started to the reopen again and came to the Emergency Room. At this time, she has an exposed silicone implant on the left breast which is the radiated side. She was taken to the operating room emergently. DESCRIPTION OF PROCEDURE: The patient was identified in the holding area. The left breast was marked, she was then brought to the operating room and laid supine on the operating table. Once general anesthesia was induced, the patient 's chest was prepped and draped in the usual sterile fashion. Beginning with removal of the implant, incision was made slightly larger and the margin of healthy tissue was removed in order to remove the implant. The lateral chest wall, which was not revised at the last surgery compared to the right side was excised in order to harvest a piece of dermis to use for reinforcement over the implant. A 7 cm x 15 cm elliptical area of skin was excised from the lateral chest wall and towards the axilla, The skin, fat, and fascia was removed 7 cm x 15 cm in size. The skin itself was de-epithelialized and defatted in order to provide a 6 x 10 cm piece of implantable dermis. The lateral chest wall was irrigated, any bleeding was controlled with electrocautery. The incision was closed in layers using 2-0 Vicryl to the fascia, 3-0 Monocryl and 4-0 Monocryl running subcuticular. The breast pocket meanwhile was pulse lavaged. The superior pocket was elevated in order to accommodate the implant. A healthy skin margin was excised and the upper abdomen skin fascial flap was elevated in order to close the skin primarily over the implant. The dermis was then placed along the inferior margin of the capsul and sutured in place. The implant was reinserted into the breast pocket after expanding the superior capsule in order to accommodate the implant. The inferior incision was elevated along the upper abdomen in order to have closed primarily. A 2-0 Vicryl was used to the fascia , followed by 3-0 Monocryl to the deep dermis and 4-0 Monocryl running subcuticular to the skin. The patient tolerated the procedure well, was extubated on the table, transferred to a stretcher and brought to recovery in stable condition. Renée Arango MD cc: [id number] TT: 11/08/2016 17:28:43 jn [email or web address]
--- NOTE | 2016-11-10 11:43 | CP.PCM.PCO ---
Physician Communication Note - Physician Communication Note Physician Communication Note: patient status post removal of implant Assessment & Plan - Assessment and Plan (Free Text) Assessment: Chest incisions clean, dry and intact. no cellulitis, no open lesions, no bleeding. Good viability of chest flaps. 56 year old female with breast reconstruction, now without any foreign body. Plan: Will defer IV antibiotics to Dr. Rogers, but there is no need from my perspective for intermediate designer antibitoics anymore. Patient's back pain has returns since OR block has resolved. She will need a formal spinal block by pain management which will need to be done as out patient. Patient will follow up with me after discharge.
[2016-11-10] MEDS: Pantoprazole 40 mg EC Tab PO SCH (12:29)
[2016-11-10] MEDS: Potassium Chloride 20 mEq ER Tab PO SCH (12:29)
[2016-11-10] MEDS: Vancomycin 1 gm/NS 200 ml 1 GM/200 ML BAG IVPB SCH (13:33)
--- NOTE | 2016-11-10 16:28 | CP.PCM.PN ---
<Sarah Waldron - Last Filed: 11/10/16 20:32> Subjective - Date & Time of Evaluation Date of Evaluation: 11/10/16 Time of Evaluation: 16:25 - Subjective Subjective: Medicine Progress Note- Dr. Deluca Service: Patient was seen and examined, and appeared in no acute distress. She reports feeling pain in her left chest area, especially with breathing or movement. She has vomited yesterday and this morning, however, she is eating. She has not had a bowel movement in 3 days. She denies fever, chills, diarrhea, palpitations, and sob. Objective - Vital Signs/Intake and Output Vital Signs (last 24 hours): Temp Pulse Resp BP Pulse Ox 98.1 F 78 20 115/63 95 11/10/16 15:29 11/10/16 15:29 11/10/16 15:29 11/10/16 15:29 11/10/16 15:29 Intake and Output: 11/10/16 11/10/16 06:59 18:59 Intake Total 120 Balance 120 - Medications Medications: Current Medications Amlodipine Besylate (Norvasc) 5 mg PO DAILY [facility] Last Admin: 11/10/16 12:29 Dose: 5 mg Benzocaine/Menthol (Cepacol Sore Throat) 1 sumeet MT Q1 PRN PRN Reason: Sore Throat Last Admin: 11/07/16 17:54 Dose: 1 sumeet Diphenhydramine HCl (Benadryl) 25 mg IVP Q6 PRN PRN Reason: Itching / Pruritus Docusate Sodium (Colace) 100 mg PO BID [facility] Hydromorphone HCl (Dilaudid) 1 mg IVP Q3H PRN PRN Reason: Pain, severe (8-10) Last Admin: 11/10/16 15:41 Dose: 1 mg Vancomycin/Sodium Chloride (Vancocin) 1 gm in 200 mls @ 133.333 mls/hr IVPB Q24H [facility] Last Admin: 11/10/16 13:33 Dose: 133.333 mls/hr Piperacillin Sod/Tazobactam Sod (Zosyn 3.375 Gm Iv Premix) 3.375 gm in 50 mls @ 100 mls/hr IVPB Q6H [facility] Last Admin: 11/10/16 12:28 Dose: 100 mls/hr Ibuprofen (Motrin Tab) 600 mg PO TID PRN PRN Reason: Arthritis Last Admin: 11/04/16 01:36 Dose: 600 mg Insulin Aspart (Novolog) 0 unit SC ACHS [facility] PRN Reason: Protocol Last Admin: 11/10/16 12:29 Dose: Not Given Losartan Potassium (Cozaar) 100 mg PO DAILY [facility] Last Admin: 11/10/16 12:29 Dose: 100 mg Ondansetron HCl (Zofran Inj) 4 mg IVP Q4 PRN PRN Reason: Nausea/Vomiting Last Admin: 11/10/16 08:40 Dose: 4 mg Pantoprazole Sodium (Protonix Ec Tab) 40 mg PO DAILY [facility] Last Admin: 11/10/16 12:29 Dose: 40 mg Potassium Chloride (K-Dur 20 Meq Er Tab) 20 meq PO DAILY [facility] Last Admin: 11/10/16 12:29 Dose: 20 meq Risperidone (Risperdal Tab) 1 mg PO DAILY [facility] Last Admin: 11/10/16 12:29 Dose: 1 mg Sertraline HCl (Zoloft) 100 mg PO DAILY [facility] Last Admin: 11/10/16 12:29 Dose: 100 mg Zolpidem Tartrate (Ambien) 5 mg PO HS PRN PRN Reason: Insomnia Last Admin: 11/10/16 00:03 Dose: 5 mg - Labs Labs: 11/10/16 07:19 11/10/16 07:19 PT 13.7 SECONDS (9.7-12.2) H 11/06/16 07:20 INR 1.2 11/06/16 07:20 APTT 30 SECONDS (21-34) 11/06/16 07:20 - Constitutional Appears: Non-toxic, No Acute Distress - Head Exam Head Exam: ATRAUMATIC, NORMAL INSPECTION - Eye Exam Eye Exam: EOMI, Normal appearance - ENT Exam ENT Exam: Mucous Membranes Moist - Neck Exam Neck Exam: Full ROM, Normal Inspection - Respiratory Exam Respiratory Exam: Decreased Breath Sounds, Clear to Ausculation Bilateral Additional comments: due to discomfort - Cardiovascular Exam Cardiovascular Exam: REGULAR RHYTHM - GI/Abdominal Exam GI & Abdominal Exam: Tenderness, Normal Bowel Sounds - Extremities Exam Extremities Exam: absent: Calf Tenderness, Pedal Edema, Tenderness - Neurological Exam Neurological Exam: Alert, Awake, Oriented x3 - Psychiatric Exam Psychiatric exam: Normal Affect, Normal Mood - Skin Skin Exam: Dry, Normal Color Assessment and Plan (1) Cellulitis of breast Assessment & Plan: Infectious Disease consult placed- Dr. Rogers, help appreciated Blood culture- negative Wound culture: MRSA positive Patient on Vancomycin 1gm IVPB Q24H - day 9 Zosyn 3.375 Gm IVPB Q6h - day 8 Plan to discharge tomorrow on Clindamycin 300 TID PO for 7 days, as per Dr. Rogers. Surgery Consult placed- Dr. Arango, help appreciated Patient s/p removal of b/l implants and capsulectomy on 11/06/16 Wound VAC removed 11/10; patient will need to follow up with Dr. Arango in 1 week Dilaudid 1mg IV Q3 PRN for pain control Status: Acute (2) Postoperative wound dehiscence Assessment & Plan: Surgery Consult placed- Dr. Arango, help appreciated Patient s/p removal of b/l implants and capsulectomy on 11/06/16 Wound VAC removed 11/10; patient will need to follow up with Dr. Arango in 1 week Status: Resolved (3) Lobular carcinoma of breast Assessment & Plan: Patient receives chemotherapy every week -Patient receives radiation every week -Dilaudid 1mg IV Q3 PRN Patient to follow up with outpatient Status: Acute (4) Insomnia Assessment & Plan: Patient with anxiety Risperidone 1mg po daily Zoloft 100mg po daily Ambien 5mg PO HS PRN Status: Acute (5) Hypertension Assessment & Plan: Normotensive Norvasc 5 mg po daily Losartan 100 mg PO daily Monitor Status: Chronic (6) Anemia Assessment & Plan: 11/10: Hgb 9.6 s/p transfusion 2U PRBC on 10/26/16 stable at this time Status: Acute (7) Constipation Assessment & Plan: Start Colace 100mg BID Status: Acute (8) Prophylactic measure Assessment & Plan: Protonix 40mg po daily SCDs Not on anticoagulation due to acute blood loss during hospital stay Heart healthy diet moderate consistent carb diet PT on board Status: Acute <Erick Deluca - Last Filed: 11/11/16 07:43> Objective - Vital Signs/Intake and Output Vital Signs (last 24 hours): Temp Pulse Resp BP Pulse Ox 98.1 F 76 22 119/68 95 11/10/16 23:55 11/10/16 23:55 11/10/16 23:55 11/10/16 22:00 11/10/16 23:55 Intake and Output: 11/11/16 11/11/16 06:59 18:59 Intake Total 200 Balance 200 - Medications Medications: Current Medications Amlodipine Besylate (Norvasc) 5 mg PO DAILY [facility] Last Admin: 11/10/16 12:29 Dose: 5 mg Benzocaine/Menthol (Cepacol Sore Throat) 1 sumeet MT Q1 PRN PRN Reason: Sore Throat Last Admin: 11/07/16 17:54 Dose: 1 sumeet Diphenhydramine HCl (Benadryl) 25 mg IVP Q6 PRN PRN Reason: Itching / Pruritus Last Admin: 11/11/16 03:32 Dose: 25 mg Docusate Sodium (Colace) 100 mg PO BID [facility] Last Admin: 11/10/16 21:45 Dose: 100 mg Hydromorphone HCl (Dilaudid) 1 mg IVP Q3H PRN PRN Reason: Pain, severe (8-10) Last Admin: 11/11/16 05:47 Dose: 1 mg Vancomycin/Sodium Chloride (Vancocin) 1 gm in 200 mls @ 133.333 mls/hr IVPB Q24H [facility] Last Admin: 11/10/16 13:33 Dose: 133.333 mls/hr Piperacillin Sod/Tazobactam Sod (Zosyn 3.375 Gm Iv Premix) 3.375 gm in 50 mls @ 100 mls/hr IVPB Q6H [facility] Last Admin: 11/11/16 05:42 Dose: 100 mls/hr Ibuprofen (Motrin Tab) 600 mg PO TID PRN PRN Reason: Arthritis Last Admin: 11/11/16 03:29 Dose: 600 mg Insulin Aspart (Novolog) 0 unit SC ACHS [facility] PRN Reason: Protocol Last Admin: 11/11/16 07:09 Dose: Not Given Losartan Potassium (Cozaar) 100 mg PO DAILY [facility] Last Admin: 11/10/16 12:29 Dose: 100 mg Ondansetron HCl (Zofran Inj) 4 mg IVP Q4 PRN PRN Reason: Nausea/Vomiting Last Admin: 11/10/16 08:40 Dose: 4 mg Pantoprazole Sodium (Protonix Ec Tab) 40 mg PO DAILY [facility] Last Admin: 11/10/16 12:29 Dose: 40 mg Potassium Chloride (K-Dur 20 Meq Er Tab) 20 meq PO DAILY [facility] Last Admin: 11/10/16 12:29 Dose: 20 meq Risperidone (Risperdal Tab) 1 mg PO DAILY [facility] Last Admin: 11/10/16 12:29 Dose: 1 mg Sertraline HCl (Zoloft) 100 mg PO DAILY [facility] Last Admin: 11/10/16 12:29 Dose: 100 mg Zolpidem Tartrate (Ambien) 5 mg PO HS PRN PRN Reason: Insomnia Last Admin: 11/10/16 21:46 Dose: 5 mg - Labs Labs: 11/10/16 07:19 11/10/16 07:19 PT 13.7 SECONDS (9.7-12.2) H 11/06/16 07:20 INR 1.2 11/06/16 07:20 APTT 30 SECONDS (21-34) 11/06/16 07:20 Attending/Attestation - Attestation I have personally seen and examined this patient.: Yes I have fully participated in the care of the patient.: Yes I have reviewed all pertinent clinical information, including history, physical exam and plan: Yes Notes (Text): 11/11/16 07:41 Patient seen and examined at bedside with the resident She complains of for mild weakness which is generalized. Denies any aches and pains in the body However she still complains of pain in the left breast at the site where wound VAC is removed We will continue to observe patient overnight and discharge in the morning on oral antibiotics as per recommendations of ID. Patient is already cleared for discharge by surgery. I discussed the plan of care with the resident and agree with the assessment and plan by the resident.
[2016-11-10] MEDS: DiphenhydrAMINE 50 mg/ml Inj IVP PRN (20:01)
[2016-11-11] MEDS: DiphenhydrAMINE 50 mg/ml Inj IVP PRN ×2 (03:32→23:54)
[2016-11-11] MEDS: Piperacill/Tazo 3.375gm in Dex 3.375 GM/50 ML BAG IVPB SCH ×3 (05:42→17:37)
[2016-11-11] MEDS: (Novolog) Insulin Aspart, Recombinant 100 u/ml 10 ml vial SC SCH ×4 (07:09→21:31)
--- NOTE | 2016-11-11 07:48 | CP.PCM.PN ---
<Sarah Waldron - Last Filed: 11/11/16 19:17> Subjective - Date & Time of Evaluation Date of Evaluation: 11/11/16 Time of Evaluation: 19:18 - Subjective Subjective: Medicine Progress Note- Dr. Deluca Service Patient was seen and examined at bedside in no acute distress. Patient states she is feeling tired and dizzy. She reports feeling itchy on her chest. Patient has not had a bowel movement in 4 days. Patient reports vomiting the previous night 11/10. Patient denies palpitations, nausea, diarrhea, shortness of breath, fever, and chills. Objective - Vital Signs/Intake and Output Vital Signs (last 24 hours): Temp Pulse Resp BP Pulse Ox 98.1 F 76 22 119/68 95 11/10/16 23:55 11/10/16 23:55 11/10/16 23:55 11/10/16 22:00 11/10/16 23:55 Intake and Output: 11/11/16 11/11/16 06:59 18:59 Intake Total 200 Balance 200 - Medications Medications: Current Medications Amlodipine Besylate (Norvasc) 5 mg PO DAILY [facility] Last Admin: 11/10/16 12:29 Dose: 5 mg Benzocaine/Menthol (Cepacol Sore Throat) 1 sumeet MT Q1 PRN PRN Reason: Sore Throat Last Admin: 11/07/16 17:54 Dose: 1 sumeet Diphenhydramine HCl (Benadryl) 25 mg IVP Q6 PRN PRN Reason: Itching / Pruritus Last Admin: 11/11/16 03:32 Dose: 25 mg Docusate Sodium (Colace) 100 mg PO BID [facility] Last Admin: 11/10/16 21:45 Dose: 100 mg Hydromorphone HCl (Dilaudid) 1 mg IVP Q3H PRN PRN Reason: Pain, severe (8-10) Last Admin: 11/11/16 05:47 Dose: 1 mg Vancomycin/Sodium Chloride (Vancocin) 1 gm in 200 mls @ 133.333 mls/hr IVPB Q24H [facility] Last Admin: 11/10/16 13:33 Dose: 133.333 mls/hr Piperacillin Sod/Tazobactam Sod (Zosyn 3.375 Gm Iv Premix) 3.375 gm in 50 mls @ 100 mls/hr IVPB Q6H [facility] Last Admin: 11/11/16 05:42 Dose: 100 mls/hr Ibuprofen (Motrin Tab) 600 mg PO TID PRN PRN Reason: Arthritis Last Admin: 11/11/16 03:29 Dose: 600 mg Insulin Aspart (Novolog) 0 unit SC ACHS [facility] PRN Reason: Protocol Last Admin: 11/11/16 07:09 Dose: Not Given Losartan Potassium (Cozaar) 100 mg PO DAILY [facility] Last Admin: 11/10/16 12:29 Dose: 100 mg Ondansetron HCl (Zofran Inj) 4 mg IVP Q4 PRN PRN Reason: Nausea/Vomiting Last Admin: 11/10/16 08:40 Dose: 4 mg Pantoprazole Sodium (Protonix Ec Tab) 40 mg PO DAILY [facility] Last Admin: 11/10/16 12:29 Dose: 40 mg Potassium Chloride (K-Dur 20 Meq Er Tab) 20 meq PO DAILY [facility] Last Admin: 11/10/16 12:29 Dose: 20 meq Risperidone (Risperdal Tab) 1 mg PO DAILY [facility] Last Admin: 11/10/16 12:29 Dose: 1 mg Sertraline HCl (Zoloft) 100 mg PO DAILY [facility] Last Admin: 11/10/16 12:29 Dose: 100 mg Zolpidem Tartrate (Ambien) 5 mg PO HS PRN PRN Reason: Insomnia Last Admin: 11/10/16 21:46 Dose: 5 mg - Labs Labs: 11/10/16 07:19 11/10/16 07:19 PT 13.7 SECONDS (9.7-12.2) H 11/06/16 07:20 INR 1.2 11/06/16 07:20 APTT 30 SECONDS (21-34) 11/06/16 07:20 - Constitutional Appears: No Acute Distress - Head Exam Head Exam: NORMAL INSPECTION, NORMOCEPHALIC - Eye Exam Eye Exam: EOMI, Normal appearance - ENT Exam ENT Exam: Mucous Membranes Moist - Neck Exam Neck Exam: Full ROM, Normal Inspection - Respiratory Exam Respiratory Exam: Clear to Ausculation Bilateral, NORMAL BREATHING PATTERN. absent: Rhonchi, Wheezes - Cardiovascular Exam Cardiovascular Exam: REGULAR RHYTHM, +S1, +S2 - GI/Abdominal Exam GI & Abdominal Exam: Soft, Tenderness, Normal Bowel Sounds Additional comments: with palpation in LLQ, LUQ - Extremities Exam Extremities Exam: absent: Calf Tenderness, Pedal Edema, Tenderness - Neurological Exam Neurological Exam: Alert, Awake, Oriented x3 - Psychiatric Exam Psychiatric exam: Normal Affect, Normal Mood - Skin Skin Exam: Dry, Intact, Normal Color, Warm Assessment and Plan (1) Cellulitis of breast Assessment & Plan: Infectious Disease consult placed- Dr. Rogers, help appreciated Blood culture- negative Wound culture: MRSA positive Patient on Vancomycin 1gm IVPB Q24H - day 10 Zosyn 3.375 Gm IVPB Q6h - day 9 Plan to discharge tomorrow on Clindamycin 300 TID PO for 7 days, as per Dr. Rogers. Surgery Consult placed- Dr. Arango, help appreciated Patient s/p removal of b/l implants and capsulectomy on 11/06/16 Wound VAC removed 11/10; patient will need to follow up with Dr. Arango in 1 week Dilaudid 2mg IV Q4 PRN for pain control Status: Acute (2) Postoperative wound dehiscence Assessment & Plan: Surgery Consult placed- Dr. Arango, help appreciated Patient s/p removal of b/l implants and capsulectomy on 11/06/16 Wound VAC removed 11/10; patient will need to follow up with Dr. Arango in 1 week Status: Resolved (3) Lobular carcinoma of breast Assessment & Plan: Patient receives chemotherapy every week -Patient receives radiation every week -Dilaudid 2mg IV Q4 PRN Patient to follow up with outpatient Status: Acute (4) Insomnia Assessment & Plan: Patient with anxiety Risperidone 1mg po daily Zoloft 100mg po daily Ambien 5mg PO HS PRN Status: Acute (5) Hypertension Assessment & Plan: Normotensive Norvasc 5 mg po daily Losartan 100 mg PO daily Monitor Status: Chronic (6) Anemia Assessment & Plan: 11/10: Hgb 9.6 s/p transfusion 2U PRBC on 10/26/16 stable at this time Status: Acute (7) Constipation Assessment & Plan: Stop Colace 100mg BID Start Lactulose 20gm PO Once (11/11/16) Start Magnesium Citrate 300ml PO Once (11/11/16) Plan to discharge tomorrow if patient has bowel movement Status: Acute (8) Prophylactic measure Assessment & Plan: Protonix 40mg po daily SCDs Not on anticoagulation due to acute blood loss during hospital stay Heart healthy diet moderate consistent carb diet PT on board Status: Acute <Erick Deluca - Last Filed: 11/12/16 17:24> Objective - Vital Signs/Intake and Output Vital Signs (last 24 hours): Temp Pulse Resp BP Pulse Ox 98.1 F 68 20 140/74 96 11/12/16 08:11 11/12/16 08:11 11/12/16 08:11 11/12/16 08:11 11/12/16 08:11 Intake and Output: 11/12/16 11/12/16 06:59 18:59 Intake Total 340 480 Balance 340 480 - Medications Medications: Current Medications Amlodipine Besylate (Norvasc) 5 mg PO DAILY [facility] Last Admin: 11/12/16 09:29 Dose: 5 mg Benzocaine/Menthol (Cepacol Sore Throat) 1 sumeet MT Q1 PRN PRN Reason: Sore Throat Last Admin: 11/07/16 17:54 Dose: 1 sumeet Diphenhydramine HCl (Benadryl) 25 mg IVP Q6 PRN PRN Reason: Itching / Pruritus Last Admin: 11/12/16 11:37 Dose: 25 mg Docusate Sodium (Colace) 100 mg PO TID [facility] Last Admin: 11/12/16 14:53 Dose: 100 mg Hydromorphone HCl (Dilaudid) 2 mg PO Q4H PRN PRN Reason: Pain, severe (8-10) Last Admin: 11/12/16 10:59 Dose: 2 mg Vancomycin/Sodium Chloride (Vancocin) 1 gm in 200 mls @ 133.333 mls/hr IVPB Q24H [facility] Last Admin: 11/12/16 14:15 Dose: 133.333 mls/hr Piperacillin Sod/Tazobactam Sod (Zosyn 3.375 Gm Iv Premix) 3.375 gm in 50 mls @ 100 mls/hr IVPB Q6H [facility] Last Admin: 11/12/16 11:37 Dose: 100 mls/hr Insulin Aspart (Novolog) 0 unit SC ACHS [facility] PRN Reason: Protocol Last Admin: 11/12/16 11:33 Dose: Not Given Losartan Potassium (Cozaar) 100 mg PO DAILY [facility] Last Admin: 11/12/16 09:29 Dose: 100 mg Ondansetron HCl (Zofran Inj) 4 mg IVP Q4 PRN PRN Reason: Nausea/Vomiting Last Admin: 11/11/16 13:45 Dose: 4 mg Pantoprazole Sodium (Protonix Ec Tab) 40 mg PO DAILY [facility] Last Admin: 11/12/16 09:29 Dose: 40 mg Potassium Chloride (K-Dur 20 Meq Er Tab) 20 meq PO DAILY [facility] Last Admin: 11/12/16 09:29 Dose: 20 meq Risperidone (Risperdal Tab) 1 mg PO DAILY [facility] Last Admin: 11/12/16 09:29 Dose: 1 mg Sertraline HCl (Zoloft) 100 mg PO DAILY [facility] Last Admin: 11/12/16 09:29 Dose: 100 mg Zolpidem Tartrate (Ambien) 5 mg PO HS PRN PRN Reason: Insomnia Last Admin: 11/10/16 21:46 Dose: 5 mg - Labs Labs: 11/10/16 07:19 11/10/16 07:19 PT 13.7 SECONDS (9.7-12.2) H 11/06/16 07:20 INR 1.2 11/06/16 07:20 APTT 30 SECONDS (21-34) 11/06/16 07:20 Attending/Attestation - Attestation I have personally seen and examined this patient.: Yes I have fully participated in the care of the patient.: Yes I have reviewed all pertinent clinical information, including history, physical exam and plan: Yes Notes (Text): 11/12/16 17:24 Patient was seen and examined at bedside with the resident Patient complains of constipation and states that she hasn't had a bowel movement in many days We will change the pain medication regimen to oral and we will also start the patient on bowel regimen Discharge planning once patient is feeling better and has a bowel movement. We will continue antibiotics as per recommendations of ID for now Surgery follow-up seen and appreciated I discussed the plan of care with the resident and agree with the assessment and plan by the resident.
[2016-11-11] MEDS ORDERED: Magnesium Hydroxide Susp 30 ml UD PO ONE (08:37)
--- NOTE | 2016-11-11 08:39 | CP.PCM.PN ---
Subjective - Date & Time of Evaluation Date of Evaluation: 11/11/16 Time of Evaluation: 08:34 - Subjective Subjective: Surgery: Dr. Arango Pt seen and examined. She states that back pain has worsened. She also states she has not had BM in 3 days. Objective - Vital Signs/Intake and Output Vital Signs (last 24 hours): Temp Pulse Resp BP Pulse Ox 98.1 F 76 22 119/68 95 11/10/16 23:55 11/10/16 23:55 11/10/16 23:55 11/10/16 22:00 11/10/16 23:55 Intake and Output: 11/11/16 11/11/16 06:59 18:59 Intake Total 200 Balance 200 - Medications Medications: Current Medications Amlodipine Besylate (Norvasc) 5 mg PO DAILY [facility] Last Admin: 11/10/16 12:29 Dose: 5 mg Benzocaine/Menthol (Cepacol Sore Throat) 1 sumeet MT Q1 PRN PRN Reason: Sore Throat Last Admin: 11/07/16 17:54 Dose: 1 sumeet Diphenhydramine HCl (Benadryl) 25 mg IVP Q6 PRN PRN Reason: Itching / Pruritus Last Admin: 11/11/16 03:32 Dose: 25 mg Docusate Sodium (Colace) 100 mg PO BID [facility] Last Admin: 11/10/16 21:45 Dose: 100 mg Hydromorphone HCl (Dilaudid) 1 mg IVP Q3H PRN PRN Reason: Pain, severe (8-10) Last Admin: 11/11/16 05:47 Dose: 1 mg Vancomycin/Sodium Chloride (Vancocin) 1 gm in 200 mls @ 133.333 mls/hr IVPB Q24H [facility] Last Admin: 11/10/16 13:33 Dose: 133.333 mls/hr Piperacillin Sod/Tazobactam Sod (Zosyn 3.375 Gm Iv Premix) 3.375 gm in 50 mls @ 100 mls/hr IVPB Q6H [facility] Last Admin: 11/11/16 05:42 Dose: 100 mls/hr Ibuprofen (Motrin Tab) 600 mg PO TID PRN PRN Reason: Arthritis Last Admin: 11/11/16 03:29 Dose: 600 mg Insulin Aspart (Novolog) 0 unit SC ACHS [facility] PRN Reason: Protocol Last Admin: 11/11/16 07:09 Dose: Not Given Losartan Potassium (Cozaar) 100 mg PO DAILY [facility] Last Admin: 11/10/16 12:29 Dose: 100 mg Ondansetron HCl (Zofran Inj) 4 mg IVP Q4 PRN PRN Reason: Nausea/Vomiting Last Admin: 11/10/16 08:40 Dose: 4 mg Pantoprazole Sodium (Protonix Ec Tab) 40 mg PO DAILY [facility] Last Admin: 11/10/16 12:29 Dose: 40 mg Potassium Chloride (K-Dur 20 Meq Er Tab) 20 meq PO DAILY [facility] Last Admin: 11/10/16 12:29 Dose: 20 meq Risperidone (Risperdal Tab) 1 mg PO DAILY [facility] Last Admin: 11/10/16 12:29 Dose: 1 mg Sertraline HCl (Zoloft) 100 mg PO DAILY [facility] Last Admin: 11/10/16 12:29 Dose: 100 mg Zolpidem Tartrate (Ambien) 5 mg PO HS PRN PRN Reason: Insomnia Last Admin: 11/10/16 21:46 Dose: 5 mg - Labs Labs: 11/10/16 07:19 11/10/16 07:19 PT 13.7 SECONDS (9.7-12.2) H 11/06/16 07:20 INR 1.2 11/06/16 07:20 APTT 30 SECONDS (21-34) 11/06/16 07:20 - Constitutional Appears: Non-toxic, No Acute Distress - Head Exam Head Exam: ATRAUMATIC, NORMOCEPHALIC - Eye Exam Eye Exam: EOMI - ENT Exam ENT Exam: Mucous Membranes Moist - Neck Exam Neck Exam: Full ROM - Respiratory Exam Respiratory Exam: NORMAL BREATHING PATTERN. absent: Accessory Muscle Use, Respiratory Distress - Neurological Exam Neurological Exam: Alert, Awake, Oriented x3 - Skin Additional comments: B/L breasts, incisions C/D/I, no erythema, no drainage, no induration/fluctuance Assessment and Plan - Assessment and Plan (Free Text) Assessment: 56F w. infected breast implant, s/p Bilateral breast implant removal, breast capsulectomy, POD#5 -Abx per ID -stool softeners -clear for D/C from surgical standpoint -to follow up wSanjiv Arango in office upon D/C -d/w attending Paige PGY2
[2016-11-11] MEDS: Potassium Chloride 20 mEq ER Tab PO SCH (09:07)
[2016-11-11] MEDS: Pantoprazole 40 mg EC Tab PO SCH (09:08)
[2016-11-11] MEDS: Oxycodone/Acetaminophen 5/325 mg Tab PO PRN ×2 (12:32→18:08)
[2016-11-11] MEDS: Vancomycin 1 gm/NS 200 ml 1 GM/200 ML BAG IVPB SCH (13:02)
[2016-11-11] MEDS ORDERED: Magnesium Citrate Oral SOL (300 ml) PO ONE ×2 (18:30→21:33)
[2016-11-11] MEDS ORDERED: Oxycodone/Acetaminophen 5/325 mg Tab PO STA (23:25)
[2016-11-11 23:29] VITALS: RESP 20
[2016-11-12] MEDS: Piperacill/Tazo 3.375gm in Dex 3.375 GM/50 ML BAG IVPB SCH ×5 (01:33→23:50)
[2016-11-12] MEDS: (Novolog) Insulin Aspart, Recombinant 100 u/ml 10 ml vial SC SCH ×4 (08:23→21:42)
[2016-11-12] MEDS: Pantoprazole 40 mg EC Tab PO SCH (09:29)
[2016-11-12] MEDS: Potassium Chloride 20 mEq ER Tab PO SCH (09:29)
--- NOTE | 2016-11-12 10:52 | CP.PCM.PN ---
Subjective - Date & Time of Evaluation Date of Evaluation: 11/12/16 Time of Evaluation: 07:10 - Subjective Subjective: SURGERY NOTE FOR DR. CRUZ 56F seen and examined at bedside. [place]. Site of previous wound vac is CDI. Objective - Vital Signs/Intake and Output Vital Signs (last 24 hours): Temp Pulse Resp BP Pulse Ox 98.1 F 68 20 140/74 96 11/12/16 08:11 11/12/16 08:11 11/12/16 08:11 11/12/16 08:11 11/12/16 08:11 Intake and Output: 11/12/16 11/12/16 06:59 18:59 Intake Total 340 Balance 340 - Medications Medications: Current Medications Amlodipine Besylate (Norvasc) 5 mg PO DAILY [facility] Last Admin: 11/12/16 09:29 Dose: 5 mg Benzocaine/Menthol (Cepacol Sore Throat) 1 sumeet MT Q1 PRN PRN Reason: Sore Throat Last Admin: 11/07/16 17:54 Dose: 1 sumeet Diphenhydramine HCl (Benadryl) 25 mg IVP Q6 PRN PRN Reason: Itching / Pruritus Last Admin: 11/11/16 23:54 Dose: 25 mg Docusate Sodium (Colace) 100 mg PO TID [facility] Last Admin: 11/12/16 09:29 Dose: 100 mg Hydromorphone HCl (Dilaudid) 2 mg PO Q4H PRN PRN Reason: Pain, severe (8-10) Last Admin: 11/12/16 07:11 Dose: 2 mg Vancomycin/Sodium Chloride (Vancocin) 1 gm in 200 mls @ 133.333 mls/hr IVPB Q24H [facility] Last Admin: 11/11/16 13:02 Dose: 133.333 mls/hr Piperacillin Sod/Tazobactam Sod (Zosyn 3.375 Gm Iv Premix) 3.375 gm in 50 mls @ 100 mls/hr IVPB Q6H [facility] Last Admin: 11/12/16 05:17 Dose: 100 mls/hr Insulin Aspart (Novolog) 0 unit SC ACHS [facility] PRN Reason: Protocol Last Admin: 11/12/16 08:23 Dose: Not Given Losartan Potassium (Cozaar) 100 mg PO DAILY [facility] Last Admin: 11/12/16 09:29 Dose: 100 mg Ondansetron HCl (Zofran Inj) 4 mg IVP Q4 PRN PRN Reason: Nausea/Vomiting Last Admin: 11/11/16 13:45 Dose: 4 mg Pantoprazole Sodium (Protonix Ec Tab) 40 mg PO DAILY [facility] Last Admin: 11/12/16 09:29 Dose: 40 mg Potassium Chloride (K-Dur 20 Meq Er Tab) 20 meq PO DAILY [facility] Last Admin: 11/12/16 09:29 Dose: 20 meq Risperidone (Risperdal Tab) 1 mg PO DAILY [facility] Last Admin: 11/12/16 09:29 Dose: 1 mg Sertraline HCl (Zoloft) 100 mg PO DAILY [facility] Last Admin: 11/12/16 09:29 Dose: 100 mg Zolpidem Tartrate (Ambien) 5 mg PO HS PRN PRN Reason: Insomnia Last Admin: 11/10/16 21:46 Dose: 5 mg - Labs Labs: 11/10/16 07:19 11/10/16 07:19 PT 13.7 SECONDS (9.7-12.2) H 11/06/16 07:20 INR 1.2 11/06/16 07:20 APTT 30 SECONDS (21-34) 11/06/16 07:20 - Constitutional Appears: Non-toxic, No Acute Distress - Respiratory Exam Respiratory Exam: Clear to Ausculation Bilateral, NORMAL BREATHING PATTERN - Cardiovascular Exam Cardiovascular Exam: REGULAR RHYTHM, +S1, +S2 - Skin Additional comments: incision region under breast is CDI. mild tenderness on palpation Assessment and Plan - Assessment and Plan (Free Text) Assessment: 56F w. infected breast implant, s/p Bilateral breast implant removal, breast capsulectomy, POD#6 -Abx per ID -stool softeners -clear for D/C to go home from surgical standpoint -to follow up w. Dr. Cruz in office upon D/C Kasia, PGY1
[2016-11-12] MEDS: DiphenhydrAMINE 50 mg/ml Inj IVP PRN ×3 (11:37→23:51)
[2016-11-12] MEDS: Vancomycin 1 gm/NS 200 ml 1 GM/200 ML BAG IVPB SCH (14:15)
--- NOTE | 2016-11-12 14:41 | CP.PCM.PN ---
Subjective - Date & Time of Evaluation Date of Evaluation: 11/12/16 Time of Evaluation: 09:00 - Subjective Subjective: improving after prosthetic removal drains out possible d/c on po clinda for 7 days with surgery follow up Objective - Vital Signs/Intake and Output Vital Signs (last 24 hours): Temp Pulse Resp BP Pulse Ox 98.1 F 68 20 140/74 96 11/12/16 08:11 11/12/16 08:11 11/12/16 08:11 11/12/16 08:11 11/12/16 08:11 Intake and Output: 11/12/16 11/12/16 06:59 18:59 Intake Total 340 Balance 340 - Medications Medications: Current Medications Amlodipine Besylate (Norvasc) 5 mg PO DAILY [facility] Last Admin: 11/12/16 09:29 Dose: 5 mg Benzocaine/Menthol (Cepacol Sore Throat) 1 sumeet MT Q1 PRN PRN Reason: Sore Throat Last Admin: 11/07/16 17:54 Dose: 1 sumeet Diphenhydramine HCl (Benadryl) 25 mg IVP Q6 PRN PRN Reason: Itching / Pruritus Last Admin: 11/12/16 11:37 Dose: 25 mg Docusate Sodium (Colace) 100 mg PO TID [facility] Last Admin: 11/12/16 09:29 Dose: 100 mg Hydromorphone HCl (Dilaudid) 2 mg PO Q4H PRN PRN Reason: Pain, severe (8-10) Last Admin: 11/12/16 10:59 Dose: 2 mg Vancomycin/Sodium Chloride (Vancocin) 1 gm in 200 mls @ 133.333 mls/hr IVPB Q24H [facility] Last Admin: 11/12/16 14:15 Dose: 133.333 mls/hr Piperacillin Sod/Tazobactam Sod (Zosyn 3.375 Gm Iv Premix) 3.375 gm in 50 mls @ 100 mls/hr IVPB Q6H [facility] Last Admin: 11/12/16 11:37 Dose: 100 mls/hr Insulin Aspart (Novolog) 0 unit SC ACHS [facility] PRN Reason: Protocol Last Admin: 11/12/16 11:33 Dose: Not Given Losartan Potassium (Cozaar) 100 mg PO DAILY [facility] Last Admin: 11/12/16 09:29 Dose: 100 mg Ondansetron HCl (Zofran Inj) 4 mg IVP Q4 PRN PRN Reason: Nausea/Vomiting Last Admin: 11/11/16 13:45 Dose: 4 mg Pantoprazole Sodium (Protonix Ec Tab) 40 mg PO DAILY [facility] Last Admin: 11/12/16 09:29 Dose: 40 mg Potassium Chloride (K-Dur 20 Meq Er Tab) 20 meq PO DAILY [facility] Last Admin: 11/12/16 09:29 Dose: 20 meq Risperidone (Risperdal Tab) 1 mg PO DAILY [facility] Last Admin: 11/12/16 09:29 Dose: 1 mg Sertraline HCl (Zoloft) 100 mg PO DAILY [facility] Last Admin: 11/12/16 09:29 Dose: 100 mg Zolpidem Tartrate (Ambien) 5 mg PO HS PRN PRN Reason: Insomnia Last Admin: 11/10/16 21:46 Dose: 5 mg - Labs Labs: 11/10/16 07:19 11/10/16 07:19 PT 13.7 SECONDS (9.7-12.2) H 11/06/16 07:20 INR 1.2 11/06/16 07:20 APTT 30 SECONDS (21-34) 11/06/16 07:20 Assessment and Plan (1) Cellulitis of breast Status: Acute (2) Postoperative wound dehiscence Status: Resolved (3) Breast cancer Status: Deleted
[2016-11-12 17:27] VITALS: TEMP 98.4
[2016-11-12 23:00] VITALS: PULSE 72
[2016-11-13] MEDS: Piperacill/Tazo 3.375gm in Dex 3.375 GM/50 ML BAG IVPB SCH (05:04)
--- NOTE | 2016-11-13 06:53 | CP.PCM.PN ---
<Sarah Waldron - Last Filed: 11/13/16 06:50> Subjective - Date & Time of Evaluation Date of Evaluation: 11/12/16 Time of Evaluation: 12:00 - Subjective Subjective: Medicine Progress Note- Dr. Deluca Service Patient was seen and examined at bedside in no acute distress. Patient reports have discomfort around her chest and surgical site. She reports still feeling constipated, however, patient did have a bowel movement. Patient denies chest pain, palpitations, nausea, vomiting, diarrhea, fever or chills. Late entry note. Objective - Vital Signs/Intake and Output Vital Signs (last 24 hours): Temp Pulse Resp BP Pulse Ox 98.4 F 72 20 140/79 96 11/12/16 17:25 11/12/16 22:00 11/12/16 17:25 11/12/16 22:00 11/12/16 17:25 Intake and Output: 11/12/16 11/13/16 18:59 06:59 Intake Total 630 340 Balance 630 340 - Medications Medications: Current Medications Amlodipine Besylate (Norvasc) 5 mg PO DAILY [facility] Last Admin: 11/12/16 09:29 Dose: 5 mg Benzocaine/Menthol (Cepacol Sore Throat) 1 sumeet MT Q1 PRN PRN Reason: Sore Throat Last Admin: 11/07/16 17:54 Dose: 1 sumeet Diphenhydramine HCl (Benadryl) 25 mg IVP Q6 PRN PRN Reason: Itching / Pruritus Last Admin: 11/12/16 23:51 Dose: 25 mg Docusate Sodium (Colace) 100 mg PO TID [facility] Last Admin: 11/12/16 17:36 Dose: 100 mg Hydromorphone HCl (Dilaudid) 2 mg PO Q4H PRN PRN Reason: Pain, severe (8-10) Last Admin: 11/13/16 05:04 Dose: 2 mg Vancomycin/Sodium Chloride (Vancocin) 1 gm in 200 mls @ 133.333 mls/hr IVPB Q24H [facility] Last Admin: 11/12/16 14:15 Dose: 133.333 mls/hr Piperacillin Sod/Tazobactam Sod (Zosyn 3.375 Gm Iv Premix) 3.375 gm in 50 mls @ 100 mls/hr IVPB Q6H [facility] Last Admin: 11/13/16 05:04 Dose: 100 mls/hr Insulin Aspart (Novolog) 0 unit SC ACHS [facility] PRN Reason: Protocol Last Admin: 11/12/16 21:42 Dose: Not Given Losartan Potassium (Cozaar) 100 mg PO DAILY [facility] Last Admin: 11/12/16 09:29 Dose: 100 mg Ondansetron HCl (Zofran Inj) 4 mg IVP Q4 PRN PRN Reason: Nausea/Vomiting Last Admin: 11/11/16 13:45 Dose: 4 mg Pantoprazole Sodium (Protonix Ec Tab) 40 mg PO DAILY [facility] Last Admin: 11/12/16 09:29 Dose: 40 mg Potassium Chloride (K-Dur 20 Meq Er Tab) 20 meq PO DAILY [facility] Last Admin: 11/12/16 09:29 Dose: 20 meq Risperidone (Risperdal Tab) 1 mg PO DAILY [facility] Last Admin: 11/12/16 09:29 Dose: 1 mg Sertraline HCl (Zoloft) 100 mg PO DAILY [facility] Last Admin: 11/12/16 09:29 Dose: 100 mg Zolpidem Tartrate (Ambien) 5 mg PO HS PRN PRN Reason: Insomnia Last Admin: 11/12/16 23:51 Dose: 5 mg - Labs Labs: 11/10/16 07:19 11/10/16 07:19 PT 13.7 SECONDS (9.7-12.2) H 11/06/16 07:20 INR 1.2 11/06/16 07:20 APTT 30 SECONDS (21-34) 11/06/16 07:20 - Constitutional Appears: No Acute Distress - Head Exam Head Exam: NORMAL INSPECTION, NORMOCEPHALIC - Eye Exam Eye Exam: EOMI, Normal appearance - ENT Exam ENT Exam: Mucous Membranes Moist - Neck Exam Neck Exam: Full ROM, Normal Inspection - Respiratory Exam Respiratory Exam: Decreased Breath Sounds, Clear to Ausculation Bilateral, NORMAL BREATHING PATTERN Additional comments: restricted due to discomfort at surgical site. - Cardiovascular Exam Cardiovascular Exam: REGULAR RHYTHM, +S1, +S2 - GI/Abdominal Exam GI & Abdominal Exam: Soft, Tenderness, Normal Bowel Sounds. absent: Distended - Extremities Exam Extremities Exam: Calf Tenderness, Normal Inspection. absent: Pedal Edema, Tenderness - Neurological Exam Neurological Exam: Alert, Awake, Oriented x3 - Psychiatric Exam Psychiatric exam: Normal Affect, Normal Mood - Skin Skin Exam: Dry, Intact, Normal Color, Warm Assessment and Plan (1) Cellulitis of breast Assessment & Plan: Infectious Disease consult placed- Dr. Rogers, help appreciated Blood culture- negative Wound culture: MRSA positive Patient on Vancomycin 1gm IVPB Q24H - day 11 Zosyn 3.375 Gm IVPB Q6h - day 10 Plan to discharge 11/13/16 on Clindamycin 300 TID PO for 7 days, as per Dr. Rogers. Surgery Consult placed- Dr. Arango, help appreciated Patient s/p removal of b/l implants and capsulectomy on 11/06/16 Wound VAC removed 11/10; patient will need to follow up with Dr. Arango in 1 week Dilaudid 2mg IV Q4 PRN for pain control Status: Acute (2) Postoperative wound dehiscence Assessment & Plan: Surgery Consult placed- Dr. Arango, help appreciated Patient s/p removal of b/l implants and capsulectomy on 11/06/16 Wound VAC removed 11/10; patient will need to follow up with Dr. Arango in 1 week Status: Resolved (3) Lobular carcinoma of breast Assessment & Plan: Patient receives chemotherapy every week -Patient receives radiation every week -Dilaudid 2mg IV Q4 PRN Patient to follow up with outpatient Status: Acute (4) Insomnia Assessment & Plan: Patient with anxiety Risperidone 1mg po daily Zoloft 100mg po daily Ambien 5mg PO HS PRN Status: Acute (5) Hypertension Assessment & Plan: Normotensive Norvasc 5 mg po daily Losartan 100 mg PO daily Monitor Status: Chronic (6) Anemia Assessment & Plan: 11/10: Hgb 9.6 s/p transfusion 2U PRBC on 10/26/16 stable at this time Status: Acute (7) Constipation Assessment & Plan: Stop Colace 100mg BID Start Lactulose 20gm PO Once (11/11/16) Start Magnesium Citrate 300ml PO Once (11/11/16) Status: Acute (8) Prophylactic measure Assessment & Plan: Protonix 40mg po daily SCDs Not on anticoagulation due to acute blood loss during hospital stay Heart healthy diet moderate consistent carb diet PT on board Status: Acute <Erick Deluca - Last Filed: 11/13/16 07:58> Objective - Vital Signs/Intake and Output Vital Signs (last 24 hours): Temp Pulse Resp BP Pulse Ox 98.4 F 72 20 140/79 96 11/12/16 17:25 11/12/16 22:00 11/12/16 17:25 11/12/16 22:00 11/12/16 17:25 Intake and Output: 11/13/16 11/13/16 06:59 18:59 Intake Total 340 Balance 340 - Medications Medications: Current Medications Amlodipine Besylate (Norvasc) 5 mg PO DAILY [facility] Last Admin: 11/12/16 09:29 Dose: 5 mg Benzocaine/Menthol (Cepacol Sore Throat) 1 sumeet MT Q1 PRN PRN Reason: Sore Throat Last Admin: 11/07/16 17:54 Dose: 1 sumeet Diphenhydramine HCl (Benadryl) 25 mg IVP Q6 PRN PRN Reason: Itching / Pruritus Last Admin: 11/12/16 23:51 Dose: 25 mg Docusate Sodium (Colace) 100 mg PO TID [facility] Last Admin: 11/12/16 17:36 Dose: 100 mg Hydromorphone HCl (Dilaudid) 2 mg PO Q4H PRN PRN Reason: Pain, severe (8-10) Last Admin: 11/13/16 05:04 Dose: 2 mg Vancomycin/Sodium Chloride (Vancocin) 1 gm in 200 mls @ 133.333 mls/hr IVPB Q24H [facility] Last Admin: 11/12/16 14:15 Dose: 133.333 mls/hr Piperacillin Sod/Tazobactam Sod (Zosyn 3.375 Gm Iv Premix) 3.375 gm in 50 mls @ 100 mls/hr IVPB Q6H [facility] Last Admin: 11/13/16 05:04 Dose: 100 mls/hr Insulin Aspart (Novolog) 0 unit SC ACHS [facility] PRN Reason: Protocol Last Admin: 11/12/16 21:42 Dose: Not Given Losartan Potassium (Cozaar) 100 mg PO DAILY [facility] Last Admin: 11/12/16 09:29 Dose: 100 mg Ondansetron HCl (Zofran Inj) 4 mg IVP Q4 PRN PRN Reason: Nausea/Vomiting Last Admin: 11/11/16 13:45 Dose: 4 mg Pantoprazole Sodium (Protonix Ec Tab) 40 mg PO DAILY [facility] Last Admin: 11/12/16 09:29 Dose: 40 mg Potassium Chloride (K-Dur 20 Meq Er Tab) 20 meq PO DAILY [facility] Last Admin: 11/12/16 09:29 Dose: 20 meq Risperidone (Risperdal Tab) 1 mg PO DAILY [facility] Last Admin: 11/12/16 09:29 Dose: 1 mg Sertraline HCl (Zoloft) 100 mg PO DAILY [facility] Last Admin: 11/12/16 09:29 Dose: 100 mg Zolpidem Tartrate (Ambien) 5 mg PO HS PRN PRN Reason: Insomnia Last Admin: 11/12/16 23:51 Dose: 5 mg - Labs Labs: 11/10/16 07:19 11/10/16 07:19 PT 13.7 SECONDS (9.7-12.2) H 11/06/16 07:20 INR 1.2 11/06/16 07:20 APTT 30 SECONDS (21-34) 11/06/16 07:20 Attending/Attestation - Attestation I have personally seen and examined this patient.: Yes I have fully participated in the care of the patient.: Yes I have reviewed all pertinent clinical information, including history, physical exam and plan: Yes Notes (Text): 11/13/16 07:58 This note is for 11/12/2016. This is a late computer entry Patient seen and examined at bedside and she states that she is feeling better Patient is clear for discharge by surgery and by ID. Discharge planning in progress. I discussed the plan of care with the resident and agree with the history and physical and assessment/plan.
[2016-11-13] MEDS: (Novolog) Insulin Aspart, Recombinant 100 u/ml 10 ml vial SC SCH (08:16)
[2016-11-13 08:21] VITALS: BP 134/81; O2SAT 95
[2016-11-13] MEDS: Potassium Chloride 20 mEq ER Tab PO SCH (09:46)
[2016-11-13] MEDS: Pantoprazole 40 mg EC Tab PO SCH (09:46)
--- NOTE | 2016-11-13 22:02 | CP.PCM.DIS ---
<Sarah Waldron - Last Filed: 11/13/16 21:38> Provider - Provider Date of Admission: 10/25/16 13:41 Attending physician: Erick Deluca MD Time Spent in preparation of Discharge (in minutes): 45 Diagnosis - Discharge Diagnosis (1) Cellulitis of breast Status: Resolved Comment: See hospital summary for more details. (2) Postoperative wound dehiscence Status: Resolved Comment: See hospital summary for more details. (3) Lobular carcinoma of breast Status: Chronic Comment: See hospital summary for more details. (4) Insomnia Status: Chronic Comment: See hospital summary for more details. (5) Hypertension Status: Chronic Comment: See hospital summary for more details. (6) Anemia Status: Resolved Comment: See hospital summary for more details. (7) Constipation Status: Resolved Comment: See hospital summary for more details. Hospital Course - Lab Results Lab Results: Micro Results 10/25/16 17:00 Urine,Clean Catch Urine Culture - Final No Growth (<1,000 CFU/ML) Most Recent Lab Values WBC 5.8 K/uL (4.8-10.8) 11/10/16 07:19 RBC 3.32 Mil/uL (3.80-5.20) L 11/10/16 07:19 Hgb 9.6 g/dL (11.0-16.0) L 11/10/16 07:19 Hct 29.6 % (34.0-47.0) L 11/10/16 07:19 MCV 89.0 fL (81.0-99.0) 11/10/16 07:19 MCH 28.9 pg (27.0-31.0) 11/10/16 07:19 MCHC 32.4 g/dL (33.0-37.0) L 11/10/16 07:19 RDW 15.4 % (11.5-14.5) H 11/10/16 07:19 Plt Count 298 K/uL (130-400) 11/10/16 07:19 MPV 7.5 fL (7.2-11.7) 11/10/16 07:19 Neut % (Auto) 60.4 % (50.0-75.0) 11/10/16 07:19 Lymph % (Auto) 17.5 % (20.0-40.0) L 11/10/16 07:19 [place] % (Auto) 13.6 % (0.0-10.0) H 11/10/16 07:19 Eos % (Auto) 7.7 % (0.0-4.0) H 11/10/16 07:19 Baso % (Auto) 0.8 % (0.0-2.0) 11/10/16 07:19 Neut # 3.5 K/uL (1.8-7.0) 11/10/16 07:19 Lymph # 1.0 K/uL (1.0-4.3) 11/10/16 07:19 [place] # 0.8 K/uL (0.0-0.8) 11/10/16 07:19 Eos # 0.5 K/uL (0.0-0.7) 11/10/16 07:19 Baso # 0.0 K/uL (0.0-0.2) 11/10/16 07:19 Neutrophils % (Manual) 90 % (50-75) H 11/07/16 07:28 Band Neutrophils % 1 % (0-2) 11/07/16 07:28 Lymphocytes % (Manual) 7 % (20-40) L 11/07/16 07:28 Monocytes % (Manual) 2 % (0-10) 11/07/16 07:28 Eosinophils % (Manual) 1 % (0-4) 10/24/16 14:34 Platelet Estimate Normal (NORMAL) 11/07/16 07:28 Large Platelets Present 10/25/16 06:18 Polychromasia Slight 10/25/16 06:18 Hypochromasia (manual) Slight 11/07/16 07:28 Poikilocytosis (manual Slight 10/25/16 06:18 Anisocytosis (manual) Slight 11/07/16 07:28 Ovalocytes Slight 11/07/16 07:28 [place] Cells Slight 10/25/16 06:18 PT 13.7 SECONDS (9.7-12.2) H 11/06/16 07:20 INR 1.2 11/06/16 07:20 APTT 30 SECONDS (21-34) 11/06/16 07:20 Sodium 136 mmol/L (132-148) 11/10/16 07:19 Potassium 3.9 mmol/L (3.6-5.2) 11/10/16 07:19 Chloride 98 mmol/L (98-107) 11/10/16 07:19 Carbon Dioxide 30 mmol/L (22-30) 11/10/16 07:19 Anion Gap 11 (10-20) 11/10/16 07:19 BUN 15 mg/dL (7-17) 11/10/16 07:19 Creatinine 0.9 MG/DL (0.7-1.2) 11/10/16 07:19 Est GFR ( Amer) > 60 11/10/16 07:19 Est GFR (Non-Af Amer) > 60 11/10/16 07:19 POC Glucose (mg/dL) 104 mg/dL (65-110) 11/13/16 06:17 Random Glucose 83 mg/dL (65-105) 11/10/16 07:19 Calcium 8.3 mg/dl (8.6-10.4) L 11/10/16 07:19 Phosphorus 3.3 mg/dL (2.5-4.5) 11/10/16 07:19 Magnesium 1.9 mg/dL (1.6-2.3) 11/10/16 07:19 Total Bilirubin 0.5 mg/dL (0.2-1.3) 11/10/16 07:19 AST 21 U/L (14-36) 11/10/16 07:19 ALT 17 U/L (9-52) 11/10/16 07:19 Alkaline Phosphatase 46 U/L (38-126) 11/10/16 07:19 Total Protein 6.1 g/dL (6.3-8.3) L 11/10/16 07:19 Albumin 3.2 g/dL (3.5-5.0) L 11/10/16 07:19 Globulin 2.9 gm/dL (2.2-3.9) 11/10/16 07:19 Albumin/Globulin Ratio 1.1 (1.0-2.1) 11/10/16 07:19 Urine Color Yellow (YELLOW) 10/25/16 17:06 Urine Clarity Clear (Clear) 10/25/16 17:06 Urine pH 5.0 (5.0-8.0) 10/25/16 17:06 Ur Specific [place] 1.024 (1.003-1.030) 10/25/16 17:06 Urine Protein Negative mg/dL (NEGATIVE) 10/25/16 17:06 Urine Glucose (UA) Normal mg/dL (Normal) 10/25/16 17:06 Urine Ketones Negative mg/dL (NEGATIVE) 10/25/16 17:06 Urine Blood Negative (NEGATIVE) 10/25/16 17:06 Urine Nitrate Negative (NEGATIVE) 10/25/16 17:06 Urine Bilirubin Negative (NEGATIVE) 10/25/16 17:06 Urine Urobilinogen 2.0 mg/dL (0.2-1.0) H 10/25/16 17:06 Ur Leukocyte Esterase Neg [place]/uL (Negative) 10/25/16 17:06 Urine WBC (Auto) 4 /hpf (0-5) 10/25/16 17:06 Urine RBC (Auto) < 1 /hpf (0-3) 10/24/16 16:30 Ur Squamous Epith Cells 8 /hpf (0-5) H 10/25/16 17:06 Vancomycin Peak 25.7 ug/mL (30.0-40.0) L 11/09/16 18:52 Vancomycin Trough 7.2 ug/mL (5.0-10.0) 11/08/16 06:46 Random Vancomycin 9.23 ug/mL 11/03/16 07:43 Parvovirus B19 IgG Ab 5.9 (<0.9) H 10/29/16 17:26 Parvovirus B19 IgM Ab 0.2 (<0.9) 10/29/16 17:26 Parvovirus Interpret (()) 10/29/16 17:26 Blood Type A POSITIVE 10/26/16 08:41 Antibody Screen Negative 10/26/16 08:41 - Hospital Course Hospital Course: CC: leaking from my breasts HPI: Patient is a 56 F PMHx DM, HTN, Asthma, Anxiety, Invasive bilateral Lobular Carcinoma of breast s/p bilateral breast implant insertion, extensive bilateral breast revision, scar revision, breast capsulectomy, capsulotomy done 08/27/[address] Arango presenting to the ER complaining of leakage of her breasts bilaterally for the past 3 days. Patient reports that since her discharge September 2016, her left breast has been becoming red, inflamed, and has been draining green and yellow discharge. She reports that at first the fluid was yellow in color and then green. She reports some sore pain and tenderness in her breasts b/l and reports that at home she had a fever with a Tmax of 100.4 , some chills, nausea and an episode of emesis. Patient last saw Dr. Arango on October 16. Patient was admitted for infection and leakage of discharge from breasts bilaterally. In the ED, EKG showed sinus rhythm at 73bpm. Chest xray showed no acute disease. Dr. Arango, surgery, was consulted and scheduled to OR for bilateral breast scar revision and capsulectomy. Wound vacs were placed. Post surgical labs showed patient to be anemic with a hemoglobin of 6.6. Two units of PRBCs were transfused. Patient was started on Vancomycin 1gm IVPB Q24h and Zosyn 3.375gm IVPB Q8. Infectious disease was consulted- Dr. Rogers. Wound culture was ordered and resulted MRSA positive. Patient had a second operation to remove implants bilaterally with wound vacs placed and continued on antibiotic treatment. Wound vacs were removed. Patient is stable to be discharged. As per Dr. Rogers, patient to start Clindamycin 300mg PO TID for 7 days. This is a summary of the hospital course. Please see chart for details. Patient stable for discharge per Dr. Deluca (to home). Patient is resume all medications as outlined in this document. 1. Please follow up with PMD, within 1 week of discharge. If patient does not have a PMD, please contact our [facility] 2. Please follow up with Dr. Arango (surgery), within 1 week of discharge. Instructions were explained to patient, who understood and agreed. If symptoms re-occur, patient understand to to return to ED. Resume Home Medications: Acetaminophen 325mg PO Q6 as needed Albuterol Nebulizer 1inh PO BID Albuteral HFA 2puff IH Q6resp Fosamax 35mg PO Q week Xanax 0.5mg PO HS Norvasc 5mg PO Daily Symbicort 2puff IH BID Calcium/Vitamin D3 1 tablet PO BID Vitamin D2 1 tablet Q week Famotidine 10 mg PO Daily Glipizide 2.5mg daily Hydrochlorothiazide 25mg PO daily Hydromorphone 2mg PO TID Losartan 100mg PO Daily Meclizine 25mg PO Daily Metformin 500mg PO BID Montelukast Sodium 10 mg Po daily Miralax powder Risperdal 1mg daily Zoloft 100mg Po daily Simvastatin 10mg Po Daily Vitamin B complex & Vitamin C 1 tablet daily New medications: Clindamycin 300mg PO TID for 7 days. Discharge Exam - Head Exam Head Exam: NORMAL INSPECTION, NORMOCEPHALIC - Eye Exam Eye Exam: EOMI, Normal appearance - ENT Exam ENT Exam: Mucous Membranes Moist - Neck Exam Neck exam: Normal Inspection - Respiratory Exam Respiratory Exam: Clear to PA & Lateral, NORMAL BREATHING PATTERN, UNREMARKABLE. absent: Rhonchi, Wheezes - Cardiovascular Exam Cardiovascular Exam: REGULAR RHYTHM, +S1, +S2 - GI/Abdominal Exam GI & Abdominal Exam: Normal Bowel Sounds, Soft, Unremarkable - Extremities Exam Extremities exam: normal inspection - Neurological Exam Neurological exam: Alert, Oriented x3 - Psychiatric Exam Psychiatric exam: Normal Affect, Normal Mood - Skin Skin Exam: Dry, Intact, Warm Discharge Plan - Discharge Medications Prescriptions: Clindamycin [Cleocin] 300 mg PO TID #21 cap Docusate [Colace] 100 mg PO TID #90 cap HYDROmorphone [Dilaudid] 2 mg PO Q4H PRN #30 tab PRN Reason: Pain, Severe (8-10) - Follow Up Plan Condition: GOOD Disposition: HOME/ ROUTINE Instructions: Clindamycin (By mouth), Laxative, Stool Softeners (By mouth), Hydromorphone (By mouth), MRSA (Methicillin Resistant Staphylococcus Aureus) ( GEN), Cellulitis (GEN), Surgical Site Infections (GEN), Wound Dehiscence (GEN) Additional Instructions: Patient stable for discharge per Dr. Deluca (to home). Patient is resume all medications as outlined in this document. 1. Please follow up with PMD, within 1 week of discharge. If patient does not have a PMD, please contact our [facility] 2. Please follow up with Dr. Arango (surgery), within 1 week of discharge. Instructions were explained to patient, who understood and agreed. If symptoms re-occur, patient understand to to return to ED. Resume Home Medications: Acetaminophen 325mg PO Q6 as needed Albuterol Nebulizer 1inh PO BID Albuteral HFA 2puff IH Q6resp Fosamax 35mg PO Q week Xanax 0.5mg PO HS Norvasc 5mg PO Daily Symbicort 2puff IH BID Calcium/Vitamin D3 1 tablet PO BID Vitamin D2 1 tablet Q week Famotidine 10 mg PO Daily Glipizide 2.5mg daily Hydrochlorothiazide 25mg PO daily Hydromorphone 2mg PO TID Losartan 100mg PO Daily Meclizine 25mg PO Daily Metformin 500mg PO BID Montelukast Sodium 10 mg Po daily Miralax powder Risperdal 1mg daily Zoloft 100mg Po daily Simvastatin 10mg Po Daily Vitamin B complex & Vitamin C 1 tablet daily New medications: Clindamycin 300mg PO TID for 7 days. <Erick Deluca - Last Filed: 11/14/16 09:17> Provider - Provider Date of Admission: 10/25/16 13:41 Attending physician: Erick Deluca MD Hospital Course - Lab Results Lab Results: Micro Results 10/25/16 17:00 Urine,Clean Catch Urine Culture - Final No Growth (<1,000 CFU/ML) Most Recent Lab Values WBC 5.8 K/uL (4.8-10.8) 11/10/16 07:19 RBC 3.32 Mil/uL (3.80-5.20) L 11/10/16 07:19 Hgb 9.6 g/dL (11.0-16.0) L 11/10/16 07:19 Hct 29.6 % (34.0-47.0) L 11/10/16 07:19 MCV 89.0 fL (81.0-99.0) 11/10/16 07:19 MCH 28.9 pg (27.0-31.0) 11/10/16 07:19 MCHC 32.4 g/dL (33.0-37.0) L 11/10/16 07:19 RDW 15.4 % (11.5-14.5) H 11/10/16 07:19 Plt Count 298 K/uL (130-400) 11/10/16 07:19 MPV 7.5 fL (7.2-11.7) 11/10/16 07:19 Neut % (Auto) 60.4 % (50.0-75.0) 11/10/16 07:19 Lymph % (Auto) 17.5 % (20.0-40.0) L 11/10/16 07:19 [place] % (Auto) 13.6 % (0.0-10.0) H 11/10/16 07:19 Eos % (Auto) 7.7 % (0.0-4.0) H 11/10/16 07:19 Baso % (Auto) 0.8 % (0.0-2.0) 11/10/16 07:19 Neut # 3.5 K/uL (1.8-7.0) 11/10/16 07:19 Lymph # 1.0 K/uL (1.0-4.3) 11/10/16 07:19 [place] # 0.8 K/uL (0.0-0.8) 11/10/16 07:19 Eos # 0.5 K/uL (0.0-0.7) 11/10/16 07:19 Baso # 0.0 K/uL (0.0-0.2) 11/10/16 07:19 Neutrophils % (Manual) 90 % (50-75) H 11/07/16 07:28 Band Neutrophils % 1 % (0-2) 11/07/16 07:28 Lymphocytes % (Manual) 7 % (20-40) L 11/07/16 07:28 Monocytes % (Manual) 2 % (0-10) 11/07/16 07:28 Eosinophils % (Manual) 1 % (0-4) 10/24/16 14:34 Platelet Estimate Normal (NORMAL) 11/07/16 07:28 Large Platelets Present 10/25/16 06:18 Polychromasia Slight 10/25/16 06:18 Hypochromasia (manual) Slight 11/07/16 07:28 Poikilocytosis (manual Slight 10/25/16 06:18 Anisocytosis (manual) Slight 11/07/16 07:28 Ovalocytes Slight 11/07/16 07:28 [place] Cells Slight 10/25/16 06:18 PT 13.7 SECONDS (9.7-12.2) H 11/06/16 07:20 INR 1.2 11/06/16 07:20 APTT 30 SECONDS (21-34) 11/06/16 07:20 Sodium 136 mmol/L (132-148) 11/10/16 07:19 Potassium 3.9 mmol/L (3.6-5.2) 11/10/16 07:19 Chloride 98 mmol/L (98-107) 11/10/16 07:19 Carbon Dioxide 30 mmol/L (22-30) 11/10/16 07:19 Anion Gap 11 (10-20) 11/10/16 07:19 BUN 15 mg/dL (7-17) 11/10/16 07:19 Creatinine 0.9 MG/DL (0.7-1.2) 11/10/16 07:19 Est GFR ( Amer) > 60 11/10/16 07:19 Est GFR (Non-Af Amer) > 60 11/10/16 07:19 POC Glucose (mg/dL) 104 mg/dL (65-110) 11/13/16 06:17 Random Glucose 83 mg/dL (65-105) 11/10/16 07:19 Calcium 8.3 mg/dl (8.6-10.4) L 11/10/16 07:19 Phosphorus 3.3 mg/dL (2.5-4.5) 11/10/16 07:19 Magnesium 1.9 mg/dL (1.6-2.3) 11/10/16 07:19 Total Bilirubin 0.5 mg/dL (0.2-1.3) 11/10/16 07:19 AST 21 U/L (14-36) 11/10/16 07:19 ALT 17 U/L (9-52) 11/10/16 07:19 Alkaline Phosphatase 46 U/L (38-126) 11/10/16 07:19 Total Protein 6.1 g/dL (6.3-8.3) L 11/10/16 07:19 Albumin 3.2 g/dL (3.5-5.0) L 11/10/16 07:19 Globulin 2.9 gm/dL (2.2-3.9) 11/10/16 07:19 Albumin/Globulin Ratio 1.1 (1.0-2.1) 11/10/16 07:19 Urine Color Yellow (YELLOW) 10/25/16 17:06 Urine Clarity Clear (Clear) 10/25/16 17:06 Urine pH 5.0 (5.0-8.0) 10/25/16 17:06 Ur Specific [place] 1.024 (1.003-1.030) 10/25/16 17:06 Urine Protein Negative mg/dL (NEGATIVE) 10/25/16 17:06 Urine Glucose (UA) Normal mg/dL (Normal) 10/25/16 17:06 Urine Ketones Negative mg/dL (NEGATIVE) 10/25/16 17:06 Urine Blood Negative (NEGATIVE) 10/25/16 17:06 Urine Nitrate Negative (NEGATIVE) 10/25/16 17:06 Urine Bilirubin Negative (NEGATIVE) 10/25/16 17:06 Urine Urobilinogen 2.0 mg/dL (0.2-1.0) H 10/25/16 17:06 Ur Leukocyte Esterase Neg [place]ithin/uL (Negative) 10/25/16 17:06 Urine WBC (Auto) 4 /hpf (0-5) 10/25/16 17:06 Urine RBC (Auto) < 1 /hpf (0-3) 10/24/16 16:30 Ur Squamous Epith Cells 8 /hpf (0-5) H 10/25/16 17:06 Vancomycin Peak 25.7 ug/mL (30.0-40.0) L 11/09/16 18:52 Vancomycin Trough 7.2 ug/mL (5.0-10.0) 11/08/16 06:46 Random Vancomycin 9.23 ug/mL 11/03/16 07:43 Parvovirus B19 IgG Ab 5.9 (<0.9) H 10/29/16 17:26 Parvovirus B19 IgM Ab 0.2 (<0.9) 10/29/16 17:26 Parvovirus Interpret (()) 10/29/16 17:26 Blood Type A POSITIVE 10/26/16 08:41 Antibody Screen Negative 10/26/16 08:41 Attending/Attestation - Attestation I have personally seen and examined this patient.: Yes I have fully participated in the care of the patient.: Yes I have reviewed all pertinent clinical information, including history, physical exam and plan: Yes Notes (Text): 11/14/16 09:17 Patient was seen and examined at bedside with the resident Patient has no new complaints today She will be discharged to home and she'll follow-up with Dr. Arango in her office next week Oral pain medication and oral antibiotics prescribed with the patient I discussed the discharge plan with the resident and she verbalized understanding I agree with the discharge note by the resident
== END 2016-11-13 10:30 | disposition home or self-care (01) | DRG 583 ==
LOC: C.ER 13:58 → C.9E 16:13 → C.5T 16:57 → OBSVTOIN 10-25 13:41
PROVIDERS: ADMIT Internal Medicine; ATTEND Internal Medicine
PROC: 0HN Skin and Breast, Release (ICD-10-PCS; 2016-10-24)
PROC: 0HRU0JZ Replacement of Left Breast with Synthetic Substitute, Open Approach (ICD-10-PCS; 2016-10-24)
PROC: 0HQUXZZ (ICD-10-PCS; 2016-10-24)
PROC: 0HPU0JZ Removal of Synthetic Substitute from Left Breast, Open Approach (ICD-10-PCS; principal; 2016-10-24 18:15)
PROC: 30233N1 Transfusion of Nonautologous Red Blood Cells into Peripheral Vein, Percutaneous Approach (ICD-10-PCS; 2016-10-26)
PROC: 0HPU0JZ Removal of Synthetic Substitute from Left Breast, Open Approach (ICD-10-PCS; 2016-11-06)
PROC: 0HPT0JZ Removal of Synthetic Substitute from Right Breast, Open Approach (ICD-10-PCS; 2016-11-06)
PROC: 0HQVXZZ (ICD-10-PCS; 2016-11-06)
DX: T85.79XA Infection and inflammatory reaction due to other internal prosthetic devices, implants and grafts, initial encounter (principal); T81.31XA Disruption of external operation (surgical) wound, not elsewhere classified, initial encounter; T85.42XA Displacement of breast prosthesis and implant, initial encounter; L03.313 Cellulitis of chest wall; C50.911 Malignant neoplasm of unspecified site of right female breast; C50.912 Malignant neoplasm of unspecified site of left female breast; D64.9 Anemia, unspecified; N64.4 Mastodynia; G89.18 Other acute postprocedural pain; I10 Essential (primary) hypertension; E11.9 Type 2 diabetes mellitus without complications; E78.00 Pure hypercholesterolemia, unspecified; J45.909 Unspecified asthma, uncomplicated; K59.00 Constipation, unspecified; M81.0 Age-related osteoporosis without current pathological fracture; Y81.2 Prosthetic and other implants, materials and accessory general- and plastic-surgery devices associated with adverse incidents; G47.30 Sleep apnea, unspecified; G47.00 Insomnia, unspecified; Z98.82 Breast implant status; Z98.84 Bariatric surgery status; Z90.13 Acquired absence of bilateral breasts and nipples

== ENCOUNTER 2016-12-04 19:03 | Emergency (ER) | payer OTHER ==
[2016-12-04 19:03] VITALS: BMI 27.7
[2016-12-04 19:11] VITALS: RESP 18; TEMP 98.8; O2SAT 98
--- NOTE | 2016-12-04 19:35 | C.PDOC ---
History Of Present Illness 56F c/o pain all over her the upper part of her body- abdomen, chest, back, neck constant for the last 3 weeks after masectomy/implants complicated by wound infection here resulting in implant removal. she says her pain was improved w dilaudid while in the hospital but she has been taking percocet at home which is not helping and she ran out of this today. Time Seen by Provider: 12/04/16 19:28 Chief Complaint (Nursing): Chest Pain Past Medical History Vital Signs: Last Vital Signs Temp 98.8 F 12/04/16 19:05 Pulse 55 L 12/04/16 21:24 Resp 18 12/04/16 21:24 BP 128/74 12/04/16 21:24 Pulse Ox 98 12/04/16 21:24 - Medical History PMH: Anemia, Anxiety, Arthritis, Asthma, Depression, Gastritis, HTN, Hypercholesterolemia, Hyperlipidemia, Malignancy (breast ca), Migraine, Osteoporosis, Peripheral Edema, Sleep Apnea (USES CPAP) Denies: Chronic Kidney Disease Surgical History: Endoscopy - [facility] Procedures LAPAROSCOPIC VERTICAL (SLEEVE) GASTRECTOMY (08/24/13) RELEASE CHEST SKIN, EXTERNAL APPROACH (10/25/16) REMOVAL OF SYNTHETIC SUBSTITUTE FROM L BREAST, OPEN APPROACH (10/25/16) REMOVAL OF SYNTHETIC SUBSTITUTE FROM R BREAST, OPEN APPROACH (10/25/16) REPAIR BILATERAL BREAST, EXTERNAL APPROACH (10/25/16) REPAIR LEFT BREAST, EXTERNAL APPROACH (10/25/16) REPLACEMENT OF LEFT BREAST WITH SYNTH SUB, OPEN APPROACH (10/25/16) TRANSFUSE NONAUT RED BLOOD CELLS IN PERIPH VEIN, PERC (10/25/16) Family History: States: Other Other Family History: nc - Social History Hx Tobacco Use: No Hx Alcohol Use: No Hx Substance Use: No - Immunization History Hx Tetanus Toxoid Vaccination: Yes Hx Influenza Vaccination: Yes Hx Pneumococcal Vaccination: Yes Review Of Systems Except As Marked, All Systems Reviewed And Found Negative. Constitutional: Negative for: Fever, Chills Cardiovascular: Positive for: Chest Pain Respiratory: Negative for: Cough, Shortness of Breath, Hemoptysis Gastrointestinal: Positive for: Abdominal Pain. Negative for: Nausea, Vomiting Musculoskeletal: Positive for: Neck Pain, Shoulder Pain, Back Pain Neurological: Positive for: Headache. Negative for: Weakness, Numbness Physical Exam - Physical Exam Appears: Well, Non-toxic, No Acute Distress Skin: Warm, Dry Head: Atraumatic Eye(s): bilateral: PERRL Nose: No Epistaxis Oral Mucosa: Moist Lips: No Swelling Neck: Normal ROM Chest: Other (healed surgical wounds from mastectomy without any redness, dehiscence, swelling, or drainage. mechanical sound technician present for exam.) Cardiovascular: Rhythm Regular Respiratory: No Decreased Breath Sounds, No Accessory Muscle Use, No Rales, No Rhonchi, No Wheezing Gastrointestinal/Abdominal: Soft, No Tenderness, No Distention, No Guarding, No Rebound Pulses: Left Radial: Normal, Right Radial: Normal Neurological/Psych: Oriented x3, Normal Motor, Normal Sensation, Other (no focal deficits) ED Course And Treatment - Laboratory Results Result Diagrams: 12/04/16 20:10 12/04/16 20:10 O2 Sat by Pulse Oximetry: 98 Medical Decision Making Medical Decision Makin the pt is sitting up in bed on her phone. she appears well in no distress. I disc results w her. she is requesting to be dc. follow up and return prec advised. Disposition - Disposition Disposition: HOME/ ROUTINE Disposition Time: 22:11 Condition: IMPROVED - Clinical Impression Clinical Impression: Cancer related pain
[2016-12-04 20:15] LABS: BASO % 0.4 % (0.0-2.0); EOS # 0.3 K/uL (0.0-0.7); EOS % 3.8 % (0.0-4.0); HEMOGLOBIN 10.1 g/dL (11.0-16.0); LYMPH # 1.4 K/uL (1.0-4.3); LYMPH % 18.5 % (20.0-40.0); MEAN CELL VOLUME 88.8 fL (81.0-99.0); MEAN CORPUSCULAR HEMOGLOBIN 28.5 pg (27.0-31.0); MEAN CORPUSCULAR HGB CONC 32.1 g/dL (33.0-37.0); MEAN PLATELET VOLUME 7.2 fL (7.2-11.7); MONO % 12.6 % (0.0-10.0); NEUT % 64.7 % (50.0-75.0); RBC 3.54 Mil/uL (3.80-5.20); WHITE BLOOD COUNT 7.7 K/uL (4.8-10.8)
[2016-12-04] MEDS ORDERED: Morphine 4 MG/ML VIAL ONE ×3 (20:16→22:26)
[2016-12-04 20:26] LABS: ALBUMIN 3.4 g/dL (3.5-5.0)
[2016-12-04 20:28] LABS: GFR AFRICAN-AMERICAN > 60; GFR NON-AFRICAN AMERICAN 57
[2016-12-04 20:29] LABS: ALB/GLOB RATIO 1.2 (1.0-2.1); ALT/SGPT 28 U/L (9-52); AST/SGOT 22 U/L (14-36); BLOOD UREA NITROGEN 12 mg/dL (7-17); CALCIUM 8.7 mg/dl (8.6-10.4); LIPASE 192 U/L (23-300)
[2016-12-04 20:46] LABS: SQUAMOUS EPITHIAL < 1 /hpf (0-5); URINE BILIRUBIN NEGATIVE (NEGATIVE); URINE BLOOD NEGATIVE (NEGATIVE); URINE CLARITY Clear (Clear); URINE COLOR Straw (YELLOW); URINE GLUCOSE (UA) NORMAL (Normal); URINE LEUKOCYTE ESTERASE NEG Leu/uL (Negative); URINE NITRATE NEGATIVE (NEGATIVE); URINE PROTEIN NEGATIVE (NEGATIVE); URINE UROBILINOGEN NORMAL mg/dL (0.2-1.0)
[2016-12-04 21:26] VITALS: BP 128/74; PULSE 55
--- NOTE | 2016-12-05 07:34 | RAD ---
PROCEDURE: CHEST RADIOGRAPH, 1 VIEW HISTORY: pain COMPARISON: 10/24/2016 FINDINGS: LUNGS: Right chest wall port with tip extending to the cavoatrial junction. Mild venous congestion. Patchy left basilar airspace opacity with small left pleural effusion. Biapical pleural thickening with upper lobe granulomatous changes. Bibasilar breast and nipple shadows. PLEURA: As above. CARDIOVASCULAR: Normal. OSSEOUS STRUCTURES: Degenerative changes in the spine and shoulders. VISUALIZED UPPER ABDOMEN: Normal. OTHER FINDINGS: None. IMPRESSION: Right chest wall port with tip extending to the cavoatrial junction. Mild venous congestion. Patchy left basilar airspace opacity with small left pleural effusion. Biapical pleural thickening with upper lobe granulomatous changes. Bibasilar breast and nipple shadows.
--- NOTE | 2016-12-05 11:02 | CARD ---
APPROVED REPORT EKG Measurement Heart [id number] <Conclusion> Normal sinus rhythm Low voltage QRS T wave abnormality, consider anterior ischemia Abnormal ECG
== END 2016-12-04 22:32 | disposition home or self-care (01) ==
LOC: C.ER 19:03
DX: G89.3 Neoplasm related pain (acute) (chronic) (principal); Z85.3 Personal history of malignant neoplasm of breast
CPT/HCPCS: 71010; 80053; 81001; 83690; 84484; 85025; 93005; 96374; 96376; 99285; J2270

== ENCOUNTER 2016-12-20 13:48 | Emergency (ER) | payer OTHER ==
[2016-12-20 13:49] VITALS: BMI 27.7
[2016-12-20 14:09] VITALS: RESP 16
--- NOTE | 2016-12-20 14:30 | C.PDOC ---
History Of Present Illness 56-YEAR-OLD FEMALE, PRESENTS TO THE EMERGENCY DEPARTMENT WITH COMPLAINTS OF EPIG PAIN, WORSENING NV X 2 WEEKS. LAST BM 2 DAYS AGO. NO BLOATING. NO FEVER. PSH GASTRIC BYPASS SEEN 12/04 FOR INTRACT PAIN. PMHx DM, HTN, Asthma, Anxiety, Invasive bilateral Lobular Carcinoma of breast s/ p bilateral breast implant insertion, extensive bilateral breast revision, scar revision, breast capsulectomy, capsulotomy done 08/27/[address] Cruz EXAM NONTOXIC ABD MILD EPIG TEND SOFT NO R.G NON DIST REMAINDER NEG Time Seen by Provider: 12/20/16 14:28 Chief Complaint (Nursing): Abdominal Pain History Per: Patient History/Exam Limitations: no limitations Onset/Duration Of Symptoms: Days Current Symptoms Are (Timing): Still Present Severity: Moderate Past Medical History Reviewed: Historical Data, Nursing Documentation, Vital Signs Vital Signs: Last Vital Signs Temp 97.9 F 12/20/16 18:20 Pulse 77 12/20/16 18:20 Resp 16 12/20/16 18:20 BP 146/89 12/20/16 18:20 Pulse Ox 97 12/20/16 18:20 - Medical History PMH: Anemia, Anxiety, Arthritis, Asthma, Depression, Gastritis, HTN, Hypercholesterolemia, Hyperlipidemia, Malignancy (breast ca), Migraine, Osteoporosis, Peripheral Edema, Sleep Apnea (USES CPAP) Surgical History: Endoscopy - [facility] Procedures LAPAROSCOPIC VERTICAL (SLEEVE) GASTRECTOMY (08/24/13) RELEASE CHEST SKIN, EXTERNAL APPROACH (10/25/16) REMOVAL OF SYNTHETIC SUBSTITUTE FROM L BREAST, OPEN APPROACH (10/25/16) REMOVAL OF SYNTHETIC SUBSTITUTE FROM R BREAST, OPEN APPROACH (10/25/16) REPAIR BILATERAL BREAST, EXTERNAL APPROACH (10/25/16) REPAIR LEFT BREAST, EXTERNAL APPROACH (10/25/16) REPLACEMENT OF LEFT BREAST WITH SYNTH SUB, OPEN APPROACH (10/25/16) TRANSFUSE NONAUT RED BLOOD CELLS IN PERIPH VEIN, PERC (10/25/16) Family History: States: No Known Family Hx - Social History Hx Tobacco Use: No Hx Alcohol Use: No Hx Substance Use: No - Immunization History Hx Tetanus Toxoid Vaccination: Yes Hx Influenza Vaccination: Yes Hx Pneumococcal Vaccination: Yes Review Of Systems Except As Marked, All Systems Reviewed And Found Negative. Constitutional: Negative for: Fever Cardiovascular: Negative for: Chest Pain Gastrointestinal: Positive for: Nausea, Vomiting, Abdominal Pain Musculoskeletal: Negative for: Back Pain Neurological: Negative for: Weakness, Numbness Physical Exam - Physical Exam Appears: Non-toxic, No Acute Distress Skin: Warm, Dry, No Rash Head: Atraumatic, Normacephalic Eye(s): bilateral: Normal Inspection, PERRL Nose: Normal Oral Mucosa: Moist Lips: Normal Appearing Neck: Normal ROM Chest: Symmetrical Cardiovascular: Rhythm Regular, No Murmur Respiratory: Normal Breath Sounds, No Accessory Muscle Use Gastrointestinal/Abdominal: Soft, Tenderness (MILD, EPIGASTRIC), No Distention, No Guarding, No Rebound Extremity: Normal ROM Neurological/Psych: Oriented x3, Normal Speech ED Course And Treatment - Laboratory Results Result Diagrams: 12/20/16 16:05 12/20/16 16:05 O2 Sat by Pulse Oximetry: 98 Progress - Re-Evaluation Re-evaluation Note: 12/20/16 18:[address] RESULTS DISCUSSED. PS PENDING FU W DR CRUZ 12/25. STATES HAS KNOWN FLUID IN THE CHEST "THAT NEEDS TO BE CLEANED UP" - Data Reviewed Data Reviewed: Lab, Diagnostic imaging, Old records - Continuity of Care Discussed patient case with:: Patient, Family-HIPPA compliant Disposition Counseled Patient/Family Regarding: Studies Performed, Diagnosis, Need For Followup - Disposition Referrals: Renée Cruz MD [Staff Provider] - Disposition: HOME/ ROUTINE Disposition Time: 18:40 Condition: IMPROVED Instructions: Acute Abdominal Pain (ED) Forms: [facility] ([place]) - Clinical Impression Clinical Impression: Abdominal pain, Seroma - Scribe Statement The provider has reviewed the documentation as recorded by the Scribe (Kristine Dueñas) All medical record entries made by the Scribe were at my direction and personally dictated by me. I have reviewed the chart and agree that the record accurately reflects my personal performance of the history, physical exam, medical decision making, and the department course for this patient. I have also personally directed, reviewed, and agree with the discharge instructions and disposition.
[2016-12-20] MEDS ORDERED: Iohexol 240 (50 ml) PO STA (14:58)
[2016-12-20] MEDS ORDERED: Sodium Chloride 0.9% 1,000 ML IV ONE (14:58)
[2016-12-20] MEDS ORDERED: Iohexol 240 (50 ml) ONE (15:41)
[2016-12-20] MEDS ORDERED: Sodium Chloride 0.45% 1,000 ML IV ONE (15:42)
[2016-12-20] MEDS ORDERED: Morphine 4 MG/ML VIAL ONE ×2 (16:07→18:15)
[2016-12-20 16:17] LABS: BASO % 0.5 % (0.0-2.0); EOS # 0.1 K/uL (0.0-0.7); EOS % 1.7 % (0.0-4.0); HEMATOCRIT 34.8 % (34.0-47.0); LYMPH # 1.6 K/uL (1.0-4.3); LYMPH % 22.8 % (20.0-40.0); MEAN CELL VOLUME 88.3 fL (81.0-99.0); MEAN CORPUSCULAR HEMOGLOBIN 29.3 pg (27.0-31.0); MEAN CORPUSCULAR HGB CONC 33.2 g/dL (33.0-37.0); MEAN PLATELET VOLUME 7.3 fL (7.2-11.7); MONO # 0.8 K/uL (0.0-0.8); MONO % 10.7 % (0.0-10.0); RED CELL DISTRIBUTION WIDTH 15.9 % (11.5-14.5)
[2016-12-20 16:28] LABS: CHLORIDE 98 mmol/L (98-107); POTASSIUM 3.7 mmol/L (3.6-5.2); SODIUM 138 mmol/L (132-148)
[2016-12-20 16:29] LABS: URINE BILIRUBIN NEGATIVE (NEGATIVE); URINE BLOOD NEGATIVE (NEGATIVE); URINE COLOR Colorless (YELLOW); URINE GLUCOSE (UA) NORMAL (Normal); URINE KETONE NEGATIVE (NEGATIVE); URINE LEUKOCYTE ESTERASE NEG Leu/uL (Negative); URINE PROTEIN NEGATIVE (NEGATIVE); URINE UROBILINOGEN NORMAL mg/dL (0.2-1.0)
[2016-12-20 16:30] LABS: GFR AFRICAN-AMERICAN > 60
[2016-12-20 16:31] LABS: ALB/GLOB RATIO 1.2 (1.0-2.1); ALKALINE PHOSPHATASE 65 U/L (38-126); ALT/SGPT 33 U/L (9-52); AST/SGOT 25 U/L (14-36); BILIRUBIN,TOTAL 0.5 mg/dL (0.2-1.3); BLOOD UREA NITROGEN 12 mg/dL (7-17); CALCIUM 8.9 mg/dl (8.6-10.4); CARBON DIOXIDE 25 mmol/L (22-30); GLUCOSE,RANDOM 83 mg/dL (65-105)
[2016-12-20] MEDS ORDERED: Iodixanol 320 MG/ML 100 ML BOTTLE IV ONE (17:07)
[2016-12-20 18:26] VITALS: BP 146/89; PULSE 77; TEMP 97.9
[2016-12-20 18:41] VITALS: O2SAT 98
--- NOTE | 2016-12-21 08:30 | CT ---
PROCEDURE: CT Abdomen and Pelvis with contrast HISTORY: abd pain HO GASTRIC BYPASS COMPARISON: 06/20/2016. TECHNIQUE: CT scan of the abdomen and pelvis was performed after intravenous administration of contrast. Oral contrast was not administered. Coronal and sagittal reformatted images were obtained. Contrast dose: 100 mL Visipaque 240 Radiation dose: Total exam DLP = 586.12 mGy-cm. This CT exam was performed using one or more of the following dose reduction techniques: Automated exposure control, adjustment of the mA and/or kV according to patient size, and/or use of iterative reconstruction technique. FINDINGS: LOWER THORAX: The lung bases are clear. LIVER: There is fatty infiltration of the liver. No gross lesion or ductal dilatation. GALLBLADDER AND BILE DUCTS: There are no calcified gallstones. PANCREAS: Pancreas is normal in size and there is homogeneous enhancement without ductal dilatation or focal mass. SPLEEN: The spleen is normal. ADRENALS: Both adrenal glands are normal in size without discrete nodule. KIDNEYS AND URETERS: Both kidneys are normal in size and there is homogeneous enhancement without hydronephrosis or focal mass. VASCULATURE: No aortic aneurysm. BOWEL: Status post gastric bypass surgery. The small bowel loops are normal in caliber. There is mild sigmoid diverticulosis without CT evidence for acute diverticulitis. APPENDIX: Normal appendix. PERITONEUM: No free fluid. No free air. LYMPH NODES: No enlarged lymph nodes. BLADDER: Grossly normal in appearance. REPRODUCTIVE: The uterus is normal in size. BONES: No acute fracture. OTHER FINDINGS: None. IMPRESSION: No acute abdominal or pelvic abnormality. A preliminary report was provided by [employer].
--- NOTE | 2016-12-26 11:32 | CARD ---
APPROVED REPORT EKG Measurement Heart [id number] <Conclusion> Normal sinus rhythm T wave abnormality, consider anterior ischemia Abnormal ECG
== END 2016-12-20 18:54 | disposition home or self-care (01) ==
LOC: C.ER 13:48
DX: K91.873 Postprocedural seroma of a digestive system organ or structure following other procedure (principal); Y84.8 Other medical procedures as the cause of abnormal reaction of the patient, or of later complication, without mention of misadventure at the time of the procedure; R10.13 Epigastric pain
CPT/HCPCS: 74177; 80053; 81001; 83690; 85025; 96361; 96374; 96375; 96376; 99284; J2270; J2405; J7040; Q9966; Q9967

== ENCOUNTER 2017-01-28 08:28 | Day surgery (SDC) | payer OTHER ==
[2017-01-21 14:56] VITALS: BMI 27.1
--- NOTE | 2017-01-28 11:05 | CP.SDSHP ---
Same Day Surgery H & P - History Proposed Procedure: US guided aspiration of left chest wall seroma Pre-Op Diagnosis: Left chest wall seroma - Allergies Allergies: Allergies aspirin Allergy (Verified 12/20/16 14:09) ANGIOEDEMA - Physical Exam Vital Signs: Vital Signs 01/28/17 09:20 Temperature 97.1 F L Pulse Rate 73 Respiratory 14 Rate Blood Pressure 128/66 O2 Sat by Pulse 100 Oximetry Mental Status: Alert & Oriented x3 Neuro: WNL Heart: WNL - Impression Impression: Pt s/p left mastectomy. Fluid collection deep to scars. Plan US guided aspration. Pt. Evaluated Today:Candidate for Anesthesia & Procedure: No - Date & Time Date: 01/28/17 Time: 10:50 Short Stay Discharge - Short Stay Discharge Admitting Diagnosis/Reason for Visit: CHEST WALL COLLECTION Disposition: HOME/ ROUTINE
--- NOTE | 2017-01-28 11:07 | PCM.SURG1 ---
Surgeon's Initial Post Op Note - Surgeon's Notes Surgeon: Enrique Daley MD Emergency Vehicle Driver: NONE Type of Anesthesia: Local Pre-Operative Diagnosis: Left chest wall seroma. Operative Findings: Small fluid collection deep to left chest surgical scars. Post-Operative Diagnosis: Left chest wall seroma Operation Performed: US guided aspiration of left chest seroma. Specimen/Specimens Removed: 50 cc of clear yellow fluid Estimated Blood Loss: EBL {In ML}: 1 Blood Products Given: N/A Drains Used: No Drains Post-Op Condition: Good Date of Surgery/Procedure: 01/28/17 Time of Surgery/Procedure: 11:05
[2017-01-28 11:34] VITALS: BP 116/72; PULSE 70; RESP 16; TEMP 97; O2SAT 97
--- NOTE | 2017-01-29 10:43 | US ---
PROCEDURE: Date of procedure: 01/28/2017 Procedure: 1. Chest wall fluid collection drainage with ultrasound guidance. Medications: Lidocaine 1 percent -3 cubic centimeters HISTORY: Mastectomy with fluid collection deep to the incision. TECHNIQUE: Following informed consent procedure time-out, limited ultrasound of the patient's left chest showed a fluid collection deep to the surgical scar. The skin was marked, prepped, and draped in the usual sterile fashion. After the skin was anesthetized with 1 percent lidocaine, a 5 [employer] catheter was advanced under ultrasound guidance into the collection. 50 cubic centimeters of clear yellow fluid aspirated. The fluid was sent for culture and sensitivity. IMPRESSION: Ultrasound-guided aspiration of left chest wall seroma.
== END 2017-01-28 11:48 | disposition home or self-care (01) ==
LOC: C.SPRAD 08:28
PROVIDERS: ATTEND Radiology Vascular & Interventional Radiology
DX: S21.102A Unspecified open wound of left front wall of thorax without penetration into thoracic cavity, initial encounter (principal)

== ENCOUNTER 2017-03-09 09:33 | Emergency (ER) | payer MEDICAID, OTHER ==
[2017-03-09 09:48] VITALS: BMI 25.8
[2017-03-09] MEDS ORDERED: Sodium Chloride 0.9% 1,000 ML IV ONE (10:06)
--- NOTE | 2017-03-09 10:09 | C.PDOC ---
History Of Present Illness 57 yo female present to ED for evaluation of diffuse anterior chest wall pain, posterior Left sided neck pain gradually worsen for past few days. Pt admits, pain is chronic, usually takes Oxycodone and percocet , with no significant improvement now. pain is localized over anterior chest wall reproducible, " burning sensation". Otherwise, pt denies fever, chills, headache, visual changes , focal deficits, SOB, dyspnea, diaphoresis, palpitation, abd. pain, N/V/D, UTi sx. Ambulate to Ed for evaluation, not in any apparent distress. last dose of narcotics- [employer]. PMHx: DM, HTN, Asthma, Anxiety, Invasive bilateral Lobular Carcinoma of breast s /p bilateral mastectomy with implant insertion and post-surgical complication, subsequent breast implant removal. Hx of extensive bilateral breast revision, breast capsulectomy. Time Seen by Provider: 03/09/17 09:47 Chief Complaint (Nursing): Breast Problem History Per: Patient Past Medical History Reviewed: Historical Data, Nursing Documentation, Vital Signs Vital Signs: Last Vital Signs Temp 98.0 F 03/09/17 09:50 Pulse 83 03/09/17 14:50 Resp 16 03/09/17 14:50 BP 109/60 03/09/17 14:50 Pulse Ox 98 03/09/17 14:50 - Medical History PMH: Anemia, Anxiety, Arthritis, Asthma, Depression, Gastritis, HTN, Hypercholesterolemia, Hyperlipidemia, Malignancy (breast ca), Migraine, Osteoporosis, Peripheral Edema, Sleep Apnea (USES CPAP) Denies: Chronic Kidney Disease Surgical History: Endoscopy Other Surgeries: Mastectomy B/L with extensive multiple revision surgery - [facility] Procedures LAPAROSCOPIC VERTICAL (SLEEVE) GASTRECTOMY (08/24/13) RELEASE CHEST SKIN, EXTERNAL APPROACH (10/25/16) REMOVAL OF SYNTHETIC SUBSTITUTE FROM L BREAST, OPEN APPROACH (10/25/16) REMOVAL OF SYNTHETIC SUBSTITUTE FROM R BREAST, OPEN APPROACH (10/25/16) REPAIR BILATERAL BREAST, EXTERNAL APPROACH (10/25/16) REPAIR LEFT BREAST, EXTERNAL APPROACH (10/25/16) REPLACEMENT OF LEFT BREAST WITH SYNTH SUB, OPEN APPROACH (10/25/16) TRANSFUSE NONAUT RED BLOOD CELLS IN PERIPH VEIN, PERC (10/25/16) Family History: States: Unknown Family Hx - Social History Hx Tobacco Use: No Hx Alcohol Use: No Hx Substance Use: No - Immunization History Hx Tetanus Toxoid Vaccination: Yes Hx Influenza Vaccination: Yes Hx Pneumococcal Vaccination: Yes Review Of Systems Except As Marked, All Systems Reviewed And Found Negative. Constitutional: Negative for: Fever, Chills Eyes: Negative for: Vision Change ENT: Negative for: Throat Pain Cardiovascular: Positive for: Chest Pain (reproducible). Negative for: Palpitations, Edema, Light Headedness Respiratory: Negative for: Cough, Shortness of Breath, Hemoptysis, SOB with Excertion, Pleuritic Pain, Sputum Gastrointestinal: Negative for: Nausea, Vomiting, Abdominal Pain Genitourinary: Negative for: Dysuria, Frequency, Incontinence Musculoskeletal: Positive for: Neck Pain. Negative for: Back Pain Skin: Negative for: Rash Neurological: Negative for: Weakness, Numbness, Altered Mental Status, Headache , Dizziness Physical Exam - Physical Exam Appears: Well, No Acute Distress Skin: Normal Color, Warm, Dry Eye(s): bilateral: PERRL Nose: No Flaring, No Discharge Oral Mucosa: Moist, No Drooling Throat: No Erythema, No Exudate, No Drooling Neck: Trachea Midline, Supple, Other (mild left sided lateral tenderness over trapezium muscle.) Chest: Tenderness (over anterior chest wall midclavicular line overlying 2nd- 3rd intercostal spaces.), No Ecchymosis, No Subcutaneous Emphysema, Other (B/L mastectomy. Left anterior chest wall skin discoloration with palpable small multiple hard masses) Cardiovascular: Rhythm Regular, No JVD, Other ((-) carotid bruits B/L) Respiratory: No Stridor, No Wheezing Gastrointestinal/Abdominal: Soft, No Tenderness Back: No CVA Tenderness, No Vertebral Tenderness Extremity: No Pedal Edema, No Deformity, No Swelling ED Course And Treatment - Laboratory Results Result Diagrams: 03/09/17 10:54 03/09/17 10:54 Lab Interpretation: No Acute Changes ECG: Interpreted By Me, Viewed By Me ECG Interpretation: No Changes From Prior (12/20/16) Interpretation Of ECG: SR@82/min, LAD, T wave inversion in V2-V5, no acute ST-T changes. Compare to previous study and appears similar without acute new changes. Rate From EC (BPM) O2 Sat by Pulse Oximetry: 97 (RA) Pulse Ox Interpretation: Normal () - CT Scan/US CT - Angio Chest Other Rad Studies (CT/US): Read By Radiologist, Radiology Report Reviewed CT/US Interpretation: PROCEDURE: CT Chest with contrast (Pulmonary Angiogram). HISTORY: pain, hx of CA. COMPARISON: Comparison made with CTA of the chest 03/22/2016. Comparison also made with CT scan of the chest abdomen pelvis 2016. TECHNIQUE: Axial computed tomography images were obtained of the chest in the pulmonary arterial phase of enhancement. Coronal and sagittal reformatted images were created and reviewed. Intravenous contrast dose: 100 cc Visipaque 320. Radiation dose: Total exam DLP = 411.23 mGy-cm. This CT exam was performed using one or more of the following dose reduction techniques : Automated exposure control, adjustment of the mA and/or kV according to patient size, and/or use of iterative reconstruction technique. FINDINGS: PULMONARY ARTERIES: The visualized pulmonary trunk, right and left main, lobar , segmental and proximal subsegmental branches of the pulmonary arteries are well opacified with no definitive filling defects seen to suggest acute pulmonary embolus. Pulmonary trunk measures approximately 2.52 cm. AORTA: No acute findings. No thoracic aortic aneurysm. The at ascending thoracic aorta measures approximately 2.82 cm and descending thoracic aorta measures approximately 1.82 cm. LUNGS: No focal consolidation effusion or pneumothorax. Minor atelectasis/scarring changes cyst seen both lung bases including the lingular and middle lobe regions. . No parenchymal masses nor obvious nodules seen. PLEURAL SPACES: Unremarkable. No effusion or pneumothorax. HEART: Heart size within range of normal. . No significant significant pericardial effusion. LYMPH NODES: Several small nonspecific mediastinal lymph nodes are present. No significant mediastinal adenopathy. Central airways are midline and patent. No large central endoluminal lesions are identified. There is a small hiatal hernia with wall thickening of the distal esophagus which is likely due to protrusion of gastric mucosa however esophagitis or other intrinsic/invasive wall lesion cannot be excluded. BONES, CHEST WALL: Bilateral mastectomies. There is an elliptical shaped heterogeneous soft tissue density within the left anterior chest wall that measures approximately 12.0 cm T x 8.5 cm CC x 2.7 cm AP that was the site of large presumed postoperative fluid collection that has undergone evolution and probably represent some combination of postoperative scarring granulation tissue and some residual loculated proteinaceous fluid collections. . Clinical correlation recommended. The vertebral bodies exhibit relatively normal stature with no evidence of acute nor chronic compression fractures nor retropulsed fragments. No suspicious lytic or blastic lesions are identified. Multilevel degenerative spondylosis of the thoracic spine. OTHER FINDINGS: No significant axillary adenopathy is identified. In situ right IJ MediPort. Apparent changes of gastric bypass surgery however clinical correlation with history recommended. IMPRESSION: No evidence of acute central pulmonary embolus. No acute infiltrates effusions or pneumothorax. There is a large elliptical shaped somewhat heterogeneous soft tissue mass density which was the site of a large fluid collection on prior CT scan. This lobe likely represents residual of scarring granulation tissue and some areas of loculated proteinaceous fluid. Re- demonstrated are changes of gastric bypass surgery. Small hiatal hernia with wall thickening of the distal esophagus likely due to protrusion gastric mucosa. Possibility of esophagitis or other intrinsic/ invasive wall lesion not excluded. Clinical correlation recommended. See above discussion for additional findings and details. Progress Note: Pt was OBS in ED for 5 hours and remained stable. Pt was given pain medication Dilaudid 2mg #2 in ED requested by pt with good pain relieve. Blood work review and appears without acute abnormalities compare to previous visits. Imaging review, no new acute findings noted. case discussed with pt's PMD and results review. As per PMD, discharge with outpt f/u , PM recommend. On re-eavl, pt is AAO#3, appears comforatbly in bed. Afebrile, hemodynamicaly stable. non-toxic. PulsEOx 97% RA. Neck: Supple, (-) JVD, (-) carotid bruits B/L. ENT: no acute abnoramlities. Lungs: CTA B/L, BS equal B/ L. CVS: (+)S1S2, reg. Abd: benign. Neurologicaly intact. results review and discussed with pt, copies were given for PMD f/u,. Pt understand and agrees with discharges. Pt is stable for discharge now. Disposition Counseled Patient/Family Regarding: Studies Performed, Diagnosis, Need For Followup - Disposition Referrals: Montrell Chawla MD [Medical Doctor] - Disposition Time: 14:33 Condition: STABLE Additional Instructions: FOLLOW UP WITH PMD AND PAIN MANAGEMENT IN 2-3 DAYS FOR RE-EVALUATION AND FURTHER TREATMENT. RETURN TO ED AT ANY TIME IF ANY WORSENING OR NEW CHANGES. Instructions: Chest Wall Pain (ED), Chronic Pain (ED) Forms: [facility] [facility] ([place]ian) - Clinical Impression Clinical Impression: Chest wall pain, Disorder of breast, Cancer related pain
[2017-03-09] MEDS ORDERED: Sodium Chloride 0.9% 1,000 ML ONE (10:25)
[2017-03-09 11:03] LABS: BASO % 0.6 % (0.0-2.0); EOS # 0.1 K/uL (0.0-0.7); EOS % 1.5 % (0.0-4.0); HEMATOCRIT 36.1 % (34.0-47.0); LYMPH # 1.4 K/uL (1.0-4.3); LYMPH % 18.7 % (20.0-40.0); MEAN CELL VOLUME 88.4 fL (81.0-99.0); MEAN CORPUSCULAR HEMOGLOBIN 30.1 pg (27.0-31.0); MEAN CORPUSCULAR HGB CONC 34.1 g/dL (33.0-37.0); MEAN PLATELET VOLUME 7.6 fL (7.2-11.7); MONO # 0.7 K/uL (0.0-0.8); MONO % 9.2 % (0.0-10.0); RED CELL DISTRIBUTION WIDTH 14.1 % (11.5-14.5); WHITE BLOOD COUNT 7.4 K/uL (4.8-10.8)
[2017-03-09 11:14] LABS: RBC URINE < 1 /hpf (0-3); URINE BILIRUBIN NEGATIVE (NEGATIVE); URINE BLOOD NEGATIVE (NEGATIVE); URINE COLOR Yellow (YELLOW); URINE GLUCOSE (UA) NORMAL (Normal); URINE KETONE NEGATIVE (NEGATIVE); URINE LEUKOCYTE ESTERASE NEG Leu/uL (Negative); URINE PROTEIN NEGATIVE (NEGATIVE); URINE UROBILINOGEN NORMAL mg/dL (0.2-1.0); WBC URINE 1 /hpf (0-5)
[2017-03-09 11:36] LABS: POTASSIUM 4.2 mmol/L (3.6-5.2)
[2017-03-09 11:38] LABS: BILIRUBIN,TOTAL 0.6 mg/dL (0.2-1.3)
[2017-03-09 11:39] LABS: ALB/GLOB RATIO 1.2 (1.0-2.1); CALCIUM 9.5 mg/dl (8.6-10.4); TOTAL PROTEIN 7.9 g/dL (6.3-8.3)
[2017-03-09 11:49] LABS: TROPONIN I 0.014 ng/mL (0.00-0.120)
[2017-03-09] MEDS ORDERED: Iodixanol 320 MG/ML 100 ML BOTTLE IV ONE ×2 (12:30→12:48)
--- NOTE | 2017-03-09 13:01 | CARD ---
APPROVED REPORT EKG Measurement Heart [id number] <Conclusion> Normal sinus rhythm T wave abnormality, consider anterior ischemia Abnormal ECG
--- NOTE | 2017-03-09 14:27 | CT ---
PROCEDURE: CT Chest with contrast (Pulmonary Angiogram) HISTORY: pain, hx of CA COMPARISON: Comparison made with CTA of the chest 03/22/2016. Comparison also made with CT scan of the chest abdomen pelvis 06/20/2016. TECHNIQUE: Axial computed tomography images were obtained of the chest in the pulmonary arterial phase of enhancement. Coronal and sagittal reformatted images were created and reviewed. Intravenous contrast dose: 100 cc Visipaque 320 Radiation dose: Total exam DLP = 411.23 mGy-cm. This CT exam was performed using one or more of the following dose reduction techniques: Automated exposure control, adjustment of the mA and/or kV according to patient size, and/or use of iterative reconstruction technique. FINDINGS: PULMONARY ARTERIES: The visualized pulmonary trunk, right and left main, lobar, segmental and proximal subsegmental branches of the pulmonary arteries are well opacified with no definitive filling defects seen to suggest acute pulmonary embolus. Pulmonary trunk measures approximately 2.52 cm. AORTA: No acute findings. No thoracic aortic aneurysm. The at ascending thoracic aorta measures approximately 2.82 cm and descending thoracic aorta measures approximately 1.82 cm. LUNGS: No focal consolidation effusion or pneumothorax. Minor atelectasis/scarring changes cyst seen both lung bases including the lingular and middle lobe regions. . No parenchymal masses nor obvious nodules seen. PLEURAL SPACES: Unremarkable. No effusion or pneumothorax. HEART: Heart size within range of normal. . No significant significant pericardial effusion. LYMPH NODES: Several small nonspecific mediastinal lymph nodes are present. No significant mediastinal adenopathy. Central airways are midline and patent. No large central endoluminal lesions are identified. There is a small hiatal hernia with wall thickening of the distal esophagus which is likely due to protrusion of gastric mucosa however esophagitis or other intrinsic/invasive wall lesion cannot be excluded. BONES, CHEST WALL: Bilateral mastectomies. There is an elliptical shaped heterogeneous soft tissue density within the left anterior chest wall that measures approximately 12.0 cm T x 8.5 cm CC x 2.7 cm AP that was the site of large presumed postoperative fluid collection that has undergone evolution and probably represent some combination of postoperative scarring granulation tissue and some residual loculated proteinaceous fluid collections. . Clinical correlation recommended. The vertebral bodies exhibit relatively normal stature with no evidence of acute nor chronic compression fractures nor retropulsed fragments. No suspicious lytic or blastic lesions are identified. Multilevel degenerative spondylosis of the thoracic spine. OTHER FINDINGS: No significant axillary adenopathy is identified. In situ right IJ MediPort Apparent changes of gastric bypass surgery however clinical correlation with history recommended. IMPRESSION: No evidence of acute central pulmonary embolus. No acute infiltrates effusions or pneumothorax. There is a large elliptical shaped somewhat heterogeneous soft tissue mass density which was the site of a large fluid collection on prior CT scan. This lobe likely represents residual of scarring granulation tissue and some areas of loculated proteinaceous fluid. Re- demonstrated are changes of gastric bypass surgery. Small hiatal hernia with wall thickening of the distal esophagus likely due to protrusion gastric mucosa. Possibility of esophagitis or other intrinsic/invasive wall lesion not excluded. Clinical correlation recommended. See above discussion for additional findings and details.
[2017-03-09 15:05] VITALS: RESP 16
[2017-03-09 15:37] VITALS: BP 117/63; PULSE 74; TEMP 98.9; O2SAT 100
== END 2017-03-09 15:40 | disposition home or self-care (01) ==
LOC: C.ER 09:33
DX: R07.89 Other chest pain (principal); G89.3 Neoplasm related pain (acute) (chronic); N64.9 Disorder of breast, unspecified
CPT/HCPCS: 71275; 80053; 81001; 84484; 85025; 85610; 85730; 93005; 96361; 96374; 96376; 99285; J1170; J7040; Q9967

== ENCOUNTER 2017-04-26 11:20 | Emergency (ER) | payer MEDICAID, OTHER ==
[2017-04-26 11:21] VITALS: BMI 25.8
[2017-04-26 12:12] LABS: BASO % 0.7 % (0.0-2.0); EOS % 0.7 % (0.0-4.0); LYMPH % 14.2 % (20.0-40.0); MEAN CELL VOLUME 91.2 fL (81.0-99.0); MEAN CORPUSCULAR HGB CONC 32.9 g/dL (33.0-37.0); MEAN PLATELET VOLUME 7.5 fL (7.2-11.7); MONO # 0.7 K/uL (0.0-0.8); MONO % 10.6 % (0.0-10.0)
[2017-04-26 12:17] LABS: URINE BILIRUBIN NEGATIVE (NEGATIVE); URINE BLOOD NEGATIVE (NEGATIVE); URINE COLOR Yellow (YELLOW); URINE GLUCOSE (UA) NORMAL (Normal); URINE KETONE TRACE mg/dL (NEGATIVE); URINE LEUKOCYTE ESTERASE NEG Leu/uL (Negative); URINE PROTEIN NEGATIVE (NEGATIVE); URINE UROBILINOGEN NORMAL mg/dL (0.2-1.0); WBC URINE < 1 /hpf (0-5)
[2017-04-26 12:33] LABS: ALB/GLOB RATIO 0.9 (1.0-2.1); ALKALINE PHOSPHATASE 43 U/L (38-126); ALT/SGPT 35 U/L (9-52); AST/SGOT 22 U/L (14-36); BILIRUBIN,TOTAL 0.3 mg/dL (0.2-1.3); BLOOD UREA NITROGEN 13 mg/dL (7-17); CALCIUM 8.3 mg/dl (8.6-10.4); CARBON DIOXIDE 28 mmol/L (22-30); CHLORIDE 105 mmol/L (98-107); GFR AFRICAN-AMERICAN > 60; GLUCOSE,RANDOM 93 mg/dL (65-105); POTASSIUM 3.9 mmol/L (3.6-5.2); SODIUM 137 mmol/L (132-148); TOTAL PROTEIN 7.4 g/dL (6.3-8.3)
[2017-04-26] MEDS ORDERED: Morphine 4 MG/ML VIAL ONE ×2 (13:28→16:53)
[2017-04-26] MEDS ORDERED: Albuterol-Ipratrop 3 mg / 0.5 (3 ml) UD ONE (13:34)
[2017-04-26] MEDS ORDERED: Albuterol-Ipratrop 3 mg / 0.5 (3 ml) UD INH STA (13:35)
[2017-04-26] MEDS ORDERED: Iodixanol 320 MG/ML 100 ML BOTTLE IV ONE (14:48)
--- NOTE | 2017-04-26 15:14 | C.PDOC ---
History Of Present Illness 57-year-old female, PMHx includes breast CA and B/L mastectomy, and post- surgical Myloma, presents to the emergency department with complaints of two month duration of productive cough. States cough worsened this morning, resulting in her coming to the ED for evaluation. Denies nausea/vomiting, fevers or chills. Time Seen by Provider: 04/26/17 11:31 Chief Complaint (Nursing): Cough, Cold, Congestion History Per: Patient History/Exam Limitations: no limitations Onset/Duration Of Symptoms: Days Current Symptoms Are (Timing): Still Present Past Medical History Reviewed: Historical Data, Nursing Documentation, Vital Signs Vital Signs: Last Vital Signs Temp 98.7 F 04/26/17 16:14 Pulse 71 04/26/17 16:58 Resp 15 04/26/17 16:58 BP 109/76 04/26/17 16:58 Pulse Ox 99 04/26/17 16:58 - Medical History PMH: Anemia, Anxiety, Arthritis, Asthma, Depression, Gastritis, HTN, Hypercholesterolemia, Hyperlipidemia, Malignancy (breast ca), Migraine, Osteoporosis, Peripheral Edema, Sleep Apnea (USES CPAP BEFORE) Denies: Chronic Kidney Disease Surgical History: Endoscopy - [facility] Procedures LAPAROSCOPIC VERTICAL (SLEEVE) GASTRECTOMY (08/24/13) RELEASE CHEST SKIN, EXTERNAL APPROACH (10/25/16) REMOVAL OF SYNTHETIC SUBSTITUTE FROM L BREAST, OPEN APPROACH (10/25/16) REMOVAL OF SYNTHETIC SUBSTITUTE FROM R BREAST, OPEN APPROACH (10/25/16) REPAIR BILATERAL BREAST, EXTERNAL APPROACH (10/25/16) REPAIR LEFT BREAST, EXTERNAL APPROACH (10/25/16) REPLACEMENT OF LEFT BREAST WITH SYNTH SUB, OPEN APPROACH (10/25/16) TRANSFUSE NONAUT RED BLOOD CELLS IN PERIPH VEIN, PERC (10/25/16) Family History: States: No Known Family Hx - Social History Hx Tobacco Use: No Hx Alcohol Use: No Hx Substance Use: No - Immunization History Hx Tetanus Toxoid Vaccination: Yes Hx Influenza Vaccination: Yes Hx Pneumococcal Vaccination: Yes Review Of Systems Except As Marked, All Systems Reviewed And Found Negative. Constitutional: Negative for: Fever, Chills Cardiovascular: Negative for: Chest Pain Respiratory: Positive for: Cough, Sputum. Negative for: Shortness of Breath, Hemoptysis Gastrointestinal: Negative for: Nausea, Vomiting Physical Exam - Physical Exam Appears: Non-toxic, No Acute Distress Skin: Warm, Dry, No Rash Head: Atraumatic, Normacephalic Eye(s): bilateral: Normal Inspection, PERRL Nose: Normal Oral Mucosa: Moist Lips: Normal Appearing Neck: Normal ROM Cardiovascular: Rhythm Regular, No Murmur Respiratory: Normal Breath Sounds, No Accessory Muscle Use Gastrointestinal/Abdominal: Soft, No Tenderness Back: Normal Inspection Extremity: Normal ROM Neurological/Psych: Oriented x3, Normal Speech ED Course And Treatment - Laboratory Results Result Diagrams: 04/26/17 12:08 04/26/17 12:08 O2 Sat by Pulse Oximetry: 100 (on RA) Pulse Ox Interpretation: Normal - Radiology CXR: Interpreted by Wi CXR Interpretation: Yes: No Acute Disease - CT Scan/US CT of chest with IV contrast Other Rad Studies (CT/US): Read By Radiologist, Radiology Report Reviewed CT/US Interpretation: Accession No. : [id number]. Patient Name / ID : MARCUS SHANKAR / [id number]. Exam Date : 04/26/2017 15:01:33 ( Approved ). Study Comment : Sex / Age : F / 57Y. Creator : Gabino Roberson MD. Dictator : Gabino Roberson MD. [employer] Supervisor : Salesperson [employer]iances : Gabino Roberson MD. Approver2 : Report Date : 04/26/2017 15:43:26. My Comment : . PROCEDURE: CT Chest with contrast. HISTORY: h/o breast cancer, cough, chest/back pain x 2 mon. COMPARISON: Chest CT with contrast 03/09/2017. TECHNIQUE: Contiguous axial images were obtained through the chest with intravenous contrast enhancement. Sagittal and coronal reconstructions were performed. IV contrast: Visipaque 320, 100 cc. Radiation dose (DLP): 417.11 MGy-cm. This CT exam was performed using one or more of the following dose reduction techniques: Automated exposure control, adjustment of the mA and/or kV according to patient size, and/or use of iterative reconstruction technique. FINDINGS: LUNGS: Clear lungs. Visualized airway clear. No infiltrate or central air rate mass. No pulmonary parenchymal mass is appreciable. Trace linear atelectasis or fibrosis in the superior segment left lower lobe. MEDIASTINUM: Unremarkable thoracic aorta. No aneurysm or dissection. Normal sized heart. Main pulmonary artery unremarkable. No vascular congestion. No lymphadenopathy. A right-sided MediPort is identified in position terminating at the distal superior vena cava. PLEURA: No pleural fluid. No pneumothorax. BONES: No fracture. No destructive lesion. Bilateral mastectomy is appreciated with stable fluid collection or tissue metaphysics teacher at the left chest wall 2.2 x 11.9 cm blast a breast implant is possible here though this is not favored given lack of peripheral hyperdensity. UPPER ABDOMEN: Postop changes suggesting prior gastric sleeve surgery again evident. OTHER FINDINGS: None. IMPRESSION: Stable nonacute read appearing chest CT with no acute infiltrate, pleural or pericardial effusion, pneumothorax or cardiomegaly appreciated this time. No definitive pulmonary mass or significant lymphadenopathy. Progress Note: Patient was treated with Duoneb x 1, Zithromax po and Morphine IV. On re-evaluation, she feels better and is stable to be d/c home with PMD follow up. Medical Decision Making Medical Decision Making: Plan: * CT Chest * Labs * Duoneb, Morphine * Reassess and Disposition Disposition - Disposition Disposition: HOME/ ROUTINE Disposition Time: 16:30 Condition: STABLE Additional Instructions: Follow up with PMD within 1-2 days. Return to ED if feel worse. Prescriptions: Benzonatate [Tessalon Perles] 2 tab PO TID #60 sgl Albuterol HFA [Ventolin HFA 90 mcg/actuation (8 g)] 1 puff IH .Q4-6H #1 inhaler Azithromycin [Zithromax] 250 mg PO DAILY #4 tab Instructions: Acute Bronchitis (ED) Forms: [facility] (Greek) - Clinical Impression Clinical Impression: Bronchitis - Scribe Statement The provider has reviewed the documentation as recorded by the Scribe (Kristine Dueñas) All medical record entries made by the Scribe were at my direction and personally dictated by me. I have reviewed the chart and agree that the record accurately reflects my personal performance of the history, physical exam, medical decision making, and the department course for this patient. I have also personally directed, reviewed, and agree with the discharge instructions and disposition.
--- NOTE | 2017-04-26 15:45 | CT ---
PROCEDURE: CT Chest with contrast HISTORY: h/o breast cancer, cough, chest/back pain x 2 mon COMPARISON: Chest CT with contrast 03/09/2017. TECHNIQUE: Contiguous axial images were obtained through the chest with intravenous contrast enhancement. Sagittal and coronal reconstructions were performed. IV contrast: Visipaque 320, 100 cc Radiation dose (DLP): 417.11 MGy-cm. This CT exam was performed using one or more of the following dose reduction techniques: Automated exposure control, adjustment of the mA and/or kV according to patient size, and/or use of iterative reconstruction technique. FINDINGS: LUNGS: Clear lungs. Visualized airway clear. No infiltrate or central air rate mass. No pulmonary parenchymal mass is appreciable. Trace linear atelectasis or fibrosis in the superior segment left lower lobe. MEDIASTINUM: Unremarkable thoracic aorta. No aneurysm or dissection. Normal sized heart. Main pulmonary artery unremarkable. No vascular congestion. No lymphadenopathy. A right-sided MediPort is identified in position terminating at the distal superior vena cava. PLEURA: No pleural fluid. No pneumothorax. BONES: No fracture. No destructive lesion. Bilateral mastectomy is appreciated with stable fluid collection or tissue allied health teacher at the left chest wall 2.2 x 11.9 cm blast a breast implant is possible here though this is not favored given lack of peripheral hyperdensity. UPPER ABDOMEN: Postop changes suggesting prior gastric sleeve surgery again evident. OTHER FINDINGS: None. IMPRESSION: Stable nonacute read appearing chest CT with no acute infiltrate, pleural or pericardial effusion, pneumothorax or cardiomegaly appreciated this time. No definitive pulmonary mass or significant lymphadenopathy.
--- NOTE | 2017-04-26 15:54 | RAD ---
HISTORY: cough x 2 months COMPARISON: Chest x-ray performed 12/04/16 TECHNIQUE: Chest, one view. FINDINGS: Right-sided MediPort extends to the cavoatrial junction. LUNGS: Biapical pleural thickening. Patchy opacities at the right greater than left mid lung zones; correlate clinically for possibility of developing infiltrate. Please note that chest x-ray has limited sensitivity for the detection of pulmonary masses. PLEURA: No significant pleural effusion identified. No definite pneumothorax . CARDIOVASCULAR: Heart size appears top normal. OSSEOUS STRUCTURES: Degenerative changes of the spine. VISUALIZED UPPER ABDOMEN: Unremarkable. OTHER FINDINGS: None. IMPRESSION: Biapical pleural thickening. Patchy opacities at the right greater than left mid lung zones; correlate clinically for possibility of developing infiltrate.
[2017-04-26 16:14] VITALS: RESP 15; TEMP 98.7
[2017-04-26] MEDS ORDERED: Morphine 4 MG/ML VIAL IV STA (16:44)
[2017-04-26 16:58] VITALS: BP 109/76; PULSE 71
[2017-04-26 17:30] VITALS: O2SAT 100
--- NOTE | 2017-04-27 23:17 | CARD ---
APPROVED REPORT EKG Measurement Heart [id number] OR 160P37 [id number] <Conclusion> Normal sinus rhythm Low voltage QRS Nonspecific T wave abnormality Abnormal ECG
== END 2017-04-26 17:42 | disposition home or self-care (01) ==
LOC: C.ER 11:20
DX: J40 Bronchitis, not specified as acute or chronic (principal)
CPT/HCPCS: 71010; 71260; 80053; 81001; 85025; 87040; 93005; 94640; 96374; 96376; 99285; J2270; Q9967

== ENCOUNTER 2017-05-05 12:33 | Emergency (ER) | payer OTHER ==
[2017-05-05 12:34] VITALS: BMI 25.8
[2017-05-05 12:50] VITALS: O2SAT 97
[2017-05-05 14:21] LABS: BASO % 0.5 % (0.0-2.0); EOS # 0.1 K/uL (0.0-0.7); EOS % 1.3 % (0.0-4.0); LYMPH # 1.5 K/uL (1.0-4.3); MEAN CELL VOLUME 90.9 fL (81.0-99.0); MEAN CORPUSCULAR HEMOGLOBIN 29.7 pg (27.0-31.0); MEAN CORPUSCULAR HGB CONC 32.7 g/dL (33.0-37.0); MONO # 0.7 K/uL (0.0-0.8); MONO % 9.3 % (0.0-10.0); RED CELL DISTRIBUTION WIDTH 14.5 % (11.5-14.5)
[2017-05-05 14:40] LABS: URINE BACTERIA RARE (<OCC); URINE BILIRUBIN NEGATIVE (NEGATIVE); URINE BLOOD NEGATIVE (NEGATIVE); URINE COLOR Straw (YELLOW); URINE GLUCOSE (UA) NORMAL (Normal); URINE KETONE NEGATIVE (NEGATIVE); URINE LEUKOCYTE ESTERASE NEG Leu/uL (Negative); URINE PROTEIN NEGATIVE (NEGATIVE); URINE UROBILINOGEN NORMAL mg/dL (0.2-1.0); WBC URINE < 1 /hpf (0-5)
[2017-05-05 14:44] LABS: ALB/GLOB RATIO 0.9 (1.0-2.1); ALKALINE PHOSPHATASE 56 U/L (38-126); ALT/SGPT 35 U/L (9-52); AST/SGOT 25 U/L (14-36); BILIRUBIN,TOTAL 0.5 mg/dL (0.2-1.3); BLOOD UREA NITROGEN 16 mg/dL (7-17); CALCIUM 8.2 mg/dl (8.6-10.4); CARBON DIOXIDE 33 mmol/L (22-30); CHLORIDE 101 mmol/L (98-107); GFR AFRICAN-AMERICAN > 60; GLUCOSE,RANDOM 88 mg/dL (65-105); POTASSIUM 3.7 mmol/L (3.6-5.2); SODIUM 135 mmol/L (132-148); TOTAL PROTEIN 7.7 g/dL (6.3-8.3)
--- NOTE | 2017-05-05 14:56 | C.PDOC ---
History Of Present Illness 57 yr old female w/PMHx of breast CA s/p bilateral mastectomy, depression, sent to ED by PMD Dr. Liang for reevaluation of post surgical site. Patient states noted gradual worsening of swelling over breast brittnee R>L, (+) pain for the past few weeks. Patient reports, was seen by who sent her for US. After results review. noted some fluid collection over breast area, pt was sent to ED for further evaluation, surgical evaluation. Patient admits, similar sx in past. Otherwise, Patient denies fever, chills, redness over surgical site, chest pain, SOB, dyspnea, diaphoresis, palpitation, cough, wheezing, abd. pain, N/V/D, back pain, UTI Sx. AMbulate to ED for evaluation, not in any apparent distress. Time Seen by Provider: 05/05/17 12:57 Chief Complaint (Nursing): Breast Problem History Per: Patient History/Exam Limitations: no limitations Onset/Duration Of Symptoms: Days Past Medical History Reviewed: Historical Data, Nursing Documentation, Vital Signs Vital Signs: Last Vital Signs Temp 98.3 F 05/05/17 16:00 Pulse 72 05/05/17 16:00 Resp 18 05/05/17 16:00 BP 121/85 05/05/17 16:00 Pulse Ox 97 05/05/17 16:14 - Medical History PMH: Anemia, Anxiety, Arthritis, Asthma, Depression, Gastritis, HTN, Hypercholesterolemia, Hyperlipidemia, Malignancy (breast ca), Migraine, Osteoporosis, Peripheral Edema, Sleep Apnea (USES CPAP BEFORE) Surgical History: Endoscopy - [facility] Procedures LAPAROSCOPIC VERTICAL (SLEEVE) GASTRECTOMY (08/24/13) RELEASE CHEST SKIN, EXTERNAL APPROACH (10/25/16) REMOVAL OF SYNTHETIC SUBSTITUTE FROM L BREAST, OPEN APPROACH (10/25/16) REMOVAL OF SYNTHETIC SUBSTITUTE FROM R BREAST, OPEN APPROACH (10/25/16) REPAIR BILATERAL BREAST, EXTERNAL APPROACH (10/25/16) REPAIR LEFT BREAST, EXTERNAL APPROACH (10/25/16) REPLACEMENT OF LEFT BREAST WITH SYNTH SUB, OPEN APPROACH (10/25/16) TRANSFUSE NONAUT RED BLOOD CELLS IN PERIPH VEIN, PERC (10/25/16) Family History: States: No Known Family Hx - Social History Hx Tobacco Use: No Hx Alcohol Use: No Hx Substance Use: No - Immunization History Hx Tetanus Toxoid Vaccination: Yes Hx Influenza Vaccination: Yes Hx Pneumococcal Vaccination: Yes Review Of Systems Except As Marked, All Systems Reviewed And Found Negative. Constitutional: Negative for: Fever, Chills Cardiovascular: Negative for: Chest Pain Respiratory: Negative for: Shortness of Breath Gastrointestinal: Negative for: Nausea, Vomiting Skin: Positive for: Other Neurological: Negative for: Weakness, Numbness Physical Exam - Physical Exam Appears: Well, Non-toxic, No Acute Distress Skin: Normal Color, Warm Head: Normacephalic Eye(s): bilateral: PERRL Nose: No Discharge Oral Mucosa: Moist Throat: No Drooling Neck: Trachea Midline, Supple Chest: Other (B/L mastectomy, (-) cellulitis. Mild effusion noted Left lateral chest wall, (-) flactulance. No proximal streaking.) Cardiovascular: Rhythm Regular, No Murmur, No JVD, Other ((+)Right subclavian port, (-) cellulitis) Respiratory: No Decreased Breath Sounds, No Accessory Muscle Use, No Stridor, No Wheezing Gastrointestinal/Abdominal: Soft, No Tenderness, No Distention, No Guarding Back: No CVA Tenderness Extremity: Normal ROM, No Pedal Edema, No Deformity, No Swelling ED Course And Treatment - Laboratory Results Result Diagrams: 05/05/17 14:17 05/05/17 14:17 Lab Interpretation: Normal O2 Sat by Pulse Oximetry: 97 (RA) Pulse Ox Interpretation: Normal Progress Note: On re-evaluation, pt is afebrile, hemodynamicaly stable. Non- toxic. PUsleOx 97% RA. Lungs: CTA B/L, BS equal B/L. B/L breast exam: well healing scar, mild effusuion noted Left lateral chest wall extends to back area , (-) cellulitis, (-) flactulance, (-) proximal streaking. CVS: (+)S1S2. Abd: benign. Neurologicaly intact. Blood work review appears normal, no leukocytosis. Case discussed with . As per , pt had similar sx in past when breast was aspirated with normal cx results. As per , pt may benefit more from interventional radiology, place drainage. As per , no emergent need for breast drainage at present time, will perform outpt as need. CAse discussed with , agrees pt will F/U outpt. Results review and discussed with pt. Pt understand, stable for discharge and outpt f/u now. Medical Decision Making Medical Decision Making: PLAN: * CBC * CMP * Urinalysis * Tramadol PO Disposition Counseled Patient/Family Regarding: Studies Performed, Diagnosis, Need For Followup - Disposition Referrals: Renée Cruz MD [Staff Provider] - Montrell Liang MD [Medical Doctor] - Disposition: HOME/ ROUTINE Disposition Time: 15:21 Condition: STABLE Additional Instructions: FOLLOW UP WITH DR. LIANG AND DR. CRUZ FOR FURTHER EVALUATION OF B/L BREAST LYMPHEDEMA CONSIDER INTERVENTIONAL RADIOLOGY FOR BREAST DRAINING PAIN MANAGEMENT TO CONTROL PAIN RETURN TO ED IF ANY WORSENING OR NEW CHANGES. Instructions: Breast Mass (ED) Forms: [employer] (South African) - Clinical Impression Clinical Impression: Breast edema, Post-mastectomy pain, Post-mastectomy lymphedema syndrome - PA / ACTING SECTION CHIEF / Resident Statement MD/DO has reviewed & agrees with the documentation as recorded. - Scribe Statement The provider has reviewed the documentation as recorded by the Scribe Ally Randle All medical record entries made by the Pearlibmargaret were at my direction and personally dictated by me. I have reviewed the chart and agree that the record accurately reflects my personal performance of the history, physical exam, medical decision making, and the department course for this patient. I have also personally directed, reviewed, and agree with the discharge instructions and disposition.
[2017-05-05 16:13] VITALS: BP 121/85; PULSE 72; RESP 18; TEMP 98.3
== END 2017-05-05 16:14 | disposition home or self-care (01) ==
LOC: C.ER 12:33
DX: I97.2 Postmastectomy lymphedema syndrome (principal); N64.89 Other specified disorders of breast; G89.18 Other acute postprocedural pain; E78.00 Pure hypercholesterolemia, unspecified; I10 Essential (primary) hypertension; M81.0 Age-related osteoporosis without current pathological fracture; Z85.3 Personal history of malignant neoplasm of breast

== ENCOUNTER 2017-05-14 11:19 | Observation (INO) | payer OTHER ==
[2017-05-14 11:41] VITALS: BMI 26.5
[2017-05-14] MEDS ORDERED: Sodium Chloride 0.9% 1,000 ML IV ONE (11:53)
[2017-05-14] MEDS ORDERED: Sodium Chloride 0.9% 1,000 ML ONE (12:12)
[2017-05-14 12:14] LABS: EOS # 0.1 K/uL (0.0-0.7); EOS % 1.6 % (0.0-4.0); HEMATOCRIT 33.8 % (34.0-47.0); LYMPH # 1.2 K/uL (1.0-4.3); LYMPH % 24.8 % (20.0-40.0); MEAN CELL VOLUME 91.1 fL (81.0-99.0); MEAN CORPUSCULAR HEMOGLOBIN 30.9 pg (27.0-31.0); MEAN CORPUSCULAR HGB CONC 33.9 g/dL (33.0-37.0); MEAN PLATELET VOLUME 7.3 fL (7.2-11.7); MONO # 0.5 K/uL (0.0-0.8); MONO % 9.8 % (0.0-10.0); RED CELL DISTRIBUTION WIDTH 14.1 % (11.5-14.5); WHITE BLOOD COUNT 4.7 K/uL (4.8-10.8)
[2017-05-14 12:24] LABS: GFR AFRICAN-AMERICAN > 60
[2017-05-14 12:28] LABS: ALB/GLOB RATIO 1.5 (1.0-2.1); ALKALINE PHOSPHATASE 44 U/L (38-126); ALT/SGPT 16 U/L (9-52); AST/SGOT 21 U/L (14-36); BILIRUBIN,TOTAL 0.6 mg/dL (0.2-1.3); BLOOD UREA NITROGEN 17 mg/dL (7-17); CALCIUM 8.8 mg/dl (8.6-10.4); CARBON DIOXIDE 29 mmol/L (22-30); CHLORIDE 97 mmol/L (98-107); GLUCOSE,RANDOM 99 mg/dL (65-105); POTASSIUM 3.9 mmol/L (3.6-5.2); SODIUM 131 mmol/L (132-148); TOTAL PROTEIN 6.3 g/dL (6.3-8.3)
[2017-05-14 12:34] LABS: URINE BILIRUBIN NEGATIVE (NEGATIVE); URINE BLOOD NEGATIVE (NEGATIVE); URINE COLOR Yellow (YELLOW); URINE GLUCOSE (UA) NORMAL (Normal); URINE KETONE NEGATIVE (NEGATIVE); URINE LEUKOCYTE ESTERASE NEG Leu/uL (Negative); URINE PROTEIN NEGATIVE (NEGATIVE); URINE UROBILINOGEN NORMAL mg/dL (0.2-1.0); WBC URINE < 1 /hpf (0-5)
--- NOTE | 2017-05-14 12:45 | CT ---
PROCEDURE: CT HEAD WITHOUT CONTRAST. HISTORY: AMS COMPARISON: None available. TECHNIQUE: Axial computed tomography images were obtained through the head/brain without intravenous contrast. Radiation dose: Total exam DLP = 815.40 mGy-cm. This CT exam was performed using one or more of the following dose reduction techniques: Automated exposure control, adjustment of the mA and/or kV according to patient size, and/or use of iterative reconstruction technique. FINDINGS: HEMORRHAGE: No intracranial hemorrhage. BRAIN: No mass effect or edema. Bilateral basal ganglia calcifications. Scattered mild scattered white matter hypodensities, which are nonspecific, but often seen with chronic microvascular ischemic disease. Please note that MRI with diffusion imaging is more sensitive in the detection of acute ischemic event. VENTRICLES: No hydrocephalus. CALVARIUM: Unremarkable. PARANASAL SINUSES: Unremarkable as visualized. No significant inflammatory changes. MASTOID AIR CELLS: Unremarkable as visualized. No inflammatory changes. OTHER FINDINGS: None. IMPRESSION: No acute intracranial pathology identified. See above.
--- NOTE | 2017-05-14 13:11 | RAD ---
PROCEDURE: CHEST RADIOGRAPH, 1 VIEW HISTORY: AMS COMPARISON: 12/04/2016. FINDINGS: The right MediPort terminates at the cavoatrial junction. LUNGS: The lungs are well inflated and clear. PLEURA: No pneumothorax or pleural fluid seen. CARDIOVASCULAR: Normal. OSSEOUS STRUCTURES: No significant abnormalities. VISUALIZED UPPER ABDOMEN: Normal. OTHER FINDINGS: None. IMPRESSION: No acute findings.
--- NOTE | 2017-05-14 13:16 | C.PDOC ---
History Of Present Illness Patient BIBA for right sided headache, dizziness described as room spinning around her since yesterday. Patient's home health aid states she got there today and patient seemed confused, was talking about things that happened in the past, not acting like her usual self. Patient has PMHx of B/L breast CA s/ p mastectomy, anemia, asthma, gastritis, HTN, hyperlipidemia, migarines, osteoporosis. She denies chest pain, SOB, abdominal pain, nausea/vomiting/ diarrhea, dysuria. Time Seen by Provider: 05/14/17 11:22 Chief Complaint (Nursing): Dizziness/Lightheaded History Per: Patient, EMS, Family (home health aide) History/Exam Limitations: no limitations Onset/Duration Of Symptoms: Days (2) Current Symptoms Are (Timing): Still Present Possible Causative Factor(s): Vertigo Past Medical History Reviewed: Historical Data, Nursing Documentation, Vital Signs Vital Signs: Last Vital Signs Temp 98.3 F 05/14/17 11:34 Pulse 63 05/14/17 15:49 Resp 18 05/14/17 15:49 BP 118/74 05/14/17 15:49 Pulse Ox 95 05/14/17 15:49 - Medical History PMH: Anemia, Anxiety, Arthritis, Asthma, Depression, Gastritis, HTN, Hypercholesterolemia, Hyperlipidemia, Malignancy (breast ca), Migraine, Osteoporosis, Peripheral Edema, Sleep Apnea (USES CPAP BEFORE) Surgical History: Endoscopy Other Surgeries: B/L mastectomy - [facility] Procedures LAPAROSCOPIC VERTICAL (SLEEVE) GASTRECTOMY (08/24/13) RELEASE CHEST SKIN, EXTERNAL APPROACH (10/25/16) REMOVAL OF SYNTHETIC SUBSTITUTE FROM L BREAST, OPEN APPROACH (10/25/16) REMOVAL OF SYNTHETIC SUBSTITUTE FROM R BREAST, OPEN APPROACH (10/25/16) REPAIR BILATERAL BREAST, EXTERNAL APPROACH (10/25/16) REPAIR LEFT BREAST, EXTERNAL APPROACH (10/25/16) REPLACEMENT OF LEFT BREAST WITH SYNTH SUB, OPEN APPROACH (10/25/16) TRANSFUSE NONAUT RED BLOOD CELLS IN PERIPH VEIN, PERC (10/25/16) Family History: States: No Known Family Hx - Social History Hx Tobacco Use: No Hx Alcohol Use: No Hx Substance Use: No - Immunization History Hx Tetanus Toxoid Vaccination: Yes Hx Influenza Vaccination: Yes Hx Pneumococcal Vaccination: Yes Review Of Systems Except As Marked, All Systems Reviewed And Found Negative. Constitutional: Negative for: Fever, Chills Cardiovascular: Negative for: Chest Pain, Palpitations Respiratory: Positive for: Cough. Negative for: Shortness of Breath Gastrointestinal: Negative for: Nausea, Vomiting, Abdominal Pain, Diarrhea Genitourinary: Negative for: Dysuria, Hematuria Skin: Negative for: Rash Neurological: Positive for: Confusion, Headache, Dizziness. Negative for: Weakness, Numbness, Seizures, Altered Mental Status Psych: Negative for: Depression Physical Exam - Physical Exam Appears: Well, Non-toxic, No Acute Distress Skin: Normal Color, Warm, Dry, No Rash Head: Normacephalic Eye(s): bilateral: Normal Inspection, PERRL, EOMI Oral Mucosa: Moist Cardiovascular: Rhythm Regular Respiratory: Normal Breath Sounds, No Rales, No Rhonchi, No Wheezing Gastrointestinal/Abdominal: Normal Exam, Bowel Sounds, Soft, No Tenderness Back: Normal Inspection, No CVA Tenderness, No Vertebral Tenderness Extremity: Normal ROM, No Pedal Edema, No Calf Tenderness Extremity: Bilateral: Atraumatic, Normal Color And Temperature, Normal ROM Neurological/Psych: Oriented x3, Normal Speech, Normal Cognition, Normal Cranial Nerves, No Cerebellar Signs, Normal Motor, Normal Sensation ED Course And Treatment - Laboratory Results Result Diagrams: 05/14/17 12:09 05/14/17 12:09 ECG: Interpreted By Me, Viewed By Me (NSR 70 bpm, left axis deviation, low voltage QRS, no acute ST/T wave changes) ECG Interpretation: No Acute Changes O2 Sat by Pulse Oximetry: 98 (RA) Pulse Ox Interpretation: Normal - Radiology CXR: Interpreted by Me, Viewed By Me CXR Interpretation: Yes: No Acute Disease. No: Infiltrates - CT Scan/US ct head Other Rad Studies (CT/US): Read By Radiologist, Radiology Report Reviewed CT/US Interpretation: Accession No. : [id number]. Patient Name / ID : MARCUS SHANKAR / [id number]. Exam Date : 05/14/2017 12:20:19 ( Approved ). Study Comment : Sex / Age : F / [id number]. Creator : Lida Kothari MD. Dictator : Lida Kothari MD. Self Contained Behavior Unit Teacher : Director Camp : Lida Kothari MD. Approver2 : Report Date : 05/14/2017 12:43:28. My Comment : . PROCEDURE: CT HEAD WITHOUT CONTRAST. HISTORY: AMS. COMPARISON: None available. TECHNIQUE: Axial computed tomography images were obtained through the head/brain without intravenous contrast. Radiation dose: Total exam DLP = 815.40 mGy-cm. This CT exam was performed using one or more of the following dose reduction techniques: Automated exposure control, adjustment of the mA and/ or kV according to patient size, and/or use of iterative reconstruction technique. FINDINGS: HEMORRHAGE: No intracranial hemorrhage. BRAIN: No mass effect or edema. Bilateral basal ganglia calcifications. Scattered mild scattered white matter hypodensities, which are nonspecific, but often seen with chronic microvascular ischemic disease. Please note that MRI with diffusion imaging is more sensitive in the detection of acute ischemic event. VENTRICLES: No hydrocephalus. CALVARIUM: Unremarkable. PARANASAL SINUSES: Unremarkable as visualized. No significant inflammatory changes. MASTOID AIR CELLS: Unremarkable as visualized. No inflammatory changes. OTHER FINDINGS: None. IMPRESSION: No acute intracranial pathology identified. See above. Progress Note: Blood work, EKG, CXR, CT head, UA ordered and reviewed. Patient given IV NS bolus, PO meclizine. NO ASA given due to allergy. Reevaluation Time: 14:25 Reassessment Condition: Improved (Patient reassessed, states her dizziness has improved but only mildly. She states she feels weak, has had multiple recent falls and has been having difficulty ambulating due to dizziness. Concerning for possible posterior circulation CVA. PMD is Dr. Chawla - covered by hospitalist service.) - Physician Consult Information Physician Contacted: Panfilo Reynolds Outcome Of Conversation: Discussed patient with hospitalist, agrees with obs telemetry for intractable vertigo, recurrent falls, ataxia, r/o posterior circulation CVA. NIHSS Stroke Scale - Date/Time Evaluation Performed Date Performed: 05/14/17 Time Performed: 14:37 When Was NIHSS Performed: Baseline - How Severe is the Stoke Level of Consciousness: 0=Alert LOC to Questions: 0=Both comments correct LOC to commands: 0=Obeys both correctly Best Gaze: 0=Normal Visual: 0=No visual loss Facial: 0=Normal Motor Arm - Left: 0=No drift Motor Arm - Right: 0=No drift Motor Leg - Left: 0=No drift Motor Leg - Right: 0=No drift Limb Ataxia: 0=Absent Sensory: 0=Normal Best Language: 0=No aphasia Dysarthia: 0=Normal articulation Extinction & Inattention (Neglect): 0=Normal, no object Score: 0 Severity Of Stroke: 0= No Stroke rTPA Inclusion/Exclusion - Refusal of Treatment Patient Refused Treatment: No - Inclusion Criteria for Altepase Patient is 18 years or Older: Yes The Clinical Diagnosis of Ischemic Stroke That is Causing a Potentially Disabling Neurological Deficit: No Time of Onset is Well Established to be Less Than 270 Minute Before Treatment Would Begin: No Risk/Benefit Discussed With Patient/Family Member Present: No Disposition - Disposition Disposition: HOSPITALIZED Disposition Time: 14:39 Condition: STABLE - Clinical Impression Clinical Impression: Vertigo, Breast cancer, Ataxia, Recurrent falls, Dizziness Decision To Admit - Pt Status Changed To: Hospital Disposition Of: Inpatient - Admit Certification Admit to Inpatient:: After my assessment, the patient will require hospitalization for at least two midnights. This is because of the severity of symptoms shown, intensity of services needed, and/or the medical risk in this patient being treated as an outpatient. - InPatient: Physician Admission Certification: I certify that this patient requires 2 or more midnights of care for the following reason:: see notes - . Bed Request Type: Telemetry Admitting Physician: Panfilo Reynolds Patient Diagnosis: Vertigo, Dizziness, Breast cancer, Ataxia, Recurrent falls
[2017-05-14] MEDS ORDERED: Morphine 4 MG/ML VIAL ONE (14:02)
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
[2017-05-14] MEDS: Sodium Chloride 0.9% 1,000 ML IV SCH (16:12)
[2017-05-14] MEDS: Calcium-Vit D 250 mg-125 Units Tab UD PO SCH (18:45)
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
[2017-05-14] MEDS ORDERED: Fluticasone-Salmeterol 250-50mcg Diskus INH SCH (20:00)
[2017-05-14] MEDS: Oxycodone/Acetaminophen 5/325 mg Tab PO PRN (20:55)
[2017-05-14] MEDS: (Novolog) Insulin Aspart, Recombinant 100 u/ml 10 ml vial SC SCH (21:40)
[2017-05-14] MEDS: Rosuvastatin Calcium 2.5 mg Tab PO SCH (21:41)
[2017-05-14] MEDS: Albuterol HFA 90 mcg/actuation (8 g) IH SCH (23:51)
[2017-05-15] MEDS: Oxycodone/Acetaminophen 5/325 mg Tab PO PRN (04:57)
[2017-05-15] MEDS: Albuterol HFA 90 mcg/actuation (8 g) IH SCH (07:46)
[2017-05-15] MEDS: (Novolog) Insulin Aspart, Recombinant 100 u/ml 10 ml vial SC SCH ×4 (07:49→22:10)
[2017-05-15] MEDS: Sodium Chloride 0.9% 1,000 ML IV SCH ×2 (09:02→12:21)
[2017-05-15] MEDS ORDERED: Pantoprazole 40 mg EC Tab PO SCH (10:00)
[2017-05-15] MEDS: Vitamin B Complex/Vitamin C Tab PO SCH (10:17)
[2017-05-15] MEDS: Enoxaparin 40 mg Syringe SC SCH (10:18)
[2017-05-15] MEDS: Calcium-Vit D 250 mg-125 Units Tab UD PO SCH ×2 (11:46→17:39)
--- NOTE | 2017-05-15 12:50 | CP.PCM.PN ---
Subjective - Date & Time of Evaluation Date of Evaluation: 05/15/17 Time of Evaluation: 12:25 - Subjective Subjective: Feels dizzy Objective - Vital Signs/Intake and Output Vital Signs (last 24 hours): Temp Pulse Resp BP Pulse Ox 98.0 F 81 20 104/69 95 05/15/17 08:25 05/15/17 08:25 05/15/17 08:25 05/15/17 10:17 05/15/17 08:25 Intake and Output: 05/15/17 05/15/17 06:59 18:59 Intake Total 640 Balance 640 - Medications Medications: Current Medications Acetaminophen (Tylenol 325mg Tab) 650 mg PO Q6 PRN PRN Reason: Pain, Mild (1-3) Last Admin: 05/14/17 18:45 Dose: 650 mg Acetaminophen (Tylenol 325mg Tab) 650 mg PO Q6 PRN PRN Reason: Fever >100.4 F Benzonatate (Tessalon Perles) 100 mg PO TID [facility] Last Admin: 05/14/17 18:44 Dose: 100 mg Calcium/Vitamin D (Oscal-D 250 Mg-125 Units Tab) 1 tab PO BID [facility] Last Admin: 05/15/17 11:46 Dose: 1 tab Celecoxib (Celebrex) 100 mg PO BID [facility] Last Admin: 05/15/17 11:46 Dose: 100 mg Cyclobenzaprine HCl (Flexeril) 10 mg PO TID PRN PRN Reason: Muscle spasm Last Admin: 05/14/17 23:56 Dose: 10 mg Docusate Sodium (Colace) 100 mg PO BID [facility] Last Admin: 05/15/17 10:17 Dose: 100 mg Enalapril Maleate (Vasotec) 5 mg PO DAILY [facility] Last Admin: 05/15/17 10:17 Dose: 5 mg Enoxaparin Sodium (Lovenox) 40 mg SC DAILY [facility] Last Admin: 05/15/17 10:18 Dose: 40 mg Ergocalciferol (Drisdol 50,000 Intl Units Cap) 1 cap PO QWK [facility] Famotidine (Pepcid) 20 mg PO DAILY [facility] Last Admin: 05/15/17 10:17 Dose: 20 mg Sodium Chloride (Sodium Chloride 0.9%) 1,000 mls @ 50 mls/hr IV .Q20H [facility] Last Admin: 05/15/17 09:02 Dose: 50 mls/hr Insulin Aspart (Novolog) 0 unit SC ACHS [facility] PRN Reason: Protocol Last Admin: 05/15/17 11:48 Dose: Not Given Losartan Potassium (Cozaar) 100 mg PO DAILY [facility] Last Admin: 05/15/17 10:18 Dose: 100 mg Meclizine HCl (Antivert) 25 mg PO DAILY PRN PRN Reason: Dizziness Metoprolol Tartrate (Lopressor) 25 mg PO BID [facility] Last Admin: 05/15/17 10:17 Dose: 25 mg Ondansetron HCl (Zofran Inj) 4 mg IVP Q6 PRN PRN Reason: Nausea/Vomiting Last Admin: 05/15/17 09:01 Dose: 4 mg Oxycodone/Acetaminophen (Percocet 5/325 Mg Tab) 1 tab PO TID PRN PRN Reason: Pain, moderate (4-7) Stop: 05/17/17 16:05 Last Admin: 05/15/17 04:57 Dose: 1 tab Rosuvastatin Calcium (Crestor) 2.5 mg PO HS [facility] Last Admin: 05/14/17 21:41 Dose: 2.5 mg Fluticasone/Salmeterol (Advair Diskus 250/50) 1 puff INH RQ12 [facility] Vitamin B Complex/Vitamin C (Berocca) 1 tab PO DAILY [facility] Last Admin: 05/15/17 10:17 Dose: 1 tab - Labs Labs: 05/14/17 12:09 05/14/17 12:09 - Head Exam Head Exam: ATRAUMATIC - Eye Exam Eye Exam: Normal appearance - ENT Exam ENT Exam: Mucous Membranes Dry - Respiratory Exam Respiratory Exam: NORMAL BREATHING PATTERN - Cardiovascular Exam Cardiovascular Exam: +S1, +S2 - GI/Abdominal Exam GI & Abdominal Exam: Normal Bowel Sounds Assessment and Plan (1) Breast cancer Assessment & Plan: in remission on adjuvant hormonal therapy f/u MRI brain Status: Acute (2) Leukopenia Status: Acute
[2017-05-15] MEDS ORDERED: Gadodiamide 287 MG/ML VIAL (15ML) IV ONE (13:14)
--- NOTE | 2017-05-15 14:00 | VASCLAB ---
PROCEDURE: HISTORY: near syncope COMPARISON: None available. TECHNIQUE: Grayscale and duplex Doppler evaluation of the cervical carotid and vertebral arteries were performed. The common carotid, carotid bifurcations and cervical Internal Carotid Artery (ICA) and proximal External Carotid Artery (ECA) were evaluated. The vertebral arteries were evaluated for gross patency and flow direction. Report prepared by Héctor Norwood, BS, RVT FINDINGS: RIGHT CAROTID ARTERIES: 1. Common Carotid Artery: No significant focal plaque formation of the right common carotid artery. Maximum Peak Systolic velocity: 83 cm/sec: End-diastolic velocity 26 cm/sec. 2. Carotid Bifurcation: plaque formation. Maximum Peak Systolic velocity: 56 cm/sec: End-diastolic velocity 18 cm/sec. 3. Internal Carotid Artery: Plaque description: 3.1. Proximal Segment: Peak systolic velocity 92 cm/sec: End-diastolic velocity 34 cm/sec - % stenosis 0-15% 3.2. Middle Segment: Peak systolic velocity 81 cm/sec: End-diastolic velocity 36 cm/sec - % stenosis 0-15% 3.3. Distal Segment: Peak systolic velocity 81 cm/sec: End-diastolic velocity 29 cm/sec - % stenosis 0-15% 4. External Carotid Artery: No significant focal plaque formation. Peak systolic velocity 73 cm/sec 5. ICA/CCA Ratio: 1.1 LEFT CAROTID ARTERIES: 1. Common Carotid Artery: No significant focal plaque formation of the left common carotid artery. Maximum Peak Systolic velocity: 81 cm/sec: End-diastolic velocity 32 cm/sec. 2. Carotid Bifurcation: plaque formation. Maximum Peak Systolic velocity: 71 cm/sec: End-diastolic velocity 25 cm/sec. 3. Internal Carotid Artery: Plaque description: 3.1. Proximal Segment: Peak systolic velocity 103 cm/sec: End-diastolic velocity 25 cm/sec - % stenosis 0-15% 3.2. Middle Segment: Peak systolic velocity 68 cm/sec: End-diastolic velocity 28 cm/sec - % stenosis 0-15% 3.3. Distal Segment: Peak systolic velocity 59 cm/sec: End-diastolic velocity 29 cm/sec - % stenosis 0-15% 4. External Carotid Artery: No significant focal plaque formation. Peak systolic velocity 63 cm/sec 5. ICA/CCA Ratio: 1.3 VERTEBRAL ARTERIES: 1. Right Vertebral Artery: The right vertebral artery flow direction is antegrade. 2. Left Vertebral Artery: The left vertebral artery flow direction is antegrade. OTHER FINDINGS: 1. Right Brachial Blood pressure: 106 mmHg. 2. Left Brachial Blood pressure: 110 mmHg. IMPRESSION: RIGHT: Duplex scan does not suggest hemodynamically significant stenosis of the right extracranial carotid arteries. LEFT: Duplex scan does not suggest hemodynamically significant stenosis of the left extracranial carotid arteries.
--- NOTE | 2017-05-15 14:31 | CP.PCM.PN ---
Subjective - Date & Time of Evaluation Date of Evaluation: 05/15/17 Time of Evaluation: 14:28 - Subjective Subjective: PGY1 Medicine Note for Dr. Reynolds Patient seen and examined at bedside this morning. Patient stated that she was feeling well. She reports that her dizziness and lightheadedness was greatly improved. She is able to stand up and walk to the bathroom without feeling like she is going to fall over. She is tolerating her diet although she reports she is still has a poor appetite. She denies any nausea/vomiting. She has no other complaints other than mild, intermittent dizziness. During patient's EEG, patient had a 12 beat of sinus tach with new BBB. ROMIs and EKG ordered q6h. Objective - Vital Signs/Intake and Output Vital Signs (last 24 hours): Temp Pulse Resp BP Pulse Ox 98.0 F 81 20 104/69 95 05/15/17 08:25 05/15/17 08:25 05/15/17 08:25 05/15/17 10:17 05/15/17 08:25 Intake and Output: 05/15/17 05/15/17 06:59 18:59 Intake Total 640 Balance 640 - Medications Medications: Current Medications Acetaminophen (Tylenol 325mg Tab) 650 mg PO Q6 PRN PRN Reason: Pain, Mild (1-3) Last Admin: 05/14/17 18:45 Dose: 650 mg Acetaminophen (Tylenol 325mg Tab) 650 mg PO Q6 PRN PRN Reason: Fever >100.4 F Benzonatate (Tessalon Perles) 100 mg PO TID [facility] Last Admin: 05/15/17 10:22 Dose: Not Given Calcium/Vitamin D (Oscal-D 250 Mg-125 Units Tab) 1 tab PO BID [facility] Last Admin: 05/15/17 11:46 Dose: 1 tab Celecoxib (Celebrex) 100 mg PO BID [facility] Last Admin: 05/15/17 11:46 Dose: 100 mg Cyclobenzaprine HCl (Flexeril) 10 mg PO TID PRN PRN Reason: Muscle spasm Last Admin: 05/14/17 23:56 Dose: 10 mg Docusate Sodium (Colace) 100 mg PO BID [facility] Last Admin: 05/15/17 10:17 Dose: 100 mg Enalapril Maleate (Vasotec) 5 mg PO DAILY [facility] Last Admin: 05/15/17 10:17 Dose: 5 mg Enoxaparin Sodium (Lovenox) 40 mg SC DAILY [facility] Last Admin: 05/15/17 10:18 Dose: 40 mg Ergocalciferol (Drisdol 50,000 Intl Units Cap) 1 cap PO QWK [facility] Famotidine (Pepcid) 20 mg PO DAILY [facility] Last Admin: 05/15/17 10:17 Dose: 20 mg Sodium Chloride (Sodium Chloride 0.9%) 1,000 mls @ 50 mls/hr IV .Q20H [facility] Last Admin: 05/15/17 12:21 Dose: Not Given Insulin Aspart (Novolog) 0 unit SC ACHS [facility] PRN Reason: Protocol Last Admin: 05/15/17 11:48 Dose: Not Given Losartan Potassium (Cozaar) 100 mg PO DAILY [facility] Last Admin: 05/15/17 10:18 Dose: 100 mg Meclizine HCl (Antivert) 25 mg PO DAILY PRN PRN Reason: Dizziness Metoprolol Tartrate (Lopressor) 25 mg PO BID [facility] Last Admin: 05/15/17 10:17 Dose: 25 mg Morphine Sulfate (Morphine) 2 mg IVP Q4 PRN PRN Reason: Pain, moderate (4-7) Last Admin: 05/15/17 13:30 Dose: 2 mg Ondansetron HCl (Zofran Inj) 4 mg IVP Q6 PRN PRN Reason: Nausea/Vomiting Last Admin: 05/15/17 09:01 Dose: 4 mg Rosuvastatin Calcium (Crestor) 2.5 mg PO HS [facility] Last Admin: 05/14/17 21:41 Dose: 2.5 mg Fluticasone/Salmeterol (Advair Diskus 250/50) 1 puff INH RQ12 [facility] Vitamin B Complex/Vitamin C (Berocca) 1 tab PO DAILY [facility] Last Admin: 05/15/17 10:17 Dose: 1 tab - Labs Labs: 05/14/17 12:09 05/14/17 12:09 - Constitutional Appears: Non-toxic, No Acute Distress - Head Exam Head Exam: ATRAUMATIC, NORMOCEPHALIC - Eye Exam Eye Exam: EOMI, Normal appearance - ENT Exam ENT Exam: Mucous Membranes Moist - Respiratory Exam Respiratory Exam: Clear to Ausculation Bilateral, NORMAL BREATHING PATTERN. absent: Accessory Muscle Use, Rales, Rhonchi, Wheezes, Respiratory Distress - Cardiovascular Exam Cardiovascular Exam: REGULAR RHYTHM, +S1 - GI/Abdominal Exam GI & Abdominal Exam: Soft. absent: Distended, Firm, Guarding, Rigid, Tenderness - Extremities Exam Extremities Exam: absent: Calf Tenderness, Pedal Edema - Neurological Exam Neurological Exam: Alert, Awake, Oriented x3 - Psychiatric Exam Psychiatric exam: Normal Affect, Normal Mood - Skin Skin Exam: Dry, Warm Assessment and Plan - Assessment and Plan (Free Text) Plan: New onset BBB Cardio Consult, Dr. Davila 12-beat run of sinus tachycardia w/BBB on tele MISA negative x1; f/u q6h x2 EKG pending q6h AMS with dizziness - resolved Echo done 01/2017- normal LV with 60-65% EF Head CT 05/04 - negative CXR 05/04 - no acute findings Brain MRI 05/15 - No acute intracranial abnormality. Specifically, no evidence of intracranial metastasis. MRA of Head and Neck 05/15 - Normal MR angiography of the brain and neck. Carotid Dopplers - RIGHT: Duplex scan does not suggest hemodynamically significant stenosis of the right extracranial carotid arteries. LEFT: Duplex scan does not suggest hemodynamically significant stenosis of the left extracranial carotid arteries. Blood Culture - neg at 24 hours Urine Cx pending UA- WNL Orthostatics ordered PT eval ordered Neuro Consult placed to Dr. Chery Mecnirmalazine 25mg PO daily prn Patient is undergoing chemo and admits to nausea/vomiting/loss of appetite. Consider hypoglycemia vs malnutrition vs dehydration vs infection at breast surgical site Hyponatremia -131 on admission -NS @ 50mL/hr -follow up AM labs Breast Cancer s/p mastectomy -Currently undergoing chemo therapy -Obtain information about oncologist from pt/family -Continue home medication- oxycodone 5/325mg PO TID -Zofran 25mg IV q6hrs prn HTN- controlled- continuing home medications - Losartan 100mg PO daily - Enalapril 5mg PO daily - Metroprolol tartrate 25mg PO BID DM - Fingersticks achs - diabetic diet - follow up hgb A1C - ISS Asthma - Ventolin 90mcg 1 puff [id number] - Advair 250/50 1 puff [id number] HLD - Crestor 2.5mg PO qhs Arthritis - celebrex 100mg PO BID Prophylaxis - Pepcid 20mg PO daily - Lovenox 40mg SC daily Case discussed with Dr. Gail Phillips Aziza PGY1
--- NOTE | 2017-05-15 14:38 | MRI ---
PROCEDURE: MRI BRAIN WITH AND WITHOUT CONTRAST HISTORY: Dizziness,fall/breast ca,r/o mets COMPARISON: Noncontrast head CT from 05/14/2017 TECHNIQUE: Multiplanar, multisequence MR images of the brain were obtained with and without intravenous contrast enhancement. 14 mL Omniscan was injected intravenously. FINDINGS: HEMORRHAGE: None DWI: No evidence of an acute or early subacute infarction. BRAIN PARENCHYMA: Mike-white matter differentiation is preserved. There is no mass, mass effect or abnormal extra-axial fluid collection. ENHANCEMENT: No abnormal intracranial enhancement. VENTRICLES: The ventricles are normal in size, shape and configuration. CRANIUM: There is normal bone marrow signal pattern. ORBITS: Grossly unremarkable. PARANASAL SINUSES/MASTOIDS: Predominantly clear. VASCULAR SYSTEM: There are normal signal voids in the larger intracranial arteries. OTHER FINDINGS: None . IMPRESSION: No acute intracranial abnormality. Specifically, no evidence of intracranial metastasis.
--- NOTE | 2017-05-15 14:41 | MRI ---
PROCEDURE: Magnetic Resonance Angiography Brain HISTORY: Vertigo COMPARISON: None available. TECHNIQUE: 3D time of flight MR angiography of the intracranial arteries was performed. Rotating maximum intensity projection images were generated. FINDINGS: INTERNAL CAROTID ARTERIES: Normal flow related signal. The skull base, petrous, cavernous and supraclinoid segments are bilaterally widely patient. ANTERIOR CEREBRAL ARTERIES: Normal flow related signal. A1 and A2 segments are widely patent. Smaller distal branches unremarkable, as visualized. MIDDLE CEREBRAL ARTERIES: Normal flow related signal. M1 and M2 segments are widely patent. Perisylvian branches grossly symmetric. POSTERIOR CIRCULATION: Basilar Artery: Normal flow related signal. Distal Vertebral Arteries: Normal flow related signal. Posterior Cerebral Arteries: Normal flow related signal. Posterior Inferior Cerebellar Arteries: Normal flow related signal. ANEURYSM/ VASCULAR MALFORMATIONS: None. OTHER FINDINGS: None. IMPRESSION: Normal MR angiography of the brain.
--- NOTE | 2017-05-15 14:45 | MRI ---
PROCEDURE: MR Angiography of the neck without contrast HISTORY: vertigo COMPARISON: None available. TECHNIQUE: 3D [id number] angiography of the neck was performed. Rotating maximum intensity projection images of the cervical carotid and vertebral arteries were generated. The origins of the common carotid arteries were not visualized, which is a limitation inherent to the non-contrast time of flight technique. FINDINGS: RIGHT CAROTID ARTERIES: Common Carotid Artery: Normal. Carotid Bifurcation: Normal. Internal Carotid Artery:Normal. External Carotid Artery (proximal branches): Normal. LEFT CAROTID ARTERIES: Common Carotid Artery: Normal. Carotid Bifurcation: Normal. Internal Carotid Artery:Normal. External Carotid Artery (proximal branches): Normal. VERTEBRAL ARTERIES: Right Vertebral Artery: Normal. Left Vertebral Artery: Normal. The left vertebral artery is dominant, an anatomic variant. OTHER FINDINGS: None. IMPRESSION: Normal MR Angiography of the neck.
[2017-05-15 15:01] LABS: TROPONIN I 0.012 ng/mL (0.00-0.120)
[2017-05-15 15:13] LABS: THYROID STIMULATING HORMONE 1.4 mIU/L (0.46-4.68)
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
[2017-05-15] MEDS ORDERED: Dexamethasone 4 mg/1 ml IVP ONE (16:37)
[2017-05-15] MEDS ORDERED: Magnesium Sulfate 1 gm in D5W 1 GM/100 ML BAG IVPB ONE (16:37)
--- NOTE | 2017-05-15 18:34 | CARD ---
APPROVED REPORT EKG Measurement Heart [id number] [place] [id number] <Conclusion> Normal sinus rhythm Nonspecific T wave abnormality Abnormal ECG
--- NOTE | 2017-05-15 18:39 | CARD ---
APPROVED REPORT EKG Measurement Heart [id number] <Conclusion> Normal sinus rhythm Left axis deviation Low voltage QRS Nonspecific ST and T wave abnormality Abnormal ECG
[2017-05-15 19:16] LABS: BASO # 0.1 K/uL (0.0-0.2); BASO % 1.1 % (0.0-2.0); EOS # 0.1 K/uL (0.0-0.7); EOS % 1.2 % (0.0-4.0); HEMATOCRIT 31.4 % (34.0-47.0); LYMPH # 1.2 K/uL (1.0-4.3); LYMPH % 22.2 % (20.0-40.0); MEAN CELL VOLUME 91.4 fL (81.0-99.0); MEAN CORPUSCULAR HEMOGLOBIN 30.7 pg (27.0-31.0); MEAN CORPUSCULAR HGB CONC 33.6 g/dL (33.0-37.0); MEAN PLATELET VOLUME 7.4 fL (7.2-11.7); MONO # 0.3 K/uL (0.0-0.8); MONO % 6.2 % (0.0-10.0); RED CELL DISTRIBUTION WIDTH 14.3 % (11.5-14.5); WHITE BLOOD COUNT 5.5 K/uL (4.8-10.8)
[2017-05-15] MEDS: Rosuvastatin Calcium 2.5 mg Tab PO SCH (22:10)
[2017-05-16 04:25] VITALS: RESP 18
[2017-05-16] MEDS: (Novolog) Insulin Aspart, Recombinant 100 u/ml 10 ml vial SC SCH ×2 (07:36→11:33)
[2017-05-16 07:44] LABS: BASO % 0.1 % (0.0-2.0); HEMATOCRIT 30.2 % (34.0-47.0); LYMPH % 11.1 % (20.0-40.0); MEAN CELL VOLUME 90.6 fL (81.0-99.0); MEAN CORPUSCULAR HEMOGLOBIN 31.3 pg (27.0-31.0); MEAN CORPUSCULAR HGB CONC 34.5 g/dL (33.0-37.0); MEAN PLATELET VOLUME 7.7 fL (7.2-11.7); MONO # 0.4 K/uL (0.0-0.8); MONO % 4.8 % (0.0-10.0); RED CELL DISTRIBUTION WIDTH 14.4 % (11.5-14.5)
[2017-05-16 08:50] LABS: ALB/GLOB RATIO 1.3 (1.0-2.1); ALKALINE PHOSPHATASE 33 U/L (38-126); ALT/SGPT 13 U/L (9-52); AST/SGOT 19 U/L (14-36); BILIRUBIN,TOTAL 0.3 mg/dL (0.2-1.3); BLOOD UREA NITROGEN 18 mg/dL (7-17); CALCIUM 8.4 mg/dl (8.6-10.4); CARBON DIOXIDE 26 mmol/L (22-30); CHLORIDE 103 mmol/L (98-107); GFR AFRICAN-AMERICAN > 60; GLUCOSE,RANDOM 130 mg/dL (65-105); MAGNESIUM 1.8 mg/dL (1.6-2.3); POTASSIUM 4.2 mmol/L (3.6-5.2); SODIUM 132 mmol/L (132-148); TOTAL PROTEIN 5.6 g/dL (6.3-8.3)
[2017-05-16] MEDS: Vitamin B Complex/Vitamin C Tab PO SCH (09:32)
[2017-05-16] MEDS: Enoxaparin 40 mg Syringe SC SCH (09:32)
[2017-05-16] MEDS: Calcium-Vit D 250 mg-125 Units Tab UD PO SCH (09:33)
[2017-05-16 09:35] VITALS: BP 98/63
[2017-05-16 10:45] VITALS: PULSE 66; TEMP 97.6; O2SAT 94
--- NOTE | 2017-05-16 15:04 | CP.PCM.DIS ---
<Jorge Kang S - Last Filed: 05/16/17 14:56> Provider - Provider Date of Admission: 05/14/17 14:39 Attending physician: Panfilo Reynolds MD Consults: Dr. Radha Davila Time Spent in preparation of Discharge (in minutes): 90 Hospital Course - Lab Results Lab Results: Micro Results 05/14/17 11:52 Urine Urine Culture - Final No Growth (<1,000 CFU/ML) 05/14/17 12:00 Blood Blood Culture - Preliminary NO GROWTH AFTER 24 HOURS 05/14/17 12:30 Blood Blood Culture - Preliminary NO GROWTH AFTER 24 HOURS Most Recent Lab Values WBC 9.0 K/uL (4.8-10.8) D 05/16/17 07:32 RBC 3.34 Mil/uL (3.80-5.20) L 05/16/17 07:32 Hgb 10.4 g/dL (11.0-16.0) L 05/16/17 07:32 Hct 30.2 % (34.0-47.0) L 05/16/17 07:32 MCV 90.6 fL (81.0-99.0) 05/16/17 07:32 MCH 31.3 pg (27.0-31.0) H 05/16/17 07:32 MCHC 34.5 g/dL (33.0-37.0) 05/16/17 07:32 RDW 14.4 % (11.5-14.5) 05/16/17 07:32 Plt Count 217 K/uL (130-400) 05/16/17 07:32 MPV 7.7 fL (7.2-11.7) 05/16/17 07:32 Neut % (Auto) 84.0 % (50.0-75.0) H 05/16/17 07:32 Lymph % (Auto) 11.1 % (20.0-40.0) L 05/16/17 07:32 Starr % (Auto) 4.8 % (0.0-10.0) 05/16/17 07:32 Eos % (Auto) 0.0 % (0.0-4.0) 05/16/17 07:32 Baso % (Auto) 0.1 % (0.0-2.0) 05/16/17 07:32 Neut # 7.6 K/uL (1.8-7.0) H 05/16/17 07:32 Lymph # 1.0 K/uL (1.0-4.3) 05/16/17 07:32 Starr # 0.4 K/uL (0.0-0.8) 05/16/17 07:32 Eos # 0.0 K/uL (0.0-0.7) 05/16/17 07:32 Baso # 0.0 K/uL (0.0-0.2) 05/16/17 07:32 Sodium 132 mmol/L (132-148) 05/16/17 07:32 Potassium 4.2 mmol/L (3.6-5.2) 05/16/17 07:32 Chloride 103 mmol/L (98-107) 05/16/17 07:32 Carbon Dioxide 26 mmol/L (22-30) 05/16/17 07:32 Anion Gap 7 (10-20) L 05/16/17 07:32 BUN 18 mg/dL (7-17) H 05/16/17 07:32 Creatinine 0.8 mg/dL (0.7-1.2) 05/16/17 07:32 Est GFR ( Amer) > 60 05/16/17 07:32 Est GFR (Non-Af Amer) > 60 05/16/17 07:32 POC Glucose (mg/dL) 98 mg/dL (65-110) 05/16/17 11:20 Random Glucose 130 mg/dL (65-105) H 05/16/17 07:32 Hemoglobin A1c 5.6 % (4.2-6.5) 05/15/17 06:25 Calcium 8.4 mg/dl (8.6-10.4) L 05/16/17 07:32 Magnesium 1.8 mg/dL (1.6-2.3) 05/16/17 07:32 Total Bilirubin 0.3 mg/dL (0.2-1.3) 05/16/17 07:32 AST 19 U/L (14-36) 05/16/17 07:32 ALT 13 U/L (9-52) 05/16/17 07:32 Alkaline Phosphatase 33 U/L (38-126) L D 05/16/17 07:32 Total Creatine Kinase 48 U/L (30-135) 05/16/17 00:42 CK-MB (Mass) 0.37 ng/mL (0.0-3.38) 05/16/17 00:42 Troponin I < 0.0120 ng/mL (0.00-0.120) 05/16/17 00:42 NT-Pro-B Natriuret Pep 281 pg/mL (0-900) 05/15/17 14:02 Total Protein 5.6 g/dL (6.3-8.3) L 05/16/17 07:32 Albumin 3.2 g/dL (3.5-5.0) L 05/16/17 07:32 Globulin 2.4 gm/dL (2.2-3.9) 05/16/17 07:32 Albumin/Globulin Ratio 1.3 (1.0-2.1) 05/16/17 07:32 Free T4 0.53 ng/dL (0.78-2.19) L 05/15/17 14:02 TSH 3rd Generation 1.40 mIU/L (0.46-4.68) 05/15/17 14:02 Urine Color Yellow (YELLOW) 05/14/17 12:18 Urine Clarity Clear (Clear) 05/14/17 12:18 Urine pH 7.0 (5.0-8.0) 05/14/17 12:18 Ur Specific [place] 1.015 (1.003-1.030) 05/14/17 12:18 Urine Protein Negative mg/dL (NEGATIVE) 05/14/17 12:18 Urine Glucose (UA) Normal mg/dL (Normal) 05/14/17 12:18 Urine Ketones Negative mg/dL (NEGATIVE) 05/14/17 12:18 Urine Blood Negative (NEGATIVE) 05/14/17 12:18 Urine Nitrate Negative (NEGATIVE) 05/14/17 12:18 Urine Bilirubin Negative (NEGATIVE) 05/14/17 12:18 Urine Urobilinogen Normal mg/dL (0.2-1.0) 05/14/17 12:18 Ur Leukocyte Esterase Neg Nithin/uL (Negative) 05/14/17 12:18 Urine WBC (Auto) < 1 /hpf (0-5) 05/14/17 12:18 Ur Squamous Epith Cells 1 /hpf (0-5) 05/14/17 12:18 Influenza Typ A,B (EIA) Negative for flu a/b (NEGATIVE) 05/14/17 15:58 - Hospital Course Hospital Course: New onset BBB Cardio Consult, Dr. Davila 12-beat run of sinus tachycardia w/BBB on tele MISA negative x1; f/u q6h x2 EKG pending q6h AMS with dizziness - resolved Echo done 01/2017- normal LV with 60-65% EF Head CT 05/04 - negative CXR 05/04 - no acute findings Brain MRI 05/15 - No acute intracranial abnormality. Specifically, no evidence of intracranial metastasis. MRA of Head and Neck 05/15 - Normal MR angiography of the brain and neck. Carotid Dopplers - RIGHT: Duplex scan does not suggest hemodynamically significant stenosis of the right extracranial carotid arteries. LEFT: Duplex scan does not suggest hemodynamically significant stenosis of the left extracranial carotid arteries. Blood Culture - neg at 24 hours Urine Cx pending UA- WNL Orthostatics ordered PT eval ordered Neuro Consult placed to Dr. Chery Meclizine 25mg PO daily prn Patient is undergoing chemo and admits to nausea/vomiting/loss of appetite. Consider hypoglycemia vs malnutrition vs dehydration vs infection at breast surgical site Hyponatremia -131 on admission -NS @ 50mL/hr -follow up AM labs Breast Cancer s/p mastectomy -Currently undergoing chemo therapy -Obtain information about oncologist from pt/family -Continue home medication- oxycodone 5/325mg PO TID -Zofran 25mg IV q6hrs prn HTN- controlled- continuing home medications - Losartan 100mg PO daily - Enalapril 5mg PO daily - Metroprolol tartrate 25mg PO BID DM - Fingersticks achs - diabetic diet - follow up hgb A1C - ISS Asthma - Ventolin 90mcg 1 puff [id number] - Advair 250/50 1 puff [id number] HLD - Crestor 2.5mg PO qhs Arthritis - celebrex 100mg PO BID Prophylaxis - Pepcid 20mg PO daily - Lovenox 40mg SC daily Patient is a 56 F PMHx DM, HTN, asthma, anxiety, invasive bilateral lobular carcinoma of breast s/p bilateral breast implant insertion, extensive bilateral breast revision, scar revision, breast capsulectomy, capsulotomy done 08/27/[address] Arango. She is presented to the ER complaining of dizziness, lightheadedness and confusion (as per her ear specialist). She was admitted and seen by neurology Dr. Chery, cardiology Dr. Davila, and heme/onc Dr. Garcia. Mets of her pervious cancer was ruled out by brain MRI and her previous cancer is now in remission. Cardiology identified a new BBB during this stay and the patient will need to follow up with her personal animal husbandry manager upon discharge. The remainder of studies were uneventful and the patient improved clinically upon discharge. Her home meds were continued upon discharge with the exception of her ARB as she is already on an ACEi and this may have precipitated low blood pressures. Dr. Chery has asked this patient to follow up for possible EEG and further evaluation. The aforementioned was all discussed in detail with the patient and she expressed understanding. Upon d/c the patient denied any dizziness. Discharge Exam - Head Exam Head Exam: ATRAUMATIC, NORMOCEPHALIC - Eye Exam Eye Exam: EOMI - ENT Exam ENT Exam: Mucous Membranes Dry - Respiratory Exam Respiratory Exam: NORMAL BREATHING PATTERN. absent: Rales, Wheezes - Cardiovascular Exam Cardiovascular Exam: REGULAR RHYTHM, +S1, +S2 - Neurological Exam Neurological exam: Alert, CN II-XII Intact, Oriented x3 - Psychiatric Exam Psychiatric exam: Normal Affect, Normal Mood - Skin Skin Exam: Dry, Intact, Warm Discharge Plan - Follow Up Plan Condition: STABLE Disposition: HOME/ ROUTINE Instructions: Vertigo (DC) Additional Instructions: Patient was notified that she will be discharged today. She will be going home and will need follow up with her animal husbandry manager and Dr. Chery. She will continue all of her home medications. These instructions were discussed with her and she expressed understanding. Referrals: John Chery MD [Staff Provider] - <Panfilo Reynolds - Last Filed: 05/16/17 16:37> Provider - Provider Date of Admission: 05/14/17 14:39 Attending physician: Panfilo Reynolds MD Time Spent in preparation of Discharge (in minutes): 45 Hospital Course - Lab Results Lab Results: Micro Results 05/14/17 12:00 Blood Blood Culture - Preliminary NO GROWTH AFTER 48 HOURS 05/14/17 12:30 Blood Blood Culture - Preliminary NO GROWTH AFTER 48 HOURS 05/14/17 11:52 Urine Urine Culture - Final No Growth (<1,000 CFU/ML) Most Recent Lab Values WBC 9.0 K/uL (4.8-10.8) D 05/16/17 07:32 RBC 3.34 Mil/uL (3.80-5.20) L 05/16/17 07:32 Hgb 10.4 g/dL (11.0-16.0) L 05/16/17 07:32 Hct 30.2 % (34.0-47.0) L 05/16/17 07:32 MCV 90.6 fL (81.0-99.0) 05/16/17 07:32 MCH 31.3 pg (27.0-31.0) H 05/16/17 07:32 MCHC 34.5 g/dL (33.0-37.0) 05/16/17 07:32 RDW 14.4 % (11.5-14.5) 05/16/17 07:32 Plt Count 217 K/uL (130-400) 05/16/17 07:32 MPV 7.7 fL (7.2-11.7) 05/16/17 07:32 Neut % (Auto) 84.0 % (50.0-75.0) H 05/16/17 07:32 Lymph % (Auto) 11.1 % (20.0-40.0) L 05/16/17 07:32 Starr % (Auto) 4.8 % (0.0-10.0) 05/16/17 07:32 Eos % (Auto) 0.0 % (0.0-4.0) 05/16/17 07:32 Baso % (Auto) 0.1 % (0.0-2.0) 05/16/17 07:32 Neut # 7.6 K/uL (1.8-7.0) H 05/16/17 07:32 Lymph # 1.0 K/uL (1.0-4.3) 05/16/17 07:32 Starr # 0.4 K/uL (0.0-0.8) 05/16/17 07:32 Eos # 0.0 K/uL (0.0-0.7) 05/16/17 07:32 Baso # 0.0 K/uL (0.0-0.2) 05/16/17 07:32 Sodium 132 mmol/L (132-148) 05/16/17 07:32 Potassium 4.2 mmol/L (3.6-5.2) 05/16/17 07:32 Chloride 103 mmol/L (98-107) 05/16/17 07:32 Carbon Dioxide 26 mmol/L (22-30) 05/16/17 07:32 Anion Gap 7 (10-20) L 05/16/17 07:32 BUN 18 mg/dL (7-17) H 05/16/17 07:32 Creatinine 0.8 mg/dL (0.7-1.2) 05/16/17 07:32 Est GFR ( Amer) > 60 05/16/17 07:32 Est GFR (Non-Af Amer) > 60 05/16/17 07:32 POC Glucose (mg/dL) 98 mg/dL (65-110) 05/16/17 11:20 Random Glucose 130 mg/dL (65-105) H 05/16/17 07:32 Hemoglobin A1c 5.6 % (4.2-6.5) 05/15/17 06:25 Calcium 8.4 mg/dl (8.6-10.4) L 05/16/17 07:32 Magnesium 1.8 mg/dL (1.6-2.3) 05/16/17 07:32 Total Bilirubin 0.3 mg/dL (0.2-1.3) 05/16/17 07:32 AST 19 U/L (14-36) 05/16/17 07:32 ALT 13 U/L (9-52) 05/16/17 07:32 Alkaline Phosphatase 33 U/L (38-126) L D 05/16/17 07:32 Total Creatine Kinase 48 U/L (30-135) 05/16/17 00:42 CK-MB (Mass) 0.37 ng/mL (0.0-3.38) 05/16/17 00:42 Troponin I < 0.0120 ng/mL (0.00-0.120) 05/16/17 00:42 NT-Pro-B Natriuret Pep 281 pg/mL (0-900) 05/15/17 14:02 Total Protein 5.6 g/dL (6.3-8.3) L 05/16/17 07:32 Albumin 3.2 g/dL (3.5-5.0) L 05/16/17 07:32 Globulin 2.4 gm/dL (2.2-3.9) 05/16/17 07:32 Albumin/Globulin Ratio 1.3 (1.0-2.1) 05/16/17 07:32 Free T4 0.53 ng/dL (0.78-2.19) L 05/15/17 14:02 TSH 3rd Generation 1.40 mIU/L (0.46-4.68) 05/15/17 14:02 Urine Color Yellow (YELLOW) 05/14/17 12:18 Urine Clarity Clear (Clear) 05/14/17 12:18 Urine pH 7.0 (5.0-8.0) 05/14/17 12:18 Ur Specific [place] 1.015 (1.003-1.030) 05/14/17 12:18 Urine Protein Negative mg/dL (NEGATIVE) 05/14/17 12:18 Urine Glucose (UA) Normal mg/dL (Normal) 05/14/17 12:18 Urine Ketones Negative mg/dL (NEGATIVE) 05/14/17 12:18 Urine Blood Negative (NEGATIVE) 05/14/17 12:18 Urine Nitrate Negative (NEGATIVE) 05/14/17 12:18 Urine Bilirubin Negative (NEGATIVE) 05/14/17 12:18 Urine Urobilinogen Normal mg/dL (0.2-1.0) 05/14/17 12:18 Ur Leukocyte Esterase Neg Nithin/uL (Negative) 05/14/17 12:18 Urine WBC (Auto) < 1 /hpf (0-5) 05/14/17 12:18 Ur Squamous Epith Cells 1 /hpf (0-5) 05/14/17 12:18 Influenza Typ A,B (EIA) Negative for flu a/b (NEGATIVE) 05/14/17 15:58 Attending/Attestation - Attestation I have personally seen and examined this patient.: Yes I have fully participated in the care of the patient.: Yes I have reviewed all pertinent clinical information, including history, physical exam and plan: Yes Notes (Text): patient was seen and examined,She walking steady in the floor.patient feels better.She is interested in reducing her anti anxiety medication.She think that made her weak. She agree to stop taking enalapril and continue Valsartan. Understood that both medications are same group D/W Petty.She will follow Dr munoz and Dr chery.
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
--- NOTE | 2017-05-19 12:17 | CARD ---
APPROVED REPORT EKG Measurement Heart [id number] <Conclusion> Normal sinus rhythm Low voltage QRS Nonspecific T wave abnormality Abnormal ECG
[2017-05-21] MEDS ORDERED: ALENDRONATE SODIUM 35 MG PO SCH (10:00)
[2017-05-21] MEDS ORDERED: Ergocalciferol 50,000 Intl Units Cap PO SCH (10:00)
== END 2017-05-16 15:00 | disposition home or self-care (01) ==
LOC: C.ER 11:19 → C.9E 14:39 → C.6T 15:56
PROVIDERS: ADMIT Internal Medicine; ATTEND Internal Medicine
DX: T45.1X5A Adverse effect of antineoplastic and immunosuppressive drugs, initial encounter (principal); R11.10 Vomiting, unspecified; C50.912 Malignant neoplasm of unspecified site of left female breast; C50.911 Malignant neoplasm of unspecified site of right female breast; D64.9 Anemia, unspecified; D72.819 Decreased white blood cell count, unspecified; E11.9 Type 2 diabetes mellitus without complications; E78.5 Hyperlipidemia, unspecified; I10 Essential (primary) hypertension; Z98.82 Breast implant status
CPT/HCPCS: 36415; 70450; 70544; 70547; 70553; 71010; 80053; 81001; 82948; 83036; 83735; 83880; 84439; 84443; 84484; 85025; 87040; 87086; 87804; 93005; 93880; 94640; 95812; 96360; 96374; 97116; 97162; 99285; G0378; G8978; G8979; J1100; J1650; J2270; J2405; J3475; J7040

== ENCOUNTER 2017-06-11 10:07 | Emergency (ER) | payer OTHER ==
[2017-06-11 10:13] VITALS: BMI 25.8
[2017-06-11 10:19] VITALS: TEMP 97.9
--- NOTE | 2017-06-11 10:49 | C.PDOC ---
History Of Present Illness 57F c/o pain and swelling in both breasts for the last three weeks. she has hx of b/l mastectomy w b/l seromas drained in the past. saw her surgeon last week who rec she come in again for drainage but she did not decide to come in until today as she developed nausea last night and subjective fever not measured. Time Seen by Provider: 06/11/17 10:48 Chief Complaint (Nursing): Abdominal Pain Past Medical History Vital Signs: Last Vital Signs Temp 97.9 F 06/11/17 10:13 Pulse 73 06/11/17 14:49 Resp 17 06/11/17 14:49 BP 132/84 06/11/17 14:49 Pulse Ox 96 06/11/17 14:49 - Medical History PMH: Anemia, Anxiety, Arthritis, Asthma, Depression, Gastritis, HTN, Hypercholesterolemia, Hyperlipidemia, Malignancy (breast ca), Migraine, Osteoporosis, Peripheral Edema, Sleep Apnea (USES CPAP BEFORE) Denies: Chronic Kidney Disease Surgical History: Endoscopy - [facility] Procedures LAPAROSCOPIC VERTICAL (SLEEVE) GASTRECTOMY (08/24/13) RELEASE CHEST SKIN, EXTERNAL APPROACH (10/25/16) REMOVAL OF SYNTHETIC SUBSTITUTE FROM L BREAST, OPEN APPROACH (10/25/16) REMOVAL OF SYNTHETIC SUBSTITUTE FROM R BREAST, OPEN APPROACH (10/25/16) REPAIR BILATERAL BREAST, EXTERNAL APPROACH (10/25/16) REPAIR LEFT BREAST, EXTERNAL APPROACH (10/25/16) REPLACEMENT OF LEFT BREAST WITH SYNTH SUB, OPEN APPROACH (10/25/16) TRANSFUSE NONAUT RED BLOOD CELLS IN PERIPH VEIN, PERC (10/25/16) Family History: States: Unknown Family Hx - Social History Hx Tobacco Use: No Hx Alcohol Use: No Hx Substance Use: No - Immunization History Hx Tetanus Toxoid Vaccination: Yes Hx Influenza Vaccination: Yes Hx Pneumococcal Vaccination: Yes Review Of Systems Except As Marked, All Systems Reviewed And Found Negative. Constitutional: Positive for: Fever, Malaise Cardiovascular: Negative for: Chest Pain Respiratory: Negative for: Cough, Shortness of Breath Gastrointestinal: Positive for: Nausea, Vomiting, Abdominal Pain Neurological: Negative for: Weakness, Numbness Physical Exam - Physical Exam Appears: Well, Non-toxic, No Acute Distress Skin: Warm, Dry Head: Atraumatic Eye(s): bilateral: PERRL Nose: No Epistaxis Oral Mucosa: Moist Chest: Other (s/p bilateral mastectomy with post-surgical changes. no erythema, warmth, swelling, drainage, or signs of abscess. ) Cardiovascular: Rhythm Regular Respiratory: No Decreased Breath Sounds, No Accessory Muscle Use, No Rales, No Rhonchi, No Stridor, No Wheezing Gastrointestinal/Abdominal: Soft, No Tenderness, No Distention Extremity: No Swelling Neurological/Psych: Oriented x3, Other (no focal deficits) Additional Physical Exam Comments: Finisher Wallboard And Plasterboard during exam- Jessica Bravo ED Course And Treatment - Laboratory Results Result Diagrams: 06/11/17 12:08 06/11/17 12:08 O2 Sat by Pulse Oximetry: 100 Medical Decision Making Medical Decision Making: I disc w the pts surgeon Dr Agustin who says she referred the patient for any outpatient IR procedure and did not mean for her to come to the ED. 1410 pt resting quietly, appears well, no distress. disc results, my discussion w her surgeon, plan for f/u w IR Dr Daley, and RTR. she v/u and agrees w plan. she appears comfortable but says she takes "morphine and percocet" at home for pain but "I took the last one this morning" and is requesting morphine before she leaves as well as rx to take home. Disposition - Disposition Referrals: Enrique Daley MD [Staff Provider] - Disposition: HOME/ ROUTINE Disposition Time: 15:17 Condition: GOOD Additional Instructions: Please follow up with the specialist to have your procedure. The number is provided below. Return to the ER for any worsening symptoms, fever, or for any other concerns. Prescriptions: Ondansetron ODT [Zofran ODT] 4 mg PO Q4H PRN #10 odt PRN Reason: Nausea/Vomiting oxyCODONE/Acetaminophen [Percocet 5/325 mg Tab] 1 ea PO Q6H PRN #10 tab PRN Reason: Pain, Severe (8-10) Forms: Gen Discharge Inst Hebrew, [facility] (Hebrew) Print Language: NORWEGIAN - Clinical Impression Clinical Impression: Seroma
[2017-06-11] MEDS ORDERED: Sodium Chloride 0.9% 1,000 ML IV ONE (11:09)
[2017-06-11] MEDS ORDERED: Morphine 4 MG/ML VIAL ONE (12:11)
[2017-06-11 12:25] LABS: BASO % 0.8 % (0.0-2.0); EOS # 0.1 K/uL (0.0-0.7); EOS % 2.3 % (0.0-4.0); HEMOGLOBIN 11.2 g/dL (11.0-16.0); LYMPH # 1.6 K/uL (1.0-4.3); LYMPH % 27.4 % (20.0-40.0); MEAN CELL VOLUME 90.8 fL (81.0-99.0); MEAN CORPUSCULAR HEMOGLOBIN 31.1 pg (27.0-31.0); MEAN CORPUSCULAR HGB CONC 34.3 g/dL (33.0-37.0); MEAN PLATELET VOLUME 7.4 fL (7.2-11.7); MONO # 0.8 K/uL (0.0-0.8); MONO % 13.4 % (0.0-10.0); NEUT # 3.2 K/uL (1.8-7.0); NEUT % 56.1 % (50.0-75.0); NRBC % 0.1 % (0.0-2.0); RBC 3.61 Mil/uL (3.80-5.20); RED CELL DISTRIBUTION WIDTH 14.2 % (11.5-14.5); WHITE BLOOD COUNT 5.8 K/uL (4.8-10.8)
[2017-06-11 12:42] LABS: ALB/GLOB RATIO 1.2 (1.0-2.1); ALBUMIN 3.4 g/dL (3.5-5.0); ALT/SGPT 23 U/L (9-52); AST/SGOT 28 U/L (14-36); BLOOD UREA NITROGEN 20 mg/dL (7-17); CALCIUM 8.9 mg/dl (8.6-10.4); GFR AFRICAN-AMERICAN > 60; GFR NON-AFRICAN AMERICAN 57
--- NOTE | 2017-06-11 13:56 | US ---
HISTORY: old female status post bilateral mastectomy history of prior seromas prior low left breast open wound. Patient now having pain TECHNIQUE: Sonographic evaluation of both breast was performed. COMPARISON BILATERAL BREAST ULTRASOUND 10/03/2016 FINDINGS: RIGHT BREAST: The prior right postmastectomy bed flexion is no longer seen. No interval pathology on the right is noted LEFT BREAST: The prior left mastectomy/ possible expansion implant part of a prior reconstruction is no longer seen as such. Currently comment an anechoic simple seroma like residual flexion here is noted now measuring 4.8 x 0.7 x 4.5 cm in the upper inner quadrant and 5.0 x 0.8 x 5.2 cm in the upper outer quadrant and 2.0 x 0.6 by 0.8 meters in the retroareolar nipple area is now present. IMPRESSION: Prior right breast sonographic findings no longer seen compatible with the resolution Current left breast fluid collections are simple appearing ; multiple seromas are compatible with this BIRADS: BIRADS 2 Benign finding Clinical follow-up recommended
[2017-06-11 14:49] VITALS: BP 132/84; PULSE 73; RESP 17
[2017-06-13 15:19] VITALS: O2SAT 100
== END 2017-06-11 15:17 | disposition home or self-care (01) ==
LOC: C.ER 10:07
DX: L76.34 Postprocedural seroma of skin and subcutaneous tissue following other procedure (principal); Y83.8 Other surgical procedures as the cause of abnormal reaction of the patient, or of later complication, without mention of misadventure at the time of the procedure; Y82.8 Other medical devices associated with adverse incidents; I10 Essential (primary) hypertension; Z85.3 Personal history of malignant neoplasm of breast
CPT/HCPCS: 76641; 80053; 85025; 96361; 96374; 96375; 96376; 99284; J2270; J2405; J7040

== ENCOUNTER 2017-06-19 11:11 | Emergency (ER) | payer OTHER ==
[2017-06-19 11:11] VITALS: BMI 25.8
[2017-06-19 11:54] VITALS: TEMP 98; O2SAT 100
--- NOTE | 2017-06-19 14:22 | C.PDOC ---
History Of Present Illness PT WAS WAITING FOR FT BED FOR 3 HOURS PRIOR TO BE SEEN BY ME IN MAIN ED. 57 yo female w/PMhx of b/l mastectomy w b/l seromas drained in the past multiple time, present to ED c/o pain and worsening of Left breast swelling for the last few weeks. Pt reports, saw her surgeon on 06/04/17 who recommend she has US guided B/L breast drain placement. Pt was seen here in ED multiple times due to same issue, was ref. for outpt f/u. Pt appears non-complaint with instruction. Otherwise, pt denies fever, chills, recent illness, cough, CP, SOB , dyspnea, palpitation, denies any other active complaints. FYI: previous visit to Ed review, last one was in 06/11/17 when pt was seen due to same complaints. As per chart doc " Dr Agustin who says she referred the patient for any outpatient IR procedure and did not mean for her to come to the ED. plan for f/u w IR Dr Hernandez, and RTR". Time Seen by Provider: 06/19/17 14:21 Chief Complaint (Nursing): Breast Problem History Per: Patient History/Exam Limitations: no limitations Onset/Duration Of Symptoms: Days (3 weeks) Past Medical History Reviewed: Historical Data, Nursing Documentation, Vital Signs Vital Signs: Last Vital Signs Temp 98.0 F 06/19/17 11:51 Pulse 86 06/19/17 11:51 Resp 19 06/19/17 11:51 BP 135/83 06/19/17 11:51 Pulse Ox 100 06/19/17 17:02 - Medical History PMH: Anemia, Anxiety, Arthritis, Asthma, Depression, Gastritis, HTN, Hypercholesterolemia, Hyperlipidemia, Malignancy (breast ca), Migraine, Osteoporosis, Peripheral Edema, Sleep Apnea (USES CPAP BEFORE) Surgical History: Endoscopy - [facility] Procedures LAPAROSCOPIC VERTICAL (SLEEVE) GASTRECTOMY (08/24/13) RELEASE CHEST SKIN, EXTERNAL APPROACH (10/25/16) REMOVAL OF SYNTHETIC SUBSTITUTE FROM L BREAST, OPEN APPROACH (10/25/16) REMOVAL OF SYNTHETIC SUBSTITUTE FROM R BREAST, OPEN APPROACH (10/25/16) REPAIR BILATERAL BREAST, EXTERNAL APPROACH (10/25/16) REPAIR LEFT BREAST, EXTERNAL APPROACH (10/25/16) REPLACEMENT OF LEFT BREAST WITH SYNTH SUB, OPEN APPROACH (10/25/16) TRANSFUSE NONAUT RED BLOOD CELLS IN PERIPH VEIN, PERC (10/25/16) Family History: States: No Known Family Hx - Social History Hx Tobacco Use: No Hx Alcohol Use: No Hx Substance Use: No - Immunization History Hx Tetanus Toxoid Vaccination: Yes Hx Influenza Vaccination: No Hx Pneumococcal Vaccination: Yes Review Of Systems Except As Marked, All Systems Reviewed And Found Negative. Constitutional: Positive for: Fever (subjective), Other ((+) swelling in bilateral breast) Cardiovascular: Negative for: Chest Pain Respiratory: Negative for: Cough, Shortness of Breath Gastrointestinal: Negative for: Nausea, Vomiting, Abdominal Pain Musculoskeletal: Negative for: Back Pain Skin: Positive for: Lesions Neurological: Negative for: Altered Mental Status Physical Exam - Physical Exam Appears: Well, Non-toxic, No Acute Distress Skin: Normal Color, Warm Head: Normacephalic Eye(s): bilateral: PERRL Nose: No Flaring, No Discharge Oral Mucosa: Moist Throat: No Drooling Neck: Trachea Midline, Supple Lymphatic: No Other Chest: No Subcutaneous Emphysema, Other (Left breast: few small tender masses 1# 1, 1#2 cm diameter overlying left breast area. NO erythema, no flactulance. Right breast area: no tender masses noted.) Cardiovascular: Rhythm Regular Respiratory: No Decreased Breath Sounds, No Accessory Muscle Use, No Stridor, No Wheezing Gastrointestinal/Abdominal: Soft, No Tenderness Extremity: Normal ROM, No Pedal Edema ED Course And Treatment O2 Sat by Pulse Oximetry: 100 (RA) Pulse Ox Interpretation: Normal Progress Note: Surgical consult called at 15:24. At 17:02, pt resting comfortably, still await for surgical technology instructor consult. Pt is asking for pain medication now. Percocet order. At 17:40, surgical technology instructor came down to eval pt. As per surgery, pt was seen by surgery multiple times and rec. IR to be involved for further tx and breast seroma draining. At 17:55, case discussed with IR , not available over the weekend, available during the week for draining. On re-eval, pt is afebrile, hemodynamicaly stable. non-toxic. B/L Breast: no evidence of cellulitis or abscess. Exam c/w chronic seroma L>R. Pt advised to return to ED on 06/22/17 for re-eavluation and admission for breast draining by . Pt v/u, agrees with discharge now. Disposition Counseled Patient/Family Regarding: Diagnosis, Need For Followup - Disposition Disposition: HOME/ ROUTINE Disposition Time: 17:54 Condition: STABLE Additional Instructions: RETURN TO ED ON 06/22/17 FOR ADMISSION, BREAST DRAINING BY DR. HERNANDEZ. RETURN TO ED AT ANY TIME IF ANY NEW CHANGES. Instructions: Cyst (ED) Forms: [facility] (Kazakh) - Clinical Impression Clinical Impression: Cyst of breast
[2017-06-19] MEDS ORDERED: Oxycodone/Acetaminophen 5/325 mg Tab PO STA (17:02)
[2017-06-19] MEDS ORDERED: Oxycodone/Acetaminophen 5/325 mg Tab ONE (17:18)
[2017-06-19 18:38] VITALS: BP 117/86; PULSE 88; RESP 16
== END 2017-06-19 18:38 | disposition home or self-care (01) ==
LOC: C.ER 11:11
DX: N60.02 Solitary cyst of left breast (principal)

== ENCOUNTER 2017-06-22 09:26 | Emergency (ER) | payer OTHER ==
[2017-06-22 09:35] VITALS: BMI 27.4
[2017-06-22 09:36] VITALS: O2SAT 100
--- NOTE | 2017-06-22 10:19 | C.PDOC ---
History Of Present Illness 57 yo female, presents with b/l breast seromas. pt requests ir drainage of seromas. seen previously in er for similar. no new complaints. Time Seen by Provider: 06/22/17 10:01 Chief Complaint (Nursing): Breast Problem Past Medical History Reviewed: Historical Data, Nursing Documentation, Vital Signs Vital Signs: Last Vital Signs Temp 98.3 F 06/22/17 09:36 Pulse 89 06/22/17 09:36 Resp 17 06/22/17 09:36 BP 111/71 06/22/17 09:36 Pulse Ox 100 06/22/17 10:18 - Medical History PMH: Anemia, Anxiety, Arthritis, Asthma, Depression, Gastritis, HTN, Hypercholesterolemia, Hyperlipidemia, Malignancy (breast ca), Migraine, Osteoporosis, Peripheral Edema, Sleep Apnea (USES CPAP BEFORE) Denies: Chronic Kidney Disease Surgical History: Endoscopy - [facility] Procedures LAPAROSCOPIC VERTICAL (SLEEVE) GASTRECTOMY (08/24/13) RELEASE CHEST SKIN, EXTERNAL APPROACH (10/25/16) REMOVAL OF SYNTHETIC SUBSTITUTE FROM L BREAST, OPEN APPROACH (10/25/16) REMOVAL OF SYNTHETIC SUBSTITUTE FROM R BREAST, OPEN APPROACH (10/25/16) REPAIR BILATERAL BREAST, EXTERNAL APPROACH (10/25/16) REPAIR LEFT BREAST, EXTERNAL APPROACH (10/25/16) REPLACEMENT OF LEFT BREAST WITH SYNTH SUB, OPEN APPROACH (10/25/16) TRANSFUSE NONAUT RED BLOOD CELLS IN PERIPH VEIN, PERC (10/25/16) Family History: States: Unknown Family Hx - Social History Hx Tobacco Use: No Hx Alcohol Use: No Hx Substance Use: No - Immunization History Hx Tetanus Toxoid Vaccination: Yes Hx Influenza Vaccination: No Hx Pneumococcal Vaccination: Yes Review Of Systems Except As Marked, All Systems Reviewed And Found Negative. Physical Exam - Physical Exam Appears: Well, No Acute Distress Skin: Normal Color, Warm, Dry Eye(s): bilateral: Normal Inspection, PERRL, EOMI Nose: Normal Throat: Normal Neck: Normal Chest: Other (deferred to IR for breast exam.) Cardiovascular: Rhythm Regular Respiratory: Normal Breath Sounds Gastrointestinal/Abdominal: Normal Exam Back: Normal Inspection Extremity: Normal ROM ED Course And Treatment - Laboratory Results Result Diagrams: 06/22/17 12:22 06/22/17 11:02 O2 Sat by Pulse Oximetry: 100 Medical Decision Making Medical Decision Making: pt drained by ir advise outpt fu Disposition - Disposition Referrals: Enrique Daley MD [Staff Provider] - Disposition: HOME/ ROUTINE Disposition Time: 14:22 Condition: STABLE Additional Instructions: return to er with worsening symptoms or concerns. please follow up oupt Forms: [facility] (Greenlandic) - Clinical Impression Clinical Impression: Seroma
[2017-06-22 11:16] LABS: INR 0.9; PROTHROMBIN TIME 10.4 SECONDS (9.7-12.2)
[2017-06-22 11:30] LABS: ALB/GLOB RATIO 1.2 (1.0-2.1); ALBUMIN 3.7 g/dL (3.5-5.0); ALT/SGPT 13 U/L (9-52); AST/SGOT 27 U/L (14-36); BLOOD UREA NITROGEN 21 mg/dL (7-17); CALCIUM 8.9 mg/dl (8.6-10.4); GFR AFRICAN-AMERICAN > 60; GFR NON-AFRICAN AMERICAN > 60
[2017-06-22 12:26] LABS: BASO % 0.7 % (0.0-2.0); EOS # 0.1 K/uL (0.0-0.7); EOS % 1.3 % (0.0-4.0); HEMOGLOBIN 11.3 g/dL (11.0-16.0); LYMPH # 1.5 K/uL (1.0-4.3); LYMPH % 24.5 % (20.0-40.0); MEAN CELL VOLUME 90.5 fL (81.0-99.0); MEAN CORPUSCULAR HEMOGLOBIN 30.5 pg (27.0-31.0); MEAN CORPUSCULAR HGB CONC 33.7 g/dL (33.0-37.0); MEAN PLATELET VOLUME 7.4 fL (7.2-11.7); MONO # 0.6 K/uL (0.0-0.8); MONO % 9.7 % (0.0-10.0); NEUT % 63.8 % (50.0-75.0); NRBC % 0.1 % (0.0-2.0); RBC 3.71 Mil/uL (3.80-5.20); RED CELL DISTRIBUTION WIDTH 14.7 % (11.5-14.5); WHITE BLOOD COUNT 6.2 K/uL (4.8-10.8)
--- NOTE | 2017-06-22 14:09 | PCM.SURG1 ---
Surgeon's Initial Post Op Note - Surgeon's Notes Surgeon: Enrique Daley MD [employer]ipe Lines Supervisor: NONE Type of Anesthesia: Local Pre-Operative Diagnosis: Left breast seroma Operative Findings: US showed a collection deep to the mastectomy scar left breast. Post-Operative Diagnosis: Left breast seroma Operation Performed: Left breast seroma aspiration and sclerosis with betadine. Specimen/Specimens Removed: 45 cc of serous fluid Estimated Blood Loss: EBL {In ML}: 0 Drains Used: No Drains Post-Op Condition: Fair Date of Surgery/Procedure: 06/22/17 Time of Surgery/Procedure: 14:05
--- NOTE | 2017-06-22 14:23 | US ---
PROCEDURE: HISTORY: Mastectomy with fluid collection. COMPARISON: TECHNIQUE: Sonographic evaluation of the left chest was performed with a curvilinear probe. FINDINGS: Limited sonographic evaluation of the left breast showed seroma deep to the surgical scar measuring 6 centimeter x 1 centimeter. IMPRESSION: Left chest wall fluid collection deep to mastectomy scar.
--- NOTE | 2017-06-22 14:24 | US ---
PROCEDURE: LEFT BREAST SEROMA ASPIRATION AND SCLEROSIS WITH A LENGTH HISTORY: LT BREAST SEROMA DRAINAGE BY DR HERNANDEZ COMPARISON: TECHNIQUE: Limits sonographic evaluation of the left breast was performed. FINDINGS: There is a collection deep to the mastectomy scar. Fluid collection appears simple. Following informed consent and procedure time-out, the patient left chest was prepped and draped in the usual sterile fashion. After the skin was anesthetized with 2 percent lidocaine, a drainage catheter was advanced under direct ultrasound guidance into the seroma. 45 cubic centimeters of serous fluid was removed and sent for culture. 50 cubic centimeters of Betadine was then infused through the catheter into the stoma pocket. After 10 minutes, the pale and was aspirated. IMPRESSION: Ultrasound guidance aspiration and sclerosis of left chest wall seroma.
[2017-06-22] MEDS ORDERED: Naproxen 550 mg Tab PO ONE (15:00)
[2017-06-22 15:12] VITALS: BP 140/65; PULSE 84; RESP 18; TEMP 98.4
== END 2017-06-22 15:15 | disposition home or self-care (01) ==
LOC: C.ER 09:26 → C.SDS 13:54 → C.ER 15:15
DX: N64.89 Other specified disorders of breast (principal); E78.00 Pure hypercholesterolemia, unspecified; I10 Essential (primary) hypertension; M81.0 Age-related osteoporosis without current pathological fracture; Z85.3 Personal history of malignant neoplasm of breast

== ENCOUNTER 2017-06-26 09:54 | Day surgery (SDC) | payer OTHER ==
[2017-06-26 11:27] VITALS: TEMP 96.8
[2017-06-26] MEDS ORDERED: Lactated Ringer's 1,000 ML IV ONE (13:59)
--- NOTE | 2017-06-26 14:00 | CP.SDSHP ---
Same Day Surgery H & P - History Proposed Procedure: colonoscopy Pre-Op Diagnosis: h/o colon polyps - Allergies Allergies: Allergies aspirin Allergy (Verified 06/26/17 10:41) ANGIOEDEMA - Physical Exam Vital Signs: Vital Signs 06/26/17 10:15 Temperature 96.8 F L Pulse Rate 78 Respiratory 19 Rate Blood Pressure 140/86 O2 Sat by Pulse 99 Oximetry Mental Status: Alert & Oriented x3 Neuro: WNL Heart: WNL Lungs: WNL GI: WNL - {Optional Preform as Required} Abdomen: WNL - Impression Impression: h/o polyps. colonoscopy Pt. Evaluated Today:Candidate for Anesthesia & Procedure: Yes Short Stay Discharge - Short Stay Discharge Admitting Diagnosis/Reason for Visit: COLONIC POLYPS Disposition: HOME/ ROUTINE
[2017-06-26] MEDS ORDERED: Simethicone 40 mg/0.6 ml Liquid (30 ml) ONE (14:17)
[2017-06-26 15:01] VITALS: O2SAT 100
[2017-06-26] MEDS ORDERED: Heparin 1,000 UNITS in Sodium Chloride 0.9% 9 ML IVP ONE (16:00)
[2017-06-26 16:31] VITALS: BP 169/84; PULSE 91; RESP 11
== END 2017-06-26 16:24 | disposition home or self-care (01) ==
LOC: C.ENDO 09:54
PROVIDERS: ATTEND Internal Medicine
DX: Z12.11 Encounter for screening for malignant neoplasm of colon (principal); Z86.010 Personal history of colon polyps; K64.8 Other hemorrhoids; K57.30 Diverticulosis of large intestine without perforation or abscess without bleeding; K63.5 Polyp of colon
CPT/HCPCS: 45380; 82948; 88305; J1644; J7120

== ENCOUNTER 2017-09-03 18:49 | Emergency (ER) | payer OTHER ==
[2017-09-03 18:49] VITALS: BMI 27.4
[2017-09-03 19:07] VITALS: RESP 20; O2SAT 96
--- NOTE | 2017-09-03 20:04 | C.PDOC ---
History Of Present Illness 57 year old female presents to the ER with a complaint of bilateral breast pain. Patient has a Hx of chronic recurring breast seromas after having a bilateral mastectomy. Patient has had several drainings by IR here at [facility] and is complaining of pain again; she had an outpatient US done which showed she has accumulating fluids to the area. Patient also states she ran out of her pain medications 2 weeks ago. Denies fever, chills, or SOB. Time Seen by Provider: 09/03/17 19:16 Chief Complaint (Nursing): Breast Problem History Per: Patient History/Exam Limitations: no limitations Onset/Duration Of Symptoms: Days Current Symptoms Are (Timing): Still Present Recent travel outside of the [place]: No Past Medical History Reviewed: Historical Data, Nursing Documentation, Vital Signs Vital Signs: Last Vital Signs Temp 98.7 F 09/03/17 19:03 Pulse 100 H 09/03/17 19:03 Resp 20 09/03/17 19:03 BP 117/84 09/03/17 19:03 Pulse Ox 96 09/03/17 21:46 - Medical History PMH: Anemia, Anxiety, Arthritis, Asthma, Colonic Polyps (LAST COLONOSCOPY HAD " 38 " POLYPS), Depression, Gastritis, HTN, Hypercholesterolemia, Hyperlipidemia, Malignancy (breast ca), Migraine, Osteoporosis, Peripheral Edema, Sleep Apnea ( USES CPAP BEFORE) Surgical History: Endoscopy - [facility] Procedures LAPAROSCOPIC VERTICAL (SLEEVE) GASTRECTOMY (08/24/13) RELEASE CHEST SKIN, EXTERNAL APPROACH (10/25/16) REMOVAL OF SYNTHETIC SUBSTITUTE FROM L BREAST, OPEN APPROACH (10/25/16) REMOVAL OF SYNTHETIC SUBSTITUTE FROM R BREAST, OPEN APPROACH (10/25/16) REPAIR BILATERAL BREAST, EXTERNAL APPROACH (10/25/16) REPAIR LEFT BREAST, EXTERNAL APPROACH (10/25/16) REPLACEMENT OF LEFT BREAST WITH SYNTH SUB, OPEN APPROACH (10/25/16) TRANSFUSE NONAUT RED BLOOD CELLS IN PERIPH VEIN, PERC (10/25/16) Family History: States: Unknown Family Hx - Social History Hx Tobacco Use: No Hx Alcohol Use: No Hx Substance Use: No - Immunization History Hx Tetanus Toxoid Vaccination: Yes Hx Influenza Vaccination: No Hx Pneumococcal Vaccination: Yes Review Of Systems Except As Marked, All Systems Reviewed And Found Negative. Musculoskeletal: Positive for: Other (Bilateral breast pain) Physical Exam - Physical Exam Appears: Other (Mild pain) Skin: Normal Color, Warm, Dry Head: Atraumatic, Normacephalic Eye(s): bilateral: Normal Inspection Oral Mucosa: Moist Chest: Tenderness (Bilateral), Other (No erythema, swelling, or rash) Cardiovascular: Rhythm Regular Respiratory: Normal Breath Sounds, No Rales, No Rhonchi, No Wheezing Gastrointestinal/Abdominal: Soft, No Tenderness Neurological/Psych: Oriented x3, Normal Speech ED Course And Treatment - Laboratory Results Result Diagrams: 09/03/17 20:36 09/03/17 20:36 O2 Sat by Pulse Oximetry: 96 (Room air) Pulse Ox Interpretation: Normal Progress Note: Blood work ordered. Percocet administered with minimum relief, morphine administered with relief. Patient discharged home with Rx and instructed to follow up with IR as usual during the day or return if symptoms worsen, patient understands and agrees with plan. Disposition Counseled Patient/Family Regarding: Diagnosis, Need For Followup, Rx Given - Disposition Referrals: Montrell Chawla MD [Medical Doctor] - Disposition: HOME/ ROUTINE Disposition Time: 22:00 Condition: STABLE Additional Instructions: FOLLOW UP WITH YOUR DOCTOR AND SCHEDULE DRAINAGE FROM INTERVENTIONAL RADIOLOGY OUTPATIENT RETURN TO ER IF YOUR SYMPTOMS WORSEN Prescriptions: oxyCODONE/Acetaminophen [Percocet 5/325 mg Tab] 1 tab PO QID PRN #20 tab PRN Reason: Pain Forms: [facility] (Vietnamese) Print Language: SENEGALESE - Clinical Impression Clinical Impression: Seroma of breast - Scribe Statement The provider has reviewed the documentation as recorded by the Scribmargaret Wolf All medical record entries made by the Pearlibmargaret were at my direction and personally dictated by me. I have reviewed the chart and agree that the record accurately reflects my personal performance of the history, physical exam, medical decision making, and the department course for this patient. I have also personally directed, reviewed, and agree with the discharge instructions and disposition.
[2017-09-03] MEDS ORDERED: Oxycodone/Acetaminophen 5/325 mg Tab PO STA (20:10)
[2017-09-03] MEDS ORDERED: Oxycodone/Acetaminophen 5/325 mg Tab ONE (20:18)
[2017-09-03 20:45] LABS: BASO % 0.6 % (0.0-2.0); EOS # 0.1 K/uL (0.0-0.7); EOS % 1.5 % (0.0-4.0); HEMOGLOBIN 11.4 g/dL (11.0-16.0); LYMPH # 1.6 K/uL (1.0-4.3); LYMPH % 22.5 % (20.0-40.0); MEAN CELL VOLUME 89.3 fL (81.0-99.0); MEAN CORPUSCULAR HEMOGLOBIN 30.3 pg (27.0-31.0); MEAN CORPUSCULAR HGB CONC 33.9 g/dL (33.0-37.0); MONO # 0.9 K/uL (0.0-0.8); MONO % 12.8 % (0.0-10.0); NEUT # 4.5 K/uL (1.8-7.0); NEUT % 62.6 % (50.0-75.0); RBC 3.77 Mil/uL (3.80-5.20); RED CELL DISTRIBUTION WIDTH 13.8 % (11.5-14.5); WHITE BLOOD COUNT 7.2 K/uL (4.8-10.8)
[2017-09-03 20:55] LABS: ALB/GLOB RATIO 1.1 (1.0-2.1); ALBUMIN 3.7 g/dL (3.5-5.0); ALT/SGPT 16 U/L (9-52); AST/SGOT 26 U/L (14-36); BLOOD UREA NITROGEN 18 mg/dL (7-17); GFR AFRICAN-AMERICAN > 60; GFR NON-AFRICAN AMERICAN > 60
[2017-09-03 21:35] LABS: PROTHROMBIN TIME 10.9 SECONDS (9.7-12.2)
[2017-09-03] MEDS ORDERED: Morphine 4 MG/ML VIAL ONE (21:39)
[2017-09-03 22:10] VITALS: BP 122/83; PULSE 86; TEMP 97.7
== END 2017-09-03 22:10 | disposition home or self-care (01) ==
LOC: C.ER 18:49
DX: N64.89 Other specified disorders of breast (principal); I10 Essential (primary) hypertension; E78.00 Pure hypercholesterolemia, unspecified; Z85.3 Personal history of malignant neoplasm of breast; Z90.13 Acquired absence of bilateral breasts and nipples
CPT/HCPCS: 80053; 85025; 85610; 85730; 96374; 99285; J2270

== ENCOUNTER 2017-09-16 11:26 | Emergency (ER) | payer OTHER ==
[2017-09-16 11:41] VITALS: BMI 27.1
--- NOTE | 2017-09-16 12:43 | C.PDOC ---
History Of Present Illness The patient is a 57 year old female, whose PMHx includes breast cancer. Patient reports experiencing vertigo three days ago and states states she hit her head and face on the wall. Patient also reports history of cough with blood that is associated with chest pain. Patient complains of "left-sided lung pain" and reports chills. Patient denies fever, shortness of breath, dizziness. PMD: Dr. Chawla Oncologist: Dr. Ezekiel Garcia Time Seen by Provider: 09/16/17 11:56 Chief Complaint (Nursing): Chest Pain History Per: Patient History/Exam Limitations: no limitations Onset/Duration Of Symptoms: Days (3) Current Symptoms Are (Timing): Still Present Quality: "Pain" Additional History Per: Patient Past Medical History Reviewed: Historical Data, Nursing Documentation, Vital Signs Vital Signs: Last Vital Signs Temp 98.1 F 09/16/17 18:07 Pulse 90 09/16/17 18:07 Resp 20 09/16/17 18:07 BP 125/83 09/16/17 18:07 Pulse Ox 98 09/16/17 18:07 - Medical History PMH: Anemia, Anxiety, Arthritis, Asthma, Colonic Polyps (LAST COLONOSCOPY HAD " 38 " POLYPS), Depression, Gastritis, HTN, Hypercholesterolemia, Hyperlipidemia, Malignancy (breast ca), Migraine, Osteoporosis, Peripheral Edema, Sleep Apnea ( USES CPAP BEFORE) Denies: Fractures, Chronic Kidney Disease Surgical History: Endoscopy Denies: Pacemaker - [facility] Procedures LAPAROSCOPIC VERTICAL (SLEEVE) GASTRECTOMY (08/24/13) RELEASE CHEST SKIN, EXTERNAL APPROACH (10/25/16) REMOVAL OF SYNTHETIC SUBSTITUTE FROM L BREAST, OPEN APPROACH (10/25/16) REMOVAL OF SYNTHETIC SUBSTITUTE FROM R BREAST, OPEN APPROACH (10/25/16) REPAIR BILATERAL BREAST, EXTERNAL APPROACH (10/25/16) REPAIR LEFT BREAST, EXTERNAL APPROACH (10/25/16) REPLACEMENT OF LEFT BREAST WITH SYNTH SUB, OPEN APPROACH (10/25/16) TRANSFUSE NONAUT RED BLOOD CELLS IN PERIPH VEIN, PERC (10/25/16) Family History: States: Unknown Family Hx - Social History Hx Tobacco Use: No Hx Alcohol Use: No Hx Substance Use: No - Immunization History Hx Tetanus Toxoid Vaccination: Yes Hx Influenza Vaccination: No Hx Pneumococcal Vaccination: Yes Review Of Systems Constitutional: Positive for: Chills. Negative for: Fever Cardiovascular: Positive for: Chest Pain Respiratory: Positive for: Cough. Negative for: Shortness of Breath Neurological: Negative for: Dizziness Physical Exam - Physical Exam Appears: Non-toxic, No Acute Distress Skin: Normal Color, Warm, Dry Head: Atraumatic, Normacephalic Eye(s): bilateral: PERRL, EOMI, right: Other (supraorbital ecchymosis with mild swelling. no tenderness. no crepitus ), left: Normal Inspection Nose: Normal Oral Mucosa: Moist Throat: Normal, No Erythema, No Exudate Neck: Supple Chest: Symmetrical, No Deformity, Tenderness (right upper chest wall ), Other ( bilateral mastectomy. port to right upper chest wall. no erythma or swelling ) Cardiovascular: Rhythm Regular, No Murmur Respiratory: Normal Breath Sounds, No Rales, No Rhonchi, No Wheezing Extremity: Normal ROM, Capillary Refill (less than 2 seconds ) Neurological/Psych: Oriented x3, Normal Speech, Normal Cognition ED Course And Treatment - Laboratory Results Result Diagrams: 09/16/17 12:57 09/16/17 12:57 Lab Interpretation: No Acute Changes ECG: Interpreted By Me, Viewed By Me ECG Rhythm: Sinus Rhythm ECG Interpretation: No Acute Changes Rate From EC O2 Sat by Pulse Oximetry: 97 (on RA) Pulse Ox Interpretation: Normal Medical Decision Making Medical Decision Making: Plan: * bloodwork * urinalysis * CT Angio Chest * CT Maxillofacial * EKG Progress: Bloodwork, urinalysis, CT Angio Chest, CT Maxillofacial, EKG ordered and reviewed. 1700 patient is seated comfortable in bed talking on her mobile phone in no distress. Patient states her chest feels better, but has facial pain. She wants another percocet. I discussed results with patient and provide copy of lab and imaging reports. Patient denies any double vision or pain with eye movements, no clinical signs of entrapment. I advised she follow up with optho, patient expresses understanding. Counseling was provided regarding the diagnosis and prognosis. All questions answered and there is agreement with the plan to discharge home with instructions and Rx for Augmentin and percocet. Patient is stable for discharge. Advised to return if symptoms persist or worsen. Disposition Counseled Patient/Family Regarding: Diagnosis, Need For Followup, Rx Given - Disposition Referrals: Montrell Chawla MD [Medical Doctor] - Jeffry Zambrano [Staff Provider] - Disposition: HOME/ ROUTINE Disposition Time: 17:21 Condition: IMPROVED Additional Instructions: Your Ct shows fracture to orbital floor of right eye. Please be sure to follow up with landing support specialist. Take antibiotic and pain medicine as needed [facility] muestra tisha fractura en el piso orbital del john derecho. Por favor, aseg rese de hacer un seguimiento con un especialista en ojos. Mike antibiticos y analgsicos segn sea necesario Regrese al departamento de emergencia en cualquier momento si los sntomas persisten o empeoran. Prescriptions: Amoxicillin/Clavulanate [Augmentin 875 MG-125 MG] 1 tab PO BID #14 tab oxyCODONE/Acetaminophen [Percocet 5/325 mg Tab] 1 tab PO Q8 PRN #15 tab PRN Reason: Pain, Severe (8-10) Instructions: Vertigo (a Type of Dizziness) (DC), Eye Contusion (DC) Forms: [employer] (Moroccan) Print Language: UZBEK - POA Present On Arrival: Falls Or Trauma - Clinical Impression Clinical Impression: Cancer related pain, Vertigo, Orbital floor fracture - PA / METROLOGY SPECIALIST / Resident Statement MD/DO has reviewed & agrees with the documentation as recorded. - Scribe Statement The provider has reviewed the documentation as recorded by the Scribe All medical record entries made by the Scribe were at my direction and personally dictated by me. I have reviewed the chart and agree that the record accurately reflects my personal performance of the history, physical exam, medical decision making, and the department course for this patient. I have also personally directed, reviewed, and agree with the discharge instructions and disposition.
[2017-09-16 13:02] LABS: BASO # 0.1 K/uL (0.0-0.2); EOS # 0.1 K/uL (0.0-0.7); EOS % 2.2 % (0.0-4.0); HEMOGLOBIN 10.9 g/dL (11.0-16.0); LYMPH # 1.6 K/uL (1.0-4.3); MEAN CELL VOLUME 89.2 fL (81.0-99.0); MEAN CORPUSCULAR HEMOGLOBIN 30.5 pg (27.0-31.0); MEAN CORPUSCULAR HGB CONC 34.3 g/dL (33.0-37.0); MONO # 0.7 K/uL (0.0-0.8); MONO % 11.6 % (0.0-10.0); NEUT # 3.5 K/uL (1.8-7.0); NEUT % 58.2 % (50.0-75.0); NRBC % 0.1 % (0.0-2.0); RBC 3.58 Mil/uL (3.80-5.20); RED CELL DISTRIBUTION WIDTH 13.9 % (11.5-14.5)
[2017-09-16] MEDS ORDERED: Oxycodone/Acetaminophen 5/325 mg Tab PO STA ×2 (13:12→17:09)
[2017-09-16 13:15] LABS: ALB/GLOB RATIO 1.2 (1.0-2.1); ALBUMIN 3.6 g/dL (3.5-5.0); ALT/SGPT 11 U/L (9-52); AST/SGOT 23 U/L (14-36); BLOOD UREA NITROGEN 19 mg/dL (7-17); CALCIUM 9.2 mg/dl (8.6-10.4); GFR AFRICAN-AMERICAN > 60; GFR NON-AFRICAN AMERICAN > 60
[2017-09-16 13:24] LABS: B-TYPE NATRIURETIC PEPTIDE 141 pg/mL (0-900)
[2017-09-16 13:30] LABS: PROTHROMBIN TIME 10.6 SECONDS (9.7-12.2)
[2017-09-16] MEDS ORDERED: Oxycodone/Acetaminophen 5/325 mg Tab ONE ×2 (13:54→17:54)
[2017-09-16] MEDS ORDERED: Iodixanol 320 MG/ML 100 ML BOTTLE IV ONE (14:35)
--- NOTE | 2017-09-16 15:31 | CT ---
PROCEDURE: CT MAXILLOFACIAL BONES WITHOUT CONTRAST HISTORY: right eye injury COMPARISON: None TECHNIQUE: Contiguous axial CT images of the maxillofacial bones were obtained. Coronal and sagittal reformats were generated. Radiation dose: Total exam DLP = 754.80 mGy-cm. This CT exam was performed using one or more of the following dose reduction techniques: Automated exposure control, adjustment of the mA and/or kV according to patient size, and/or use of iterative reconstruction technique. FINDINGS: NASAL BONES: Unremarkable. ORBITS: There is a very small nondisplaced fracture of the anterior right orbital floor extending into the anterior wall of the right maxilla. This is best demonstrated on series 601, image 46 through 49 and series 602, image 121 through 138. There is no intraorbital hemorrhage appreciated. There does not appear to be herniation of the inferior rectus muscle. There is no orbital emphysema. Questionable very small fracture of the right lamina papyracea, best demonstrated on series 2, image 89. PARANASAL SINUSES/ MASTOIDS: Chronic right maxillary sinusitis. No maxillary fluid collection. MAXILLA: Fracture extending from the orbital floor into the anterior right maxillary wall. As above. MANDIBLE/ TEMPOROMANDIBULAR JOINTS: Unremarkable. SKULL BASE: Unremarkable. TEMPORAL BONES: Middle ears and mastoid grossly unremarkable. OTHER FINDINGS: None. IMPRESSION: Subtle nondisplaced fracture of the right orbital floor extending into the anterior right maxillary wall. No evidence of inferior rectus herniation. No orbital hemorrhage or emphysema. No right maxillary fluid collection. Questionable very small nondisplaced fracture of the right lamina papyracea. No additional abnormality.
--- NOTE | 2017-09-16 15:32 | RAD ---
HISTORY: COMPARISON: 05/14/2017. TECHNIQUE: Chest PA and lateral FINDINGS: LINES AND TUBES: The right MediPort terminates at the cavoatrial junction. LUNG AND PLEURA: The lungs are well inflated and clear. HEART AND MEDIASTINUM: The heart is not enlarged. The hilar and mediastinal contours are within normal limits. SKELETAL STRUCTURES: The bony structures are within normal limits for the patient's age. VISUALIZED UPPER ABDOMEN: Normal. OTHER FINDINGS: None. IMPRESSION: No active pulmonary disease.
--- NOTE | 2017-09-16 16:46 | CT ---
PROCEDURE: CT Chest with contrast (Pulmonary Angiogram) HISTORY: Shortness of breath COMPARISON: 03/09/2017 TECHNIQUE: Axial computed tomography images were obtained of the chest in the pulmonary arterial phase of enhancement. Coronal and sagittal reformatted images were created and reviewed. Intravenous contrast dose: 100 mL Visipaque 320 Radiation dose: Total exam DLP = 513.77 mGy-cm. This CT exam was performed using one or more of the following dose reduction techniques: Automated exposure control, adjustment of the mA and/or kV according to patient size, and/or use of iterative reconstruction technique. FINDINGS: PULMONARY ARTERIES: There are no filling defects in the pulmonary arteries to suggest acute pulmonary embolism. AORTA: No acute findings. No thoracic aortic aneurysm. LUNGS: The lungs are clear. No nodule, mass or pulmonary consolidation. PLEURAL SPACES: No effusion or pneumothorax. HEART: The heart is normal in size. No significant pericardial effusion. LYMPH NODES: No pathologic lymphadenopathy. BONES, CHEST WALL: There is redemonstration of 12.8 x 2.1 cm rim enhancing fluid collection in the left chest wall not significantly changed in size and appearance since the prior examination. No fracture or destructive lesion OTHER FINDINGS: There is mild diffuse dilatation of fluid-filled esophagus. IMPRESSION: 1. No CTA evidence for acute pulmonary embolism. 2. No consolidation, pleural effusion or pneumothorax. 3. 12.8 x 2.1 cm rim enhancing fluid collection in the left chest wall not significantly changed since the prior examination.
[2017-09-16 17:03] LABS: SQUAMOUS EPITHIAL 1 /hpf (0-5); URINE BILIRUBIN NEGATIVE (NEGATIVE); URINE BLOOD NEGATIVE (NEGATIVE); URINE CLARITY Clear (Clear); URINE COLOR Straw (YELLOW); URINE GLUCOSE (UA) NORMAL (Normal); URINE LEUKOCYTE ESTERASE NEG Leu/uL (Negative); URINE PROTEIN NEGATIVE (NEGATIVE); URINE UROBILINOGEN NORMAL mg/dL (0.2-1.0)
[2017-09-16 18:10] VITALS: BP 125/83; PULSE 90; RESP 20; TEMP 98.1
[2017-09-16 18:13] VITALS: O2SAT 97
--- NOTE | 2017-09-18 13:24 | CARD ---
APPROVED REPORT EKG Measurement Heart [id number] VA [id number] <Conclusion> Normal sinus rhythm Low voltage QRS Borderline ECG
== END 2017-09-16 18:09 | disposition home or self-care (01) ==
LOC: C.ER 11:26
DX: S02.31XA Fracture of orbital floor, right side, initial encounter for closed fracture (principal); W22.01XA Walked into wall, initial encounter; R42 Dizziness and giddiness; G89.3 Neoplasm related pain (acute) (chronic)
CPT/HCPCS: 70486; 71046; 71275; 80053; 81001; 83880; 85025; 85378; 85610; 85730; 93005; 99285; Q9967

== ENCOUNTER 2017-09-19 10:23 | Emergency (ER) | payer OTHER ==
[2017-09-19 10:23] VITALS: BMI 27.1
[2017-09-19] MEDS ORDERED: Sodium Chloride 0.9% 1,000 ML IV ONE (11:05)
[2017-09-19] MEDS ORDERED: Sodium Chloride 0.9% 1,000 ML ONE (11:12)
[2017-09-19] MEDS ORDERED: Morphine 4 MG/ML VIAL ONE ×2 (11:15→13:41)
[2017-09-19 11:44] LABS: BASO % 0.6 % (0.0-2.0); EOS % 0.6 % (0.0-4.0); HEMOGLOBIN 11.4 g/dL (11.0-16.0); LYMPH % 13.3 % (20.0-40.0); MEAN CELL VOLUME 89.3 fL (81.0-99.0); MEAN CORPUSCULAR HEMOGLOBIN 30.2 pg (27.0-31.0); MEAN CORPUSCULAR HGB CONC 33.9 g/dL (33.0-37.0); MEAN PLATELET VOLUME 7.3 fL (7.2-11.7); MONO # 0.6 K/uL (0.0-0.8); MONO % 8.3 % (0.0-10.0); NEUT # 5.7 K/uL (1.8-7.0); NEUT % 77.2 % (50.0-75.0); RBC 3.76 Mil/uL (3.80-5.20); RED CELL DISTRIBUTION WIDTH 13.9 % (11.5-14.5); WHITE BLOOD COUNT 7.4 K/uL (4.8-10.8)
[2017-09-19 12:09] LABS: ALB/GLOB RATIO 1.1 (1.0-2.1); ALBUMIN 3.8 g/dL (3.5-5.0); ALT/SGPT 13 U/L (9-52); AST/SGOT 28 U/L (14-36); BLOOD UREA NITROGEN 17 mg/dL (7-17); CALCIUM 9.1 mg/dl (8.6-10.4); GFR AFRICAN-AMERICAN > 60; GFR NON-AFRICAN AMERICAN 57; LIPASE 198 U/L (23-300)
[2017-09-19] MEDS ORDERED: Potassium Chloride 20 mEq ER Tab PO STA (12:13)
[2017-09-19] MEDS ORDERED: Potassium Chloride 20 mEq ER Tab PO ONE (12:30)
[2017-09-19 13:28] VITALS: RESP 16
--- NOTE | 2017-09-19 14:14 | C.PDOC ---
History Of Present Illness 57 year old female with a history of a bilateral mastectomy presents to the emergency department status-post a head injury she sustained with complaints of a diffuse headache that radiates to the back of her head with an onset of this morning. Patient was seen in the ED for her head injury on 09-16-17 for which she was diagnosed with a right orbital floor fracture. Patient states that she has not followed up with an sewer pipe layer helper but has an appointment in two weeks. Patient also reports nausea, vomiting, and a gassy sensation in her upper abdomen since yesterday Patient denies any new falls or injuries, visual changes, facial droops, extremity weakness, or changes in gait. Time Seen by Provider: 09/19/17 10:39 Chief Complaint (Nursing): Headache History Per: Patient Onset/Duration Of Symptoms: Days (1) Quality: Aching Associated Symptoms: Nausea, Vomiting. denies: Photophobia, Blurred Vision, Extremity Weakness, Other (gait changes) Past Medical History Reviewed: Historical Data, Nursing Documentation, Vital Signs Vital Signs: Last Vital Signs Temp 97.6 F 09/19/17 14:25 Pulse 77 09/19/17 14:25 Resp 16 09/19/17 14:25 BP 140/62 09/19/17 14:25 Pulse Ox 97 09/19/17 14:25 - Medical History PMH: Anemia, Anxiety, Arthritis, Asthma, Colonic Polyps (LAST COLONOSCOPY HAD " 38 " POLYPS), Depression, Gastritis, HTN, Hypercholesterolemia, Hyperlipidemia, Malignancy (breast ca), Migraine, Osteoporosis, Peripheral Edema, Sleep Apnea ( USES CPAP BEFORE) Denies: Fractures, Chronic Kidney Disease Surgical History: Endoscopy Denies: Pacemaker - [facility] Procedures LAPAROSCOPIC VERTICAL (SLEEVE) GASTRECTOMY (08/24/13) RELEASE CHEST SKIN, EXTERNAL APPROACH (10/25/16) REMOVAL OF SYNTHETIC SUBSTITUTE FROM L BREAST, OPEN APPROACH (10/25/16) REMOVAL OF SYNTHETIC SUBSTITUTE FROM R BREAST, OPEN APPROACH (10/25/16) REPAIR BILATERAL BREAST, EXTERNAL APPROACH (10/25/16) REPAIR LEFT BREAST, EXTERNAL APPROACH (10/25/16) REPLACEMENT OF LEFT BREAST WITH SYNTH SUB, OPEN APPROACH (10/25/16) TRANSFUSE NONAUT RED BLOOD CELLS IN PERIPH VEIN, PERC (10/25/16) Family History: States: No Known Family Hx - Social History Hx Tobacco Use: No Hx Alcohol Use: No Hx Substance Use: No - Immunization History Hx Tetanus Toxoid Vaccination: Yes Hx Influenza Vaccination: No Hx Pneumococcal Vaccination: Yes Review Of Systems Gastrointestinal: Positive for: Nausea, Vomiting, Other (gassy sensation) Neurological: Negative for: Weakness, Incoordination, Other (visual changes, new injuries or falls) Physical Exam - Physical Exam Appears: Non-toxic, In Acute Distress (mildly uncomfortable) Head: Other (right periorbital ecchymosis) Eye(s): bilateral: PERRL, EOMI (no pain with EO muscular movement) Nose: Normal, No Tenderness, No Other (deformity) Neck: No Midline Cervical Tenderness, No Paracervical Tenderness Chest: Other (port noticed at right upper chest) Cardiovascular: Rhythm Regular Respiratory: Normal Breath Sounds Gastrointestinal/Abdominal: Normal Exam, Soft, No Tenderness ED Course And Treatment - Laboratory Results Result Diagrams: 09/19/17 11:36 09/19/17 11:36 O2 Sat by Pulse Oximetry: 96 (RA) Pulse Ox Interpretation: Normal Progress Note: Plan: CMP. CBC. Morphine. IV Fluids Disposition Counseled Patient/Family Regarding: Studies Performed, Diagnosis, Need For Followup, Rx Given - Disposition Referrals: Montrell Chawla MD [Medical Doctor] - Disposition: HOME/ ROUTINE Disposition Time: 14:10 Condition: STABLE Additional Instructions: FOLLOW UP WITH DOCTOR OR CLINIC IN 1-2 DAYS USE MEDICATION NEEDED RETURN TO EMERGENCY ROOM IF SYMPTOMS WORSEN SEGUIR CON DOCTOR O CLNICA EN 1-2 CAR USE MEDICAMENTOS SEGN SEA NECESARIO REGRESE AL BANDAR DE EMERGENCIA SI LOS SNTOMAS EMPEORAN Prescriptions: Metoclopramide [Reglan] 1 tab PO TID PRN #25 tab PRN Reason: Nausea/Vomiting Instructions: Nausea and Vomiting, Adult (DC), Headache, Adult (DC) Forms: [email or web address] (Swiss) Print Language: CHINESE - Clinical Impression Clinical Impression: Nausea, Vomiting, Headache - Scribe Statement The provider has reviewed the documentation as recorded by the Scribe (Ernesto Squires) Provider Attestation: All medical record entries made by the Scribe were at my direction and personally dictated by me. I have reviewed the chart and agree that the record accurately reflects my personal performance of the history, physical exam, medical decision making, and the department course for this patient. I have also personally directed, reviewed, and agree with the discharge instructions and disposition.
[2017-09-19 14:47] VITALS: BP 140/62; PULSE 77; TEMP 97.6
[2017-09-19 16:22] VITALS: O2SAT 96
== END 2017-09-19 14:30 | disposition home or self-care (01) ==
LOC: C.ER 10:23
DX: R11.2 Nausea with vomiting, unspecified (principal); R51 Headache; I10 Essential (primary) hypertension; E78.00 Pure hypercholesterolemia, unspecified; Z85.3 Personal history of malignant neoplasm of breast
CPT/HCPCS: 80053; 83690; 85025; 96361; 96374; 96375; 96376; 99285; J2270; J2405; J7040

== ENCOUNTER 2018-05-31 15:40 | Emergency (ER) | payer OTHER ==
[2018-05-31 15:41] VITALS: BMI 27.1
[2018-05-31 16:29] VITALS: RESP 16; O2SAT 97
--- NOTE | 2018-05-31 18:21 | C.PDOC ---
History Of Present Illness 58 year old female presents to the emergency department with complaints of chest pain and left-sided lower back pain. Patient is s/p mastectomy one year ago. She states that her pain is constant, and has been on pain management since the surgery. Patient also complains of a fever three days ago and none since. She denies SOB, dizziness, syncope, cough, nausea, vomiting, abdominal pain, urinary symptoms and incontinence. <Carmelina Blancas - Last Filed: 06/01/18 13:35> <Eliana Garcia - Last Filed: 05/31/18 21:27> History Per: Patient History/Exam Limitations: no limitations Onset/Duration Of Symptoms: Days Current Symptoms Are (Timing): Still Present <Carmelina Blancas - Last Filed: 06/01/18 13:35> Time Seen by Provider: 05/31/18 17:19 Chief Complaint (Nursing): Breast Problem Past Medical History Vital Signs: Last Vital Signs Temp 98 F 05/31/18 16:26 Pulse 72 05/31/18 16:26 Resp 16 05/31/18 16:26 BP 114/76 05/31/18 16:26 Pulse Ox 97 05/31/18 19:19 - [facility] Procedures LAPAROSCOPIC VERTICAL (SLEEVE) GASTRECTOMY (08/24/13) RELEASE CHEST SKIN, EXTERNAL APPROACH (10/25/16) REMOVAL OF SYNTHETIC SUBSTITUTE FROM L BREAST, OPEN APPROACH (10/25/16) REMOVAL OF SYNTHETIC SUBSTITUTE FROM R BREAST, OPEN APPROACH (10/25/16) REPAIR BILATERAL BREAST, EXTERNAL APPROACH (10/25/16) REPAIR LEFT BREAST, EXTERNAL APPROACH (10/25/16) REPLACEMENT OF LEFT BREAST WITH SYNTH SUB, OPEN APPROACH (10/25/16) TRANSFUSE NONAUT RED BLOOD CELLS IN PERIPH VEIN, PERC (10/25/16) <Eliana Garcia - Last Filed: 05/31/18 21:27> Reviewed: Historical Data, Nursing Documentation, Vital Signs Vital Signs: Last Vital Signs Temp 98 F 05/31/18 16:26 Pulse 72 05/31/18 16:26 Resp 16 05/31/18 16:26 BP 114/76 05/31/18 16:26 Pulse Ox 97 05/31/18 16:26 - Medical History PMH: Anemia, Anxiety, Arthritis, Asthma, Colonic Polyps (LAST COLONOSCOPY HAD " 38 " POLYPS), Depression, Gastritis, HTN, Hypercholesterolemia, Hyperlipidemia, Malignancy (breast ca), Migraine, Osteoporosis, Peripheral Edema, Sleep Apnea (USES CPAP BEFORE) Denies: Fractures, Chronic Kidney Disease Surgical History: Endoscopy Denies: Pacemaker - [facility] Procedures LAPAROSCOPIC VERTICAL (SLEEVE) GASTRECTOMY (08/24/13) RELEASE CHEST SKIN, EXTERNAL APPROACH (10/25/16) REMOVAL OF SYNTHETIC SUBSTITUTE FROM L BREAST, OPEN APPROACH (10/25/16) REMOVAL OF SYNTHETIC SUBSTITUTE FROM R BREAST, OPEN APPROACH (10/25/16) REPAIR BILATERAL BREAST, EXTERNAL APPROACH (10/25/16) REPAIR LEFT BREAST, EXTERNAL APPROACH (10/25/16) REPLACEMENT OF LEFT BREAST WITH SYNTH SUB, OPEN APPROACH (10/25/16) TRANSFUSE NONAUT RED BLOOD CELLS IN PERIPH VEIN, PERC (10/25/16) Family History: States: No Known Family Hx - Social History Hx Tobacco Use: No Hx Alcohol Use: No Hx Substance Use: No - Immunization History Hx Tetanus Toxoid Vaccination: Yes Hx Influenza Vaccination: No Hx Pneumococcal Vaccination: Yes <Carmelina Blancas - Last Filed: 06/01/18 13:35> Review Of Systems Constitutional: Positive for: Fever Cardiovascular: Positive for: Chest Pain Genitourinary: Negative for: Dysuria, Incontinence Musculoskeletal: Positive for: Back Pain Neurological: Negative for: Weakness, Numbness <Carmelina Blancas - Last Filed: 06/01/18 13:35> Physical Exam - Physical Exam Appears: Non-toxic, No Acute Distress Skin: Normal Color, Warm, Dry Head: Atraumatic, Normacephalic Eye(s): bilateral: Normal Inspection, PERRL, EOMI Neck: Normal, Supple Chest: Symmetrical, No Tenderness, Other (right upper chest wall port) Cardiovascular: Rhythm Regular, No Murmur Respiratory: No Rales, No Rhonchi, No Wheezing Gastrointestinal/Abdominal: Soft, No Tenderness, No Guarding, No Rebound Back: Paraspinal Tenderness (left flank pain, left lower back pain) Extremity: Normal ROM Neurological/Psych: Oriented x3, Normal Speech, Normal Cognition <Carmelina Blancas - Last Filed: 06/01/18 13:35> ED Course And Treatment - Laboratory Results Result Diagrams: 05/31/18 18:57 05/31/18 18:57 Lab Results: PT 11.9 SECONDS (9.7-12.2) 05/31/18 18:57 INR 1.1 05/31/18 18:57 APTT 26 SECONDS (21-34) 05/31/18 18:57 Troponin I 0.0190 ng/mL (0.00-0.120) 05/31/18 18:57 Total Bilirubin 0.3 mg/dL (0.2-1.3) 05/31/18 18:57 AST 21 U/L (14-36) 05/31/18 18:57 ALT 20 U/L (9-52) 05/31/18 18:57 Alkaline Phosphatase 65 U/L (38-126) 05/31/18 18:57 Total Protein 7.0 g/dL (6.3-8.3) 05/31/18 18:57 Albumin 4.0 g/dL (3.5-5.0) 05/31/18 18:57 Globulin 3.0 gm/dL (2.2-3.9) 05/31/18 18:57 Albumin/Globulin Ratio 1.3 (1.0-2.1) 05/31/18 18:57 Lipase 172 U/L (23-300) 05/31/18 18:57 ECG: Interpreted By Me, Viewed By Me ECG Rhythm: Sinus Rhythm (70), Nonspecific Changes Pulse Ox Interpretation: Normal Reevaluation Time: 21:27 Reassessment Condition: Improved <Eliana Garcia - Last Filed: 05/31/18 21:27> - Laboratory Results Result Diagrams: 05/31/18 18:57 05/31/18 18:57 O2 Sat by Pulse Oximetry: 97 (RA) Pulse Ox Interpretation: Normal <Carmelina Blancas - Last Filed: 06/01/18 13:35> Medical Decision Making Medical Decision Making: Upon provider reevaluation patient is feeling better, is medically stable, and requires no further treatment in the ED at this time. Patient will be discharged home with Rx for percocet and zofran . Counseling was provided and all questions were answered regarding diagnosis and need for follow up with dr baum. There is agreement to discharge plan. Return if symptoms persist or worsen. <Eliana Garcia - Last Filed: 05/31/18 21:27> Medical Decision Making: Plan: CT Abdomen and Pelvis CT Angio EKG Chemistry Bloodwork Morphine 2mg IVP NaCl IV Fluids Urinalysis <Carmelina Blancas - Last Filed: 06/01/18 13:35> Disposition Counseled Patient/Family Regarding: Studies Performed, Diagnosis, Need For Followup, Rx Given - Disposition Disposition Time: 21:28 <Eliana Garcia - Last Filed: 05/31/18 21:27> <Carmelina Blancas - Last Filed: 06/01/18 13:35> - Disposition Referrals: Montrell Baum MD [Medical Doctor] - Disposition: HOME/ ROUTINE Condition: FAIR Additional Instructions: Please follow up with your surgeon and pain management Prescriptions: Ondansetron ODT [Zofran ODT] 1 odt PO BID PRN #6 odt PRN Reason: Nausea/Vomiting oxyCODONE/Acetaminophen [Percocet 5/325 mg Tab] 1 tab PO QID PRN #20 tab PRN Reason: Pain, Severe (8-10) Instructions: Costochondritis, Weakness (ED) Forms: [employer] (Hungarian) - Clinical Impression Clinical Impression: Generalized weakness, Chest wall pain following surgery - Scribe Statement The provider has reviewed the documentation as recorded by the Scribe (Ernesto Squires) Provider Attestation: All medical record entries made by the Scribe were at my direction and personally dictated by me. I have reviewed the chart and agree that the record accurately reflects my personal performance of the history, physical exam, medical decision making, and the department course for this patient. I have also personally directed, reviewed, and agree with the discharge instructions and disposition. <Carmelina Blancas - Last Filed: 06/01/18 13:35> Physician Patient Turnover Patient Signed Over To: Eliana Garcia Handoff Comments: Pending imaging, labs, and disposition. <Carmelina Blancas - Last Filed: 06/01/18 13:35>
[2018-05-31] MEDS ORDERED: Sodium Chloride 0.9% 1,000 ML IV ONE (18:27)
[2018-05-31 19:00] LABS: BASO # 0.1 K/uL (0.0-0.2); BASO % 0.7 % (0.0-2.0); EOS # 0.1 K/uL (0.0-0.7); EOS % 1.3 % (0.0-4.0); HEMOGLOBIN 10.5 g/dL (11.0-16.0); LYMPH # 1.8 K/uL (1.0-4.3); MEAN CELL VOLUME 89.8 fL (81.0-99.0); MEAN CORPUSCULAR HEMOGLOBIN 29.6 pg (27.0-31.0); MEAN CORPUSCULAR HGB CONC 32.9 g/dL (33.0-37.0); MEAN PLATELET VOLUME 7.1 fL (7.2-11.7); MONO # 0.9 K/uL (0.0-0.8); MONO % 9.1 % (0.0-10.0); NEUT # 6.5 K/uL (1.8-7.0); NEUT % 69.9 % (50.0-75.0); RBC 3.55 Mil/uL (3.80-5.20); RED CELL DISTRIBUTION WIDTH 14.6 % (11.5-14.5); WHITE BLOOD COUNT 9.3 K/uL (4.8-10.8)
[2018-05-31] MEDS ORDERED: Sodium Chloride 0.9% 1,000 ML ONE (19:04)
[2018-05-31] MEDS ORDERED: Iohexol 300 100 ML IJ ONE (19:08)
[2018-05-31 19:14] LABS: ALB/GLOB RATIO 1.3 (1.0-2.1); CALCIUM 9.2 mg/dl (8.6-10.4); INR 1.1; PROTHROMBIN TIME 11.9 SECONDS (9.7-12.2)
[2018-05-31 19:25] LABS: TROPONIN I 0.019 ng/mL (0.00-0.120)
[2018-05-31 19:48] LABS: SQUAMOUS EPITHIAL 1 /hpf (0-5); URINE BACTERIA RARE (<OCC); URINE BILIRUBIN NEGATIVE (NEGATIVE); URINE BLOOD NEGATIVE (NEGATIVE); URINE CLARITY Clear (Clear); URINE COLOR Straw (YELLOW); URINE GLUCOSE (UA) NORMAL (Normal); URINE LEUKOCYTE ESTERASE NEG Leu/uL (Negative); URINE PROTEIN NEGATIVE (NEGATIVE); URINE UROBILINOGEN NORMAL mg/dL (0.2-1.0)
[2018-05-31 21:52] VITALS: BP 122/76; PULSE 76; TEMP 98
--- NOTE | 2018-06-01 08:37 | CT ---
Date of service: 05/31/2018 PROCEDURE: CT Chest with contrast (Pulmonary Angiogram) HISTORY: chest pain COMPARISON: 09/16/2017 TECHNIQUE: Axial computed tomography images were obtained of the chest in the pulmonary arterial phase of enhancement. Coronal and sagittal reformatted images were created and reviewed. Intravenous contrast dose: Radiation dose: Total exam DLP = 582.39 mGy-cm. This CT exam was performed using one or more of the following dose reduction techniques: Automated exposure control, adjustment of the mA and/or kV according to patient size, and/or use of iterative reconstruction technique. FINDINGS: PULMONARY ARTERIES: Unremarkable. No pulmonary embolism. AORTA: No acute findings. No thoracic aortic aneurysm. No aortic atherosclerotic calcification or mural plaque present. LUNGS: Unremarkable. No nodule, mass or pulmonary consolidation. PLEURAL SPACES: Unremarkable. No effusion or pneumothorax. HEART: Unremarkable. No cardiomegaly. No significant pericardial effusion. LYMPH NODES: No lymphadenopathy. BONES, CHEST WALL: Unremarkable. No fracture or destructive lesion OTHER FINDINGS: Residual infiltration in the left anterior chest wall. Status post gastric sleeve surgery. Right MediPort catheter with tip in the SVC. IMPRESSION: No pulmonary embolus.
--- NOTE | 2018-06-01 08:47 | CT ---
Date of service: 05/31/2018 PROCEDURE: CT Abdomen and Pelvis with contrast HISTORY: abd pain COMPARISON: None. TECHNIQUE: Contrast dose: Radiation dose: Total exam DLP = 993.75 mGy-cm. This CT exam was performed using one or more of the following dose reduction techniques: Automated exposure control, adjustment of the mA and/or kV according to patient size, and/or use of iterative reconstruction technique. FINDINGS: LOWER THORAX: Small hiatal hernia with thickening of the distal esophagus; correlate with endoscopy if clinically indicated. Status post gastric sleeve surgery. LIVER: Unremarkable. No gross lesion or ductal dilatation. GALLBLADDER AND BILE DUCTS: Unremarkable. PANCREAS: Unremarkable. No gross lesion or ductal dilatation. SPLEEN: Unremarkable. ADRENALS: Unremarkable. No mass. KIDNEYS AND URETERS: Unremarkable. No hydronephrosis. No solid mass. VASCULATURE: Unremarkable. No aortic aneurysm. No aortic atherosclerotic calcification or mural plaque present. BOWEL: Mild descending colon diverticulosis. No obstruction. No gross mural thickening. APPENDIX: Normal appendix. PERITONEUM: Unremarkable. No free fluid. No free air. LYMPH NODES: Unremarkable. No enlarged lymph nodes. BLADDER: Unremarkable. REPRODUCTIVE: Unremarkable. BONES: No acute fracture. OTHER FINDINGS: None. IMPRESSION: Mild colonic diverticulosis. Status post gastric sleeve surgery. Small hiatal hernia with mild thickening of the distal esophagus; correlate clinically.
--- NOTE | 2018-06-01 12:07 | CARD ---
APPROVED REPORT Date of service: 05/31/2018 EKG Measurement Heart [id number] MD [id number] <Conclusion> Normal sinus rhythm Low voltage QRS Borderline ECG
== END 2018-05-31 21:51 | disposition home or self-care (01) ==
LOC: C.ER 15:40
DX: R07.89 Other chest pain (principal); R53.1 Weakness; Z98.890 Other specified postprocedural states
CPT/HCPCS: 71275; 74177; 80053; 81001; 83690; 84484; 85025; 85610; 85730; 93005; 96361; 96374; 96376; 99284; J2270; J7030; Q9967

== ENCOUNTER 2018-10-10 11:06 | Observation (INO) | payer MEDICAID, OTHER ==
[2018-10-10] MEDS ORDERED: Sodium Chloride 0.9% 1,000 ML IV ONE (11:46)
--- NOTE | 2018-10-10 11:46 | C.PDOC ---
History Of Present Illness 58 y/o female with breast ca, s/p bilateral mastectomy, current brain mass (?mets), dm, htn, c/o chronic headache that is worse today, with persistent nausea that is chronic and vomiting. pt also c/o chest pain and sob for last day or so that is new. no fever or chill. no cough. . Time Seen by Provider: 10/10/18 11:18 Chief Complaint (Nursing): GI Problem History Per: Patient History/Exam Limitations: no limitations Onset/Duration Of Symptoms: Days Current Symptoms Are (Timing): Still Present Past Medical History Reviewed: Historical Data, Nursing Documentation, Vital Signs Vital Signs: Last Vital Signs Temp 97.6 F 10/10/18 11:12 Pulse 68 10/10/18 11:12 Resp 20 10/10/18 11:12 BP 119/77 10/10/18 11:12 Pulse Ox 97 10/10/18 11:12 Primary Care Provider: Montrell Chawla - Medical History PMH: Anemia, Anxiety, Arthritis, Asthma, Colonic Polyps (LAST COLONOSCOPY HAD " 38 " POLYPS), Depression, Gastritis, HTN, Hypercholesterolemia, Hyperlipidemia, Malignancy (breast ca), Migraine, Osteoporosis, Peripheral Edema, Sleep Apnea (USES CPAP BEFORE) Denies: Fractures, Chronic Kidney Disease Surgical History: Endoscopy Denies: Pacemaker - [facility] Procedures LAPAROSCOPIC VERTICAL (SLEEVE) GASTRECTOMY (08/24/13) RELEASE CHEST SKIN, EXTERNAL APPROACH (10/25/16) REMOVAL OF SYNTHETIC SUBSTITUTE FROM L BREAST, OPEN APPROACH (10/25/16) REMOVAL OF SYNTHETIC SUBSTITUTE FROM R BREAST, OPEN APPROACH (10/25/16) REPAIR BILATERAL BREAST, EXTERNAL APPROACH (10/25/16) REPAIR LEFT BREAST, EXTERNAL APPROACH (10/25/16) REPLACEMENT OF LEFT BREAST WITH SYNTH SUB, OPEN APPROACH (10/25/16) TRANSFUSE NONAUT RED BLOOD CELLS IN PERIPH VEIN, PERC (10/25/16) Family History: States: No Known Family Hx - Social History Hx Tobacco Use: No Hx Alcohol Use: No Hx Substance Use: No - Immunization History Hx Tetanus Toxoid Vaccination: Yes Hx Influenza Vaccination: No Hx Pneumococcal Vaccination: Yes Review Of Systems Constitutional: Negative for: Fever, Chills Cardiovascular: Positive for: Chest Pain Respiratory: Positive for: Shortness of Breath. Negative for: Cough Gastrointestinal: Positive for: Nausea, Vomiting. Negative for: Abdominal Pain, Diarrhea Genitourinary: Negative for: Dysuria, Hematuria Neurological: Positive for: Headache Physical Exam - Physical Exam Appears: Non-toxic, No Acute Distress Skin: Warm, Dry, No Rash Head: Normacephalic Eye(s): bilateral: PERRL, EOMI Ear(s): Bilateral: Normal Oral Mucosa: Dry (mildly dry) Throat: No Erythema, No Exudate Neck: Supple Chest: Tenderness (reproducible tenderness to left chest wall), Other (B/L mastectomy ) Cardiovascular: Rhythm Regular Respiratory: No Rales, No Rhonchi, No Wheezing, Other (CTA B/L) Gastrointestinal/Abdominal: Bowel Sounds (Normoactive ), Soft, No Tenderness, No Guarding, No Rebound Extremity: No Pedal Edema Extremity: Bilateral: Atraumatic Neurological/Psych: Oriented x3, Normal Speech, Normal Cognition, Normal Cranial Nerves Gait: Steady ED Course And Treatment - Laboratory Results Result Diagrams: 10/10/18 12:05 10/10/18 12:05 ECG: Interpreted By Me, Viewed By Me ECG Rhythm: Sinus Rhythm ECG Interpretation: No Acute Changes Rate From EC O2 Sat by Pulse Oximetry: 97 (RA) Pulse Ox Interpretation: Normal Medical Decision Making Medical Decision Making: pt with breast ca, brain mass (Possible metastasis) chronic mendez and vomiting. here with cp and sob that is new. pt has aspirin allergy, gets rash, thus, none given in ed. Plan - EKG - CXR - Head CT - Bloodwork - Zofran 4mg IVP - IV fluids Percocet 1700pt with cta that is inconclusive, due to technique. pt still with some chest pain. pt c/o further nausea, sts she took one of her own 4 mg zofran tabs recently without improvement; will give another dose of 4 mg iv zofran to be written. case discussed with Dr Ginny Priest from hospital service; given concern for cp unable to r/o pe , will admit pt to Dr Curtis. discussed with Dr Priest pt really needs mri brain to determine if mets worse; can do as pt. Disposition Discussed With : Sg Curtis Doctor Will See Patient In The: Hospital - Disposition Disposition: HOSPITALIZED Disposition Time: 17:21 Condition: STABLE - Clinical Impression Clinical Impression: Chest pain, Nausea and vomiting, Headache - PA / PCA / Resident Statement / has reviewed & agrees with the documentation as recorded. - Scribe Statement The provider has reviewed the documentation as recorded by the Scribe Ailyn García All medical record entries made by the Jessica were at my direction and personally dictated by me. I have reviewed the chart and agree that the record accurately reflects my personal performance of the history, physical exam, medical decision making, and the department course for this patient. I have also personally directed, reviewed, and agree with the discharge instructions and disposition.
[2018-10-10] MEDS ORDERED: Sodium Chloride 0.9% 1,000 ML ONE (12:09)
[2018-10-10 12:12] LABS: BASO # 0.1 K/uL (0.0-0.2); EOS # 0.1 K/uL (0.0-0.7); HEMOGLOBIN 11.5 g/dL (11.0-16.0); LYMPH # 2.2 K/uL (1.0-4.3); LYMPH % 23.8 % (20.0-40.0); MEAN CORPUSCULAR HEMOGLOBIN 28.8 pg (27.0-31.0); MEAN CORPUSCULAR HGB CONC 32.9 g/dL (33.0-37.0); MEAN PLATELET VOLUME 7.3 fL (7.2-11.7); MONO % 10.8 % (0.0-10.0); NEUT # 5.8 K/uL (1.8-7.0); NEUT % 63.4 % (50.0-75.0); RBC 3.98 Mil/uL (3.80-5.20); RED CELL DISTRIBUTION WIDTH 15.1 % (11.5-14.5); WHITE BLOOD COUNT 9.1 K/uL (4.8-10.8)
[2018-10-10 12:13] LABS: MEAN CELL VOLUME 87.5 fL (81.0-99.0)
[2018-10-10 12:33] LABS: ALB/GLOB RATIO 1.2 (1.0-2.1); BLOOD UREA NITROGEN 20 mg/dL (7-17); CALCIUM 9.5 mg/dl (8.6-10.4); GFR NON-AFRICAN AMERICAN > 60
[2018-10-10 12:41] LABS: ALT/SGPT 18 U/L (9-52); AST/SGOT 33 U/L (14-36)
[2018-10-10] MEDS ORDERED: Oxycodone/Acetaminophen 5/325 mg Tab PO STA (13:00)
--- NOTE | 2018-10-10 13:47 | RAD ---
HISTORY: chest pain COMPARISON: Chest x-ray performed 09/16/17 TECHNIQUE: Chest PA and lateral, 2 views FINDINGS: Right-sided MediPort extends to the SVC. LUNGS: No focal consolidation. Please note that chest x-ray has limited sensitivity for the detection of pulmonary masses. PLEURA: No significant pleural effusion identified. No definite pneumothorax . CARDIOVASCULAR: The cardiomediastinal silhouette appears within normal limits of size. Faint atherosclerotic calcification present. OSSEOUS STRUCTURES: Degenerative changes. VISUALIZED UPPER ABDOMEN: Unremarkable. OTHER FINDINGS: None. IMPRESSION: No acute findings identified.
[2018-10-10] MEDS ORDERED: Oxycodone/Acetaminophen 5/325 mg Tab ONE (15:09)
[2018-10-10] MEDS ORDERED: Iodixanol 320 MG/ML 100 ML BOTTLE IV ONE (15:50)
--- NOTE | 2018-10-10 16:19 | CT ---
Date of service: 10/10/2018 CTA chest PE protocol Indication: cp, sob, elevated ddimer, breast ca Technique: Contiguous axial images were obtained through the chest with intravenous contrast enhancement. Sagittal and coronal reconstructions were generated and reviewed. This CT exam was performed using 1 or more of the following dose reduction techniques: Automated exposure control, adjustment of the MAA and/or kV according to patient size, and/or use of iterative reconstruction technique. IV contrast: 100 mL Visipaque 320 IV Radiation dose (DLP): 562.64 MGy-cm. Comparison: CT chest with contrast performed 05/31/18 Findings: Right-sided MediPort extends to the cavoatrial junction. Visualized portions of the inferior thyroid gland appear unremarkable. The mediastinal and hilar vascular structures appear within normal limits. The heart appears within normal limits of size. There is nondiagnostic opacification of the pulmonary arteries due to missed bolus of the intravenous contrast precluding adequate evaluation for pulmonary embolus. No focal consolidation. No pleural effusion. No pneumothorax. No suspicious pulmonary nodules identified measuring greater than 5 mm. Distal esophageal wall thickening. Fluid/infiltration of the left chest wall. Limited visualized portions of the upper abdomen appear grossly unremarkable. Osseous demineralization. Degenerative changes. Impression: There is nondiagnostic opacification of the pulmonary arteries due to missed bolus of the intravenous contrast precluding adequate evaluation for pulmonary embolus. Fluid/infiltration of the left chest wall. Distal esophageal wall thickening. No focal consolidation, pleural effusion, or pneumothorax.
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
[2018-10-10] MEDS ORDERED: Glucagon Recombinant 1 mg Inj IM PRN (20:45)
[2018-10-10] MEDS ORDERED: Dextrose 50% SYRINGE Inj (50 ml) IV PRN (20:45)
[2018-10-10] MEDS: (Novolin R) Insulin Human Regular 100 units/ml vial SC SCH (21:28)
[2018-10-10] MEDS: Lactobacillus Acidophilus 500 MU Cap PO SCH (23:10)
[2018-10-10] MEDS: Oxycodone/Acetaminophen 5/325 mg Tab PO PRN (23:10)
[2018-10-10] MEDS: Amoxicillin-Clav 875-125 mg Tab PO SCH (23:10)
[2018-10-10] MEDS: Rosuvastatin Calcium 2.5 mg Tab PO SCH (23:12)
[2018-10-10 23:57] VITALS: BMI 30.5
[2018-10-11] MEDS ORDERED: Gadodiamide 287 mg/ml 20 ml IV ONE (01:00)
[2018-10-11] MEDS: Oxycodone/Acetaminophen 5/325 mg Tab PO PRN ×3 (05:31→22:03)
[2018-10-11] MEDS: (Novolin R) Insulin Human Regular 100 units/ml vial SC SCH ×4 (07:37→22:48)
[2018-10-11 08:00] LABS: BASO % 0.3 % (0.0-2.0); EOS # 0.1 K/uL (0.0-0.7); EOS % 1.5 % (0.0-4.0); HEMOGLOBIN 11.4 g/dL (11.0-16.0); LYMPH # 1.5 K/uL (1.0-4.3); MEAN CELL VOLUME 87.7 fL (81.0-99.0); MEAN CORPUSCULAR HEMOGLOBIN 29.6 pg (27.0-31.0); MEAN CORPUSCULAR HGB CONC 33.7 g/dL (33.0-37.0); MEAN PLATELET VOLUME 7.6 fL (7.2-11.7); MONO # 0.6 K/uL (0.0-0.8); MONO % 6.9 % (0.0-10.0); NEUT % 75.3 % (50.0-75.0); RBC 3.85 Mil/uL (3.80-5.20); RED CELL DISTRIBUTION WIDTH 15.3 % (11.5-14.5); WHITE BLOOD COUNT 9.3 K/uL (4.8-10.8)
[2018-10-11 08:12] LABS: ALB/GLOB RATIO 1.2 (1.0-2.1); ALBUMIN 3.7 g/dL (3.5-5.0); ALT/SGPT 16 U/L (9-52); AST/SGOT 22 U/L (14-36); BLOOD UREA NITROGEN 19 mg/dL (7-17); CALCIUM 9.1 mg/dl (8.6-10.4); GFR NON-AFRICAN AMERICAN 57
--- NOTE | 2018-10-11 08:55 | CP.PCM.PN ---
Objective - Vital Signs/Intake and Output Vital Signs (last 24 hours): Temp Pulse Resp BP Pulse Ox 97.9 F 70 20 106/74 95 10/11/18 07:40 10/11/18 07:40 10/11/18 07:40 10/11/18 07:40 10/11/18 07:40 - Medications Medications: Current Medications Acetaminophen (Tylenol 325mg Tab) 650 mg PO Q6 PRN PRN Reason: Pain, Mild (1-3) Last Admin: 10/11/18 03:07 Dose: 650 mg Amoxicillin/Clavulanate Potassium (Augmentin 875 Mg-125 Mg Tab) 1 tab PO Q12H [facility]; Protocol Last Admin: 10/10/18 23:10 Dose: 1 tab Dextrose (Dextrose 50% Inj) 0 ml IV STAT PRN; Protocol PRN Reason: Hypoglycemia Protocol Dextrose (Glutose 15) 0 gm PO ONCE PRN; Protocol PRN Reason: Hypoglycemia Protocol Enalapril Maleate (Vasotec) 5 mg PO DAILY [facility] Famotidine (Pepcid) 20 mg PO DAILY [facility] Glucagon (Glucagen Diagnostic Kit) 0 mg IM STAT PRN; Protocol PRN Reason: Hypoglycemia Protocol Heparin Sodium (Porcine) (Heparin) 5,000 units SC Q12H [facility] Dextrose (Dextrose 5% In Water 1000 Ml) 1,000 mls @ 0 mls/hr IV .Q0M PRN; Protocol PRN Reason: Hypoglycemia Protocol Ibuprofen (Motrin Tab) 600 mg PO TID PRN PRN Reason: Pain, moderate (4-7) Insulin Human Regular (Novolin R) 0 unit SC ACHS [facility]; Protocol Last Admin: 10/11/18 07:37 Dose: Not Given Lactobacillus Acidophilus (Lactobacillus) 1 cap PO BID [facility] Last Admin: 10/10/18 23:10 Dose: 1 cap Metoprolol Succinate (Toprol Xl) 25 mg PO BID [facility] Ondansetron HCl (Zofran Inj) 4 mg IVP Q6H PRN PRN Reason: Nausea/Vomiting Last Admin: 10/11/18 03:06 Dose: 4 mg Oxycodone/Acetaminophen (Percocet 5/325 Mg Tab) 1 tab PO Q6H PRN PRN Reason: Pain, severe (8-10) Stop: 10/13/18 22:30 Last Admin: 10/11/18 05:31 Dose: 1 tab Rosuvastatin Calcium (Crestor) 2.5 mg PO [facility] Last Admin: 10/10/18 23:12 Dose: 2.5 mg - Labs Labs: 10/11/18 07:37 10/11/18 07:37
[2018-10-11] MEDS: Lactobacillus Acidophilus 500 MU Cap PO SCH ×2 (09:12→18:02)
[2018-10-11] MEDS: Metoprolol Succinate 25 mg XL Tab PO SCH ×2 (09:13→20:06)
--- NOTE | 2018-10-11 09:56 | CT ---
Date of service: 10/10/2018 PROCEDURE: CT HEAD WITHOUT CONTRAST. HISTORY: headache COMPARISON: None available. TECHNIQUE: Axial computed tomography images were obtained through the head/brain without intravenous contrast. Radiation dose: Total exam DLP = 1033.92 mGy-cm. This CT exam was performed using one or more of the following dose reduction techniques: Automated exposure control, adjustment of the mA and/or kV according to patient size, and/or use of iterative reconstruction technique. FINDINGS: HEMORRHAGE: No intracranial hemorrhage. BRAIN: No mass effect or edema. No atrophy or chronic microvascular ischemic changes. VENTRICLES: Unremarkable. No hydrocephalus. CALVARIUM: Unremarkable. PARANASAL SINUSES: Unremarkable as visualized. No significant inflammatory changes. MASTOID AIR CELLS: Unremarkable as visualized. No inflammatory changes. OTHER FINDINGS: None. IMPRESSION: Normal CT of the Head.
[2018-10-11] MEDS ORDERED: Pantoprazole 20 mg EC Tab PO SCH (10:00)
--- NOTE | 2018-10-11 10:00 | CT ---
Date of service: 10/10/2018 PROCEDURE: CT MAXILLOFACIAL BONES WITHOUT CONTRAST HISTORY: headache COMPARISON: None available. TECHNIQUE: Contiguous axial CT images of the maxillofacial bones were obtained. Coronal and sagittal reformats were generated. Radiation dose: Total exam DLP = 695.44 mGy-cm. This CT exam was performed using one or more of the following dose reduction techniques: Automated exposure control, adjustment of the mA and/or kV according to patient size, and/or use of iterative reconstruction technique. FINDINGS: NASAL BONES: Unremarkable. ORBITS: Unremarkable. PARANASAL SINUSES/ MASTOIDS: Clear. MAXILLA: Unremarkable. MANDIBLE/ TEMPOROMANDIBULAR JOINTS: Unremarkable. SKULL BASE: Unremarkable. TEMPORAL BONES: Middle ears and mastoid grossly unremarkable. OTHER FINDINGS: None. IMPRESSION: Unremarkable non contrast enhanced CT of the maxillofacial bones.
--- NOTE | 2018-10-11 10:07 | CP.PCM.PN ---
<Oswaldo Chen - Last Filed: 10/11/18 12:10> Subjective - Date & Time of Evaluation Date of Evaluation: 10/11/18 Time of Evaluation: 11:30 - Subjective Subjective: PGY1 Medicine progress note for Dr. Reynolds Patient seen and examined at bedside in no acute distress. Patient denies any acute events or problems overnight but had difficulty sleeping due to chronic head and neck pain. The patients pain is better with Percocet and Meclizine. She endorses nausea/vomiting intermittently since [place] [facility] [place] denies fevers, chills, chets pain, sob, lightheadedness, vision changes, cough, dysuria, burning on urination, incontinence, constipation, numbness or tingling. Tolerating food without difficulties at this time. Objective - Vital Signs/Intake and Output Vital Signs (last 24 hours): Temp Pulse Resp BP Pulse Ox 97.9 F 76 20 113/78 95 10/11/18 07:40 10/11/18 09:14 10/11/18 07:40 10/11/18 09:14 10/11/18 07:40 - Medications Medications: Current Medications Acetaminophen (Tylenol 325mg Tab) 650 mg PO Q6 PRN PRN Reason: Pain, Mild (1-3) Last Admin: 10/11/18 03:07 Dose: 650 mg Amoxicillin/Clavulanate Potassium (Augmentin 875 Mg-125 Mg Tab) 1 tab PO Q12H [facility]; Protocol Last Admin: 10/10/18 23:10 Dose: 1 tab Dextrose (Dextrose 50% Inj) 0 ml IV STAT PRN; Protocol PRN Reason: Hypoglycemia Protocol Dextrose (Glutose 15) 0 gm PO ONCE PRN; Protocol PRN Reason: Hypoglycemia Protocol Enalapril Maleate (Vasotec) 5 mg PO DAILY [facility] Famotidine (Pepcid) [address] [facility] Last Admin: 10/11/18 09:13 Dose: 20 mg Glucagon (Glucagen Diagnostic Kit) 0 mg IM STAT PRN; Protocol PRN Reason: Hypoglycemia Protocol Heparin Sodium (Porcine) (Heparin) 5,000 units SC Q12H [facility] Dextrose (Dextrose 5% In Water 1000 Ml) 1,000 mls @ 0 mls/hr IV .Q0M PRN; Protocol PRN Reason: Hypoglycemia Protocol Ibuprofen (Motrin Tab) 600 mg PO TID PRN PRN Reason: Pain, moderate (4-7) Last Admin: 10/11/18 09:12 Dose: 600 mg Insulin Human Regular (Novolin R) 0 unit SC [facility]; Protocol Last Admin: 10/11/18 07:37 Dose: Not Given Lactobacillus Acidophilus (Lactobacillus) [address] [facility] Last Admin: 10/11/18 09:12 Dose: 1 cap Metoprolol Succinate (Toprol Xl) [address] [facility] Last Admin: 10/11/18 09:13 Dose: 25 mg Ondansetron HCl (Zofran Inj) 4 mg IVP Q6H PRN PRN Reason: Nausea/Vomiting Last Admin: 10/11/18 03:06 Dose: 4 mg Oxycodone/Acetaminophen (Percocet 5/325 Mg Tab) 1 tab PO Q6H PRN PRN Reason: Pain, severe (8-10) Stop: 10/13/18 22:30 Last Admin: 10/11/18 05:31 Dose: 1 tab Rosuvastatin Calcium (Crestor) 2.[address] [facility] Last Admin: 10/10/18 23:12 Dose: 2.5 mg - Labs Labs: 10/11/18 07:37 10/11/18 07:37 - Additional Findings Additional findings: - Constitutional Appears: Non-toxic, No Acute Distress - Head Exam Head Exam: ATRAUMATIC, NORMAL INSPECTION - Eye Exam Eye Exam: EOMI, Normal appearance, PERRL - ENT Exam ENT Exam: Mucous Membranes Moist - Neck Exam Neck exam: Bilateral hypertonicity and tenderness of cervical paravertebrals and trapezius. Negative for: Lymphadenopathy - Respiratory Exam Respiratory Exam: Clear to Auscultation Bilateral, NORMAL BREATHING PATTERN - Cardiovascular Exam Cardiovascular Exam: REGULAR RHYTHM, +S1, +S2 - GI/Abdominal Exam GI & Abdominal Exam: Normal Bowel Sounds, Soft. Minimal diffuse abdominal tenderness. absent: Rebound, rigidity, distention, peritoneal signs. - Extremities Exam Extremities exam: Positive for: normal inspection - Neurological Exam Neurological exam: Alert, CN II-XII Intact (decreased on the left side, which is chronic as per pt), Oriented x3. RUE 5/5, LUE 4/5, RLE 5/5, LLE: 4/5 (chronic as per pt). Normal babinski reflex bilaterally. - Psychiatric Exam Psychiatric exam: Normal Affect, Normal Mood - Skin Skin Exam: Dry, Normal Color, Warm Assessment and Plan - Assessment and Plan (Free Text) Assessment: Patient is a 58 yo female with a history of breast cancer s/p mastectomy and chemoradiation, unspecified brain tumor, HTN, T2DM, asthma, depression, and glaucoma who presents with headache and vomiting. Plan: Headache, Nausea, Vomiting, resolved Hx gastric sleeve - headache likely due to chronic neck pain - nausea/vomiting possibly due to gastritis; pt will need outpatient EGD - Outpatient MRI (08/18/18): Left cerebral contrast-enhancing lesion has increased in size compared to October 2017. Also a slight amount of surrounding edema. Findings most likely represent a slow-growing neoplasm. - Trop negative x3 - CT head: no acute findings - CT maxillofacial: unremarkable - CCC/HHD - Augmentin 875-125 mg PO BID - Lactobacillus PO BID - Zofran 4 mg IVP Q6H PRN - Tylenol 650 mg PO Q6H PRN - Motrin 600 mg PO TID PRN - Percocet 5/325 mg PO Q6H PRN - Neurology consulted (Henry) - F/u brain MRI with and without contrast Chest pain and Shortness of breath, resolved - D-dimer 673, which is chronic (487 on 08/2017). Pt without lower extremity swelling/tenderness, not tachycardic, normal pulse oximetry, prior chest CTA normal, no shortness of breath. - CTA: nondiagnostic (mistimed contrast bolus) Diarrhea, resolved Breast cancer s/p mastectomy and chemoradiation - Hem/onc consulted (Radha) Type 2 diabetes mellitus, chronic - HgbA1c is 6.2 - Accuchecks ACHS - Hypoglycemia protocol - ISS low - Hold home metformin 500 mg PO BID, Glipizide 2.5 mg PO daily - Patient allergic to aspirin - Crestor 2.5 mg PO QHS Hypertension, chronic - Vitals Q6H - Enalapril 5 mg PO daily - Metoprolol 25 mg PO BID Ppx: VTE: SCDs, Heparin 5000 units SC Q12H GI: Pepcid 20 mg PO daily Diet: CCD/HHD Code status: full code Case discussed with Dr. Gail Chen PGY1 <Panfilo Reynolds - Last Filed: 10/12/18 16:08> Objective - Vital Signs/Intake and Output Vital Signs (last 24 hours): Temp Pulse Resp BP Pulse Ox 98.1 F 59 L 20 126/83 96 10/12/18 07:00 10/12/18 08:00 10/12/18 07:00 10/12/18 09:37 10/12/18 07:00 - Labs Labs: 10/12/18 06:15 10/12/18 06:15 Attending/Attestation - Attestation I have personally seen and examined this patient.: Yes I have fully participated in the care of the patient.: Yes I have reviewed all pertinent clinical information, including history, physical exam and plan: Yes Notes (Text): seen and examined,has headache,no vomting came for headache and vomting. h/o breat cancer ,possible mets to brain MRI finding discussed with Dr ortiz. patient was told about suspicious for malignancy started on decadron . spoke to Dr Henry possible discharge tomorrow if no vomiting,c/o diarrhea,stool CD negative
[2018-10-11] MEDS: Amoxicillin-Clav 875-125 mg Tab PO SCH (11:19)
--- NOTE | 2018-10-11 14:25 | MRI ---
Date of service: 10/11/2018 PROCEDURE: MRI BRAIN WITH AND WITHOUT CONTRAST HISTORY: headache, n/v, h/o brain tumor COMPARISON: 05/15/2017 TECHNIQUE: Multiplanar, multisequence MR images of the brain were obtained with and without intravenous contrast enhancement. FINDINGS: HEMORRHAGE: None DWI: No evidence of an acute or early subacute infarction. BRAIN PARENCHYMA: New 12 millimeter enhancing mass in the left parietal lobe. Mild surrounding edema. No atrophy or chronic microvascular ischemic changes. ENHANCEMENT: No abnormal intracranial enhancement. VENTRICLES: Unremarkable. No hydrocephalus. CRANIUM: Unremarkable. ORBITS: Grossly unremarkable. PARANASAL SINUSES/MASTOIDS: Clear VASCULAR SYSTEM: Skull base flow voids intact. OTHER FINDINGS: None . IMPRESSION: New 12 millimeter enhancing mass in the left parietal lobe. This probably represents a metastasis.
--- NOTE | 2018-10-11 15:29 | CARD ---
APPROVED REPORT Date of service: 10/10/2018 EKG Measurement Heart [id number] <Conclusion> Normal sinus rhythm Normal ECG
[2018-10-11] MEDS: Dexamethasone 4 mg/1 ml IVP SCH ×2 (16:01→21:54)
[2018-10-11 17:53] LABS: C DIFF TOXIN A B NEGATIVE (NEGATIVE)
[2018-10-11 19:19] LABS: FECAL LEUKOCYTES NEGATIVE (NEGATIVE)
[2018-10-11] MEDS: Rosuvastatin Calcium 2.5 mg Tab PO SCH (21:54)
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
[2018-10-12] MEDS: Dexamethasone 4 mg/1 ml IVP SCH ×3 (02:37→14:04)
[2018-10-12] MEDS: Oxycodone/Acetaminophen 5/325 mg Tab PO PRN ×2 (05:32→13:06)
[2018-10-12 07:21] LABS: BASO # 0.1 K/uL (0.0-0.2); BASO % 0.5 % (0.0-2.0); HEMOGLOBIN 11.3 g/dL (11.0-16.0); LYMPH # 1.1 K/uL (1.0-4.3); LYMPH % 10.4 % (20.0-40.0); MEAN CORPUSCULAR HEMOGLOBIN 29.1 pg (27.0-31.0); MEAN CORPUSCULAR HGB CONC 33.4 g/dL (33.0-37.0); MEAN PLATELET VOLUME 7.6 fL (7.2-11.7); MONO # 0.1 K/uL (0.0-0.8); MONO % 1.4 % (0.0-10.0); NEUT % 87.7 % (50.0-75.0); RBC 3.87 Mil/uL (3.80-5.20); RED CELL DISTRIBUTION WIDTH 14.9 % (11.5-14.5); WHITE BLOOD COUNT 10.2 K/uL (4.8-10.8)
[2018-10-12 07:36] LABS: ALB/GLOB RATIO 1.3 (1.0-2.1); ALBUMIN 3.9 g/dL (3.5-5.0); ALT/SGPT 11 U/L (9-52); AST/SGOT 24 U/L (14-36); BLOOD UREA NITROGEN 20 mg/dL (7-17); CALCIUM 8.8 mg/dl (8.6-10.4); GFR NON-AFRICAN AMERICAN > 60
[2018-10-12 07:48] VITALS: RESP 20; TEMP 98.1; O2SAT 96
[2018-10-12] MEDS: (Novolin R) Insulin Human Regular 100 units/ml vial SC SCH ×2 (08:13→12:28)
[2018-10-12 08:16] VITALS: PULSE 59
[2018-10-12] MEDS: Lactobacillus Acidophilus 500 MU Cap PO SCH (09:37)
[2018-10-12] MEDS: Metoprolol Succinate 25 mg XL Tab PO SCH (09:37)
[2018-10-12 09:38] VITALS: BP 126/83
--- NOTE | 2018-10-12 09:47 | CP.PCM.DIS ---
<Oswaldo Chen - Last Filed: 10/14/18 18:27> Provider - Provider Date of Admission: 10/10/18 17:09 Attending physician: Amanda Mixon DO Consults: 10/10/18 22:25 Hematology Oncology Consult Routine Comment: Consulting Provider: Ezekiel Garcia Consulting Physician: Ezekiel Garcia Reason for Consult: breast CA, current patient Neurology Consult Routine Comment: Consulting Provider: Gayle Henry Consulting Physician: Gayle Henry Reason for Consult: headache, brain tumor 10/11/18 00:57 Physician Consult Routine Comment: Consulting Provider: Kalia Sher Consulting Physician: Kalia Sher Reason for Consult: glaucoma and headache Time Spent in preparation of Discharge (in minutes): 35 Diagnosis - Discharge Diagnosis (1) Atypical chest pain Status: Resolved (2) Shortness of breath Status: Resolved (3) Non-insulin dependent type 2 diabetes mellitus Status: Chronic (4) Brain tumor Status: Chronic (5) Breast cancer Status: Chronic (6) Headache Status: Resolved Priority: Medium (7) Hypertension Status: Chronic (8) Abdominal pain Status: Chronic Hospital Course - Lab Results Lab Results: Most Recent Lab Values WBC 10.2 K/uL (4.8-10.8) 10/12/18 06:15 RBC 3.87 Mil/uL (3.80-5.20) 10/12/18 06:15 Hgb 11.3 g/dL (11.0-16.0) 10/12/18 06:15 Hct 33.7 % (34.0-47.0) L 10/12/18 06:15 MCV 87.0 fL (81.0-99.0) 10/12/18 06:15 MCH 29.1 pg (27.0-31.0) 10/12/18 06:15 MCHC 33.4 g/dL (33.0-37.0) 10/12/18 06:15 RDW 14.9 % (11.5-14.5) H 10/12/18 06:15 Plt Count 293 K/uL (130-400) 10/12/18 06:15 MPV 7.6 fL (7.2-11.7) 10/12/18 06:15 Neut % (Auto) 87.7 % (50.0-75.0) H 10/12/18 06:15 Lymph % (Auto) 10.4 % (20.0-40.0) L 10/12/18 06:15 [place] % (Auto) 1.4 % (0.0-10.0) 10/12/18 06:15 Eos % (Auto) 0.0 % (0.0-4.0) 10/12/18 06:15 Baso % (Auto) 0.5 % (0.0-2.0) 10/12/18 06:15 Neut # (Auto) 9.0 K/uL (1.8-7.0) H 10/12/18 06:15 Lymph # (Auto) 1.1 K/uL (1.0-4.3) 10/12/18 06:15 [place] # (Auto) 0.1 K/uL (0.0-0.8) 10/12/18 06:15 Eos # (Auto) 0.0 K/uL (0.0-0.7) 10/12/18 06:15 Baso # (Auto) 0.1 K/uL (0.0-0.2) 10/12/18 06:15 D-Dimer, Quantitative 673 ng/mlDDU (0-243) H 10/10/18 12:05 Sodium 134 mmol/L (132-148) 10/12/18 06:15 Potassium 4.3 mmol/L (3.6-5.2) 10/12/18 06:15 Chloride 102 mmol/L (98-107) 10/12/18 06:15 Carbon Dioxide 21 mmol/L (22-30) L 10/12/18 06:15 Anion Gap 15 (10-20) 10/12/18 06:15 BUN 20 mg/dL (7-17) H 10/12/18 06:15 Creatinine 0.9 mg/dL (0.7-1.2) 10/12/18 06:15 Est GFR ( Amer) > 60 10/12/18 06:15 Est GFR (Non-Af Amer) > 60 10/12/18 06:15 POC Glucose (mg/dL) 144 mg/dL (65-110) H 10/12/18 05:57 Random Glucose 132 mg/dL (65-105) H D 10/12/18 06:15 Hemoglobin A1c 6.2 % (4.2-6.5) 10/11/18 07:37 Calcium 8.8 mg/dl (8.6-10.4) 10/12/18 06:15 Phosphorus 3.4 mg/dL (2.5-4.5) 10/12/18 06:15 Magnesium 2.0 mg/dL (1.6-2.3) 10/12/18 06:15 Total Bilirubin 0.2 mg/dL (0.2-1.3) 10/12/18 06:15 AST 24 U/L (14-36) 10/12/18 06:15 ALT 11 U/L (9-52) 10/12/18 06:15 Alkaline Phosphatase 96 U/L (38-126) 10/12/18 06:15 Troponin I < 0.0120 ng/mL (0.00-0.120) 10/10/18 18:15 Total Protein 6.9 g/dL (6.3-8.3) 10/12/18 06:15 Albumin 3.9 g/dL (3.5-5.0) 10/12/18 06:15 Globulin 3.0 gm/dL (2.2-3.9) 10/12/18 06:15 Albumin/Globulin Ratio 1.3 (1.0-2.1) 10/12/18 06:15 Stool Leukocytes, Qual Negative (NEGATIVE) 10/10/18 16:15 C. difficile Ag & Toxin Negative (NEGATIVE) 10/10/18 16:15 - Hospital Course Hospital Course: On admission: Patient is a 58 yo female with a history of breast cancer s/p mastectomy and chemoradiation, unspecified brain tumor, HTN, T2DM, asthma, depression, and glaucoma who presents with headache and vomiting. Patient's son is present at bedside who helps provide the history. Patient states that she has had an intermittent headache located in the frontal and occipital regions for over a month. She also describes sinus pressure. She endorses photophobia. Denies dizziness/lightheadedness, LOC, vision or hearing changes. She says this is unlike headaches she got prior which she describes as right-sided radiating from her eye. She reports seeing a doctor for a "brain tumor" that is unrelated to her breast cancer that they are currently just observing. She is scheduled for her next brain MRI in October. She also says that she had hardly been able to keep down any food or drink as she has been nauseated and vomiting daily. She is also complaining of intermittent chest pain and SOB, usually associated with her vomiting episodes. She reports telling her oncologist, Dr. Garcia, about her symptoms. She states that he gave her a medication but it has not helped. Additionally, she reports one episode of watery diarrhea today. Hospital course: Head CT shows no acute findings. Pt presents with outpatient MRI (08/18/18) Left cerebral contrast-enhancing lesion has increased in size compared to October 2017. Also a slight amount of surrounding edema. Findings most likely represent a slow-growing neoplasm. Maxillofacial CT showed no acute findings. Neurology, Dr. Henry, consulted. Oncology, Dr. Garcia, consulted MRI (10/11) redemonstrated findings on outpatient MRI. Chest pain resolved overnight, troponin x 3 negative, EKG unremarkable. DDimer elevated at 673, it was elevated to 487 on 08/2017 as well. Pt without lower extremity swelling/tenderness, not tachycardic, normal pulse oximetry, prior chest CTA normal, no shortness of breath. Chest CTA 10/12: nondiagnostic (mistimed contrast bolus) Headache resolved with motrin/tylenol/percocet, but most alleviation was given with Decadron. Case discussed with Dr. Garcia, who recommends Decadron 4 mg PO BID until she follows up with her neurosurgeon Dr. Almaraz. On discharge interview, pt reports feeling much better. Denies fevers, chills, chest pain, sob, lightheadedness, vision changes, cough, dysuria, burning on urination, incontinence, constipation, numbness or tingling. Tolerating food without difficulties, no vomiting or diarrhea. This is a summary of the hospital course. Please see EMR for full details. Discharge Exam - Additional Findings Additional findings: - Constitutional Appears: Non-toxic, No Acute Distress - Head Exam Head Exam: ATRAUMATIC, NORMAL INSPECTION - Eye Exam Eye Exam: EOMI, Normal appearance, PERRL - ENT Exam ENT Exam: Mucous Membranes Moist - Neck Exam Neck exam: Bilateral hypertonicity and tenderness of cervical paravertebrals and trapezius. Negative for: Lymphadenopathy - Respiratory Exam Respiratory Exam: Clear to Auscultation Bilateral, NORMAL BREATHING PATTERN - Cardiovascular Exam Cardiovascular Exam: REGULAR RHYTHM, +S1, +S2 - GI/Abdominal Exam GI & Abdominal Exam: Normal Bowel Sounds, Soft. Minimal diffuse abdominal tend erness. absent: Rebound, rigidity, distention, peritoneal signs. - Extremities Exam Extremities exam: Positive for: normal inspection - Neurological Exam Neurological exam: Alert, CN II-XII Intact (decreased on the left side, which is chronic as per pt), Oriented x3. RUE 5/5, LUE 4/5, RLE 5/5, LLE: 4/5 (chronic as per pt). Normal babinski reflex bilaterally. - Psychiatric Exam Psychiatric exam: Normal Affect, Normal Mood - Skin Skin Exam: Dry, Normal Color, Warm Discharge Plan - Discharge Medications Prescriptions: Dexamethasone [Decadron] 4 mg PO BID #20 tab - Follow Up Plan Condition: STABLE Disposition: HOME/ ROUTINE Instructions: Dexamethasone (Systemic), Headache, Adult (DC), Acute Abdominal Pain (DC), Acute Abdominal Pain (GEN) Additional Instructions: Patient is medically stable for discharge home. Patient should resume home medications as previously prescribed. Additionally, pt should start the following medication and continue it until seeing your neurosurgeon. Dexamethasone 4 mg one tab by mouth twice daily, 8 am and 8 pm. #20 Please follow up with Dr. Amanda Almaraz, Neurosurgery, within 1 week of discharge home. As discussed with Dr. Garcia, Oncology, pt should follow up at his office after seeing Neurosurgery. Patient should see her PMD within 2 weeks of discharge. Patient provided with copy of MRI done while inpatient at [facility]. Should symptoms worsen. Please head to the nearest Emergency Department for further evaluation. Instructions explained to the patient, who understands and agrees with discharge plan. El paciente se encuentra mdicamente estable para el seble domiciliaria. El paciente debe reanudar los medicamentos caseros kristy se prescribi anteriormente. Adems, debe comenzar el siguiente medicamento y continuar hasta que bo a forde neurocirujano. Dexamethasone 4 mg tisha pestaa por va oral dos veces al da, de 8 am a 8 pm # 20 Por favor zachariah un seguimiento con la Dra. Amanda Almaraz, Neurosurgery, dentro de la primera semana despus del seble hospitalaria. Kristy se discuti con el Dr. Garcia, Oncology, pt debe hacer un seguimiento en forde oficina despus de dee Neurociruga. El paciente debe dee forde PMD dentro de las 2 semanas posteriores al seble. El paciente recibi tisha copia de la MRI realizada mientras estaba internada en el [facility]. En sara de empeorar los sntomas. Dirjase al Departamento de Emergencias ms cercano para tisha evaluacin adicional. Instrucciones explicadas al paciente, que entiende y est de acuerdo con el plan de seble. Referrals: Ezekiel Garcia MD [Staff Provider] - Gayle Henry MD [Staff Provider] - Kalia Sher MD [Staff Provider] - <Panfilo Reynolds - Last Filed: 10/14/18 19:23> Provider - Provider Date of Admission: 10/10/18 17:09 Attending physician: Amanda Mixon, Consults: 10/10/18 22:25 Hematology Oncology Consult Routine Comment: Consulting Provider: Ezekiel Garcia Consulting Physician: Ezekiel Garcia Reason for Consult: breast CA, current patient Neurology Consult Routine Comment: Consulting Provider: Gayle Henry Consulting Physician: Gayle Henry Reason for Consult: headache, brain tumor 10/11/18 00:57 Physician Consult Routine Comment: Consulting Provider: Kalia Sher Consulting Physician: Kalia Sher Reason for Consult: glaucoma and headache Hospital Course - Lab Results Lab Results: Micro Results 10/11/18 17:04 Stool Stool Culture - Final NO SALMONELLA, SHIGELLA OR CAMPYLOBACTER ISOLATED. 10/11/18 17:04 Stool Ova and Parasite Concentrate Exam - Final Most Recent Lab Values WBC 10.2 K/uL (4.8-10.8) 10/12/18 06:15 RBC 3.87 Mil/uL (3.80-5.20) 10/12/18 06:15 Hgb 11.3 g/dL (11.0-16.0) 10/12/18 06:15 Hct 33.7 % (34.0-47.0) L 10/12/18 06:15 MCV 87.0 fL (81.0-99.0) 10/12/18 06:15 MCH 29.1 pg (27.0-31.0) 10/12/18 06:15 MCHC 33.4 g/dL (33.0-37.0) 10/12/18 06:15 RDW 14.9 % (11.5-14.5) H 10/12/18 06:15 Plt Count 293 K/uL (130-400) 10/12/18 06:15 MPV 7.6 fL (7.2-11.7) 10/12/18 06:15 Neut % (Auto) 87.7 % (50.0-75.0) H 10/12/18 06:15 Lymph % (Auto) 10.4 % (20.0-40.0) L 10/12/18 06:15 [place] % (Auto) 1.4 % (0.0-10.0) 10/12/18 06:15 Eos % (Auto) 0.0 % (0.0-4.0) 10/12/18 06:15 Baso % (Auto) 0.5 % (0.0-2.0) 10/12/18 06:15 Neut # (Auto) 9.0 K/uL (1.8-7.0) H 10/12/18 06:15 Lymph # (Auto) 1.1 K/uL (1.0-4.3) 10/12/18 06:15 [place] # (Auto) 0.1 K/uL (0.0-0.8) 10/12/18 06:15 Eos # (Auto) 0.0 K/uL (0.0-0.7) 10/12/18 06:15 Baso # (Auto) 0.1 K/uL (0.0-0.2) 10/12/18 06:15 D-Dimer, Quantitative 673 ng/mlDDU (0-243) H 10/10/18 12:05 Sodium 134 mmol/L (132-148) 10/12/18 06:15 Potassium 4.3 mmol/L (3.6-5.2) 10/12/18 06:15 Chloride 102 mmol/L (98-107) 10/12/18 06:15 Carbon Dioxide 21 mmol/L (22-30) L 10/12/18 06:15 Anion Gap 15 (10-20) 10/12/18 06:15 BUN 20 mg/dL (7-17) H 10/12/18 06:15 Creatinine 0.9 mg/dL (0.7-1.2) 10/12/18 06:15 Est GFR ( Amer) > 60 10/12/18 06:15 Est GFR (Non-Af Amer) > 60 10/12/18 06:15 POC Glucose (mg/dL) 178 mg/dL (65-110) H 10/12/18 11:16 Random Glucose 132 mg/dL (65-105) H D 10/12/18 06:15 Hemoglobin A1c 6.2 % (4.2-6.5) 10/11/18 07:37 Calcium 8.8 mg/dl (8.6-10.4) 10/12/18 06:15 Phosphorus 3.4 mg/dL (2.5-4.5) 10/12/18 06:15 Magnesium 2.0 mg/dL (1.6-2.3) 10/12/18 06:15 Total Bilirubin 0.2 mg/dL (0.2-1.3) 10/12/18 06:15 AST 24 U/L (14-36) 10/12/18 06:15 ALT 11 U/L (9-52) 10/12/18 06:15 Alkaline Phosphatase 96 U/L (38-126) 10/12/18 06:15 Troponin I < 0.0120 ng/mL (0.00-0.120) 10/10/18 18:15 Total Protein 6.9 g/dL (6.3-8.3) 10/12/18 06:15 Albumin 3.9 g/dL (3.5-5.0) 10/12/18 06:15 Globulin 3.0 gm/dL (2.2-3.9) 10/12/18 06:15 Albumin/Globulin Ratio 1.3 (1.0-2.1) 10/12/18 06:15 Stool Leukocytes, Qual Negative (NEGATIVE) 10/10/18 16:15 Stl Cryptosporidium Ag Not detected (Not detected) 10/11/18 17:04 C. difficile Ag & Toxin Negative (NEGATIVE) 10/10/18 16:15 Cryptosp/Giardia Source Stool 10/11/18 17:04 Giardia Antigen Not detected (Not Detected) 10/11/18 17:04 Attending/Attestation - Attestation I have personally seen and examined this patient.: Yes I have fully participated in the care of the patient.: Yes I have reviewed all pertinent clinical information, including history, physical exam and plan: Yes Notes (Text): seen and examined,stable for discharge. detail discharge instruction given to the patient
[2018-10-12] MEDS ORDERED: Arformoterol 15 mcg/2 ml Inh Sol INH SCH (10:00)
[2018-10-12] MEDS ORDERED: Budesonide 0.25 mg/2 ml Inhal Susp UD INH SCH (20:00)
[2018-10-13 16:17] LABS: SOURCE STOOL
== END 2018-10-12 15:09 | disposition home or self-care (01) ==
LOC: C.ER 11:06 → C.9E 17:09 → C.5S 21:53
PROVIDERS: ADMIT Hospitalist; ATTEND Hospitalist
DX: C79.31 Secondary malignant neoplasm of brain (principal); C50.919 Malignant neoplasm of unspecified site of unspecified female breast; D64.9 Anemia, unspecified; E11.9 Type 2 diabetes mellitus without complications; I10 Essential (primary) hypertension; J45.909 Unspecified asthma, uncomplicated; G93.6 Cerebral edema; E78.00 Pure hypercholesterolemia, unspecified; E78.5 Hyperlipidemia, unspecified; Z86.010 Personal history of colon polyps; F32.9 Major depressive disorder, single episode, unspecified; G47.30 Sleep apnea, unspecified; H40.9 Unspecified glaucoma; M81.0 Age-related osteoporosis without current pathological fracture; Z17.0 Estrogen receptor positive status [ER+]; Z79.810 Long term (current) use of selective estrogen receptor modulators (SERMs); Z80.3 Family history of malignant neoplasm of breast; Z80.42 Family history of malignant neoplasm of prostate; Z85.3 Personal history of malignant neoplasm of breast; Z90.13 Acquired absence of bilateral breasts and nipples; Z92.21 Personal history of antineoplastic chemotherapy; Z92.3 Personal history of irradiation; Z98.82 Breast implant status; Z98.84 Bariatric surgery status
CPT/HCPCS: 36415; 70450; 70486; 70553; 71046; 71275; 80053; 82948; 83036; 83735; 84100; 84484; 85025; 85378; 87015; 87045; 87177; 87209; 87230; 87272; 87329; 89055; 93005; 96372; 96374; 96375; 96376; 99285; A9579; G0378; J1100; J1642; J1644; J2405; J7030; Q9967